=== PATIENT | female | born 1950 | race Caucasian/White ===

== ENCOUNTER 2016-05-06 15:13 | Inpatient (IN) ==
[2016-05-06 16:04] LABS: Basophils % 0.2 %; Hematocrit 29.8 % (35.3-44.9); Hemoglobin 8.7 g/dL (11.5-15.4); Immature Granulocytes % 0.7 % (0-4); Lymphocytes # 1.7 K/mcL (0.6-4.6); Mean Corpuscular HGB Conc 29.2 g/dL (31.6-35.5); Mean Corpuscular Hemoglobin 23.6 pg (28.0-33.3); Mean Platelet Volume 10.3 fL (9.4-12.4); Monocytes # 0.6 K/mcL (0.0-1.3); Monocytes % 6.2 %; Neutrophils # 7.5 K/mcL (1.6-8.9); Platelet Count 357 K/mcL (140-400); Red Blood Count 3.68 M/mcL (3.82-4.97); Red Cell Distribution Width 21.2 % (11.5-14.5); Segmented Neutrophils % 75.9 %
[2016-05-06 16:13] LABS: Albumin 2.8 g/dL (3.5-5.0); Albumin/Globulin Ratio 0.7 (1.1-2.2); Bilirubin,Total 0.5 mg/dL (0.2-1.2); Calcium 8.7 mg/dL (8.6-10.8); Globulin 4.2 g/dL (2.4-3.5); Potassium 5.3 mEq/L (3.5-4.5)
[2016-05-06 16:14] LABS: Activated Partial Thrombo Time 30.6 Seconds (26.0-36.0)
[2016-05-06 16:16] LABS: INR 1.9; Prothrombin Time 21.1 Seconds (9.4-12.1)
--- NOTE | 2016-05-06 16:23 | Emergency Department Note ---
Disposition Clinical Impression: Acute kidney injury, Hyperkalemia Disposition: Admitted As Inpatient Referrals: NO,PCP [Non-Partnered Physician] - Forms: ED Satisfaction Letter Fall HPI - General Chief Complaint: ED Fall Stated Complaint: fall Time Seen by Provider: 05/06/16 15:21 Source: patient, EMS Nursing Notes Reviewed: Yes Vital Signs Reviewed: Yes - History of Present Illness HPI Narrative: Presents her complaining of fall happened earlier today. Patient states she slipped and fall. Patient states she has been having frequent falls ever since she was diagnosed urinary tract infection. Patient has some headache but denies head injury, patient denies shortness of breath. Patient denies fevers or chills associated with this. Patient states prior to the urinary tract infection she does have problems with falls. Patient denies chest pain or shortness of breath. Patient complains of left shoulder and pain to her coccyx. - Related Data Home Medications Medication Instructions Recorded Confirmed Rivaroxaban [Xarelto] 20 mg PO DAILY 11/18/15 05/06/16 Albuterol Neb [Proventil Neb] 2.5 mg IH Q6H PRN 05/06/16 Albuterol Sulfate [Proair Hfa] 2 puff IH QID PRN 05/06/16 Ciprofloxacin HCl [Cipro] 500 mg PO BID 05/06/16 05/06/16 Cyclobenzaprine HCl 5 mg PO TID 05/06/16 05/06/16 Dicyclomine [Bentyl] 10 mg PO QID 05/06/16 05/06/16 Digoxin [Lanoxin] 0.125 mg PO DAILY 05/06/16 05/06/16 Donepezil [Aricept] 5 mg PO HS 05/06/16 05/06/16 Esomeprazole Magnesium [Nexium] 40 mg PO BID 05/06/16 05/06/16 Etodolac [Etodolac] 300 mg PO BID 05/06/16 05/06/16 Fluticasone Propionate Nasal 100 mcg NS DAILY 05/06/16 [Flonase] Furosemide [Lasix] 40 mg PO DAILY 05/06/16 05/06/16 Gabapentin [Neurontin] 400 mg PO BID 05/06/16 05/06/16 Gabapentin [Neurontin] 800 mg PO HS 05/06/16 05/06/16 HYDROcodone/Acet 5/325 mg [Rule 1 tab PO Q6H PRN 05/06/16 05/06/16 5-325 mg] LORazepam [Ativan] 1 mg PO Q8H 05/06/16 05/06/16 Latanoprost [Xalatan] 1 drop OP HS 05/06/16 05/06/16 Lisinopril 2.5 mg PO DAILY 05/06/16 Lubiprostone [Amitiza] 24 mcg PO DAILY PRN 05/06/16 05/06/16 Memantine HCl [Namenda Xr] 28 mg PO DAILY 05/06/16 05/06/16 Metformin HCl [Glucophage] 1,000 mg PO BID 05/06/16 05/06/16 Metolazone [Metolazone] 2.5 mg PO DAILY 05/06/16 05/06/16 Metoprolol XL (24 HR) Succ [Toprol 50 mg PO DAILY 05/06/16 05/06/16 XL] Nitroglycerin [Nitrostat] 0.4 mg SL Q5M PRN 05/06/16 05/06/16 Paroxetine HCl [Paxil] 40 mg PO QAM 05/06/16 05/06/16 Potassium Chloride [K-Tab ER] 20 meq PO DAILY 05/06/16 05/06/16 Promethazine HCl 12.5 mg PO Q12H PRN 05/06/16 05/06/16 Riociguat [Adempas] 1 mg PO TID 05/06/16 05/06/16 Solifenacin Succinate [Vesicare] 10 mg PO DAILY 05/06/16 05/06/16 TraZODone 50 mg PO HS 05/06/16 05/06/16 Warfarin [Coumadin] 2.5 mg PO 1800 05/06/16 05/06/16 Allergies Allergy/AdvReac Type Severity Reaction Status Date / Time Penicillins AdvReac Rash Verified 11/18/15 18:17 IVP DYE Allergy Difficulty Uncoded 11/18/15 18:17 Breathing All systems ED: reviewed and negative except as stated. Fall PMH - Past Medical History Medical history: Reports: arthritis, asthma, CHF, COPD, dementia, diabetes, fibromyalgia, GERD, hyperlipidemia, hypertension, TIA Psychiatric history: Reports: depression - Social History Smoking Status: Never smoker Alcohol use: Reports: none Drug use: Reports: none Physical Exam - General Limitations: no limitations General appearance: alert - Head Head exam: atraumatic, normocephalic, normal inspection - Eye Eye exam: Present: normal appearance, PERRL, EOMI - ENT ENT exam: normal exam, normal oropharynx, mucous membranes moist - Neck Neck exam: Present: normal inspection, full ROM, trachea midline - Chest Chest inspection: Present: normal inspection, symmetric chest wall rise - Respiratory Respiratory exam: Present: normal lung sounds bilaterally - Cardiovascular Cardiovascular exam: Present: bradycardia - Abdominal Exam Abdominal exam: Present: soft, Non-Tender. Absent: tenderness, distention, guarding, rebound, rigidity - Extremities Exam Extremities exam: Present: normal inspection, full ROM. Absent: tenderness, pedal edema - Expanded Upper Extremity Exam Shoulder exam: Present: full ROM, tenderness (Anterior portion of the left shoulder. Range of motion appears to be normal) - Back Exam Back exam: Present: normal inspection, full ROM, tenderness (Lower lumbar tenderness, no gross deformity) - Neurological Exam Neurological exam: Present: alert, oriented X3 - Psychiatric Psychiatric exam: Present: normal affect, normal mood - Skin Skin exam: Present: warm, dry, intact, normal color Course Vital Signs Temperature 0 F L 05/06/16 15:14 Pulse Rate 52 05/06/16 15:14 Respiratory Rate 18 05/06/16 15:14 Blood Pressure 116/65 05/06/16 15:14 O2 Sat by Pulse Oximetry 96 05/06/16 15:14 Temperature 0 F L 05/06/16 15:14 Pulse Rate 53 05/06/16 17:45 Respiratory Rate 16 05/06/16 17:45 Blood Pressure 116/65 05/06/16 17:45 O2 Sat by Pulse Oximetry 95 05/06/16 17:45 Fall - [facility] Narrative Medical decision making narrative: Calcium gluconate was held due to history of to digoxin use and normal serum calcium - Differential Diagnosis Likely: traumatic injury, arrhythmia - Lab Data Lab results reviewed: Yes I reviewed the patient's lab results. Result diagrams: 05/06/16 15:20 05/06/16 15:20 Lab Results 05/06/16 05/06/16 05/06/16 Range/Units 15:20 15:20 15:20 WBC 9.9 (4.3-11.1) K/mcL RBC 3.68 L (3.82-4.97) M/mcL Hgb 8.7 L (11.5-15.4) g/dL Hct 29.8 L (35.3-44.9) % MCV 81.0 L (83.0-100.0) fL MCH 23.6 L (28.0-33.3) pg MCHC 29.2 L (31.6-35.5) g/dL RDW 21.2 H (11.5-14.5) % Plt Count 357 (140-400) K/mcL MPV 10.3 (9.4-12.4) fL Immature Gran % 0.7 (0-4) % Seg Neutrophils % 75.9 % Lymphocytes % 17.0 % Monocytes % 6.2 % Eosinophils % 0.0 % Basophils % 0.2 % Neutrophils # 7.5 (1.6-8.9) K/mcL Lymphocytes # 1.7 (0.6-4.6) K/mcL Monocytes # 0.6 (0.0-1.3) K/mcL Eosinophils # 0.0 (0.0-0.6) K/mcL Basophils # 0.0 (0.0-0.2) K/mcL PT 21.1 H D (9.4-12.1) Seconds INR 1.9 D APTT 30.6 (26.0-36.0) Seconds Sodium 132 L (136-145) mEq/L Potassium 5.3 H (3.5-4.5) mEq/L Chloride 88 L (98-109) mEq/L Carbon Dioxide 26 (19-29) mEq/L BUN 62 H (7-20) mg/dL Creatinine 5.40 H (0.57-1.11) mg/dL Est GFR ( Amer) 10 L (> 60) Est GFR (Non-Af Amer) 8 L (> 60) BUN/Creatinine Ratio 11 (6-26) Glucose 344 H (70-99) mg/dL Calculated Osmolality 305 H (280-300) Calcium 8.7 (8.6-10.8) mg/dL Total Bilirubin 0.5 (0.2-1.2) mg/dL AST 8 (5-34) Units/L ALT 10 (0-55) Units/L Alkaline Phosphatase 68 (38-126) Units/L Serum Total Protein 7.0 (6.0-8.3) g/dL Albumin 2.8 L (3.5-5.0) g/dL Globulin 4.2 H (2.4-3.5) g/dL Albumin/Globulin Ratio 0.7 L (1.1-2.2) Urine Color (Yellow) Urine Clarity (Clear) Urine pH (5.0-8.0) pH Units Ur Specific [place] (1.010-1.025) Urine Protein (Neg-Trace) mg/dL Urine Glucose (UA) (Normal) mg/dL Urine Ketones (Negative) mg/dL Urine Blood (Negative) Urine Nitrite (Negative) Urine Bilirubin (Negative) Urine Urobilinogen (Normal) mg/dL Ur Leukocyte Esterase (Negative) Urine Microscopic RBC (0-3) per hpf Urine Microscopic WBC (0-3) per hpf Ur Squamous Epith Cells (None-Few) per lpf Ur Renal Epithelial Cell (None-Few) per hpf Urine Bacteria (None-Few) per hpf Hyaline Casts (None-Few) per lpf Ur Culture Indicated? (NO) 05/06/16 Range/Units 17:30 WBC (4.3-11.1) K/mcL RBC (3.82-4.97) M/mcL Hgb (11.5-15.4) g/dL Hct (35.3-44.9) % MCV (83.0-100.0) fL MCH (28.0-33.3) pg MCHC (31.6-35.5) g/dL RDW (11.5-14.5) % Plt Count (140-400) K/mcL MPV (9.4-12.4) fL Immature Gran % (0-4) % Seg Neutrophils % % Lymphocytes % % Monocytes % % Eosinophils % % Basophils % % Neutrophils # (1.6-8.9) K/mcL Lymphocytes # (0.6-4.6) K/mcL Monocytes # (0.0-1.3) K/mcL Eosinophils # (0.0-0.6) K/mcL Basophils # (0.0-0.2) K/mcL PT (9.4-12.1) Seconds INR APTT (26.0-36.0) Seconds Sodium (136-145) mEq/L Potassium (3.5-4.5) mEq/L Chloride (98-109) mEq/L Carbon Dioxide (19-29) mEq/L BUN (7-20) mg/dL Creatinine (0.57-1.11) mg/dL Est GFR ( Amer) (> 60) Est GFR (Non-Af Amer) (> 60) BUN/Creatinine Ratio (6-26) Glucose (70-99) mg/dL Calculated Osmolality (280-300) Calcium (8.6-10.8) mg/dL Total Bilirubin (0.2-1.2) mg/dL AST (5-34) Units/L ALT (0-55) Units/L Alkaline Phosphatase (38-126) Units/L Serum Total Protein (6.0-8.3) g/dL Albumin (3.5-5.0) g/dL Globulin (2.4-3.5) g/dL Albumin/Globulin Ratio (1.1-2.2) Urine Color Dark Yellow (Yellow) Urine Clarity Turbid A (Clear) Urine pH 5.0 (5.0-8.0) pH Units Ur Specific [place] 1.020 (1.010-1.025) Urine Protein 100 H (Neg-Trace) mg/dL Urine Glucose (UA) 100 H (Normal) mg/dL Urine Ketones Negative (Negative) mg/dL Urine Blood Negative (Negative) Urine Nitrite Negative (Negative) Urine Bilirubin Large H (Negative) Urine Urobilinogen Normal (Normal) mg/dL Ur Leukocyte Esterase Large H (Negative) Urine Microscopic RBC Present (0-3) per hpf Urine Microscopic WBC TNTC H (0-3) per hpf Ur Squamous Epith Cells Many H (None-Few) per lpf Ur Renal Epithelial Cell Present (None-Few) per hpf Urine Bacteria Many H (None-Few) per hpf Hyaline Casts None Seen (None-Few) per lpf Ur Culture Indicated? YES A (NO) - Radiology Data Radiology results reviewed: Yes I reviewed the patient's radiology results. Head CT 05/06/16 15:57 IMPRESSION: No acute traumatic intracranial abnormality Underlying atrophy with scattered frontal parietal white matter disease, likely due to small-vessel ischemic change D/ / Luisito Spaulding MD / Luisito Spaulding MD Interpreting Provider: Luisito Spaulding MD Lumbar Spine X-Ray 05/06/16 15:58 IMPRESSION: No acute lumbosacral abnormality. D/ / Justin Walsh MD / Justin Walsh MD Interpreting Provider: Justin Walsh MD Sacrum and Coccyx X-Ray 05/06/16 15:58 IMPRESSION: No acute lumbosacral abnormality. D/ / Justin Walsh MD / Justin Walsh MD Interpreting Provider: Justin Walsh MD Shoulder X-Ray 05/06/16 15:58 IMPRESSION: No radiographic evidence of fracture or dislocation identified. D/ / Dakotah Lundberg MD / Dakotah Lundberg MD Interpreting Provider: Dakotah Lundberg MD - EKG Data EKG attestation: Yes I reviewed and interpreted this EKG. EKG results narrative: Junctional escape rhythm Rate: bradycardia Critical Care Time Total Critical Care Time: 45 Attestation: Critical care performed: Time is exclusive of separately billable procedures. Time includes: direct patient care, patient reassessment, coordination of patient care, interpretation of data (laboratory data, radiology data, and respiratory data), review of patient's medical records, medical consultation and documentation of patient care. Procedures included in critical care time: Procedures excluded from critical care time:
[2016-05-06 17:43] LABS: Bilirubin,Urine Large (Negative); Blood,Urine Negative (Negative); Clarity,Urine Turbid (Clear); Color,Urine Dark Yellow (Yellow); Glucose,Urine (UA) 100 mg/dL (Normal); Ketones,Urine Negative (Negative); Leukocyte Esterase,Urine Large (Negative); Nitrite,Urine Negative (Negative); Protein,Urine 100 mg/dL (Neg-Trace); Urobilinogen,Urine Normal (Normal)
[2016-05-06 17:47] LABS: Bacteria,Urine Many per hpf (None-Few); Hyaline Casts,Urine None Seen per lpf (None-Few); Squamous Epithelial Cell,Urine Many per lpf (None-Few); WBC,Urine TNTC per hpf (0-3)
[2016-05-06 17:58] LABS: RBC,Urine Present per hpf (0-3); Renal Epithelial Cells,Urine Present per hpf (None-Few)
[2016-05-06] MEDS ORDERED: 0.9 % Sodium Chloride 1,000 ML IV ONE (18:19)
[2016-05-06] MEDS ORDERED: Naloxone 0.4 MG/ML INJ IVP PRN (23:22)
[2016-05-07] MEDS ORDERED: *HR* Dextrose 50 % in Water (Syg) 50 ML SYRINGE IVP PRN (00:02)
[2016-05-07] MEDS ORDERED: Dextrose Gel 15 GM PO PRN ×2 (00:02)
[2016-05-07] MEDS ORDERED: D5% in Water 1,000 ML IV PRN (00:02)
[2016-05-07] MEDS ORDERED: Nitroglycerin 0.4 MG TAB.SUBL SL PRN (00:06)
[2016-05-07] MEDS ORDERED: *HR* HYDROcodone/Acet 5/325 mg TABLET PO PRN (00:06)
[2016-05-07] MEDS ORDERED: (Lubiprostone [Amitiza] 24 MCG) PO PRN (00:06)
[2016-05-07] MEDS: *HR* LORazepam 1 MG TABLET PO SCH ×3 (00:47→15:40)
[2016-05-07] MEDS: 0.9 % Sodium Chloride 1,000 ML IVC SCH ×4 (00:48→21:48)
--- NOTE | 2016-05-07 01:18 | Internal Med History&Physical ---
Date of Encounter: 05/07/16 Time of Encounter: Assessment and Plan (1) Acute kidney injury Current visit: Yes Status: Acute Patient presents with acute kidney injury. Creatinine 5.4 today from 1.1 five days ago. BUN/Creatinine ration >10 suggests that this might be pre-renal. Also concerned for possible rhabdomyolysis with lactic acid 5.2. Patient may require evaluation by nephrology. 1. Will check CK 2. Start normal saline at 125/hr 3. Urine electrolyte studies 4. Retroperitoneal US 5. BMP in the morning to trend kidney function. 6. Avoid all nephrotoxic drugs (2) Hyperkalemia Current visit: Yes Status: Acute Patient with potassium of 5.3. She does have acute kidney injury and she also takes supplemental potassium at home. She is having junctional rhythm on EKG. 1. Will start fluids 2. Give 2amp bicarb 3. Hold supplemental potassium 4. Recheck potassium in the morning. (3) Urinary tract infection Current visit: Yes Status: Acute Patient diagnosed with UTI 5 days ago. Failed outpatient treatment with PO cipro. Urine culture grew martinez-sensitive Klebsiella. UA today had large leukocyte esterase, TNTC WBC and bacteria. Patient is afebrile; vital signs within normal limits. WBC within normal limits 1. Follow urine culture 2. IV Ceftriaxone 1gm daily 3. Continue to monitor vial signs Qualifiers: Indwelling urinary catheter type: unspecified Encounter type: subsequent encounter Qualified Code(s): T83.511D - Infection and inflammatory reaction due to indwelling urethral catheter, subsequent encounter; N39.0 - Urinary tract infection, site not specified (4) Frequent falls Current visit: Yes Status: Acute Patient presents after falling today. She reports that she has been falling "a lot" in the last few days. Falls associated with dizziness and lightheadedness. Patient uses a walker to ambulate at home. The cause of the falls is currently unknown. Patient believe it has gotten worse over the last couple days with the UTI on Cipro - which is possible. It is also possible that the falls are made worse by patient's overall disability and patient might benefit from PT/OT evaluation. Monitor patient and consider further work up into falls. 1. Monitor blood pressures to evaluate if patient might be over-medicated and contributing to falls 2. PT/OT consult 3. Consult to social work for help with discharge planning. (5) Junctional rhythm Current visit: Yes Status: Acute EKG in ED showing new junctional rhythm. Patient has a history of atrial fibrillation on digoxin. Will stop the digoxin as it could be causing the arrythmia. Patient also had an elevated potassium of 5.3. Will give patient fluids. Repeat EKG scheduled for the morning. 1. Stop digoxin 2. Normal saline at rate of 125 3. Repeat EKG in the morning. (6) Anemia Current visit: Yes Status: Acute Hemoglobin 8.7 today. On chart review, patient appears to normal run in the 9 range for hemoglobin. Patient does not report an signs of bleeding. She is hemodynamically stable. Will monitor hemoglobin. Consider iron studies for further evaluation of anemia. 1. CBC in the morning Qualifiers: Qualified Code(s): D64.9 - Anemia, unspecified (7) Lactic acid increased Current visit: Yes Status: Acute Patient with elevated lactic acid of 5.2 on admission. Unknown etiology. Patient with acute kidney injury as well as a UTI. Will trend lactic acid and monitor vital signs. 1. Trend lactic acid (8) CHF (congestive heart failure) Current visit: Yes Status: Acute Patient with a history of CHF. ECHO from 12/2015 showed EF of LVEF 60% with indeterminate diastolic function. 1. Patient was on metoprolol, lasix, metolazone lisnopril. 2. Will continue the metoprolo 3. Hold the lasix, metolazone and lisinopril due to DANIEL. 4. Measure weights daily Qualifiers: Qualified Code(s): I50.9 - Heart failure, unspecified (9) COPD (chronic obstructive pulmonary disease) Current visit: Yes Status: Acute Patient with history of COPD on albuterol 1. Continue Abluterol inhaler Qualifiers: Qualified Code(s): J44.9 - Chronic obstructive pulmonary disease, unspecified (10) Dementia Current visit: Yes Status: Acute Patient with history of dementia. Currently taking donepezil and namenda. 1. Continue both donepazil and namenda. Qualifiers: Qualified Code(s): F03.90 - Unspecified dementia without behavioral disturbance (11) Diabetes type 2, controlled Current visit: Yes Status: Acute Patient with diabetes on metformin and diabetic neuropathy on gabapentin. Blood sugar on arrival was 344. 1. Continue to monitor glucose ACHS 2. Hold the metformin due to DANIEL 3. 10 units lantus SQ daily 4. Sliding scale insulin 5. Hgb A1c 6. Gabapentin decreased for renal dosing. Qualifiers: Qualified Code(s): E11.9 - Type 2 diabetes mellitus without complications (12) Hyponatremia Current visit: Yes Status: Acute Patient with Na+ of 132. It is not as low when corrected for a glucose of 344. Will recheck sodium in the morning. 1. Sodium recheck in the morning. (13) History of atrial fibrillation Current visit: Yes Status: Acute Patient with history of atrial rhythm. Today EKG showed a new junction rhythm. Patient was taking digoxin as well as warfarin. She is currently sub- therapeutic with an INR of 1.9 1. Stop digoxin 2. Continue warfarin 3. Monitor INR for proper dosing of warfarin. (14) DVT prophylaxis Current visit: Yes Status: Acute Patient currently on warfarin. Will continue and adjust dosing for therapeutic INR. Internal Medicine - H&P: HPI Chief complaint: Fall at home, Acute kidney injury Admitted From: Home Plans for Post Hospital Care: Home History of present illness: Ms. Huang is a 65 year old female with PMH including atrial fibrilation, arthriatis, asthma, CHF, COPD, dementia, diabetes, HTN, CVA and depression who presents today after falling at home. Patient reports that she went to stand up from her chair using her walker and she felt like her legs just gave out. She reports falling on her sacrum and her left shoulder. She denies hitting her head or any LOC. Patient reports that she has been falling a lot over the last week or so; she states she fell about 5 times in the last 5 days. She believes that this is all do to a UTI. Patient was diagnosed with a UTI and given PO ciprofloxacin. Urine culture grew martinez-sensitive Klebsiella pneumonia. She reports burning with urination and increased urgency and frequency. She reports no improvement in symptoms since starting the antibiotic. On discussion it appears that patient has fallen several times in the past and her last two ER visits were for falls. With these fall she reports that sometimes she has associated dizziness and lightheadedness. Patient also reports blurry vision, occasional SOB with both rest and exertion, nausea and occasional vomiting in the mornings. Patient denies MARTINEZ, chest pain or pressure, palpitations, abdominal pain, diarrhea/constipation or blood in urine or stool. In our ED, vital signs showed a heart rate in the the 50s with a blood pressure 110-120/60s. EKG showed a new junctional rhythm. X-rays done of lumbar spine, sacrum & coccyx and left shoulder were negative, as was her head CT. Labs revealed anemia with a Hgb of 8.7. She had acute kidney injury with a creatinine of 5.4 (from 1.1 five days ago) and electrolyte abnormalities with a Na of 132 and potassium of 5.3. Lactic acid was 5.2. Urine analysis today showed protein, glucose, bilirubin, large leukocyte esterase, TNTC WBC and bacteria. Patient was given a 1L bolus and 1gm ceftriaxone IV. On exam, patient was awake and alert, conversing appropriately. EOM intact with pupils equal and reactive. Heart was regular rhythm. Lungs clear to auscultation BL. Patient has some swelling BL legs, left worse than worse. Motor and sensation grossly intact. Past Med Surg Social Fam HX - Past Medical History Medical history: arthritis, asthma, CHF, COPD, dementia, diabetes, fibromyalgia , GERD, hyperlipidemia, hypertension, TIA Psychiatric history: anxiety, depression - Past Surgical History Surgical History: hysterectomy - Social History Smoking Status: Never smoker Smokeless Tobacco Status: No Alcohol use: none Drug use: none - Family History Father Hx Family Cardiac Disorders: Yes Sister Hx Family Cardiac Disorders: Yes Internal Medicine - H&P: Meds Rivaroxaban [Xarelto] 20 mg PO DAILY 11/18/15 [History] Albuterol Neb [Proventil Neb] 2.5 mg IH Q6H PRN 05/06/16 [History] Albuterol Sulfate [Proair Hfa] 2 puff IH QID PRN 05/06/16 [History] Ciprofloxacin HCl [Cipro] 500 mg PO BID 05/06/16 [History] Cyclobenzaprine HCl 5 mg PO TID 05/06/16 [History] Dicyclomine [Bentyl] 10 mg PO QID 05/06/16 [History] Digoxin [Lanoxin] 0.125 mg PO DAILY 05/06/16 [History] Donepezil [Aricept] 5 mg PO HS 05/06/16 [History] Esomeprazole Magnesium [Nexium] 40 mg PO BID 05/06/16 [History] Etodolac [Etodolac] 300 mg PO BID 05/06/16 [History] Fluticasone Propionate Nasal [Flonase] 100 mcg NS DAILY 05/06/16 [History] Furosemide [Lasix] 40 mg PO DAILY 05/06/16 [History] Gabapentin [Neurontin] 400 mg PO BID 05/06/16 [History] Gabapentin [Neurontin] 800 mg PO HS 05/06/16 [History] HYDROcodone/Acet 5/325 mg [[place] 5-325 mg] 1 tab PO Q6H PRN 05/06/16 [History] LORazepam [Ativan] 1 mg PO Q8H 05/06/16 [History] Latanoprost [Xalatan] 1 drop OP HS 05/06/16 [History] Lisinopril 2.5 mg PO DAILY 05/06/16 [History] Lubiprostone [Amitiza] 24 mcg PO DAILY PRN 05/06/16 [History] Memantine HCl [Namenda Xr] 28 mg PO DAILY 05/06/16 [History] Metformin HCl [Glucophage] 1,000 mg PO BID 05/06/16 [History] Metolazone [Metolazone] 2.5 mg PO DAILY 05/06/16 [History] Metoprolol XL (24 HR) Succ [Toprol XL] 50 mg PO DAILY 05/06/16 [History] Nitroglycerin [Nitrostat] 0.4 mg SL Q5M PRN 05/06/16 [History] Paroxetine HCl [Paxil] 40 mg PO QAM 05/06/16 [History] Potassium Chloride [K-Tab ER] 20 meq PO DAILY 05/06/16 [History] Promethazine HCl 12.5 mg PO Q12H PRN 05/06/16 [History] Riociguat [Adempas] 1 mg PO TID 05/06/16 [History] Solifenacin Succinate [Vesicare] 10 mg PO DAILY 05/06/16 [History] TraZODone 50 mg PO HS 05/06/16 [History] Warfarin [Coumadin] 2.5 mg PO 1800 05/06/16 [History] Allergies Penicillins Adverse Reaction (Verified 11/18/15 18:17) Rash IVP DYE Allergy (Uncoded 11/18/15 18:17) Difficulty Breathing All Systems PM: A 10-system review of systems was performed and is negative for pertinent findings except as documented above in the HPI. - Constitutional Constitutional: falls, weakness, no chills, no fever(s) - EENT Eyes: blurry vision, no loss of vision - Cardiovascular Cardiovascular ROS IM: dyspnea, edema, no chest pain, no irregular heart rhythm , no palpitations, no syncope - Respiratory Respiratory: dyspnea, no cough, no wheezing, no chest congestion - Gastrointestinal Gastrointestinal: nausea, vomiting, no abdominal pain, no constipation, no diarrhea, no hematochezia, no melena - Genitourinary Genitourinary: dysuria, urinary frequency, urinary urgency - Neurological Neurological ROS: no confusion, no headache(s) - Constitutional Vitals: Temp Pulse Resp BP Pulse Ox 97.7 F 48 16 145/73 100 05/06/16 21:54 05/06/16 21:54 05/06/16 21:54 05/06/16 21:54 05/06/16 21:54 General appearance: Present: A&O X 3, no acute distress, obese, answers questions appropriately - Head Head exam: Present: atraumatic, normal inspection, normocephalic - Eye Eye exam: Present: EOMI, normal appearance, PERRL - ENT ENT exam: Present: mucous membranes moist - Respiratory Respiratory exam: Present: CTAB. Absent: prolonged expiratory phase, respiratory distress, wheezes - Cardiovascular Cardiovascular exam: Present: RRR - GI/Abdominal GI/Abdominal exam: Present: soft. Absent: guarding, rebound, tenderness - Extremities Exam Extremities exam: Present: pedal edema. Absent: tenderness, warm - Neurological Exam Neurological exam: Present: alert, CN II-XII intact, oriented X3, no focal deficits Internal Med - H&P Results - Labs CBC & Chem 7: 05/06/16 15:20 05/07/16 02:04 - VTE Reasons for not Prescribing Prophylaxis: Not indicated-Anticoagulated or INR therapeutic
[2016-05-07 02:36] LABS: INR 1.8; Prothrombin Time 19.6 Seconds (9.4-12.1)
[2016-05-07 02:43] LABS: Calcium 7.8 mg/dL (8.6-10.8); Potassium 5.2 mEq/L (3.5-4.5)
[2016-05-07] MEDS: Insulin LISPRO 300 UNITS/3 ML VIAL SQ SCH ×4 (08:36→22:01)
[2016-05-07] MEDS ORDERED: Gabapentin 300 MG CAPSULE PO SCH (09:00)
[2016-05-07] MEDS ORDERED: NON-FORMULARY MEDICATION 1 EACH EACH (Rivaroxaban [Xarelto] 20 MG) PO SCH (09:00)
[2016-05-07] MEDS ORDERED: Metoprolol XL (24 HR) Succ 50 MG TAB.ER.24H PO SCH (09:00)
[2016-05-07] MEDS ORDERED: (Memantine Hcl [Namenda Xr] 28 MG) PO SCH (09:00)
--- NOTE | 2016-05-07 11:27 | Nephrology Consult Note ---
Date of Encounter: 05/07/16 Time of Encounter: 11:25 Assessment and Plan (1) Acute kidney injury Current Visit: Yes Status: Acute Patient has acute kidney injury in the setting of probable volume depletion and hypotension and persistent urinary tract infection. Post renal obstruction needs to be ruled out. She also may have a neurogenic bladder related to long- standing diabetes. Renal ultrasound has been ordered. Patient is currently on antibiotics. She should continue on IV fluids. She has lactic acidosis related to metformin in the setting of acute kidney injury. The metformin she remain on hold. (2) Anemia Current Visit: Yes Status: Acute Qualifiers: Anemia type: unspecified type Qualified Code(s): D64.9 - Anemia, unspecified (3) Frequent falls Current Visit: Yes Status: Acute (4) History of atrial fibrillation Current Visit: Yes Status: Acute (5) Lactic acid increased Current Visit: Yes Status: Acute (6) Urinary tract infection Current Visit: Yes Status: Acute Qualifiers: Indwelling urinary catheter type: unspecified Encounter type: subsequent encounter Qualified Code(s): T83.511D - Infection and inflammatory reaction due to indwelling urethral catheter, subsequent encounter; N39.0 - Urinary tract infection, site not specified History of Present Illness - History of Present Illness This is a 65-year-old female who is admitted with a one-week history of frequent falls. Patient was noted to have acute kidney injury with a creatinine of 5.35. Previous creatinine values have been normal. She was recently started on an antibiotic for a Klebsiella urinary tract infection as an outpatient. Her urinalysis continues to show evidence of a UTI. She presented with a lactic acidosis in the setting of metformin and acute kidney injury. She is relatively hypotensive and also noted to have a junctional heart rhythm. She denies any use of nonsteroidal anti-inflammatory medications. She has a history of diabetes for over 10 years. She says she does experience some difficulty in emptying her bladder. She says she gets frequent urinary tract infections but is unable to give any indication is to how often. Currently she has been maintained on IV fluids. Renal ultrasound has been ordered but results are pending. A Moss catheter has been placed. Past Med Surg Social Fam HX - Past Medical History Medical history: arthritis, asthma, CHF, COPD, dementia, diabetes, fibromyalgia , GERD, hyperlipidemia, hypertension, TIA Psychiatric history: anxiety, depression - Past Surgical History Surgical History: hysterectomy - Social History Smoking Status: Never smoker Smokeless Tobacco Status: No Alcohol use: none Drug use: none - Family History Father Hx Family Cardiac Disorders: Yes Sister Hx Family Cardiac Disorders: Yes Medications and Allergies Albuterol Neb [Proventil Neb] 2.5 mg IH Q6H PRN 05/06/16 [History] Albuterol Sulfate [Proair Hfa] 2 puff IH QID PRN 05/06/16 [History] Ciprofloxacin HCl [Cipro] 500 mg PO BID 05/06/16 [History] Cyclobenzaprine HCl 5 mg PO TID 05/06/16 [History] Dicyclomine [Bentyl] 10 mg PO QID 05/06/16 [History] Digoxin [Lanoxin] 0.125 mg PO DAILY 05/06/16 [History] Donepezil [Aricept] 5 mg PO HS 05/06/16 [History] Esomeprazole Magnesium [Nexium] 40 mg PO BID 05/06/16 [History] Etodolac [Etodolac] 300 mg PO BID 05/06/16 [History] Fluticasone Propionate Nasal [Flonase] 100 mcg NS DAILY 05/06/16 [History] Furosemide [Lasix] 40 mg PO DAILY 05/06/16 [History] Gabapentin [Neurontin] 400 mg PO BID 05/06/16 [History] Gabapentin [Neurontin] 800 mg PO HS 05/06/16 [History] HYDROcodone/Acet 5/325 mg [[place] 5-325 mg] 1 tab PO Q6H PRN 05/06/16 [History] LORazepam [Ativan] 1 mg PO Q8H 05/06/16 [History] Latanoprost [Xalatan] 1 drop OP HS 05/06/16 [History] Lisinopril 2.5 mg PO DAILY 05/06/16 [History] Lubiprostone [Amitiza] 24 mcg PO DAILY PRN 05/06/16 [History] Memantine HCl [Namenda Xr] 28 mg PO DAILY 05/06/16 [History] Metformin HCl [Glucophage] 1,000 mg PO BID 05/06/16 [History] Metolazone [Metolazone] 2.5 mg PO DAILY 05/06/16 [History] Metoprolol XL (24 HR) Succ [Toprol XL] 50 mg PO DAILY 05/06/16 [History] Nitroglycerin [Nitrostat] 0.4 mg SL Q5M PRN 05/06/16 [History] Paroxetine HCl [Paxil] 40 mg PO QAM 05/06/16 [History] Potassium Chloride [K-Tab ER] 20 meq PO DAILY 05/06/16 [History] Promethazine HCl 12.5 mg PO Q12H PRN 05/06/16 [History] Riociguat [Adempas] 1 mg PO TID 05/06/16 [History] Solifenacin Succinate [Vesicare] 10 mg PO DAILY 05/06/16 [History] TraZODone 50 mg PO HS 05/06/16 [History] Warfarin [Coumadin] 2.5 mg PO 1800 05/06/16 [History] Allergies Penicillins Adverse Reaction (Verified 11/18/15 18:17) Rash IVP DYE Allergy (Uncoded 11/18/15 18:17) Difficulty Breathing Review of Systems Constitutional: weakness Eyes: bilateral: blurred vision (patient denies), diplopia (patient denies) Nose, mouth and throat: no dizziness, no headache(s) Cardiovascular: no chest pain, no palpitations Respiratory: dyspnea on exertion, no cough, no dyspnea Gastrointestinal: no abdominal pain, no change in bowel habits Musculoskeletal: no muscle weakness, no numbness Integumentary: no hirsutism, no striae Neurological: as per HPI, weakness Psychiatric: no depression, no difficulty concentrating Endocrine: as per HPI Hematologic/Lymphatic: no easy bruising, no lymphadenopathy Exam - Vital Signs Vital signs: Initial Vital Signs Temp Pulse Resp BP Pulse Ox 0 F L 52 18 116/65 96 05/06/16 15:14 05/06/16 15:14 05/06/16 15:14 05/06/16 15:14 05/06/16 15:14 Vital Signs - Last 8 Hours Temp Pulse Resp BP Pulse Ox 05/07/16 10:44 98.6 F 51 16 132/75 97 05/07/16 07:10 98.2 F 50 18 121/46 100 05/07/16 04:20 98.5 F 50 20 120/51 92 L Intake and Output 02/15/17 02/16/17 02/16/17 23:59 07:59 15:59 Intake Total 0 / 0 1120 / 1120 Balance 0 / 0 1120 / 1120 Intake: IV Fluids 1000 / 1000 0.9 % Sodium Chloride 1, 1000 / 1000 000 ML @ 125 mls/hr IVC . Q8H [facility] Rx#:[id number] Oral 0 / 0 120 / 120 Other: Meal Breakfast Percent of Meal Consumed 20% Blood Glucose* 207 - General Appearance Exam: Patient is somewhat somnolent. She does awaken to verbal stimuli. She is in no acute distress. Neck is supple. Lungs diminished breath sounds anteriorly otherwise clear. Heart irregular rate and rhythm. Abdomen shows normal bowel sounds are present masses in the megaly or tenderness. Motor examination shows some nonpitting lower extremity swelling. A Moss catheters in place. Peripheral IV is in place. Results - Lab Results 05/06/16 15:20 05/07/16 02:04 Most recent lab results Calcium 7.8 mg/dL (8.6-10.8) L 05/07/16 02:04 Phosphorus 5.6 mg/dL (2.3-4.7) H 05/07/16 02:04 Consult Discharge Plan - Plan Referrals: Marito Mary MD [Primary Care Provider] -
[2016-05-07] MEDS ORDERED: Albuterol 2.5 MG/3 ML NEBULIZER IH PRN (12:54)
--- NOTE | 2016-05-07 15:41 | Internal Med Progress Note ---
Date of Encounter: 05/07/16 Time of Encounter: 12:00 - Assessment and plan (1) Acute kidney injury Current Visit: Yes Status: Acute Assessment and plan: Nephrology consulted. Renal function remains essentially unchanged. We will continue to monitor renal function and input and output. Moderate risk for complications. (2) Anemia Current Visit: Yes Status: Suspected Assessment and plan: Microcytic anemia. Likely with underlying iron deficiency. Will check iron levels, folic acid and B12 levels, stool for occult blood. Qualifiers: Anemia type: iron deficiency Qualified Code(s): D50.8 - Other iron deficiency anemias (3) CHF (congestive heart failure) Current Visit: Yes Status: Chronic Assessment and plan: Not in acute exacerbation. Holding diuretics for now due to acute kidney injury. Continue metoprolol. Qualifiers: Congestive heart failure type: diastolic Congestive heart failure chronicity: chronic Qualified Code(s): I50.32 - Chronic diastolic (congestive ) heart failure (4) Dementia Current Visit: Yes Status: Acute Assessment and plan: On Aricept and Namenda. Continue these medications. Qualifiers: Dementia type: unspecified type Dementia behavioral disturbance: without behavioral disturbance Qualified Code(s): F03.90 - Unspecified dementia without behavioral disturbance (5) Frequent falls Current Visit: Yes Status: Acute Assessment and plan: Consult physical therapy and will await recommendations. (6) History of atrial fibrillation Current Visit: Yes Status: Acute Assessment and plan: Rate controlled. Patient having is not dramatic bradycardia. We will decrease metoprolol to 25 mg by mouth daily. (7) Hyperkalemia Current Visit: Yes Status: Acute Assessment and plan: Potassium is 5.2. Continue cardiac monitoring. IV hydration. due to acute kidney injury. (8) Hypertension Current Visit: Yes Status: Acute Assessment and plan: Blood pressure is well controlled. Continue metoprolol Qualifiers: Hypertension type: essential hypertension Qualified Code(s): I10 - Essential (primary) hypertension (9) Hyponatremia Current Visit: Yes Status: Acute Assessment and plan: Stable. Likely hypovolemic hyponatremia. (10) Lactic acid increased Current Visit: Yes Status: Acute Assessment and plan: Improving. Likely due to combination of acute kidney injury and dehydration. (11) Urinary tract infection Current Visit: Yes Status: Acute Assessment and plan: On ceftriaxone. Continue for now. We will follow culture results. Qualifiers: Urinary tract infection type: acute cystitis Hematuria presence: without hematuria Qualified Code(s): N30.00 - Acute cystitis without hematuria (12) DVT prophylaxis Current Visit: Yes Status: Acute Assessment and plan: On Coumadin (13) Diabetes Current Visit: Yes Status: Acute Assessment and plan: On diabetic diet and sliding scale insulin. We will increase sliding scale coverage. Qualifiers: Diabetes mellitus type: type 2 Diabetes mellitus complication status: with hyperglycemia Diabetes mellitus exterminator termite insulin use: without exterminator termite use Qualified Code(s): E11.65 - Type 2 diabetes mellitus with hyperglycemia - Subjective Interval history: Patient is feeling better today. She is lying in bed and appears comfortable. Denies any shortness of breath. No chest pain. No lower extremity or abdominal pain. - Constitutional Vitals: Temp Pulse Resp BP Pulse Ox 98.6 F 51 16 132/75 97 05/07/16 10:44 05/07/16 10:44 05/07/16 10:44 05/07/16 10:44 05/07/16 10:44 General appearance: Present: cooperative, mild distress, A&O X 3, no acute distress, obese, answers questions appropriately - Respiratory Respiratory exam: Present: CTAB. Absent: accessory muscle use, rales, rhonchi, wheezes - Cardiovascular Cardiovascular exam: Present: irregular rhythm, +S1, +S2. Absent: diastolic murmur, gallop, rubs, systolic murmur - GI/Abdominal GI/Abdominal exam: Present: normal bowel sounds, soft, no peritoneal signs. Absent: distended, tenderness - Extremities Exam Extremities exam: Present: warm, radial pulses palpable and symetrical. Absent : calf tenderness, cyanotic, pedal edema Internal Medicine: Result - Labs CBC & Chem 7: 05/06/16 15:20 05/07/16 02:04 Labs: BMP 05/07/16 02:04 Sodium 131 L Potassium 5.2 H Chloride 88 L Carbon Dioxide 29 BUN 60 H Creatinine 5.35 H Glucose 244 H Calcium 7.8 L - ABG Interpretation ABG results: PT/INR, D-dimer PT 19.6 Seconds (9.4-12.1) H 05/07/16 02:04 - Impressions Impressions Retroperitoneum Ultrasound 05/07/16 14:00 IMPRESSION: 1. No hydronephrosis. 2. Mild hepatic steatosis. D/ / Gris Dawson MD / Gris Dawson MD Interpreting Provider: Gris Dawson MD - VTE Reasons for not Prescribing Prophylaxis: Not indicated-Anticoagulated or INR therapeutic Consult Discharge Plan - Plan Referrals: Marito Mary MD [Primary Care Provider] - - Attending Attestation This document has been at least partially created by fotopedia recognition technology by Dr. Mace. Errors in grammar, wording or other phrases may exist. If errors are found after the documentation is signed, they will be addressed individually in the addendum section of this document when appropriate.
[2016-05-07] MEDS: *HR* Warfarin 2.5 MG TABLET PO SCH (17:03)
--- NOTE | 2016-05-07 19:50 | Electrocardiograph Report ---
[place] [id number] Test Date: 2016-05-06 Pat Name: Petra Huang Department: 103 Room: 2A32 Gender: F [facility] Teacher: : 1950 Requested By: Jose Barahona Order Number: [id number] Reading MD: Alfredo Ramirez Measurements Intervals Mcpherson Rate: 52 P: MD: 0 QRS: 37 QRSD: 102 T: 63 QT: 420 QTc: 400 Interpretive Statements ATRIAL FIBRILLATION WITH SLOW VENTRICULAR RESPONSE LOW QRS VOLTAGE IN PRECORDIAL LEADS INCOMPLETE RIGHT BUNDLE BRANCH BLOCK Electronically Signed On 05-07-2016 19:48:31 EST by Alfredo Ramirez
[2016-05-07] MEDS ORDERED: Insulin LISPRO 300 UNITS/3 ML VIAL SQ SCH (21:00)
[2016-05-07] MEDS: traZODone 50 MG TABLET PO SCH (21:45)
[2016-05-07] MEDS: Gabapentin 300 MG CAPSULE PO SCH (21:45)
[2016-05-07] MEDS: Latanoprost 2.5 ML BOTTLE BOTH EYES SCH (22:00)
[2016-05-07] MEDS: Insulin DETEMIR 100 UNIT/ML X5UNITS SQ SCH (22:01)
[2016-05-08] MEDS: *HR* LORazepam 1 MG TABLET PO SCH ×3 (00:20→14:01)
[2016-05-08] MEDS: 0.9 % Sodium Chloride 1,000 ML IVC SCH ×3 (05:50→22:42)
[2016-05-08 06:21] LABS: INR 1.5; Prothrombin Time 16.4 Seconds (9.4-12.1)
[2016-05-08 06:28] LABS: Calcium 7.5 mg/dL (8.6-10.8); Potassium 4.5 mEq/L (3.5-4.5)
[2016-05-08 08:29] LABS: Thyroid Stimulating Hormone 3.093 mcIU/mL (0.350-4.840)
[2016-05-08] MEDS: Insulin LISPRO 300 UNITS/3 ML VIAL SQ SCH ×4 (08:34→21:08)
[2016-05-08] MEDS ORDERED: Metoprolol XL (24 HR) Succ 25 MG TAB.ER.24H PO SCH (09:00)
--- NOTE | 2016-05-08 09:30 | Nephrology Progress Note ---
Date of Encounter: 05/08/16 Time of Encounter: 09:28 - Assessment and Plan (1) Acute kidney injury Current Visit: Yes Status: Acute Patient has acute kidney injury which is improving with administration of IV fluids. Renal ultrasound shows no hydronephrosis. Lactic acidosis related to metformin is improving as well. I will continue the IV fluids for at least another 24 hours. Once her Moss catheter is discontinued we should check a post void bladder scan to make sure she is emptying her bladder normally. (2) Anemia Current Visit: Yes Status: Suspected Qualifiers: Anemia type: iron deficiency Qualified Code(s): D50.8 - Other iron deficiency anemias (3) Frequent falls Current Visit: Yes Status: Acute (4) History of atrial fibrillation Current Visit: Yes Status: Acute (5) Lactic acid increased Current Visit: Yes Status: Acute (6) Urinary tract infection Current Visit: Yes Status: Acute Qualifiers: Urinary tract infection type: acute cystitis Hematuria presence: without hematuria Qualified Code(s): N30.00 - Acute cystitis without hematuria Subjective Interval history: The patient is more alert today. She says she is feeling better. Serum creatinine has come down to 4.75 from 5.35. Urine output is recorded is only 375 mL yesterday. Lactic acidosis has resolved. Renal ultrasound was unremarkable. Moss catheter remains in place. She continues on IV fluids. Objective - Vital Signs Vital signs: Vital Signs Temp Pulse Resp BP Pulse Ox 05/08/16 07:18 97.0 F L 44 16 110/55 100 05/08/16 03:34 97.4 F L 51 18 119/68 98 05/07/16 22:04 97 05/07/16 19:38 98.5 F 48 18 114/62 100 05/07/16 16:27 98.3 F 55 16 116/58 98 05/07/16 10:44 98.6 F 51 16 132/75 97 Intake and Output 05/07/16 05/08/16 05/08/16 23:59 07:59 15:59 Intake Total 1100 / 1100 1600 / 1600 Output Total 375 / 375 400 / 400 300 / 300 Balance 725 / 725 1200 / 1200 -300 / -300 Intake: IV Fluids 1100 / 1100 1000 / 1000 0.9 % Sodium Chloride 1, 1000 / 1000 1000 / 1000 000 ML @ 125 mls/hr IVC . Q8H [facility] Rx#:[id number] Rocephin 1,000 MG In 100 / 100 Dextrose 5% (Minibag+) 100 ML 100 ML @ 200 mls/ hr IVPB Q24H [facility] Rx#: [id number] Oral 600 / 600 Output: Catheter 375 / 375 400 / 400 300 / 300 Other: Weight 129.274 kg Blood Glucose* 170 172 Patient Weight 05/08/16 23:59 Weight 129.274 kg - General Appearance Exam: Patient is more alert today. Lungsbreath sounds otherwise clear. Heart irregular rate and rhythm consistent with atrial fibrillation. Abdomen is benign. There is mild lower extremity swelling with some erythema of the pretibial areas. Moss catheter is in place. Maintenance IV is running at 125 mL per hour. - Lab 05/06/16 15:20 05/08/16 05:49 Most recent lab results Calcium 7.5 mg/dL (8.6-10.8) L 05/08/16 05:49 Phosphorus 5.6 mg/dL (2.3-4.7) H 05/07/16 02:04 - VTE Reasons for not Prescribing Prophylaxis: Not indicated-Anticoagulated or INR therapeutic Consult Discharge Plan - Plan Referrals: Marito Mary MD [Primary Care Provider] -
--- NOTE | 2016-05-08 12:04 | Cardiology Consult Note ---
<Ashish Boudreaux R - Last Filed: 05/08/16 14:06> Date of Encounter: 05/08/16 Time of Encounter: 12:04 Assessment and Plan (1) Atrial fibrillation with slow ventricular response Current Visit: Yes Status: Acute Known hx of A-Fib, previously on digoxin and Toprol XL for rate control. Presented to ED in junctional rhythm, HR on EKG 38. Hyperkalemic on admission and with DANIEL. TSH normal. AV darrion blockers held. Dig level 2.0. HR currently 40s-50s at bedside. 24 hour tele AVG HR 45, minimum 34. Pt reports occasional dizziness/lightheadedness, but none currently. Pt denies syncope. Recent echo 12/2015 showed preserved EF. Recommend continuing to monitor off AV darrion blockers. No urgent indication for PPM. Recommend close outpt follow-up with Dr. Dawson. Anticoagulated on Coumadin, INR subtherapeutic 1.5. Dosing per pharmacy. Frequent falls prior to admission that pt attributes to UTI. If falling continues, will need to re-evaluate if anticoagulation is appropriate. EKG ordered. Will review. Consider sign off later today. (2) Junctional rhythm Current Visit: Yes Status: Acute EKG in ED showed junctional rhythm, now appears to be A-Fib. Was hyperkalemic on presentation, now resolved. Hold AV darrion blockers. (3) Acute kidney injury Current Visit: Yes Status: Acute Improving. Nephrology managing. (4) Anemia Current Visit: Yes Status: Suspected Hemoglobin 8.7 today. On chart review, patient appears to normal run in the 9 range for hemoglobin. Patient does not report an signs of bleeding. Continue to monitor. Qualifiers: Anemia type: iron deficiency Qualified Code(s): D50.8 - Other iron deficiency anemias Discussion w patient/family: The assessment and plan as outlined above was discussed with the patient and/or family members who expressed understanding and agreement. All questions were answered. Thank you for involving us in the care of your patient. Please call with any questions. I will discuss all the above with Dr. Martin and make changes as necessary. History of Present Illness Consult date: 05/08/16 Requesting physician: Jaguar Mace Consult reason: Rodri Chief complaint: falls History of present illness: Ms. Huang is a 65 year old female with PMH of atrial fibrilation on Coumadin, arthritis, asthma, CHF, COPD, dementia, diabetes, HTN, CVA and depression who presented after falling at home. She denies syncope. Patient reports that she has been falling a lot over the last week or so; she states she fell about 5 times in the last 5 days. She believes that this is all do to a UTI. Patient was diagnosed with a UTI and given PO ciprofloxacin. Urine culture grew martinez- sensitive Klebsiella pneumonia. Associated dizziness and lightheadedness. Patient also reports blurry vision, occasional SOB with both rest and exertion, nausea and occasional vomiting in the mornings. Patient denies chest pain. EKG showed a new junctional rhythm. Labs revealed anemia with a Hgb of 8.7. She had acute kidney injury with a creatinine of 5.4 (from 1.1 five days ago) and electrolyte abnormalities with a Na of 132 and potassium of 5.3. Lactic acid was 5.2. Pt was on Digoxin and Toprol at home, which have since been stopped. Digoxin level 2.0. Past Med Surg Social Fam HX - Past Medical History Medical history: arthritis, asthma, CHF, COPD, dementia, diabetes, fibromyalgia , GERD, hyperlipidemia, hypertension, TIA Psychiatric history: anxiety, depression - Past Surgical History Surgical History: hysterectomy - Social History Smoking Status: Never smoker Smokeless Tobacco Status: No Alcohol use: none Drug use: none - Family History Father Hx Family Cardiac Disorders: Yes Sister Hx Family Cardiac Disorders: Yes Medications and Allergies Albuterol Neb [Proventil Neb] 2.5 mg IH Q6H PRN 05/06/16 [History] Albuterol Sulfate [Proair Hfa] 2 puff IH QID PRN 05/06/16 [History] Ciprofloxacin HCl [Cipro] 500 mg PO BID 05/06/16 [History] Cyclobenzaprine HCl 5 mg PO TID 05/06/16 [History] Dicyclomine [Bentyl] 10 mg PO QID 05/06/16 [History] Digoxin [Lanoxin] 0.125 mg PO DAILY 05/06/16 [History] Donepezil [Aricept] 5 mg PO HS 05/06/16 [History] Esomeprazole Magnesium [Nexium] 40 mg PO BID 05/06/16 [History] Etodolac [Etodolac] 300 mg PO BID 05/06/16 [History] Fluticasone Propionate Nasal [Flonase] 100 mcg NS DAILY 05/06/16 [History] Furosemide [Lasix] 40 mg PO DAILY 05/06/16 [History] Gabapentin [Neurontin] 400 mg PO BID 05/06/16 [History] Gabapentin [Neurontin] 800 mg PO HS 05/06/16 [History] HYDROcodone/Acet 5/325 mg [[place] 5-325 mg] 1 tab PO Q6H PRN 05/06/16 [History] LORazepam [Ativan] 1 mg PO Q8H 05/06/16 [History] Latanoprost [Xalatan] 1 drop OP HS 05/06/16 [History] Lisinopril 2.5 mg PO DAILY 05/06/16 [History] Lubiprostone [Amitiza] 24 mcg PO DAILY PRN 05/06/16 [History] Memantine HCl [Namenda Xr] 28 mg PO DAILY 05/06/16 [History] Metformin HCl [Glucophage] 1,000 mg PO BID 05/06/16 [History] Metolazone [Metolazone] 2.5 mg PO DAILY 05/06/16 [History] Metoprolol XL (24 HR) Succ [Toprol XL] 50 mg PO DAILY 05/06/16 [History] Nitroglycerin [Nitrostat] 0.4 mg SL Q5M PRN 05/06/16 [History] Paroxetine HCl [Paxil] 40 mg PO QAM 05/06/16 [History] Potassium Chloride [K-Tab ER] 20 meq PO DAILY 05/06/16 [History] Promethazine HCl 12.5 mg PO Q12H PRN 05/06/16 [History] Riociguat [Adempas] 1 mg PO TID 05/06/16 [History] Solifenacin Succinate [Vesicare] 10 mg PO DAILY 05/06/16 [History] TraZODone 50 mg PO HS 05/06/16 [History] Warfarin [Coumadin] 2.5 mg PO 1800 05/06/16 [History] Allergies Penicillins Adverse Reaction (Verified 11/18/15 18:17) Rash IVP DYE Allergy (Uncoded 11/18/15 18:17) Difficulty Breathing All Systems Review: A 10-system review of systems was performed and is negative for pertinent findings except as documented above in the HPI. - Constitutional Constitutional: frequent falls, weakness - Cardiovascular Cardiovascular: as per HPI, dyspnea at rest, dyspnea on exertion, lightheadedness - Respiratory Respiratory: dyspnea - Genitourinary Genitourinary: dysuria Physical Examination Vital Signs, Last 4 Hours Temp Pulse Resp BP Pulse Ox 05/08/16 10:59 98.6 F 49 18 125/54 100 05/08/16 08:30 100 Vital Signs Temp Pulse Resp BP Pulse Ox 05/08/16 10:59 98.6 F 49 18 125/54 100 05/08/16 08:30 100 05/08/16 07:18 97.0 F L 44 16 110/55 100 05/08/16 03:34 97.4 F L 51 18 119/68 98 05/07/16 22:04 97 05/07/16 19:38 98.5 F 48 18 114/62 100 05/07/16 16:27 98.3 F 55 16 116/58 98 Intake and Output 05/07/16 05/08/16 05/08/16 23:59 07:59 15:59 Intake Total 1100 / 1100 1600 / 1600 120 / 120 Output Total 375 / 375 400 / 400 300 / 300 Balance 725 / 725 1200 / 1200 -180 / -180 Intake: IV Fluids 1100 / 1100 1000 / 1000 0.9 % Sodium Chloride 1, 1000 / 1000 1000 / 1000 000 ML @ 125 mls/hr IVC . Q8H [facility] Rx#:[id number] Rocephin 1,000 MG In 100 / 100 Dextrose 5% (Minibag+) 100 ML 100 ML @ 200 mls/ hr IVPB Q24H [facility] Rx#: [id number] Oral 600 / 600 120 / 120 Output: Urine 0 / 0 Catheter 375 / 375 400 / 400 300 / 300 Other: Meal Breakfast Percent of Meal Consumed 25% Weight 129.274 kg Blood Glucose* 170 229 Patient Weight 05/08/16 23:59 Weight 129.274 kg General: Conversant, No Apparent Distress HEENT: Atraumatic, Normocephaly, Mucus Membranes Moist Neck: No JVD, Normal carotid pulses Cardiac: Other (irregularly irregular) Lungs: Normal Breath Sounds, No Wheeze, Rales, Rhonchi Neuro: Alert and responsive, No focal deficits noted Abdomen: Soft, Non-Tender Skin: No rashes noted on visualized skin Musculoskeletal: No Chest Wall Tenderness Extremities: Other (Trace BLE edema, L>R, pt reports chronic) Results 05/06/16 15:20 05/08/16 05:49 Lab Results 05/08/16 05/08/16 05/08/16 05:49 05:49 07:45 INR 1.5 Sodium 137 Potassium 4.5 Chloride 96 L Carbon Dioxide 29 BUN 84 H D Creatinine 4.75 H Glucose 150 H Calcium 7.5 L TSH 3.093 BMP 05/08/16 Range/Units 05:49 Sodium 137 (136-145) mEq/L Potassium 4.5 (3.5-4.5) mEq/L Chloride 96 L (98-109) mEq/L Carbon Dioxide 29 (19-29) mEq/L BUN 84 H D (7-20) mg/dL Creatinine 4.75 H (0.57-1.11) mg/dL Glucose 150 H (70-99) mg/dL Calcium 7.5 L (8.6-10.8) mg/dL Impressions Retroperitoneum Ultrasound 05/07/16 14:00 IMPRESSION: 1. No hydronephrosis. 2. Mild hepatic steatosis. D/ / Gris Dawson MD / Gris Dawson MD Interpreting Provider: Girs Dawson MD Active Medications Acetaminophen (Tylenol) 650 mg PO Q6HR PRN PRN Reason: Mild Pain (1-3) Stop: 11/05/16 23:23 Acetaminophen/Hydrocodone Bitart ([place] 5-325 Mg) 1 tab PO Q6H PRN PRN Reason: Severe Pain (7-10) Stop: 11/06/16 00:07 Albuterol Sulfate (Proventil Neb) 2.5 mg IH Q2H PRN; Protocol PRN Reason: Shortness Of Breath/Wheezing Stop: 11/06/16 12:55 Cyclobenzaprine HCl (Flexeril) 5 mg PO TID PRN PRN Reason: Muscle Spasm Stop: 11/06/16 09:01 Dextrose/Water (Dextrose 50% (Syg)) 25 ml IVP AD PRN PRN Reason: Hypoglycemia Stop: 11/06/16 00:03 Dicyclomine HCl (Bentyl) 10 mg PO QID PRN PRN Reason: abdominal pain Stop: 11/06/16 09:01 Donepezil HCl (Aricept) 5 mg PO HS [facility] Stop: 11/06/16 21:01 Last Admin: 05/07/16 21:46 Dose: 5 mg Ferrous Sulfate (Ferrous Sulfate) 325 mg PO BIDWM [facility] Stop: 11/07/16 08:01 Last Admin: 05/08/16 08:33 Dose: 325 mg Gabapentin (Neurontin) 300 mg PO HS [facility] Stop: 11/06/16 21:01 Last Admin: 05/07/16 21:45 Dose: 300 mg Glucagon (Glucagen) 1 mg IM ONCE PRN PRN Reason: Hypoglycemia Stop: 11/06/16 00:03 Glucose (Gluctose) 15 gm PO ONCE PRN PRN Reason: Hypoglycemia Stop: 11/06/16 00:03 Glucose (Gluctose) 30 gm PO ONCE PRN PRN Reason: Hypoglycemia Stop: 11/06/16 00:03 Sodium Chloride (0.9 % Sodium Chloride) 1,000 mls @ 125 mls/hr IVC .Q8H [facility] Stop: 11/05/16 23:31 Last Admin: 05/08/16 05:50 Dose: 125 mls/hr Ceftriaxone Sodium 1,000 mg/ (Dextrose) 100 mls @ 200 mls/hr IVPB Q24H [facility] Stop: 11/06/16 19:01 Last Infusion: 05/07/16 22:09 Dose: Infused Dextrose (Dextrose 5%) 1,000 mls @ 100 mls/hr IV CONT PRN PRN Reason: HYPOGLYCEMIA Stop: 11/06/16 00:03 Insulin Detemir (Levemir) 10 unit SQ HS [facility] Stop: 11/06/16 21:01 Last Admin: 05/07/16 22:01 Dose: 10 unit Insulin Human Lispro (Humalog) 0 units SQ HS [facility] PRN Reason: Protocol Stop: 11/06/16 21:01 Last Admin: 05/07/16 22:01 Dose: Not Given Insulin Human Lispro (Humalog) 0 units SQ TIDAC [facility] PRN Reason: Protocol Stop: 11/06/16 07:31 Last Admin: 05/08/16 11:22 Dose: 10 units Latanoprost (Xalatan) 1 drop BOTH EYES HS [facility] PRN Reason: Protocol Stop: 11/06/16 21:01 Last Admin: 05/07/16 22:00 Dose: 1 drop Lorazepam (Ativan) 1 mg PO Q8H [facility] Stop: 11/06/16 00:16 Last Admin: 05/08/16 07:32 Dose: Not Given Memantine (Namenda) 10 mg PO BID [facility] Stop: 11/06/16 21:01 Last Admin: 05/08/16 08:33 Dose: 10 mg Naloxone HCl (Narcan) 0.4 mg IVP Q2MIN PRN PRN Reason: Opioid Reversal Stop: 11/05/16 23:23 Nitroglycerin (Nitroglycerin) 0.4 mg SL Q5M PRN PRN Reason: Chest Pain Stop: 11/06/16 00:07 Omeprazole (Prilosec) 40 mg PO DAILY [facility] Stop: 11/06/16 09:01 Last Admin: 05/08/16 08:33 Dose: 40 mg Oxybutynin Chloride (Ditropan) 5 mg PO TID [facility] Stop: 11/06/16 09:01 Last Admin: 05/08/16 08:33 Dose: 5 mg Paroxetine HCl (Paxil) 40 mg PO QAM [facility] Stop: 11/06/16 09:01 Last Admin: 05/08/16 08:33 Dose: 40 mg Pharmacy Profile Note (Patient Taking Own Medication) 0 each PO DAILY PRN PRN Reason: Constipation Trazodone HCl (Trazodone) 50 mg PO HS [facility] Stop: 11/06/16 21:01 Last Admin: 05/07/16 21:45 Dose: 50 mg Warfarin Sodium (Coumadin) 2.5 mg PO 1800 [facility] Stop: 11/06/16 18:01 Last Admin: 05/07/16 17:03 Dose: 2.5 mg - Imaging and Cardiology Chest Xray: report reviewed Echo: report reviewed (12/2015 EF 60%, mildly dilated RV with mid reduction in function. Mild RA and severe LA enlargement. Mild-moderate TR. Severe pulmonary hypertension.) - EKG Interpretation EKG results cardiology: personally reviewed (Junctional rhythm, HR 38), other ( 24 hour tele AVG HR 45, minimum 34 at 7AM.) Consult Discharge Plan - Plan Referrals: Marito Mary MD [Primary Care Provider] - <Ijeoma Martin - Last Filed: 05/08/16 14:39> Date of Encounter: 05/08/16 Assessment and Plan Discussion w patient/family: The assessment and plan as outlined above was discussed with the patient and/or family members who expressed understanding and agreement. All questions were answered. Thank you for involving us in the care of your patient. Please call with any questions. History of Present Illness History of present illness: Ms. Huang is a 65 year old female All Systems Review: A 10-system review of systems was performed and is negative for pertinent findings except as documented above in the HPI. Physical Examination Vital Signs, Last 4 Hours Temp Pulse Resp BP Pulse Ox 05/08/16 10:59 98.6 F 49 18 125/54 100 Results 05/06/16 15:20 05/08/16 05:49 Lab Results 05/08/16 05/08/16 05/08/16 05:49 05:49 07:45 INR 1.5 Sodium 137 Potassium 4.5 Chloride 96 L Carbon Dioxide 29 BUN 84 H D Creatinine 4.75 H Glucose 150 H Calcium 7.5 L TSH 3.093 - Attending Attestation I examined this patient and my medical decision-making was reviewed with the FLAME BURNER/PA/Advanced Practice Nurse/Resident Physician. I agree with the documented findings, disposition and treatment plan. Ms. Huang presented with a junctional rhythm on ECG in setting of profound acute renal dysfunction, GFR 8 and hyperkalemia. Her renal function is now improving and potassium has normalized. Heart rates are in the 40's. We will repeat an ECG. She is asymptomatic from a cardiac perspective. Her heart rates will likely normalize as kidney function improves.
--- NOTE | 2016-05-08 12:19 | Internal Med Progress Note ---
Date of Encounter: 05/08/16 Time of Encounter: 12:19 - Assessment and plan (1) Acute kidney injury Current Visit: Yes Status: Acute Assessment and plan: Improving renal function. Continue to monitor urine output and renal function. Continue IV hydration. Nephrology following. (2) Anemia Current Visit: Yes Status: Suspected Assessment and plan: With iron deficiency. We will replace with oral iron therapy. Continue to monitor blood counts. Qualifiers: Qualified Code(s): D50.8 - Other iron deficiency anemias (3) CHF (congestive heart failure) Current Visit: Yes Status: Chronic Assessment and plan: Not in acute exacerbation. Chronic diastolic. Holding diuretics due to acute kidney injury. Qualifiers: Qualified Code(s): I50.32 - Chronic diastolic (congestive) heart failure (4) Dementia Current Visit: Yes Status: Acute Assessment and plan: Continue Aricept and Namenda Qualifiers: Qualified Code(s): F03.90 - Unspecified dementia without behavioral disturbance (5) Frequent falls Current Visit: Yes Status: Acute Assessment and plan: Evaluated by physical therapy. Recommend placement to correction facility. Consult social media content specialist for discharge planning. (6) History of atrial fibrillation Current Visit: Yes Status: Acute Assessment and plan: Patient in A. fib with bradycardia. Will consult cardiology. Stop metoprolol for now. Continue telemetry monitoring. (7) Hyperkalemia Current Visit: Yes Status: Acute Assessment and plan: Improved. Continue IV hydration. (8) Hypertension Current Visit: Yes Status: Acute Assessment and plan: Blood pressure is well controlled. Qualifiers: Qualified Code(s): I10 - Essential (primary) hypertension (9) Hyponatremia Current Visit: Yes Status: Acute Assessment and plan: This has resolved now. (10) Lactic acid increased Current Visit: Yes Status: Acute Assessment and plan: Resolved (11) Urinary tract infection Current Visit: Yes Status: Acute Assessment and plan: On ceftriaxone. Urine culture is positive for lactobacillus which is likely contaminant. Qualifiers: Qualified Code(s): N30.00 - Acute cystitis without hematuria (12) DVT prophylaxis Current Visit: Yes Status: Acute (13) Diabetes Current Visit: Yes Status: Acute Assessment and plan: Improved control. Continue Levemir and sliding scale insulin and diabetic diet Qualifiers: Qualified Code(s): E11.65 - Type 2 diabetes mellitus with hyperglycemia - Subjective Interval history: Patient continues to feel better. Denies any complaints at this time. No dizziness or lightheadedness. Having good urine output. No shortness of breath. No chest pain or palpitations. - Constitutional Vitals: Temp Pulse Resp BP Pulse Ox 98.6 F 49 18 125/54 100 05/08/16 10:59 05/08/16 10:59 05/08/16 10:59 05/08/16 10:59 05/08/16 10:59 General appearance: Present: cooperative, mild distress, A&O X 3, no acute distress, obese, answers questions appropriately - Respiratory Respiratory exam: Present: CTAB. Absent: accessory muscle use, rales, rhonchi, wheezes - Cardiovascular Cardiovascular exam: Present: bradycardia, irregular rhythm, +S1, +S2. Absent: diastolic murmur, gallop, rubs, systolic murmur - GI/Abdominal GI/Abdominal exam: Present: normal bowel sounds, soft, no peritoneal signs. Absent: distended, tenderness - Extremities Exam Extremities exam: Present: warm, radial pulses palpable and symetrical. Absent : calf tenderness, cyanotic, pedal edema - Neurological Exam Neurological exam: Present: alert, oriented X3, no focal deficits. Absent: facial droop, speech deficit Internal Medicine: Result - Labs CBC & Chem 7: 05/06/16 15:20 05/08/16 05:49 Labs: BMP 05/08/16 05:49 Sodium 137 Potassium 4.5 Chloride 96 L Carbon Dioxide 29 BUN 84 H D Creatinine 4.75 H Glucose 150 H Calcium 7.5 L - ABG Interpretation ABG results: PT/INR, D-dimer PT 16.4 Seconds (9.4-12.1) H 05/08/16 05:49 - Impressions Impressions Retroperitoneum Ultrasound 05/07/16 14:00 IMPRESSION: 1. No hydronephrosis. 2. Mild hepatic steatosis. D/ / Gris Dawson MD / Gris Dawson MD Interpreting Provider: Gris Dawson MD - VTE Reasons for not Prescribing Prophylaxis: Not indicated-Anticoagulated or INR therapeutic Consult Discharge Plan - Plan Referrals: Marito Mary MD [Primary Care Provider] - - Attending Attestation This document has been at least partially created by [employer] recognition technology by Dr. Mace. Errors in grammar, wording or other phrases may exist. If errors are found after the documentation is signed, they will be addressed individually in the addendum section of this document when appropriate.
[2016-05-08] MEDS: *HR* Warfarin 2.5 MG TABLET PO SCH (18:03)
[2016-05-08] MEDS: Gabapentin 300 MG CAPSULE PO SCH (21:06)
[2016-05-08] MEDS: traZODone 50 MG TABLET PO SCH (21:06)
[2016-05-08] MEDS: Latanoprost 2.5 ML BOTTLE BOTH EYES SCH (21:07)
[2016-05-08] MEDS: Insulin DETEMIR 100 UNIT/ML X5UNITS SQ SCH (21:07)
[2016-05-09] MEDS: *HR* LORazepam 1 MG TABLET PO SCH ×3 (00:18→16:17)
[2016-05-09 06:28] LABS: INR 1.8; Prothrombin Time 19.2 Seconds (9.4-12.1)
[2016-05-09 06:40] LABS: Albumin 2.4 g/dL (3.5-5.0); Albumin/Globulin Ratio 0.6 (1.1-2.2); Bilirubin,Total 0.3 mg/dL (0.2-1.2); Calcium 7.6 mg/dL (8.6-10.8); Globulin 3.7 g/dL (2.4-3.5); Potassium 4.1 mEq/L (3.5-4.5); Total Protein 6.1 g/dL (6.0-8.3)
[2016-05-09] MEDS: 0.9 % Sodium Chloride 1,000 ML IVC SCH ×3 (07:34→09:23)
[2016-05-09] MEDS: Insulin LISPRO 300 UNITS/3 ML VIAL SQ SCH ×4 (07:51→21:14)
--- NOTE | 2016-05-09 08:49 | Nephrology Progress Note ---
Date of Encounter: 05/09/16 Time of Encounter: 08:30 - Assessment and Plan (1) Acute kidney injury Current Visit: Yes Status: Acute Renal fct improving with IV fluids, will decrease rate 50cc/hr. Continue to monitor Subjective Interval history: Eating breakfast. States feeling better. No new complaints. Objective - Vital Signs Vital signs: Vital Signs Temp Pulse Resp BP Pulse Ox 05/09/16 07:00 98.1 F 53 16 129/59 93 L 05/09/16 04:11 98.0 F 48 18 111/54 99 05/09/16 00:11 98.3 F 50 18 126/59 97 05/08/16 21:11 98 05/08/16 19:55 98.3 F 43 118/74 100 05/08/16 15:35 98.9 F 48 16 121/58 98 05/08/16 10:59 98.6 F 49 18 125/54 100 Intake and Output 05/08/16 05/09/16 05/09/16 23:59 07:59 15:59 Intake Total 1100 / 1100 1700 / 1700 Output Total 1300 / 1300 725 / 725 Balance -200 / -200 975 / 975 Intake: IV Fluids 1000 / 1000 1000 / 1000 0.9 % Sodium Chloride 1, 1000 / 1000 1000 / 1000 000 ML @ 125 mls/hr IVC . Q8H [facility] Rx#:[id number] Oral 100 / 100 700 / 700 Output: Straight Cath 400 / 400 350 / 350 Catheter 900 / 900 375 / 375 Other: Weight 289.3 kg Blood Glucose* 165 185 Patient Weight 05/09/16 23:59 Weight 289.3 kg - General Appearance General appearance: Present: well-developed, well-nourished, appears started age , obese EENT: Present: mucous membranes moist Neck: Present: no JVD Respiratory: Present: clear Cardiology: Present: regular rate, regular rhythm Additional Comments: heavy legs, mild pitting edema LE, dependent edema buttock and thighs. Gastrointestinal: Present: normoactive bowel sounds, no tenderness Integumentary: Present: warm and dry Neurologic: Present: alert and oriented x3 Psychiatric: Present: mood/affect appropriate, cooperative - Lab 05/06/16 15:20 05/09/16 06:11 Most recent lab results Calcium 7.6 mg/dL (8.6-10.8) L 05/09/16 06:11 Phosphorus 5.6 mg/dL (2.3-4.7) H 05/07/16 02:04 - VTE Reasons for not Prescribing Prophylaxis: Not indicated-Anticoagulated or INR therapeutic Consult Discharge Plan - Plan Referrals: Marito Mary MD [Primary Care Provider] -
--- NOTE | 2016-05-09 10:04 | Cardiology Progress Note ---
Date of Encounter: 05/09/16 Time of Encounter: 07:45 Assessment and Plan (1) Atrial fibrillation with slow ventricular response Current Visit: Yes Status: Acute Known hx of A-Fib, previously on digoxin and Toprol XL for rate control. Presented to ED in junctional rhythm, HR on EKG 38. Hyperkalemic on admission and with DANIEL. TSH normal. AV darrion blockers held. Dig level 2.0. HR improving with holding AV darrion blocking agents, HR=50 past 12 hours. mid 50' s at bedside. Min=38 during nocturnal hours. Will repeat ECG. Pt reports occasional dizziness/lightheadedness, but none currently. Pt denies syncope. Recent echo 12/2015 showed preserved EF. Recommend continuing to monitor off AV darrion blockers. No urgent indication for PPM. Recommend close outpt follow-up with Dr. Dawson. Anticoagulated on Coumadin, INR subtherapeutic 1.5. Dosing per pharmacy. Frequent falls prior to admission that pt attributes to UTI. If falling continues, will need to re-evaluate if anticoagulation is appropriate. EKG ordered. Will review. Consider sign off later today. (2) Junctional rhythm Current Visit: Yes Status: Acute EKG in ED showed junctional rhythm, now appears to be A-Fib. Was hyperkalemic on presentation, now resolved. Hold AV darrion blockers. Repeat ECG today. SCr improved today. (3) Anemia Current Visit: Yes Status: Suspected Hemoglobin 8.7 today. On chart review, patient appears to normal run in the 9 range for hemoglobin. Patient does not report an signs of bleeding. Continue to monitor. Qualifiers: Anemia type: iron deficiency Iron deficiency anemia type: unspecified iron deficiency Qualified Code(s): D50.9 - Iron deficiency anemia, unspecified Discussion w patient/family: The assessment and plan as outlined above was discussed with the patient and/or family members who expressed understanding and agreement. All questions were answered. Thank you for involving us in the care of your patient. Please call with any questions. The patient will be discussed and reviewed with Dr. Martin; changes to be made accordingly. Subjective Principal diagnosis: AFib slow response Interval history: Seen and examined earlier this AM. No complaints overnight--denies dizziness, pre-syncope, syncope, or lightheadedness overnight. Denies chest pain or discomfort. HR mid 50's at bedside upon exam. Objective Vital Signs, Last 4 Hours Temp Pulse Resp BP Pulse Ox 05/09/16 07:30 100 05/09/16 07:00 98.1 F 53 16 129/59 93 L General: Conversant, Other (obese) Cardiac: Other (irregularly irregular) Neuro: Alert and responsive Abdomen: Soft, Other (obese) Skin: No rashes noted on visualized skin Extremities: Normal Pulses Results 05/06/16 15:20 05/09/16 06:11 Lab Results 05/08/16 05/09/16 05/09/16 05:49 06:11 06:11 INR 1.8 Sodium 137 139 Potassium 4.5 4.1 Chloride 96 L 102 Carbon Dioxide 29 26 BUN 64 H 46 H D Creatinine 4.75 H 2.47 H Glucose 150 H 168 H Calcium 7.5 L 7.6 L Total Bilirubin 0.3 AST 8 ALT 7 Alkaline Phosphatase 56 Active Medications Acetaminophen (Tylenol) 650 mg PO Q6HR PRN PRN Reason: Mild Pain (1-3) Stop: 11/05/16 23:23 Acetaminophen/Hydrocodone Bitart ([place] 5-325 Mg) 1 tab PO Q6H PRN PRN Reason: Severe Pain (7-10) Stop: 11/06/16 00:07 Albuterol Sulfate (Proventil Neb) 2.5 mg IH Q2H PRN; Protocol PRN Reason: Shortness Of Breath/Wheezing Stop: 11/06/16 12:55 Cyclobenzaprine HCl (Flexeril) 5 mg PO TID PRN PRN Reason: Muscle Spasm Stop: 11/06/16 09:01 Dextrose/Water (Dextrose 50% (Syg)) 25 ml IVP AD PRN PRN Reason: Hypoglycemia Stop: 11/06/16 00:03 Dicyclomine HCl (Bentyl) 10 mg PO QID PRN PRN Reason: abdominal pain Stop: 11/06/16 09:01 Donepezil HCl (Aricept) 5 mg PO HS KASIA Stop: 11/06/16 21:01 Last Admin: 05/08/16 21:06 Dose: 5 mg Ferrous Sulfate (Ferrous Sulfate) 325 mg PO BIDWM KASIA Stop: 11/07/16 08:01 Last Admin: 05/09/16 07:50 Dose: 325 mg Gabapentin (Neurontin) 300 mg PO HS KASIA Stop: 11/06/16 21:01 Last Admin: 05/08/16 21:06 Dose: 300 mg Ceftriaxone Sodium 1,000 mg/ (Dextrose) 100 mls @ 200 mls/hr IVPB Q24H [facility] Stop: 11/06/16 19:01 Last Admin: 05/08/16 18:03 Dose: 200 mls/hr Dextrose (Dextrose 5%) 1,000 mls @ 100 mls/hr IV CONT PRN PRN Reason: HYPOGLYCEMIA Stop: 11/06/16 00:03 Sodium Chloride (0.9 % Sodium Chloride) 1,000 mls @ 50 mls/hr IVC .Q20H [facility] Stop: 11/08/16 09:01 Last Admin: 05/09/16 09:23 Dose: Not Given Sodium Chloride (0.9 % Sodium Chloride) 1,000 mls @ 50 mls/hr IVC .Q20H [facility] Stop: 11/08/16 08:51 Last Admin: 05/09/16 09:23 Dose: 50 mls/hr Insulin Detemir (Levemir) 10 unit SQ HS KASIA Stop: 11/06/16 21:01 Last Admin: 05/08/16 21:07 Dose: 10 unit Insulin Human Lispro (Humalog) 0 units SQ HS KASIA PRN Reason: Protocol Stop: 11/06/16 21:01 Last Admin: 05/08/16 21:08 Dose: Not Given Insulin Human Lispro (Humalog) 0 units SQ TIDAC KASIA PRN Reason: Protocol Stop: 11/06/16 07:31 Last Admin: 05/09/16 07:51 Dose: 8 units Latanoprost (Xalatan) 1 drop BOTH EYES HS KASIA PRN Reason: Protocol Stop: 11/06/16 21:01 Last Admin: 05/08/16 21:07 Dose: 1 drop Lorazepam (Ativan) 1 mg PO Q8H [facility] Stop: 11/06/16 00:16 Last Admin: 05/09/16 07:55 Dose: Not Given Memantine (Namenda) 10 mg PO BID [facility] Stop: 11/06/16 21:01 Last Admin: 05/09/16 07:51 Dose: 10 mg Naloxone HCl (Narcan) 0.4 mg IVP Q2MIN PRN PRN Reason: Opioid Reversal Stop: 11/05/16 23:23 Nitroglycerin (Nitroglycerin) 0.4 mg SL Q5M PRN PRN Reason: Chest Pain Stop: 11/06/16 00:07 Omeprazole (Prilosec) 40 mg PO DAILY [facility] Stop: 11/06/16 09:01 Last Admin: 05/09/16 07:51 Dose: 40 mg Oxybutynin Chloride (Ditropan) 5 mg PO TID [facility] Stop: 11/06/16 09:01 Last Admin: 05/09/16 07:51 Dose: 5 mg Paroxetine HCl (Paxil) 40 mg PO QAM [facility] Stop: 11/06/16 09:01 Last Admin: 05/09/16 07:50 Dose: 40 mg Pharmacy Profile Note (Patient Taking Own Medication) 0 each PO DAILY PRN PRN Reason: Constipation Trazodone HCl (Trazodone) 50 mg PO HS [facility] Stop: 11/06/16 21:01 Last Admin: 05/08/16 21:06 Dose: 50 mg Warfarin Sodium (Coumadin) 2.5 mg PO 1800 [facility] Stop: 11/06/16 18:01 Last Admin: 05/08/16 18:03 Dose: 2.5 mg - Imaging and Cardiology Other Results: Telemetry reviewed. - EKG Interpretation EKG results cardiology: personally reviewed - VTE Reasons for not Prescribing Prophylaxis: Not indicated-Anticoagulated or INR therapeutic Consult Discharge Plan - Plan Referrals: Marito Mary MD [Primary Care Provider] -
[2016-05-09] MEDS: Acetaminophen 325 MG TABLET PO PRN (11:31)
[2016-05-09] MEDS ORDERED: *HR* Enoxaparin 150 MG/ML SYRINGE SQ ONE (14:30)
--- NOTE | 2016-05-09 14:30 | Internal Med Progress Note ---
Date of Encounter: 05/09/16 Time of Encounter: 11:00 - Assessment and plan (1) Acute kidney injury Current Visit: Yes Status: Acute Assessment and plan: Continues to improve. Likely ATN related to dehydration and diuretic use. Continue IV fluids at decreased rate. Will continue to monitor urine output and renal function. Moderate risk for complications (2) Anemia Current Visit: Yes Status: Chronic Assessment and plan: On iron replacement therapy. Qualifiers: Anemia type: iron deficiency Iron deficiency anemia type: unspecified iron deficiency Qualified Code(s): D50.9 - Iron deficiency anemia, unspecified (3) CHF (congestive heart failure) Current Visit: Yes Status: Chronic Assessment and plan: Not in acute exacerbation. Qualifiers: Congestive heart failure type: diastolic Congestive heart failure chronicity: chronic Qualified Code(s): I50.32 - Chronic diastolic (congestive ) heart failure (4) Dementia Current Visit: Yes Status: Chronic Assessment and plan: Continue Aricept and Namenda Qualifiers: Dementia type: unspecified type Dementia behavioral disturbance: without behavioral disturbance Qualified Code(s): F03.90 - Unspecified dementia without behavioral disturbance (5) Frequent falls Current Visit: Yes Status: Acute Assessment and plan: Evaluated by physical therapy and placement to residential facility. 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 fib. Bradycardia has improved. Beta job and digoxin are held at this time due to bradycardia. On Coumadin for anticoagulation. INR is remained subtherapeutic. Will start treatment with Lovenox until INR greater than 2. (7) Hyperkalemia Current Visit: Yes Status: Resolved (8) Hypertension Current Visit: Yes Status: Chronic Assessment and plan: Well-controlled. Qualifiers: Hypertension type: essential hypertension Qualified Code(s): I10 - Essential (primary) hypertension (9) Hyponatremia Current Visit: Yes Status: Resolved Assessment and plan: This has resolved (10) Lactic acid increased Current Visit: Yes Status: Resolved (11) Urinary tract infection Current Visit: Yes Status: Acute Assessment and plan: Stopped IV Rocephin. Complete short course of cephalexin. Qualifiers: Urinary tract infection type: acute cystitis Hematuria presence: without hematuria Qualified Code(s): N30.00 - Acute cystitis without hematuria (12) DVT prophylaxis Current Visit: Yes Status: Acute (13) Diabetes Current Visit: Yes Status: Acute Assessment and plan: Blood sugars improving but still elevated. Will increase Levemir dosage. Continue to monitor blood sugars. 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 Denies any new complaints at this time. Having good urine output. No Shortness of Breath or Chest Pain. - Constitutional Vitals: Temp Pulse Resp BP Pulse Ox 99.0 F 60 16 135/84 97 05/09/16 11:05 05/09/16 11:05 05/09/16 11:05 05/09/16 11:05 05/09/16 11:05 General appearance: Present: cooperative, mild distress, A&O X 3, no acute distress, obese, answers questions appropriately - Respiratory Respiratory exam: Present: CTAB. Absent: accessory muscle use, rales, rhonchi, wheezes - Cardiovascular Cardiovascular exam: Present: irregular rhythm, +S1, +S2. Absent: diastolic murmur, gallop, rubs, systolic murmur - GI/Abdominal GI/Abdominal exam: Present: normal bowel sounds, soft, no peritoneal signs. Absent: distended, tenderness - Extremities Exam Extremities exam: Present: warm, radial pulses palpable and symetrical. Absent : calf tenderness, cyanotic, pedal edema - Neurological Exam Neurological exam: Present: alert, oriented X3, no focal deficits. Absent: facial droop, speech deficit - Skin Skin exam: Present: dry, intact Internal Medicine: Result - Labs CBC & Chem 7: 05/06/16 15:20 05/09/16 06:11 Labs: BMP 05/08/16 05/09/16 05:49 06:11 Sodium 137 139 Potassium 4.5 4.1 Chloride 96 L 102 Carbon Dioxide 29 26 BUN 64 H 46 H D Creatinine 4.75 H 2.47 H Glucose 150 H 168 H Calcium 7.5 L 7.6 L Liver Function 05/09/16 Range/Units 06:11 Total Bilirubin 0.3 (0.2-1.2) mg/dL AST 8 (5-34) Units/L ALT 7 (0-55) Units/L Alkaline Phosphatase 56 (38-126) Units/L Albumin 2.4 L (3.5-5.0) g/dL - ABG Interpretation ABG results: PT/INR, D-dimer PT 19.2 Seconds (9.4-12.1) H 05/09/16 06:11 - VTE Reasons for not Prescribing Prophylaxis: Not indicated-Anticoagulated or INR therapeutic Consult Discharge Plan - Plan Referrals: Marito Mary MD [Primary Care Provider] - - Attending Attestation This document has been at least partially created by [employer] recognition technology by Dr. Mace. Errors in grammar, wording or other phrases may exist. If errors are found after the documentation is signed, they will be addressed individually in the addendum section of this document when appropriate.
[2016-05-09] MEDS ORDERED: Insulin DETEMIR 100 UNIT/ML X5UNITS SQ SCH (14:35)
[2016-05-09] MEDS: *HR* Warfarin 2.5 MG TABLET PO SCH (17:38)
[2016-05-09] MEDS: traZODone 50 MG TABLET PO SCH (21:13)
[2016-05-09] MEDS: Gabapentin 300 MG CAPSULE PO SCH (21:13)
[2016-05-09] MEDS: Latanoprost 2.5 ML BOTTLE BOTH EYES SCH (21:15)
[2016-05-09] MEDS: cephALEXin 500 MG CAPSULE PO SCH (21:35)
[2016-05-09] MEDS: Insulin DETEMIR 100 UNIT/ML X5UNITS SQ SCH (21:38)
[2016-05-10] MEDS: *HR* LORazepam 1 MG TABLET PO SCH ×3 (00:08→16:52)
[2016-05-10] MEDS: *HR* HYDROcodone/Acet 5/325 mg TABLET PO PRN ×2 (00:28→05:56)
[2016-05-10 06:10] LABS: Hemoglobin 7.4 g/dL (11.5-15.4); Monocytes % 6.9 %
[2016-05-10 06:12] LABS: Basophils % 0.3 %; Hematocrit 24.8 % (35.3-44.9); Immature Granulocytes % 0.4 % (0-4); Lymphocytes # 1.1 K/mcL (0.6-4.6); Lymphocytes % 13.9 %; Mean Corpuscular HGB Conc 29.8 g/dL (31.6-35.5); Mean Corpuscular Hemoglobin 24.1 pg (28.0-33.3); Mean Corpuscular Volume 80.8 fL (83.0-100.0); Mean Platelet Volume 9.8 fL (9.4-12.4); Monocytes # 0.6 K/mcL (0.0-1.3); Neutrophils # 6.3 K/mcL (1.6-8.9); Platelet Count 270 K/mcL (140-400); Red Blood Count 3.07 M/mcL (3.82-4.97); Segmented Neutrophils % 78.5 %
[2016-05-10 06:18] LABS: Prothrombin Time 21.5 Seconds (9.4-12.1)
[2016-05-10 06:25] LABS: Calcium 8.3 mg/dL (8.6-10.8); Potassium 3.9 mEq/L (3.5-4.5)
[2016-05-10] MEDS: Insulin LISPRO 300 UNITS/3 ML VIAL SQ SCH ×4 (07:42→22:19)
[2016-05-10] MEDS: cephALEXin 500 MG CAPSULE PO SCH ×2 (07:42→21:59)
[2016-05-10] MEDS: 0.9 % Sodium Chloride 1,000 ML IVC SCH ×2 (07:48)
[2016-05-10 08:03] LABS: Hypochromasia Present (Not Present); Platelet Estimate Normal (Normal)
--- NOTE | 2016-05-10 08:18 | Cardiology Progress Note ---
Date of Encounter: 05/10/16 Time of Encounter: 07:30 Assessment and Plan (1) Atrial fibrillation with slow ventricular response Current Visit: Yes Status: Acute Known hx of A-Fib, previously on digoxin and Toprol XL for rate control. Presented to ED in junctional rhythm, HR on EKG 38. Hyperkalemic on admission and with DANIEL. TSH normal. AV darrion blockers held. Dig level 2.0. HR significantly improved with holding AV darrion blocking agents, avg=66 afib overnight. Min=48 during nocturnal hours Denies dizziness. lightheadedness, or synocpe. Recent echo 12/2015 showed preserved EF. May need to add back low dose betablocker in future to prevent RVR, continue to monitor for now. Recommend close outpt follow-up with Dr. Dawson. Anticoagulated on Coumadin Dosing per pharmacy. Frequent falls prior to admission that pt attributes to UTI. If falling continues, will need to re- evaluate if anticoagulation is appropriate. Cardiology will sign-off, follow-up with Dr. Dawson as scheduled. (2) Junctional rhythm Current Visit: Yes Status: Acute EKG in ED showed junctional rhythm, now appears to be A-Fib. Was hyperkalemic on presentation, now resolved. ECG shows Afib. HR 60's SCr improved today. (3) Anemia Current Visit: Yes Status: Chronic H/H decreased today. On chart review, patient appears to normal run in the 9 range for hemoglobin. Patient does not report an signs of bleeding. Continue to monitor. Qualifiers: Anemia type: iron deficiency Iron deficiency anemia type: unspecified iron deficiency Qualified Code(s): D50.9 - Iron deficiency anemia, unspecified Discussion w patient/family: The assessment and plan as outlined above was discussed with the patient and/or family members who expressed understanding and agreement. All questions were answered. Thank you for involving us in the care of your patient. Please call with any questions. The patient was discussed and reviewed with Dr. Martin; Cardiology will sign-off , follow-up with Dr. Dawson as scheduled. Please call with questions. Subjective Principal diagnosis: AFib slow response Interval history: Seen and examined earlier this AM. She states she feels much better today. ECG from yesterday shows atrial fibrillation No complaints overnight--denies dizziness, pre-syncope, syncope, or lightheadedness overnight. Denies chest pain or discomfort. HR mid 60's upon exam. Objective Vital Signs, Last 4 Hours Temp Pulse Resp BP Pulse Ox 05/10/16 07:13 98.7 F 64 16 168/74 95 05/10/16 04:53 100.0 F H 84 22 163/65 100 General: Conversant, No Apparent Distress, Other (obese) HEENT: Atraumatic, Normocephaly Cardiac: Other (irregularly irregular) Lungs: Normal Breath Sounds Neuro: Alert and responsive Abdomen: Soft Skin: No rashes noted on visualized skin Musculoskeletal: No Chest Wall Tenderness Extremities: Other (pre-tibial edema) Results 05/10/16 05:35 05/10/16 05:35 Lab Results 05/10/16 05/10/16 05/10/16 05:35 05:35 05:35 WBC 8.0 Hgb 7.4 L Hct 24.8 L Plt Count 270 INR 2.0 Sodium 139 Potassium 3.9 Chloride 102 Carbon Dioxide 26 BUN 29 H D Creatinine 1.33 H Glucose 171 H Calcium 8.3 L - Imaging and Cardiology Other Results: telemetry reviewed. - VTE Reasons for not Prescribing Prophylaxis: Not indicated-Anticoagulated or INR therapeutic Consult Discharge Plan - Plan Referrals: Marito Mary MD [Primary Care Provider] - (web request sent on 05/09/16 ) Miles Dawson MD [Partnered Physician] - 06/03/16 9:45 am
--- NOTE | 2016-05-10 09:31 | Nephrology Progress Note ---
Date of Encounter: 05/10/16 Time of Encounter: 09:05 - Assessment and Plan (1) Acute kidney injury Current Visit: Yes Status: Acute Renal fct improving, creat 1.33. Will sign off, consult if needed in future. Recommend when Moss catheter dc'd to do PVR bladder scan. She may have neurogenic bladder related to long standing diabetes. Subjective Principal diagnosis: AFib slow response Interval history: States feeling better. No new complaints. Objective - Vital Signs Vital signs: Vital Signs Temp Pulse Resp BP Pulse Ox 05/10/16 07:30 95 05/10/16 07:13 98.7 F 64 16 168/74 95 05/10/16 04:53 100.0 F H 84 22 163/65 100 05/10/16 00:07 99.1 F 66 20 127/64 100 05/09/16 21:05 99 05/09/16 20:01 98.7 F 62 20 148/77 99 05/09/16 16:17 98.4 F 61 16 148/79 100 05/09/16 11:05 99.0 F 60 16 135/84 97 Intake and Output 05/09/16 05/10/16 05/10/16 23:59 07:59 15:59 Intake Total 120 / 120 120 / 120 Output Total 900 / 900 900 / 900 800 / 800 Balance -780 / -780 -900 / -900 -680 / -680 Intake: Oral 120 / 120 120 / 120 Output: Urine 0 / 0 Catheter 900 / 900 900 / 900 800 / 800 Other: Meal Dinner Breakfast Percent of Meal Consumed 10% 50% Weight 131.712 kg Blood Glucose* 218 200 - General Appearance General appearance: Present: well-developed, well-nourished, appears started age , obese EENT: Present: mucous membranes moist Neck: Present: no JVD Respiratory: Present: clear Cardiology: Present: edema, regular rate, regular rhythm Gastrointestinal: Present: normoactive bowel sounds, no tenderness, obese Integumentary: Present: warm and dry Neurologic: Present: alert and oriented x3 Psychiatric: Present: mood/affect appropriate, cooperative - Lab 05/10/16 05:35 05/10/16 05:35 Most recent lab results Calcium 8.3 mg/dL (8.6-10.8) L 05/10/16 05:35 Phosphorus 5.6 mg/dL (2.3-4.7) H 05/07/16 02:04 - VTE Reasons for not Prescribing Prophylaxis: Not indicated-Anticoagulated or INR therapeutic Consult Discharge Plan - Plan Referrals: Marito Mary MD [Primary Care Provider] - (web request sent on 05/09/16 ) Miles Dawson MD [Partnered Physician] - 06/03/16 9:45 am
--- NOTE | 2016-05-10 10:02 | Internal Med Progress Note ---
Date of Encounter: 05/10/16 Time of Encounter: 10:00 - Assessment and plan (1) Acute kidney injury Current Visit: Yes Status: Acute Assessment and plan: Renal function continues to improve. Creatinine 1.33 today. On normal saline at 50 mL per hour. We will stop IV fluids for now. Continue to follow renal function closely. (2) Anemia Current Visit: Yes Status: Chronic Assessment and plan: Hemoglobin is 7.4. Patient has low iron levels. On iron replacement therapy. Denies any hematemesis, hematochezia or melena. Will follow blood counts. Dilutional effect could also be the cause for the decrease in hemoglobin levels. Qualifiers: Anemia type: iron deficiency Iron deficiency anemia type: unspecified iron deficiency Qualified Code(s): D50.9 - Iron deficiency anemia, unspecified (3) CHF (congestive heart failure) Current Visit: Yes Status: Chronic Assessment and plan: Not in acute exacerbation. Holding diuretics for now due to acute kidney injury. 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 (6) History of atrial fibrillation Current Visit: Yes Status: Chronic Assessment and plan: Rate controlled. Bradycardia resolved. (7) Hyperkalemia Current Visit: Yes Status: Resolved (8) Hypertension Current Visit: Yes Status: Chronic Assessment and plan: Uncontrolled. Will resume low-dose metoprolol. Monitor heart rate and blood pressure closely. Qualifiers: Hypertension type: essential hypertension Qualified Code(s): I10 - Essential (primary) hypertension (9) Hyponatremia Current Visit: Yes Status: Resolved (10) Lactic acid increased Current Visit: Yes Status: Resolved (11) Urinary tract infection Current Visit: Yes Status: Acute Qualifiers: Urinary tract infection type: acute cystitis Hematuria presence: without hematuria Qualified Code(s): N30.00 - Acute cystitis without hematuria (12) DVT prophylaxis Current Visit: Yes Status: Acute (13) Diabetes Current Visit: Yes Status: Acute Qualifiers: Diabetes mellitus type: type 2 Diabetes mellitus complication status: with hyperglycemia Diabetes mellitus fdc insulin use: without fdc use Qualified Code(s): E11.65 - Type 2 diabetes mellitus with hyperglycemia - Subjective Interval history: Patient is recovering well. No chest pain or shortness of breath reported. Tolerating diet well. No dizziness or lightheadedness. - Constitutional Vitals: Temp Pulse Resp BP Pulse Ox 98.7 F 64 16 168/74 95 05/10/16 07:13 05/10/16 07:13 05/10/16 07:13 05/10/16 07:13 05/10/16 07:30 General appearance: Present: cooperative, mild distress, A&O X 3, no acute distress, obese, answers questions appropriately - Respiratory Respiratory exam: Present: CTAB. Absent: accessory muscle use, rales, rhonchi, wheezes - Cardiovascular Cardiovascular exam: Present: RRR, +S1, +S2. Absent: diastolic murmur, gallop, rubs, systolic murmur - Extremities Exam Extremities exam: Present: warm, radial pulses palpable and symetrical. Absent : calf tenderness, cyanotic, pedal edema - Neurological Exam Neurological exam: Present: alert, oriented X3, no focal deficits. Absent: pronater drift, facial droop, speech deficit - Skin Skin exam: Present: dry, intact Internal Medicine: Result - Labs CBC & Chem 7: 05/10/16 05:35 05/10/16 05:35 Labs: Short CBC 05/10/16 Range/Units 05:35 WBC 8.0 (4.3-11.1) K/mcL Hgb 7.4 L (11.5-15.4) g/dL Hct 24.8 L (35.3-44.9) % Plt Count 270 (140-400) K/mcL Neutrophils # 6.3 (1.6-8.9) K/mcL BMP 05/10/16 05:35 Sodium 139 Potassium 3.9 Chloride 102 Carbon Dioxide 26 BUN 29 H D Creatinine 1.33 H Glucose 171 H Calcium 8.3 L - ABG Interpretation ABG results: PT/INR, D-dimer PT 21.5 Seconds (9.4-12.1) H 05/10/16 05:35 - VTE Reasons for not Prescribing Prophylaxis: Not indicated-Anticoagulated or INR therapeutic Consult Discharge Plan - Plan Referrals: Marito Mary MD [Primary Care Provider] - (web request sent on 05/09/16 ) Miles Dawson MD [Partnered Physician] - 06/03/16 9:45 am - Attending Attestation This document has been at least partially created by [employer] recognition technology by Dr. Mace. Errors in grammar, wording or other phrases may exist. If errors are found after the documentation is signed, they will be addressed individually in the addendum section of this document when appropriate.
[2016-05-10] MEDS: *HR* Warfarin 2.5 MG TABLET PO SCH (16:52)
[2016-05-10] MEDS: traZODone 50 MG TABLET PO SCH (21:59)
[2016-05-10] MEDS: Insulin DETEMIR 100 UNIT/ML X5UNITS SQ SCH (22:00)
[2016-05-10] MEDS: Gabapentin 300 MG CAPSULE PO SCH (22:00)
[2016-05-10] MEDS: Latanoprost 2.5 ML BOTTLE BOTH EYES SCH (22:03)
[2016-05-11] MEDS: *HR* LORazepam 1 MG TABLET PO SCH ×3 (00:24→16:20)
[2016-05-11] MEDS: Acetaminophen 325 MG TABLET PO PRN ×2 (00:26→16:22)
[2016-05-11 05:16] LABS: Prothrombin Time 22.3 Seconds (9.4-12.1)
[2016-05-11 05:34] LABS: BUN/Creatinine Ratio 15 (6-26); Calcium 8.8 mg/dL (8.6-10.8); Carbon Dioxide 32 mEq/L (19-29); Chloride 101 mEq/L (98-109); Glucose 131 mg/dL (70-99); Osmolality,Calculated 292 (280-300); Potassium 3.6 mEq/L (3.5-4.5); Sodium 140 mEq/L (136-145); eGFR For African Americans > 60 (> 60); eGFR For Non-African Americans > 60 (> 60)
[2016-05-11 05:36] LABS: Blood Urea Nitrogen 14 mg/dL (7-20)
[2016-05-11 08:16] LABS: Basophils % 0.3 %; Hematocrit 24.4 % (35.3-44.9); Immature Granulocytes % 0.3 % (0-4); Lymphocytes # 1.3 K/mcL (0.6-4.6); Lymphocytes % 18.6 %; Mean Corpuscular HGB Conc 28.7 g/dL (31.6-35.5); Mean Corpuscular Hemoglobin 23.9 pg (28.0-33.3); Mean Corpuscular Volume 83.3 fL (83.0-100.0); Mean Platelet Volume 9.8 fL (9.4-12.4); Monocytes # 0.5 K/mcL (0.0-1.3); Monocytes % 7.1 %; Platelet Count 287 K/mcL (140-400); Red Blood Count 2.93 M/mcL (3.82-4.97); Red Cell Distribution Width 20.8 % (11.5-14.5); Segmented Neutrophils % 73.7 %
[2016-05-11 08:45] LABS: Hypochromasia Present (Not Present); Platelet Estimate Normal (Normal)
[2016-05-11 08:46] LABS: Anisocytosis 1+ (Not Present); Macrocytosis Present (Not Present); Microcytosis Present (Not Present)
[2016-05-11] MEDS ORDERED: Insulin DETEMIR 100 UNIT/ML X5UNITS SQ SCH (09:00)
[2016-05-11] MEDS: cephALEXin 500 MG CAPSULE PO SCH (09:06)
[2016-05-11] MEDS: Insulin LISPRO 300 UNITS/3 ML VIAL SQ SCH ×3 (09:11→17:52)
[2016-05-11 15:09] LABS: Hematocrit 26.3 % (35.3-44.9); Hemoglobin 7.6 g/dL (11.5-15.4)
[2016-05-11 15:14] VITALS: BP 161/64
--- NOTE | 2016-05-11 15:42 | Discharge Summary ---
Date of Encounter: 05/11/16 Time of Encounter: 09:45 - Discharge Diagnosis (1) Acute kidney injury Priority: Primary Status: Acute Comments: Likely due to ATN and diuretic use. (2) Anemia Priority: Secondary Status: Chronic Qualifiers: Anemia type: iron deficiency Iron deficiency anemia type: unspecified iron deficiency Qualified Code(s): D50.9 - Iron deficiency anemia, unspecified (3) CHF (congestive heart failure) Priority: Secondary Status: Chronic Qualifiers: Congestive heart failure type: diastolic Congestive heart failure chronicity: chronic Qualified Code(s): I50.32 - Chronic diastolic (congestive ) heart failure (4) Dementia Priority: Secondary Status: Chronic Qualifiers: Dementia type: unspecified type Dementia behavioral disturbance: without behavioral disturbance Qualified Code(s): F03.90 - Unspecified dementia without behavioral disturbance (5) Frequent falls Priority: Secondary Status: Acute (6) History of atrial fibrillation Priority: Secondary Status: Chronic (7) Hyperkalemia Priority: Secondary Status: Resolved (8) Hypertension Priority: Secondary Status: Chronic Qualifiers: Hypertension type: essential hypertension Qualified Code(s): I10 - Essential (primary) hypertension (9) Hyponatremia Priority: Secondary Status: Resolved (10) Lactic acid increased Priority: Secondary Status: Resolved (11) Urinary tract infection Priority: Secondary Status: Acute Qualifiers: Urinary tract infection type: acute cystitis Hematuria presence: without hematuria Qualified Code(s): N30.00 - Acute cystitis without hematuria (12) DVT prophylaxis Priority: Secondary Status: Acute (13) Diabetes Priority: Secondary Status: Acute Qualifiers: Diabetes mellitus type: type 2 Diabetes mellitus complication status: with hyperglycemia 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 mellitus keno terminal operator insulin use: without snf use Qualified Code(s): E11.65 - Type 2 diabetes mellitus with hyperglycemia - Discharge Medications Prescriptions: Cyclobenzaprine HCl 5 mg PO TID #30 tablet LORazepam [Ativan] 1 mg PO Q8H #20 tablet Metoprolol XL (24 HR) Succ [Toprol XL] 25 mg PO DAILY #30 tab.er.24h Home Medications: Albuterol Neb [Proventil Neb] 2.5 mg IH Q6H PRN 05/06/16 [History] Albuterol Sulfate [Proair Hfa] 2 puff IH QID PRN 05/06/16 [History] Dicyclomine [Bentyl] 10 mg PO QID 05/06/16 [History] Donepezil [Aricept] 5 mg PO HS 05/06/16 [History] Esomeprazole Magnesium [Nexium] 40 mg PO BID 05/06/16 [History] Fluticasone Propionate Nasal [Flonase] 100 mcg NS DAILY 05/06/16 [History] Furosemide [Lasix] 40 mg PO DAILY 05/06/16 [History] Gabapentin [Neurontin] 400 mg PO BID 05/06/16 [History] Gabapentin [Neurontin] 800 mg PO HS 05/06/16 [History] Latanoprost [Xalatan] 1 drop OP HS 05/06/16 [History] Lisinopril 2.5 mg PO DAILY 05/06/16 [History] Lubiprostone [Amitiza] 24 mcg PO DAILY PRN 05/06/16 [History] Memantine HCl [Namenda Xr] 28 mg PO DAILY 05/06/16 [History] Metformin HCl [Glucophage] 1,000 mg PO BID 05/06/16 [History] Nitroglycerin [Nitrostat] 0.4 mg SL Q5M PRN 05/06/16 [History] Paroxetine HCl [Paxil] 40 mg PO QAM 05/06/16 [History] Potassium Chloride [K-Tab ER] 20 meq PO DAILY 05/06/16 [History] Promethazine HCl 12.5 mg PO Q12H PRN 05/06/16 [History] Riociguat [Adempas] 1 mg PO TID 05/06/16 [History] Solifenacin Succinate [Vesicare] 10 mg PO DAILY 05/06/16 [History] TraZODone 50 mg PO HS 05/06/16 [History] Warfarin [Coumadin] 2.5 mg PO 1800 05/06/16 [History] Cyclobenzaprine HCl 5 mg PO TID #30 tablet 05/11/16 [Rx] Ferrous Sulfate 325 mg PO BIDWM #0 tablet 05/11/16 [Rx] HYDROcodone/Acet 5/325 mg [[place] 5-325 mg] 1 tab PO Q6H PRN #20 05/11/16 [Rx] LORazepam [Ativan] 1 mg PO Q8H #20 tablet 05/11/16 [Rx] Metoprolol XL (24 HR) Succ [Toprol XL] 25 mg PO DAILY #30 tab.er.24h 05/11/16 [ Rx] Allergies/Adverse Reactions: Allergies Penicillins Adverse Reaction (Verified 11/18/15 18:17) Rash IVP DYE Allergy (Uncoded 11/18/15 18:17) Difficulty Breathing Procedures/tests Complete & Pending: Procedures Performed prior 72 hours Category Date Time Status ECG 12 lead ECG [ECG] Routine Y 05/09/16 10:01 Completed Date of admission: 05/07/16 00:18 Primary care physician: Marito Mary MD Consults: 05/08/16 07:32 Consult to Cardiology [CONS] Routine Comment: Consulting Provider: Cardiology Nayely Reason for Consult: Afib with bradycardia Time Notified: 07:32 Call Completed: Yes Discharging clinician: Jaguar Mace Anticipated date of discharge: 05/11/16 - Patient Status Disposition: Transfer SNF Condition: Good Functional capacity at discharge: wheelchair bound Overall status at discharge: patient is progressing back to baseline - Discharge Instructions Instructions: Chronic Obstructive Pulmonary Disease (DC), Anemia (GEN) Follow Up With: Marito Mary MD [Primary Care Provider] - (web request sent on 05/09/16 ) Miles Dawson MD [Partnered Physician] - 06/03/16 9:45 am Eusebio Howell DO [Non-Partnered Physician] - (in 1-2 weeks ) - Diet and Activity Activity: as per physical therapy Diet: advance to your usual diet, diabetic diet, low fat, low cholesterol, low salt diet Hospital course: Ms. Huang is a 65 year old female patient with history of diabetes mellitus type 2, hypertension, hyperlipidemia, fibromyalgia, GERD and arthritis who presented to the ER with recurrent falls, dizziness and lightheadedness. She was diagnosed with acute kidney injury. She had been on ciprofloxacin, Lasix, metolazone and etodolac prior to presentation. She also had hyperkalemia. She was started on treatment for this with IV fluids and IV bicarbonate drip. She also had a junctional rhythm on presentation and she had been on digoxin and metoprolol. Digoxin was stopped. She remained bradycardic and so metoprolol was also stopped. She has history of A. fib. Cardiology was consulted. They recommended holding AV blockers to her heart rate improved. Her renal function slowly improved with this management and presently her renal function has normalized. She was evaluated by physical therapy and recommended placement to skilled rehabilitation. Her heart rate has also improved. Her blood pressure has been trending upwards and she has now been placed back on metoprolol. Digoxin will continue to be held. Her urine culture was negative and she did have a positive urine culture previously prior to presentation and with Klebsiella pneumoniae. Patient has received antibiotics all through her stay here. She does not require any further antibiotics. Patient also has chronic anemia with iron deficiency. She has been started on iron replacement therapy. Her hemoglobin levels have been stable here. Presently she is stable for discharge and will follow up with nephrology, and her primary care provider after discharge. - Time Spent with Patient Total time spent providing and/or coordinating discharge services: Greater than 30 minutes (45 min) - Constitutional Vitals: Temp Pulse Resp BP Pulse Ox 97.9 F 68 22 161/64 98 05/11/16 15:13 05/11/16 15:13 05/11/16 15:13 05/11/16 15:13 05/11/16 15:13 General appearance: Present: cooperative, A&O X 3, no acute distress, obese, answers questions appropriately - Respiratory Respiratory exam: Present: CTAB. Absent: accessory muscle use, rales, rhonchi, wheezes - GI/Abdominal GI/Abdominal exam: Present: normal bowel sounds, soft, no peritoneal signs. Absent: distended, tenderness - Extremities Exam Extremities exam: Present: warm, radial pulses palpable and symetrical. Absent : calf tenderness, cyanotic, pedal edema - Neurological Exam Neurological exam: Present: alert, oriented X3, no focal deficits, strengths equal and symetr throughout. Absent: facial droop, speech deficit - VTE Reasons for not Prescribing Prophylaxis: Not indicated-Anticoagulated or INR therapeutic - Attending Attestation This document has been at least partially created by Locally recognition technology by Dr. Mace. Errors in grammar, wording or other phrases may exist. If errors are found after the documentation is signed, they will be addressed individually in the addendum section of this document when appropriate.
[2016-05-11] MEDS ORDERED: Metoprolol XL (24 HR) Succ 25 MG TAB.ER.24H PO SCH (16:00)
--- NOTE | 2016-05-11 16:07 | Physician Discharge Referral ---
ExtendedCare Referral Info Institutional Level of Care: Skilled - Diagnosis (1) Acute kidney injury Priority: Primary Status: Acute (2) Anemia Priority: Secondary Status: Chronic (3) CHF (congestive heart failure) Priority: Secondary Status: Chronic (4) Dementia Priority: Secondary Status: Chronic (5) Frequent falls Priority: Secondary Status: Acute (6) History of atrial fibrillation Priority: Secondary Status: Chronic (7) Hyperkalemia Priority: Secondary Status: Resolved (8) Hypertension Priority: Secondary Status: Chronic (9) Hyponatremia Priority: Secondary Status: Resolved (10) Lactic acid increased Priority: Secondary Status: Resolved (11) Urinary tract infection Priority: Secondary Status: Acute (12) DVT prophylaxis Priority: Secondary Status: Acute (13) Diabetes Priority: Secondary Status: Acute - Transfer Medications Prescriptions: Cyclobenzaprine HCl 5 mg PO TID #30 tablet LORazepam [Ativan] 1 mg PO Q8H #20 tablet Metoprolol XL (24 HR) Succ [Toprol XL] 25 mg PO DAILY #30 tab.er.24h Home Medications: Albuterol Neb [Proventil Neb] 2.5 mg IH Q6H PRN 05/06/16 [History] Albuterol Sulfate [Proair Hfa] 2 puff IH QID PRN 05/06/16 [History] Dicyclomine [Bentyl] 10 mg PO QID 05/06/16 [History] Donepezil [Aricept] 5 mg PO HS 05/06/16 [History] Esomeprazole Magnesium [Nexium] 40 mg PO BID 05/06/16 [History] Fluticasone Propionate Nasal [Flonase] 100 mcg NS DAILY 05/06/16 [History] Furosemide [Lasix] 40 mg PO DAILY 05/06/16 [History] Gabapentin [Neurontin] 400 mg PO BID 05/06/16 [History] Gabapentin [Neurontin] 800 mg PO HS 05/06/16 [History] Latanoprost [Xalatan] 1 drop OP HS 05/06/16 [History] Lisinopril 2.5 mg PO DAILY 05/06/16 [History] Lubiprostone [Amitiza] 24 mcg PO DAILY PRN 05/06/16 [History] Memantine HCl [Namenda Xr] 28 mg PO DAILY 05/06/16 [History] Metformin HCl [Glucophage] 1,000 mg PO BID 05/06/16 [History] Nitroglycerin [Nitrostat] 0.4 mg SL Q5M PRN 05/06/16 [History] Paroxetine HCl [Paxil] 40 mg PO QAM 05/06/16 [History] Potassium Chloride [K-Tab ER] 20 meq PO DAILY 05/06/16 [History] Promethazine HCl 12.5 mg PO Q12H PRN 05/06/16 [History] Riociguat [Adempas] 1 mg PO TID 05/06/16 [History] Solifenacin Succinate [Vesicare] 10 mg PO DAILY 05/06/16 [History] TraZODone 50 mg PO HS 05/06/16 [History] Warfarin [Coumadin] 2.5 mg PO 1800 05/06/16 [History] Cyclobenzaprine HCl 5 mg PO TID #30 tablet 05/11/16 [Rx] Ferrous Sulfate 325 mg PO BIDWM #0 tablet 05/11/16 [Rx] HYDROcodone/Acet 5/325 mg [[place] 5-325 mg] 1 tab PO Q6H PRN #20 05/11/16 [Rx] LORazepam [Ativan] 1 mg PO Q8H #20 tablet 05/11/16 [Rx] Metoprolol XL (24 HR) Succ [Toprol XL] 25 mg PO DAILY #30 tab.er.24h 05/11/16 [ Rx] Allergies/Adverse Reactions: Allergies Penicillins Adverse Reaction (Verified 11/18/15 18:17) Rash IVP DYE Allergy (Uncoded 11/18/15 18:17) Difficulty Breathing - Respiratory Orders Oxygen / L per min (Keep sats >90%) Smoking Cessation: Smoking cessation has been advised. For more information, call the [place] Tobacco Quit Line at 6-197-AVUI-NOW. - Lab Orders Lab Orders: CBC (on Wednesday05/15/16) - Ancillary Orders May use pressure relief devices daily prn, May consult with Dentist, Files Supervisor, Construction Rigger PRN - Advance Directives Code Status: Full Code - Mobility Orders Other (per PT) - Rehabiliation Orders Rehab Potential: Fair Rehab Orders: Evaluation for Physical Therapy, Evaluation for Occupational Therapy - Diet Orders Cardiac (and diabetic) CERTIFICATION: I certify that the transfer of the above named patient to an Extended Care Facility is necessary for the continuing treatment of the diagnosis listed. The above information is true and accurate reflection of patient's current condition. Confidential - Redisclosure prohibited without a patient's written consent.
[2016-05-11] MEDS: *HR* Warfarin 2.5 MG TABLET PO SCH (17:52)
--- NOTE | 2016-05-11 21:47 | Electrocardiograph Report ---
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
--- NOTE | 2016-05-12 05:43 | Electrocardiograph Report ---
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
== END 2016-05-11 18:50 | DRG 683 ==
LOC: 2ANU 15:13 → EMEROO 15:13 → 2ANU 21:01
PROVIDERS: ADMIT Family Medicine; ATTEND Internal Medicine

== ENCOUNTER 2016-06-07 07:38 | Inpatient (IN) ==
[2016-06-07] MEDS ORDERED: methylPREDNISolone 125 MG/2 ML VIAL IVP ONE (07:39)
[2016-06-07] MEDS ORDERED: Ipratropium/Albuterol Neb 3 ML IH ONE (07:39)
--- NOTE | 2016-06-07 07:43 | Emergency Department Note ---
Disposition Clinical Impression: Acute exacerbation of chronic obstructive airways disease CHF (congestive heart failure) Qualifiers: Congestive heart failure type: unspecified congestive heart failure type Congestive heart failure chronicity: acute Qualified Code(s): I50.9 - Heart failure, unspecified Disposition: Admitted As Inpatient Condition: Fair Referrals: Marito Mary MD [Primary Care Provider] - Forms: ED Satisfaction Letter Time of Disposition: 09:16 SOB HPI - General Chief Complaint: ED Shortness of Breath/Dyspnea Stated Complaint: SNEHA Time Seen by Provider: 06/07/16 07:39 Source: patient, EMS Mode of arrival: EMS Limitations: no limitations Nursing Notes Reviewed: Yes Vital Signs Reviewed: Yes - History of Present Illness 65-year-old with a history of COPD CHF comes in complaining of increasing shortness of breath for last for 5 days. Patient had a cough since apparently had a vomiting episode on Wednesday and they were concerned she may have aspirated. Wheezes throughout all lung fortune. She does have some tightness across her chest. Initial pulse ox at the [place] was in the 70s she is up to 95 after treatment and oxygen. Pt Subjective Complaint: shortness of breath, cough, chest pain Onset (ago): day(s) Context: recent illness Severity: moderate Consistency/Duration: constant Improves with: nothing Worsens with: exertion Known history of: COPD, congestive heart failure Associated symptoms: Reports: chest pain, cough, wheezing Treatment prior to arrival: oxygen, bronchodilator Cough Description: Involuntary Cough Frequency: Intermittent - Related Data Home Medications Medication Instructions Recorded Confirmed Albuterol Neb [Proventil Neb] 2.5 mg IH Q6H PRN 05/06/16 Albuterol Sulfate [Proair Hfa] 2 puff IH QID PRN 05/06/16 Dicyclomine [Bentyl] 10 mg PO QID 05/06/16 05/06/16 Donepezil [Aricept] 5 mg PO HS 05/06/16 05/06/16 Esomeprazole Magnesium [Nexium] 40 mg PO BID 05/06/16 05/06/16 Fluticasone Propionate Nasal 100 mcg NS DAILY 05/06/16 [Flonase] Furosemide [Lasix] 40 mg PO DAILY 05/06/16 05/06/16 Gabapentin [Neurontin] 400 mg PO BID 05/06/16 05/06/16 Gabapentin [Neurontin] 800 mg PO HS 05/06/16 05/06/16 Latanoprost [Xalatan] 1 drop OP HS 05/06/16 05/06/16 Lisinopril 2.5 mg PO DAILY 05/06/16 Lubiprostone [Amitiza] 24 mcg PO DAILY PRN 05/06/16 05/06/16 Memantine HCl [Namenda Xr] 28 mg PO DAILY 05/06/16 05/06/16 Metformin HCl [Glucophage] 1,000 mg PO BID 05/06/16 05/06/16 Nitroglycerin [Nitrostat] 0.4 mg SL Q5M PRN 05/06/16 05/06/16 Paroxetine HCl [Paxil] 40 mg PO QAM 05/06/16 05/06/16 Potassium Chloride [K-Tab ER] 20 meq PO DAILY 05/06/16 05/06/16 Promethazine HCl 12.5 mg PO Q12H PRN 05/06/16 05/06/16 Riociguat [Adempas] 1 mg PO TID 05/06/16 05/06/16 Solifenacin Succinate [Vesicare] 10 mg PO DAILY 05/06/16 05/06/16 TraZODone 50 mg PO HS 05/06/16 05/06/16 Warfarin [Coumadin] 2.5 mg PO 1800 05/06/16 05/06/16 Previous Rx's Medication Instructions Recorded Cyclobenzaprine HCl 5 mg PO TID #30 tablet 05/11/16 Ferrous Sulfate 325 mg PO BIDWM #0 tablet 05/11/16 HYDROcodone/Acet 5/325 mg [[place] 1 tab PO Q6H PRN #20 05/11/16 5-325 mg] LORazepam [Ativan] 1 mg PO Q8H #20 tablet 05/11/16 Metoprolol XL (24 HR) Succ [Toprol 25 mg PO DAILY #30 tab.er.24h 05/11/16 XL] Allergies Allergy/AdvReac Type Severity Reaction Status Date / Time Penicillins AdvReac Rash Verified 06/07/16 07:42 IVP DYE Allergy Difficulty Uncoded 11/18/15 18:17 Breathing Constitutional: Denies: fever, chills, weakness, weight change Eyes: Denies: eye pain, eye discharge, vision change ENT ED: Denies: ear pain, throat pain, dental pain, hearing loss, epistaxis, congestion, dysphagia Cardiovascular: Reports: chest pain. Denies: palpitations, dyspnea on exertion , edema, syncope Respiratory: Reports: cough, dyspnea, wheezes. Denies: hemoptysis, stridor Gastrointestinal: Denies: abdominal pain, nausea, vomiting, diarrhea, constipation, hematemesis, melena, hematochezia Genitourinary: Denies: dysuria, frequency, hematuria, discharge Musculoskeletal: Denies: back pain, neck pain, arthralgia, myalgia Integumentary: Denies: rash, abrasion, lesions Neurological: Denies: headache, weakness, numbness, paresthesias, confusion, abnormal gait, vertigo Psychiatric: Denies: anxiety, depression, suicidal thoughts, homicidal thoughts , auditory hallucinations, visual hallucinations Endocrine: Denies: fatigue Hematological/Lymphatic: Denies: easy bleeding, easy bruising Allergic/Immunologic: Denies: facial swelling, urticaria Past Medical History - Past Medical History Medical history: Reports: arthritis, asthma, CHF, COPD, dementia, diabetes, fibromyalgia, GERD, hyperlipidemia, hypertension, TIA Surgical history: Reports: hysterectomy Psychiatric history: Reports: anxiety, depression - Social History Smoking Status: Never smoker Smokeless Tobacco Status: No Alcohol use: Reports: none Drug use: Reports: none Physical Exam - General Limitations: no limitations General appearance: alert, in no apparent distress - Head Head exam: atraumatic, normocephalic, normal inspection - Eye Eye exam: Present: normal appearance, PERRL, EOMI - ENT ENT exam: normal exam, normal oropharynx, mucous membranes moist - Neck Neck exam: Present: normal inspection, full ROM, trachea midline - Chest Chest inspection: Present: normal inspection, symmetric chest wall rise - Respiratory Respiratory exam: Present: normal lung sounds bilaterally - Cardiovascular Cardiovascular exam: Present: regular rate, normal rhythm, normal heart sounds - Abdominal Exam Abdominal exam: Present: soft, Non-Tender. Absent: tenderness, distention, guarding, rebound, rigidity - Extremities Exam Extremities exam: Present: normal inspection, full ROM. Absent: tenderness, pedal edema - Expanded Lower Extremity Exam Neurovascular/Tendon exam: Absent: motor deficit, sensory deficit, tendon deficit Gait: not tested/not observed - Back Exam Back exam: Present: normal inspection, full ROM. Absent: tenderness - Neurological Exam Neurological exam: Present: alert, oriented X3. Absent: motor sensory deficit - Psychiatric Psychiatric exam: Present: normal affect, normal mood - Skin Skin exam: Present: warm, dry, intact, normal color Course - Reevaluation(s) Reevaluation #1: 65-year-old who was at the [place] [facility] has a history of CHF and COPD comes in increasing shortness of breath. Did have an episode of vomiting on Wednesday. Here appears to show some mild CHF. Patient was very wheezy on arrival as squad notes a low pulse ox at the [place] [facility]. Patient had a couple treatments got IV Lasix and has remained stable she is awake and alert her blood gases not significantly remarkable. She will be admitted for further evaluation and treatment. On consultation with the hospitalist they do not want to start antibiotics at this time. Time: 09:22 - Consultations Consultation #1: Discussed with Dr. Mace, admit. Time: 09:21 Vital Signs Temperature 98.0 F 06/07/16 07:42 Pulse Rate 86 06/07/16 07:42 Respiratory Rate 25 06/07/16 07:42 Blood Pressure 140/76 06/07/16 07:42 O2 Sat by Pulse Oximetry 97 06/07/16 07:42 Temperature 98.0 F 06/07/16 07:42 Pulse Rate 95 06/07/16 08:30 Respiratory Rate 20 06/07/16 07:56 Blood Pressure 123/79 06/07/16 08:30 O2 Sat by Pulse Oximetry 96 06/07/16 08:30 Oxygen Delivery Oxygen Delivery Nasal Cannula Shortness of Breath/Dyspnea - Lab Data Lab results reviewed: Yes I reviewed the patient's lab results. Result diagrams: 06/07/16 07:58 06/07/16 07:58 Lab Results 06/07/16 06/07/16 06/07/16 Range/Units 07:53 07:58 07:58 WBC 6.3 (4.3-11.1) K/mcL RBC 3.02 L (3.82-4.97) M/mcL Hgb 7.5 L (11.5-15.4) g/dL Hct 24.8 L (35.3-44.9) % MCV 82.1 L (83.0-100.0) fL MCH 24.8 L (28.0-33.3) pg MCHC 30.2 L (31.6-35.5) g/dL RDW 19.5 H (11.5-14.5) % Plt Count 348 (140-400) K/mcL MPV 9.5 (9.4-12.4) fL Immature Gran % 3.8 (0-4) % Seg Neutrophils % 74.3 % Lymphocytes % 13.2 % Monocytes % 8.4 % Eosinophils % 0.0 % Basophils % 0.3 % Neutrophils # 4.7 (1.6-8.9) K/mcL Lymphocytes # 0.8 (0.6-4.6) K/mcL Monocytes # 0.5 (0.0-1.3) K/mcL Eosinophils # 0.0 (0.0-0.6) K/mcL Basophils # 0.0 (0.0-0.2) K/mcL ABG pH 7.43 (7.32-7.45) pH Units ABG pCO2 53 H (35-45) mmHg ABG pO2 146 H (85-104) mmHg ABG HCO3 35.2 H (21-27) mEQ/L ABG Total CO2 36.8 H (20-26) mEq/L ABG O2 Saturation 99 H (95-98) % ABG Base Excess 9.7 H (-2.0 to 3.0) mEq/L Blood Gas Modality [place] Inspired O2 34 % Sodium (136-145) mEq/L Potassium (3.5-4.5) mEq/L Chloride (98-109) mEq/L Carbon Dioxide (19-29) mEq/L BUN (7-20) mg/dL Creatinine (0.57-1.11) mg/dL Est GFR ( Amer) (> 60) Est GFR (Non-Af Amer) (> 60) BUN/Creatinine Ratio (6-26) Glucose (70-99) mg/dL Calculated Osmolality (280-300) Lactic Acid 1.6 (0.5-2.2) mmol/L Calcium (8.6-10.8) mg/dL Troponin I (0-0.03) ng/mL B-Natriuretic Peptide (0-100) pg/mL 06/07/16 06/07/16 06/07/16 Range/Units 07:58 07:58 07:58 WBC (4.3-11.1) K/mcL RBC (3.82-4.97) M/mcL Hgb (11.5-15.4) g/dL Hct (35.3-44.9) % MCV (83.0-100.0) fL MCH (28.0-33.3) pg MCHC (31.6-35.5) g/dL RDW (11.5-14.5) % Plt Count (140-400) K/mcL MPV (9.4-12.4) fL Immature Gran % (0-4) % Seg Neutrophils % % Lymphocytes % % Monocytes % % Eosinophils % % Basophils % % Neutrophils # (1.6-8.9) K/mcL Lymphocytes # (0.6-4.6) K/mcL Monocytes # (0.0-1.3) K/mcL Eosinophils # (0.0-0.6) K/mcL Basophils # (0.0-0.2) K/mcL ABG pH (7.32-7.45) pH Units ABG pCO2 (35-45) mmHg ABG pO2 (85-104) mmHg ABG HCO3 (21-27) mEQ/L ABG Total CO2 (20-26) mEq/L ABG O2 Saturation (95-98) % ABG Base Excess (-2.0 to 3.0) mEq/L Blood Gas Modality Inspired O2 % Sodium 134 L (136-145) mEq/L Potassium 4.1 (3.5-4.5) mEq/L Chloride 94 L (98-109) mEq/L Carbon Dioxide 30 H (19-29) mEq/L BUN 12 (7-20) mg/dL Creatinine 0.75 (0.57-1.11) mg/dL Est GFR ( Amer) > 60 (> 60) Est GFR (Non-Af Amer) > 60 (> 60) BUN/Creatinine Ratio 16 (6-26) Glucose 170 H (70-99) mg/dL Calculated Osmolality 282 (280-300) Lactic Acid (0.5-2.2) mmol/L Calcium 8.7 (8.6-10.8) mg/dL Troponin I 0.03 (0-0.03) ng/mL B-Natriuretic Peptide 891 H (0-100) pg/mL - Radiology Data Radiology results reviewed: Yes I reviewed the patient's radiology results. Chest X-Ray 06/07/16 07:40 IMPRESSION: Cardiomegaly. There is mild vascular indistinctness either due to low lung volumes or early pulmonary edema D/ / Luisito Spaulding MD / Luisito Spaulding MD Interpreting Provider: Luisito Spaulding MD - EKG Data EKG attestation: Yes I reviewed and interpreted this EKG. Rate: Reports: normal Rhythm: Reports: A.Fib When compared to previous EKG there are: no significant changes (05/09/2016) Interpretation: Reports: no acute changes
[2016-06-07 07:59] LABS: ABG Base Excess 9.7 mEq/L (-2.0 to 3.0); ABG HCO3 35.2 mEQ/L (21-27); ABG Oxygen Saturation 99 % (95-98); ABG PCO2 53 mmHg (35-45); ABG PH 7.43 pH Units (7.32-7.45); ABG PO2 146 mmHg (85-104); ABG TCO2 36.8 mEq/L (20-26)
[2016-06-07 08:01] LABS: Blood Gas FiO2 34 %
[2016-06-07 08:12] LABS: Basophils % 0.3 %; Hematocrit 24.8 % (35.3-44.9); Hemoglobin 7.5 g/dL (11.5-15.4); Immature Granulocytes % 3.8 % (0-4); Lymphocytes # 0.8 K/mcL (0.6-4.6); Lymphocytes % 13.2 %; Mean Corpuscular HGB Conc 30.2 g/dL (31.6-35.5); Mean Corpuscular Hemoglobin 24.8 pg (28.0-33.3); Mean Corpuscular Volume 82.1 fL (83.0-100.0); Mean Platelet Volume 9.5 fL (9.4-12.4); Monocytes # 0.5 K/mcL (0.0-1.3); Monocytes % 8.4 %; Neutrophils # 4.7 K/mcL (1.6-8.9); Platelet Count 348 K/mcL (140-400); Red Blood Count 3.02 M/mcL (3.82-4.97); Red Cell Distribution Width 19.5 % (11.5-14.5); Segmented Neutrophils % 74.3 %
[2016-06-07 08:25] LABS: BUN/Creatinine Ratio 16 (6-26); Blood Urea Nitrogen 12 mg/dL (7-20); Calcium 8.7 mg/dL (8.6-10.8); Carbon Dioxide 30 mEq/L (19-29); Chloride 94 mEq/L (98-109); Glucose 170 mg/dL (70-99); Osmolality,Calculated 282 (280-300); Potassium 4.1 mEq/L (3.5-4.5); Sodium 134 mEq/L (136-145); eGFR For African Americans > 60 (> 60); eGFR For Non-African Americans > 60 (> 60)
[2016-06-07] MEDS ORDERED: Furosemide 40 MG/4 ML VIAL IVP ONE (08:42)
[2016-06-07 09:29] LABS: Bilirubin,Urine Negative (Negative); Blood,Urine Negative (Negative); Clarity,Urine Clear (Clear); Color,Urine Yellow (Yellow); Glucose,Urine (UA) Normal (Normal); Ketones,Urine Negative (Negative); Leukocyte Esterase,Urine Negative (Negative); Nitrite,Urine Negative (Negative); PH,Urine 5.5 pH Units (5.0-8.0); Protein,Urine 100 mg/dL (Neg-Trace); Specific Gravity,Urine 1.021 (1.010-1.025); Urobilinogen,Urine Normal (Normal)
[2016-06-07 09:31] LABS: Bacteria,Urine None Seen per hpf (None-Few); Hyaline Casts,Urine Few per lpf (None-Few); RBC,Urine 0-3 per hpf (0-3); Squamous Epithelial Cell,Urine Many per lpf (None-Few); WBC,Urine 0-3 per hpf (0-3)
--- NOTE | 2016-06-07 10:01 | Internal Med History&Physical ---
Date of Encounter: 06/07/16 Time of Encounter: 09:45 Assessment and Plan (1) Acute respiratory failure with hypoxia Current visit: Yes Status: Acute Patient with acute hypoxic respiratory failure. Likely due to combination of restrictive lung disease and acute CHF. Patient has received IV Lasix in the ER. Also received given nebs and Solu-Medrol. Will place patient in hospital for observation to telemetry. Monitor vital signs closely. Monitor blood pressure closely. High risk for complications including worsening respiratory failure. We will treat underlying conditions contributing to her respiratory failure. (2) Atrial fibrillation Current visit: Yes Status: Chronic Patient with chronic paroxysmal A. fib. Rate controlled. Continue current medications and monitor with telemetry. On anticoagulation with Coumadin. Will check PT/INR. Qualifiers: Atrial fibrillation type: paroxysmal Qualified Code(s): I48.0 - Paroxysmal atrial fibrillation (3) CHF (congestive heart failure) Current visit: Yes Status: Acute Patient received IV Lasix in the ER. Monitor input and output closely. Echocardiogram done in 2015 showed a normal ejection fraction and diastolic is in place on Lasix at home. She has mild pedal edema by chest x-ray shows pulmonary congestion. Qualifiers: Congestive heart failure type: diastolic Congestive heart failure chronicity: acute Qualified Code(s): I50.31 - Acute diastolic (congestive) heart failure (4) Dementia Current visit: Yes Status: Chronic Continue aricept and Namenda Qualifiers: Dementia type: unspecified type Dementia behavioral disturbance: without behavioral disturbance Qualified Code(s): F03.90 - Unspecified dementia without behavioral disturbance (5) Diabetes Current visit: Yes Status: Chronic Monitor blood sugars. Sliding scale insulin. Diabetic diet. Qualifiers: Diabetes mellitus type: type 2 Diabetes mellitus complication status: with hyperglycemia Diabetes mellitus prison insulin use: without prison use Qualified Code(s): E11.65 - Type 2 diabetes mellitus with hyperglycemia (6) Lung disease, restrictive Current visit: Yes Status: Acute Patient with underlying restrictive lung disease. She eats she had a pulmonary function test done in January 2016 which did not show any signs of COPD but showed restrictive lung disease. Possibly interstitial lung disease. This could be contributing to her respiratory failure. Will treat with O2 supplementation, IV steroids. Monitor O2 sats closely. Follow up outpatient with pulmonology. Internal Medicine - H&P: HPI Chief complaint: Cough and shortness of breath Admitted From: Emergency Dept Plans for Post Hospital Care: Transfer Long Term Facility History of present illness: Ms. Huang is a 65 year old female who is a care home resident with history of asthma, CHF, COPD, dementia of fibromyalgia and diabetes presented to the ER from her care home with complaints of cough and shortness of breath. Currently the patient is very somnolent and minimally awakens to sternal rub. She is unable to answer questions and history has been obtained through review of ED records and previous hospital stays. Her symptoms apparently have been going on for 5 days and progressively worsening. She had an episode of emesis 2 days back and there was concern for aspiration. She has not had any fever or chills or night sweats. When EMS went to pick her up, she was found to be saturating in the high 70s. According to the ED doctor, Patient is not on oxygen at baseline. In the ER, she was given Lasix, Solu-Medrol and duo nebs. Past Med Surg Social Fam HX - Past Medical History Source: old records reviewed Medical history: arthritis, asthma, CHF, dementia, diabetes, fibromyalgia, GERD , hyperlipidemia, hypertension, TIA, other (Restrictive lung disease) Psychiatric history: anxiety, depression - Past Surgical History Surgical History: hysterectomy - Social History Smoking Status: Never smoker Smokeless Tobacco Status: No Alcohol use: none Drug use: none - Family History Father Hx Family Cardiac Disorders: Yes Sister Hx Family Cardiac Disorders: Yes Internal Medicine - H&P: Meds Albuterol Neb [Proventil Neb] 2.5 mg IH Q6H PRN 05/06/16 [History] Albuterol Sulfate [Proair Hfa] 2 puff IH QID PRN 05/06/16 [History] Dicyclomine [Bentyl] 10 mg PO QID 05/06/16 [History] Donepezil [Aricept] 5 mg PO HS 05/06/16 [History] Esomeprazole Magnesium [Nexium] 40 mg PO BID 05/06/16 [History] Fluticasone Propionate Nasal [Flonase] 100 mcg NS DAILY 05/06/16 [History] Furosemide [Lasix] 40 mg PO DAILY 05/06/16 [History] Gabapentin [Neurontin] 400 mg PO TID 05/06/16 [History] Gabapentin [Neurontin] 800 mg PO HS 05/06/16 [History] Latanoprost [Xalatan] 1 drop OP HS 05/06/16 [History] Lisinopril 2.5 mg PO DAILY 05/06/16 [History] Lubiprostone [Amitiza] 24 mcg PO DAILY PRN 05/06/16 [History] Metformin HCl [Glucophage] 1,000 mg PO BID 05/06/16 [History] Nitroglycerin [Nitrostat] 0.4 mg SL AD PRN 05/06/16 [History] Paroxetine HCl [Paxil] 40 mg PO QAM 05/06/16 [History] Potassium Chloride [K-Tab ER] 20 meq PO DAILY 05/06/16 [History] Promethazine HCl 12.5 mg PO Q12H PRN 05/06/16 [History] Riociguat [Adempas] 1.5 mg PO TID 05/06/16 [History] Solifenacin Succinate [Vesicare] 10 mg PO DAILY 05/06/16 [History] TraZODone 50 mg PO HS 05/06/16 [History] Warfarin [Coumadin] 2.5 mg PO SUMOWEFRSA 05/06/16 [History] Cyclobenzaprine HCl 5 mg PO TID #30 tablet 05/11/16 [Rx] Ferrous Sulfate 325 mg PO BIDWM #0 tablet 05/11/16 [Rx] HYDROcodone/Acet 5/325 mg [Stanton 5-325 mg] 1 tab PO Q6H PRN #20 05/11/16 [Rx] LORazepam [Ativan] 1 mg PO Q8H #20 tablet 05/11/16 [Rx] Metoprolol XL (24 HR) Succ [Toprol XL] 25 mg PO DAILY #30 tab.er.24h 05/11/16 [ Rx] Cephalexin [Keflex] 500 mg PO BID 06/07/16 [History] Memantine HCl 20 mg PO DAILY 06/07/16 [History] Warfarin [Coumadin] 3 mg PO TUTH 06/07/16 [History] Allergies Penicillins Allergy (Verified 06/07/16 09:51) Rash IVP DYE Allergy (Uncoded 11/18/15 18:17) Difficulty Breathing ROS unobtainable: due to mental status All Systems PM: A 10-system review of systems was performed and is negative for pertinent findings except as documented above in the HPI. Review of systems: Review of systems completed from ED records. Patient is unable to awake enough to answer questions at this time. - Constitutional Constitutional: no chills, no fever(s), no night sweats - EENT Eyes: no change in vision, no discharge, no pain, no photophobia Ears: no ear discharge, no ear pain, no tinnitus Nose, mouth and throat: no dysphagia, no nasal discharge, no neck pain, no sore throat - Cardiovascular Cardiovascular ROS IM: no chest pain, no diaphoresis, no dyspnea, no lightheadedness, no palpitations, no syncope - Respiratory Respiratory: cough, dyspnea, dyspnea on exertion, no wheezing, no excessive phlegm production - Gastrointestinal Gastrointestinal: no abdominal pain, no diarrhea, no hematemesis, no hematochezia, no melena, no nausea, no vomiting - Genitourinary Genitourinary: no change in urinary stream, no dysuria, no flank pain, no hematuria - Musculoskeletal Musculoskeletal ROS IM: no numbness, no tingling - Integumentary Integumentary IM: no rash, no unusual bruising - Neurological Neurological ROS: no confusion, no convulsions, no focal weakness, no numbness, no tingling, no tremor(s) - Hematologic/Lymphatic Hematologic/Lymphatic: no easy bruising - Constitutional Vitals: Temp Pulse Resp BP Pulse Ox 98.0 F 81 19 148/86 99 06/07/16 07:42 06/07/16 09:25 06/07/16 09:25 06/07/16 09:25 06/07/16 09:25 General appearance: Present: A&O X 0, morbidly obese Exam: Patient is very somnolent at this time. In moderate distress. - Eye Eye exam: Present: EOMI, conjuntiva pink, sclera anicteric - Neck Neck exam general surgery: Present: supple, trachea midline. Absent: lymphadenopathy - Respiratory Respiratory exam: Present: prolonged expiratory phase, rhonchi, wheezes. Absent : accessory muscle use, rales - Cardiovascular Cardiovascular exam: Present: RRR, +S1, +S2. Absent: diastolic murmur, gallop, rubs, systolic murmur - GI/Abdominal GI/Abdominal exam: Present: normal bowel sounds, soft, no peritoneal signs. Absent: distended, tenderness - Extremities Exam Extremities exam: Present: warm, radial pulses palpable and symetrical. Absent : calf tenderness, cyanotic, pedal edema - Neurological Exam Neurological exam: Absent: facial droop, speech deficit Additional comments: Unable to complete neurologic exam due to patient's current status. - Skin Skin exam: Present: dry, intact Internal Med - H&P Results - Labs CBC & Chem 7: 06/07/16 07:58 06/07/16 07:58 Labs: Short CBC 06/07/16 Range/Units 07:58 WBC 6.3 (4.3-11.1) K/mcL Hgb 7.5 L (11.5-15.4) g/dL Hct 24.8 L (35.3-44.9) % Plt Count 348 (140-400) K/mcL Neutrophils # 4.7 (1.6-8.9) K/mcL BMP 06/07/16 07:58 Sodium 134 L Potassium 4.1 Chloride 94 L Carbon Dioxide 30 H BUN 12 Creatinine 0.75 Glucose 170 H Calcium 8.7 Cardiac Enzymes 06/07/16 Range/Units 07:58 Troponin I 0.03 (0-0.03) ng/mL Urine 06/07/16 Range/Units 09:21 Urine Color Yellow (Yellow) Urine Clarity Clear (Clear) Urine pH 5.5 (5.0-8.0) pH Units Ur Specific [place] 1.021 (1.010-1.025) Urine Protein 100 H (Neg-Trace) mg/dL Urine Glucose (UA) Normal (Normal) mg/dL - ABG Interpretation ABG results: 06/07/16 07:53 ABG pH 7.43 ABG pCO2 53 H ABG pO2 146 H ABG HCO3 35.2 H ABG Total CO2 36.8 H ABG O2 Saturation 99 H ABG Base Excess 9.7 H - Impressions ITS Impressions Chest X-Ray 06/07/16 07:40 IMPRESSION: Cardiomegaly. There is mild vascular indistinctness either due to low lung volumes or early pulmonary edema D/ / Luisito Spaulding MD / Luisito Spaulding MD Interpreting Provider: Luisito Spaulding MD - Attending Attestation This document has been at least partially created by [employer]YME recognition technology by Dr. Mace. Errors in grammar, wording or other phrases may exist. If errors are found after the documentation is signed, they will be addressed individually in the addendum section of this document when appropriate.
[2016-06-07] MEDS ORDERED: Naloxone 0.4 MG/ML INJ IVP PRN (10:28)
[2016-06-07] MEDS ORDERED: Lubiprostone [Amitiza] 24 MCG PO PRN (10:34)
[2016-06-07] MEDS ORDERED: Nitroglycerin 0.4 MG TAB.SUBL SL PRN (10:34)
[2016-06-07] MEDS ORDERED: Dextrose Gel 15 GM PO PRN ×2 (10:41)
[2016-06-07] MEDS ORDERED: D5% in Water 1,000 ML IV PRN (10:41)
[2016-06-07] MEDS ORDERED: *HR* Dextrose 50 % in Water (Syg) 50 ML SYRINGE IVP PRN (10:41)
[2016-06-07] MEDS: Gabapentin 400 MG CAPSULE PO SCH ×4 (11:31→23:51)
[2016-06-07] MEDS: *HR* LORazepam 1 MG TABLET PO SCH ×2 (11:31→18:12)
[2016-06-07 12:06] LABS: INR 2.2; Prothrombin Time 23.9 Seconds (9.4-12.1)
[2016-06-07] MEDS: Insulin LISPRO 300 UNITS/3 ML VIAL SQ SCH ×4 (12:35→22:15)
--- NOTE | 2016-06-07 13:16 | Electrocardiograph Report ---
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
[2016-06-07] MEDS: Ipratropium/Albuterol Neb 3 ML IH PRN ×2 (16:07→21:10)
[2016-06-07] MEDS: methylPREDNISolone 125 MG/2 ML VIAL IVP SCH ×2 (17:03→23:51)
[2016-06-07] MEDS: Acetaminophen 325 MG TABLET PO PRN (18:15)
[2016-06-07] MEDS ORDERED: *HR* Warfarin 2.5 MG TABLET PO SCH (18:55)
[2016-06-07 22:29] LABS: ABG Base Excess 11.1 mEq/L (-2.0 to 3.0); ABG Oxygen Saturation 98 % (95-98); ABG PCO2 57 mmHg (35-45); ABG PH 7.42 pH Units (7.32-7.45); ABG PO2 99 mmHg (85-104); ABG TCO2 38.7 mEq/L (20-26)
[2016-06-07 22:30] LABS: Blood Gas FiO2 28 %
[2016-06-08] MEDS: *HR* LORazepam 1 MG TABLET PO SCH ×3 (03:14→19:53)
[2016-06-08 04:36] LABS: Basophils % 0.2 %; Hematocrit 26.2 % (35.3-44.9); Hemoglobin 7.8 g/dL (11.5-15.4); Immature Granulocytes % 4.2 % (0-4); Lymphocytes # 0.7 K/mcL (0.6-4.6); Lymphocytes % 18.5 %; Mean Corpuscular HGB Conc 29.8 g/dL (31.6-35.5); Mean Corpuscular Hemoglobin 24.7 pg (28.0-33.3); Mean Corpuscular Volume 82.9 fL (83.0-100.0); Mean Platelet Volume 9.6 fL (9.4-12.4); Monocytes # 0.2 K/mcL (0.0-1.3); Monocytes % 4.2 %; Neutrophils # 2.9 K/mcL (1.6-8.9); Nucleated Red Blood Cells 0.7 /100 WBC (0); Platelet Count 350 K/mcL (140-400); Red Blood Count 3.16 M/mcL (3.82-4.97); Red Cell Distribution Width 19.2 % (11.5-14.5); Segmented Neutrophils % 72.9 %
[2016-06-08 04:49] LABS: BUN/Creatinine Ratio 19 (6-26); Blood Urea Nitrogen 15 mg/dL (7-20); Carbon Dioxide 31 mEq/L (19-29); Chloride 93 mEq/L (98-109); Glucose 224 mg/dL (70-99); Osmolality,Calculated 288 (280-300); Sodium 135 mEq/L (136-145); eGFR For African Americans > 60 (> 60); eGFR For Non-African Americans > 60 (> 60)
[2016-06-08] MEDS: Gabapentin 400 MG CAPSULE PO SCH ×4 (06:34→21:11)
[2016-06-08] MEDS: Acetaminophen 325 MG TABLET PO PRN ×2 (08:42→16:22)
[2016-06-08] MEDS: Metoprolol XL (24 HR) Succ 25 MG TAB.ER.24H PO SCH (08:43)
[2016-06-08] MEDS: Insulin LISPRO 300 UNITS/3 ML VIAL SQ SCH ×4 (08:44→21:11)
[2016-06-08] MEDS: methylPREDNISolone 125 MG/2 ML VIAL IVP SCH ×3 (08:44→23:39)
[2016-06-08] MEDS ORDERED: Furosemide 40 MG TABLET PO SCH (09:00)
[2016-06-08] MEDS ORDERED: Ipratropium/Albuterol Neb 3 ML IH ONE (09:34)
[2016-06-08 09:35] LABS: INR 2.8; Prothrombin Time 31.1 Seconds (9.4-12.1)
--- NOTE | 2016-06-08 09:35 | Internal Med Progress Note ---
Date of Encounter: 06/08/16 Time of Encounter: 09:10 - Assessment and plan (1) Acute respiratory failure with hypoxia Current Visit: Yes Status: Acute Assessment and plan: Likely due to combination of restrictive lung disease and acute CHF. Continue steroids, nebs Actively wheezing this a.m Will add doxycycline for bronchitis (2) CHF (congestive heart failure) Current Visit: Yes Status: Acute Assessment and plan: Continue lasix, IV Strict I/O Has evidence of fluid overload by CXR and pedal edema as well as hypoxia BNP is >800 Will obtain ECHO, last ECHO was done 12/2015 with indeterminate diastolic function Daily weight check Fluid restriction to 1.5L daily Qualifiers: Congestive heart failure type: diastolic Congestive heart failure chronicity: acute on chronic Qualified Code(s): I50.33 - Acute on chronic diastolic (congestive) heart failure (3) Dementia Current Visit: Yes Status: Chronic Qualifiers: Dementia type: unspecified type Dementia behavioral disturbance: without behavioral disturbance Qualified Code(s): F03.90 - Unspecified dementia without behavioral disturbance (4) Diabetes Current Visit: Yes Status: Chronic Assessment and plan: Continue supplemental insulin, diabetic diet, monitor closely Qualifiers: Diabetes mellitus type: type 2 Diabetes mellitus complication status: with hyperglycemia 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: without halfway use Qualified Code(s): E11.65 - Type 2 diabetes mellitus with hyperglycemia (5) Atrial fibrillation Current Visit: Yes Status: Chronic Assessment and plan: Continue medications INR is therapeutic Qualifiers: Atrial fibrillation type: paroxysmal Qualified Code(s): I48.0 - Paroxysmal atrial fibrillation (6) Lung disease, restrictive Current Visit: Yes Status: Chronic Assessment and plan: As in acute respiratory failure - Subjective Interval history: 65 Y/o F Seen and evaluated at bedside She has a PMH of Asthma, restrictive lung disease, Dementia, Fibromyalgia, DM, resident of [facility], Pulmonary embolism She is seen at bedside, awake, alert, and able to speak full sentences. She complains of wheezing. - Constitutional Vitals: Temp Pulse Resp BP Pulse Ox 97.2 F L 78 18 154/85 92 L 06/08/16 07:43 06/08/16 07:43 06/08/16 07:43 06/08/16 07:43 06/08/16 08:59 General appearance: Present: disheveled, A&O X 3, morbidly obese, pleasant, no acute distress - Head Head exam: Present: atraumatic, normocephalic - Eye Eye exam: Present: PERRL, conjuntiva pink, sclera anicteric Pupils: Present: PERRL - Neck Neck exam general surgery: Present: supple, trachea midline. Absent: lymphadenopathy - Respiratory Respiratory exam: Present: wheezes - Cardiovascular Cardiovascular exam: Present: RRR, +S1, +S2. Absent: diastolic murmur, gallop, rubs, systolic murmur - GI/Abdominal GI/Abdominal exam: Present: normal bowel sounds, soft, no peritoneal signs. Absent: distended, tenderness - Extremities Exam Extremities exam: Present: pedal edema (bilateral piting pedal edema, RLE >LLE , chronic venous stasis changes) - Neurological Exam Neurological exam: Present: alert, CN II-XII intact, oriented X3, no focal deficits. Absent: pronater drift, facial droop, speech deficit - Skin Skin exam: Present: dry Internal Medicine: Result - Labs CBC & Chem 7: 06/08/16 04:18 06/08/16 04:18 Labs: Short CBC 06/08/16 Range/Units 04:18 WBC 4.0 L (4.3-11.1) K/mcL Hgb 7.8 L (11.5-15.4) g/dL Hct 26.2 L (35.3-44.9) % Plt Count 350 (140-400) K/mcL Neutrophils # 2.9 (1.6-8.9) K/mcL BMP 06/08/16 04:18 Sodium 135 L Potassium 4.0 Chloride 93 L Carbon Dioxide 31 H BUN 15 Creatinine 0.81 Glucose 224 H Calcium 9.0 - ABG Interpretation ABG results: ABG ABG pH 7.42 pH Units (7.32-7.45) 06/07/16 22:20 ABG pCO2 57 mmHg (35-45) H 06/07/16 22:20 ABG pO2 99 mmHg (85-104) 06/07/16 22:20 ABG O2 Saturation 98 % (95-98) 06/07/16 22:20 PT/INR, D-dimer PT 23.9 Seconds (9.4-12.1) H 06/07/16 07:58 Consult Discharge Plan - Plan Referrals: Marito Mray MD [Primary Care Provider] -
[2016-06-08] MEDS: Ipratropium/Albuterol Neb 3 ML IH PRN ×2 (16:03→21:47)
[2016-06-08] MEDS ORDERED: *HR* Warfarin 2 MG TABLET PO ONE (18:00)
[2016-06-08] MEDS: Fluticasone Propionate Nasal 50 MCG/SPRAY BOTTLE NS SCH (18:36)
[2016-06-08] MEDS: *HR* HYDROcodone/Acet 5/325 mg TABLET PO PRN (19:53)
[2016-06-08] MEDS: Doxycycline 100 MG CAPSULE PO SCH (21:11)
[2016-06-09] MEDS: *HR* LORazepam 1 MG TABLET PO SCH ×3 (03:15→21:17)
[2016-06-09] MEDS: Gabapentin 400 MG CAPSULE PO SCH ×4 (06:34→21:17)
[2016-06-09 06:41] LABS: Hematocrit 26.1 % (35.3-44.9); Hemoglobin 7.6 g/dL (11.5-15.4); Immature Granulocytes % 1.2 % (0-4); Lymphocytes # 0.7 K/mcL (0.6-4.6); Lymphocytes % 12.2 %; Mean Corpuscular HGB Conc 29.1 g/dL (31.6-35.5); Mean Corpuscular Hemoglobin 24.1 pg (28.0-33.3); Mean Corpuscular Volume 82.9 fL (83.0-100.0); Mean Platelet Volume 9.3 fL (9.4-12.4); Monocytes # 0.2 K/mcL (0.0-1.3); Monocytes % 4.3 %; Neutrophils # 4.6 K/mcL (1.6-8.9); Platelet Count 377 K/mcL (140-400); Red Blood Count 3.15 M/mcL (3.82-4.97); Red Cell Distribution Width 19.3 % (11.5-14.5); Segmented Neutrophils % 82.3 %
[2016-06-09 06:50] LABS: INR 3.1; Prothrombin Time 35.1 Seconds (9.4-12.1)
[2016-06-09 06:54] LABS: BUN/Creatinine Ratio 25 (6-26); Blood Urea Nitrogen 19 mg/dL (7-20); Calcium 8.6 mg/dL (8.6-10.8); Carbon Dioxide 31 mEq/L (19-29); Chloride 91 mEq/L (98-109); Glucose 264 mg/dL (70-99); Osmolality,Calculated 283 (280-300); Potassium 3.8 mEq/L (3.5-4.5); Sodium 131 mEq/L (136-145); eGFR For African Americans > 60 (> 60); eGFR For Non-African Americans > 60 (> 60)
[2016-06-09] MEDS: Insulin LISPRO 300 UNITS/3 ML VIAL SQ SCH ×4 (08:56→21:17)
[2016-06-09] MEDS: Furosemide 40 MG/4 ML VIAL IVP SCH (08:57)
[2016-06-09] MEDS: methylPREDNISolone 125 MG/2 ML VIAL IVP SCH ×2 (08:57→16:10)
[2016-06-09] MEDS: Doxycycline 100 MG CAPSULE PO SCH ×2 (08:58→21:17)
[2016-06-09] MEDS: Metoprolol XL (24 HR) Succ 25 MG TAB.ER.24H PO SCH (08:58)
[2016-06-09] MEDS: *HR* HYDROcodone/Acet 5/325 mg TABLET PO PRN ×2 (08:58→17:14)
[2016-06-09] MEDS: Fluticasone Propionate Nasal 50 MCG/SPRAY BOTTLE NS SCH (09:56)
--- NOTE | 2016-06-09 10:17 | Internal Med Progress Note ---
Date of Encounter: 06/09/16 (n) Time of Encounter: 10:12 - Assessment and plan (1) Acute and chronic respiratory failure with hypercapnia Current Visit: Yes Status: Acute Assessment and plan: #1 taper her to oral steroids today #2 will try some BiPAP or CPAP overnight. She did have sleep apnea testing and had been on CPAP previously as an outpatient. And I believe this is contributing some to her CO2 retention. (2) Hypertension Current Visit: No Status: Chronic Qualifiers: Hypertension type: essential hypertension Qualified Code(s): I10 - Essential (primary) hypertension (3) Diabetes Current Visit: Yes Status: Chronic Assessment and plan: Blood sugars are running high. We will increase her sliding scale coverage. Some of this is driven by the use of steroids. 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 Absent: rales, rhonchi Additional comments: No accessory muscle use. O2 sats are near 100% with 4 L of oxygen on. Internal Medicine: Result - Labs CBC & Chem 7: 06/09/16 05:16 06/09/16 05:16 Labs: Short CBC 06/09/16 Range/Units 05:16 WBC 5.6 (4.3-11.1) K/mcL Hgb 7.6 L (11.5-15.4) g/dL Hct 26.1 L (35.3-44.9) % Plt Count 377 (140-400) K/mcL Neutrophils # 4.6 (1.6-8.9) K/mcL BMP 06/09/16 05:16 Sodium 131 L Potassium 3.8 Chloride 91 L Carbon Dioxide 31 H BUN 19 Creatinine 0.77 Glucose 264 H Calcium 8.6 - ABG Interpretation ABG results: ABG ABG pH 7.42 pH Units (7.32-7.45) 06/07/16 22:20 ABG pCO2 57 mmHg (35-45) H 06/07/16 22:20 ABG pO2 99 mmHg (85-104) 06/07/16 22:20 ABG O2 Saturation 98 % (95-98) 06/07/16 22:20 PT/INR, D-dimer PT 35.1 Seconds (9.4-12.1) H 06/09/16 05:16 Consult Discharge Plan - Plan Referrals: Marito Mary MD [Primary Care Provider] -
[2016-06-09] MEDS ORDERED: Perflutren Lipid Microsphere 1.3 ML in 0.9 % Sodium Chloride 8.7 ML IVP ONE (13:59)
[2016-06-09] MEDS ORDERED: Perflutren Lipid Microsphere 2 ML VIAL ONE (14:02)
--- NOTE | 2016-06-09 15:34 | ECHO - Doppler Report ---
Echo with Imaging Enhancement Agent Name: Petra Huang Date of Study: 06/09/2016 Date: 1950 Ht: 66.0 in Medical Record#: [id number] Age: 65 Wt: 266.0 lb Gender: Female BSA: 2.26 Order #: [id number] Location: [facility] Room #: 3B32 Reading Physician: Ijeoma Martin DO Technical Support Consultant: Yady White Ordering Physician: Yonathan Duque MD Primary Physician: Marito Mary MD Indications: Congestive heart failure Impressions: LVEF 60%. Normal left ventricular size and systolic function. Indeterminate left venticular diastoic function RV is dilated with normal function. Mild mitral regurgitation. Moderate tricuspid regurgitation. Mild-moderate pulmonic regurgitation. Moderate pulmonary hypertension. RVSP 55 mmHg. The IVC is dilated, estimating elevated RA pressures. Left Ventricular Wall Motion: Rest Echo Findings All wall segments showed normal motion. Findings: Study Quality * Technically adequate exam. ECG Findings * Atrial fibrillation. Left Ventricle * Indeterminate diastolic function. * LVEF 60%. * Normal LV chamber size, wall thickness and function. * Definity echo contrast was used. Mitral Valve * Normal mitral valve structure. * No mitral stenosis. * Mild mitral regurgitation. Left Atrium * Moderately dilated left atrium. Aortic Valve * No aortic regurgitation. * Trileaflet aortic valve. * Normal aortic valve structure. * No aortic stenosis. Tricuspid Valve * Tricuspid valve not well visualized. * Moderate tricuspid regurgitation. * Estimated RA pressure is 15 mmHg. * Estimated RVSP is 55 mmHg. * Moderate pulmonary hypertension. Pulmonic Valve * Pulmonic valve is not well visualized. * No pulmonic stenosis. * Mild-moderate pulmonic regurgitation. Pulmonary Artery * Pulmonary artery not well visualized. Right Ventricle * Dilated RV with normal function. Right Atrium * Volumes are not well obtained. Visually appears dilated. Interatrial Septum * No evidence of PFO by color Doppler. IVC * The IVC is dilated. * < 50% respiratory change. Pericardium * There is no pericardial effusion present. History Hypertension Diabetes Hypercholesteremia Rheumatic Fever Family History of CAD Congestive Heart Failure 01/20/2016 a Previous Echo was performed. Contrast: Definity 1.3 ml in 8.7 ml of saline 2 ml. Measurements: BP: 146/ 87 2D Normal Values IVSd: 1.10 cm 0.6 - 1.0 cm LVIDd: 4.60 cm 3.7 - 5.6 cm LVPWd: 1.10 cm 0.6 - 1.1 cm LVIDs: 3.00 cm 1.5 - 3.6 cm AO: 3.20 cm < 4.0 cm LA: 5.00 cm 2.0 - 4.0cm %FS: 34.80 cm >25 % LA volume: 66 Mitral Valve Peak E:1.47 m/sec Peak A:.26 m/sec E/A Ratio:5.6 Peak E' Lat Marck:10.9 cm/s Peak E' Med Marck:6.92 cm/s E/E' Lat Ratio:13.5 E/E' Med Ratio:21.2 Tricuspid Valve TV Regurg Peak Grad: 41.00mmHg TV Regurg Peak Marck: 3.20m/sec Updated by Ijeoma Martin on 06/09/2016 3:26:37 PM electronically signed on 06/09/2016 3:28:01 PM with status of Final Wall Motion Amor: 1=Normal, 2=Hypokinesis, 3=Akinesis, 4=Dyskinesis, 5=Aneurysmal, 6=Hyperkinetic, X=Not Visualized (Blank)=Missing
[2016-06-09] MEDS: predniSONE 20 MG TABLET PO SCH (17:15)
[2016-06-09] MEDS ORDERED: Warfarin perPT PO PRN (18:00)
[2016-06-09] MEDS ORDERED: *HR* Warfarin 3 MG TABLET PO SCH ×2 (18:00)
[2016-06-09] MEDS: traZODone 50 MG TABLET PO SCH (21:17)
[2016-06-10] MEDS: *HR* LORazepam 1 MG TABLET PO SCH ×3 (03:56→17:11)
[2016-06-10 04:58] LABS: Hematocrit 27.7 % (35.3-44.9); Hemoglobin 8.1 g/dL (11.5-15.4); Immature Granulocytes % 1.5 % (0-4); Lymphocytes % 17.7 %; Mean Corpuscular HGB Conc 29.2 g/dL (31.6-35.5); Mean Corpuscular Hemoglobin 24.3 pg (28.0-33.3); Mean Corpuscular Volume 83.2 fL (83.0-100.0); Mean Platelet Volume 9.4 fL (9.4-12.4); Platelet Count 396 K/mcL (140-400); Red Blood Count 3.33 M/mcL (3.82-4.97); Segmented Neutrophils % 71.3 %
[2016-06-10 04:59] LABS: Lymphocytes # 1.1 K/mcL (0.6-4.6); Monocytes # 0.6 K/mcL (0.0-1.3); Monocytes % 9.5 %; Nucleated Red Blood Cells 0.3 /100 WBC (0)
[2016-06-10 05:01] LABS: Neutrophils # 4.4 K/mcL (1.6-8.9)
[2016-06-10 05:06] LABS: INR 4.1
[2016-06-10 05:11] LABS: BUN/Creatinine Ratio 25 (6-26); Blood Urea Nitrogen 19 mg/dL (7-20); Calcium 8.7 mg/dL (8.6-10.8); Carbon Dioxide 34 mEq/L (19-29); Chloride 94 mEq/L (98-109); Glucose 176 mg/dL (70-99); Osmolality,Calculated 289 (280-300); Potassium 3.7 mEq/L (3.5-4.5); Sodium 136 mEq/L (136-145); eGFR For African Americans > 60 (> 60); eGFR For Non-African Americans > 60 (> 60)
[2016-06-10 05:12] LABS: Prothrombin Time 45.7 Seconds (9.4-12.1)
[2016-06-10 05:20] LABS: Platelet Estimate Normal (Normal); Reactive Lymphocytes Present (Not Present)
[2016-06-10] MEDS: Gabapentin 400 MG CAPSULE PO SCH ×4 (06:56→21:53)
[2016-06-10] MEDS: Insulin LISPRO 300 UNITS/3 ML VIAL SQ SCH ×4 (08:53→21:58)
[2016-06-10] MEDS: Doxycycline 100 MG CAPSULE PO SCH ×2 (08:54→21:52)
[2016-06-10] MEDS: predniSONE 20 MG TABLET PO SCH ×2 (08:55→16:12)
[2016-06-10] MEDS: Metoprolol XL (24 HR) Succ 25 MG TAB.ER.24H PO SCH (08:56)
[2016-06-10] MEDS: Furosemide 40 MG/4 ML VIAL IVP SCH (08:56)
[2016-06-10] MEDS: Fluticasone Propionate Nasal 50 MCG/SPRAY BOTTLE NS SCH (09:05)
[2016-06-10] MEDS: Ipratropium/Albuterol Neb 3 ML IH PRN ×3 (09:21→22:45)
--- NOTE | 2016-06-10 15:48 | Internal Med Progress Note ---
Date of Encounter: 06/10/16 (\) Time of Encounter: 15:43 - Assessment and plan (1) Acute and chronic respiratory failure with hypercapnia Current Visit: Yes Status: Acute Assessment and plan: Put an order for BiPAP and/or CPAP for overnight use. Order was not taken off from what I can gather. We will order BiPAP again for tonight. Obvious me that with a morbidly obese patient with CO2 retention and positive pressure ventilation seems relatively obvious fix for this. We will continue steroids. Continue antibiotics. 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 There is audible wheezing from the bedside. - Constitutional Vitals: Temp Pulse Resp BP Pulse Ox 98.4 F 66 16 131/75 98 06/10/16 14:23 06/10/16 14:23 06/10/16 14:23 06/10/16 14:23 06/10/16 14:23 General appearance: Present: disheveled, A&O X 3, morbidly obese, pleasant, no acute distress - Expanded Respiratory Exam Location: rhonchi: Upper, Lower, Right, Left, wheezes: Left, Right, Upper, Lower Internal Medicine: Result - Labs CBC & Chem 7: 06/10/16 04:44 06/10/16 04:44 Labs: Short CBC 06/10/16 Range/Units 04:44 WBC 6.1 (4.3-11.1) K/mcL Hgb 8.1 L (11.5-15.4) g/dL Hct 27.7 L (35.3-44.9) % Plt Count 396 (140-400) K/mcL Neutrophils # 4.4 (1.6-8.9) K/mcL BMP 06/10/16 04:44 Sodium 136 Potassium 3.7 Chloride 94 L Carbon Dioxide 34 H BUN 19 Creatinine 0.77 Glucose 176 H Calcium 8.7 - ABG Interpretation ABG results: ABG ABG pH 7.42 pH Units (7.32-7.45) 06/07/16 22:20 ABG pCO2 57 mmHg (35-45) H 06/07/16 22:20 ABG pO2 99 mmHg (85-104) 06/07/16 22:20 ABG O2 Saturation 98 % (95-98) 06/07/16 22:20 PT/INR, D-dimer PT 45.7 Seconds (9.4-12.1) H* 06/10/16 04:44 Consult Discharge Plan - Plan Referrals: Marito Mary MD [Primary Care Provider] -
[2016-06-10] MEDS: traZODone 50 MG TABLET PO SCH (21:54)
[2016-06-10] MEDS: *HR* HYDROcodone/Acet 5/325 mg TABLET PO PRN (23:47)
[2016-06-11] MEDS: *HR* LORazepam 1 MG TABLET PO SCH ×2 (01:55→11:59)
[2016-06-11 05:19] LABS: INR 3.7; Prothrombin Time 41.7 Seconds (9.4-12.1)
[2016-06-11] MEDS: Gabapentin 400 MG CAPSULE PO SCH ×2 (05:33→11:59)
[2016-06-11] MEDS: Insulin LISPRO 300 UNITS/3 ML VIAL SQ SCH ×2 (08:14→12:25)
[2016-06-11] MEDS: Metoprolol XL (24 HR) Succ 25 MG TAB.ER.24H PO SCH (08:14)
[2016-06-11] MEDS: Doxycycline 100 MG CAPSULE PO SCH (08:15)
[2016-06-11] MEDS: Furosemide 40 MG/4 ML VIAL IVP SCH (08:15)
[2016-06-11] MEDS: predniSONE 20 MG TABLET PO SCH (08:15)
[2016-06-11] MEDS: Fluticasone Propionate Nasal 50 MCG/SPRAY BOTTLE NS SCH (08:16)
[2016-06-11 12:12] VITALS: BP 137/75
--- NOTE | 2016-06-11 13:21 | Physician Discharge Referral ---
ExtendedCare Referral Info Transfer To: ecf Provider in Charge: Arboleda Provider in Charge after Transfer: PCP Institutional Level of Care: Skilled (PT, OT Bipap overnight for her CO2 retention and sleep apnea , O2 at 2l/nc) - Diagnosis (1) Acute and chronic respiratory failure with hypercapnia Status: Acute (2) Hypertension Status: Chronic (3) Diabetes Status: Chronic (4) Acute respiratory failure with hypoxia Status: Acute - Transfer Medications Home Medications: Albuterol Neb [Proventil Neb] 2.5 mg IH Q6H PRN 05/06/16 [History] Albuterol Sulfate [Proair Hfa] 2 puff IH QID PRN 05/06/16 [History] Dicyclomine [Bentyl] 10 mg PO QID 05/06/16 [History] Donepezil [Aricept] 5 mg PO HS 05/06/16 [History] Esomeprazole Magnesium [Nexium] 40 mg PO BID 05/06/16 [History] Fluticasone Propionate Nasal [Flonase] 100 mcg NS DAILY 05/06/16 [History] Furosemide [Lasix] 40 mg PO DAILY 05/06/16 [History] Gabapentin [Neurontin] 400 mg PO TID 05/06/16 [History] Gabapentin [Neurontin] 800 mg PO HS 05/06/16 [History] Latanoprost [Xalatan] 1 drop OP HS 05/06/16 [History] Lisinopril 2.5 mg PO DAILY 05/06/16 [History] Lubiprostone [Amitiza] 24 mcg PO DAILY PRN 05/06/16 [History] Metformin HCl [Glucophage] 1,000 mg PO BID 05/06/16 [History] Nitroglycerin [Nitrostat] 0.4 mg SL AD PRN 05/06/16 [History] Paroxetine HCl [Paxil] 40 mg PO QAM 05/06/16 [History] Potassium Chloride [K-Tab ER] 20 meq PO DAILY 05/06/16 [History] Promethazine HCl 12.5 mg PO Q12H PRN 05/06/16 [History] Riociguat [Adempas] 1.5 mg PO TID 05/06/16 [History] Solifenacin Succinate [Vesicare] 10 mg PO DAILY 05/06/16 [History] TraZODone 50 mg PO HS 05/06/16 [History] Warfarin [Coumadin] 2.5 mg PO SUMOWEFRSA 05/06/16 [History] Cyclobenzaprine HCl 5 mg PO TID #30 tablet 05/11/16 [Rx] Ferrous Sulfate 325 mg PO BIDWM #0 tablet 05/11/16 [Rx] HYDROcodone/Acet 5/325 mg [[place] 5-325 mg] 1 tab PO Q6H PRN #20 05/11/16 [Rx] LORazepam [Ativan] 1 mg PO Q8H #20 tablet 05/11/16 [Rx] Metoprolol XL (24 HR) Succ [Toprol XL] 25 mg PO DAILY #30 tab.er.24h 05/11/16 [ Rx] Cephalexin [Keflex] 500 mg PO BID 06/07/16 [History] Memantine HCl 20 mg PO DAILY 06/07/16 [History] Warfarin [Coumadin] 3 mg PO TUTH 06/07/16 [History] Allergies/Adverse Reactions: Allergies Penicillins Allergy (Verified 06/07/16 09:51) Rash IVP DYE Allergy (Uncoded 11/18/15 18:17) Difficulty Breathing - Respiratory Orders Smoking Cessation: Smoking cessation has been advised. For more information, call the [place] Tobacco Quit Line at 1-946-PEZT-NOW. CERTIFICATION: I certify that the transfer of the above named patient to an Extended Care Facility is necessary for the continuing treatment of the diagnosis listed. The above information is true and accurate reflection of patient's current condition. Confidential - Redisclosure prohibited without a patient's written consent.
--- NOTE | 2016-06-11 13:43 | Discharge Summary ---
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 insulin use: without prison use Qualified Code(s): E11.65 - Type 2 diabetes mellitus with hyperglycemia (4) Acute respiratory failure with hypoxia Priority: Primary Status: Acute - Discharge Medications Prescriptions: HYDROcodone/Acet 5/325 mg [[place] 5-325 mg] 1 tab PO Q6H PRN #20 tablet PRN Reason: Pain LORazepam [Ativan] 1 mg PO Q8H #20 tablet Home Medications: Albuterol Neb [Proventil Neb] 2.5 mg IH Q6H PRN 05/06/16 [History] Albuterol Sulfate [Proair Hfa] 2 puff IH QID PRN 05/06/16 [History] Dicyclomine [Bentyl] 10 mg PO QID 05/06/16 [History] Donepezil [Aricept] 5 mg PO HS 05/06/16 [History] Esomeprazole Magnesium [Nexium] 40 mg PO BID 05/06/16 [History] Fluticasone Propionate Nasal [Flonase] 100 mcg NS DAILY 05/06/16 [History] Furosemide [Lasix] 40 mg PO DAILY 05/06/16 [History] Gabapentin [Neurontin] 400 mg PO TID 05/06/16 [History] Gabapentin [Neurontin] 800 mg PO HS 05/06/16 [History] Latanoprost [Xalatan] 1 drop OP HS 05/06/16 [History] Lisinopril 2.5 mg PO DAILY 05/06/16 [History] Lubiprostone [Amitiza] 24 mcg PO DAILY PRN 05/06/16 [History] Metformin HCl [Glucophage] 1,000 mg PO BID 05/06/16 [History] Nitroglycerin [Nitrostat] 0.4 mg SL AD PRN 05/06/16 [History] Paroxetine HCl [Paxil] 40 mg PO QAM 05/06/16 [History] Potassium Chloride [K-Tab ER] 20 meq PO DAILY 05/06/16 [History] Promethazine HCl 12.5 mg PO Q12H PRN 05/06/16 [History] Riociguat [Adempas] 1.5 mg PO TID 05/06/16 [History] Solifenacin Succinate [Vesicare] 10 mg PO DAILY 05/06/16 [History] TraZODone 50 mg PO HS 05/06/16 [History] Warfarin [Coumadin] 2.5 mg PO SUMOWEFRSA 05/06/16 [History] Cyclobenzaprine HCl 5 mg PO TID #30 tablet 05/11/16 [Rx] Ferrous Sulfate 325 mg PO BIDWM #0 tablet 05/11/16 [Rx] Metoprolol XL (24 HR) Succ [Toprol Xl] 25 mg PO DAILY #30 tab.er.24h 05/11/16 [ Rx] Memantine HCl 20 mg PO DAILY 06/07/16 [History] Warfarin [Coumadin] 3 mg PO TUTH 06/07/16 [History] Acetaminophen [Tylenol] 650 mg PO Q6HR PRN #0 tablet 06/11/16 [Rx] Cephalexin [Keflex] 500 mg PO BID #14 06/11/16 [Rx] Doxycycline 100 mg PO BID #14 capsule 06/11/16 [Rx] HYDROcodone/Acet 5/325 mg [[place] 5-325 mg] 1 tab PO Q6H PRN #20 tablet 06/11/16 [Rx] Ipratropium/Albuterol Neb [Duoneb] 3 ml IH [id number] PRN #0 inhsol 06/11/16 [Rx] LORazepam [Ativan] 1 mg PO Q8H #20 tablet 06/11/16 [Rx] Allergies/Adverse Reactions: Allergies Penicillins Allergy (Verified 06/07/16 09:51) Rash IVP DYE Allergy (Uncoded 11/18/15 18:17) Difficulty Breathing Labs on day of discharge: Labs from last 24 hours 06/11/16 06/11/16 06/11/16 12:16 07:53 03:53 PT 41.7 H INR 3.7 POC Glucose 242 H 116 H 06/10/16 06/10/16 20:30 15:32 PT INR POC Glucose 210 H 176 H Internal Medicine - DS: Prov Date of admission: 06/08/16 16:02 Primary care physician: Marito Mary MD Consults: 06/09/16 10:23 Consult to Occupational Therapy [CONS] Routine Comment: Evaluate, develop and implement POC Consult to Physical Therapy [CONS] Routine Comment: Evaluate, develop and implement POC - Patient Status Condition: Fair - Discharge Instructions Follow Up With: Marito Mary MD [Primary Care Provider] - - Hospital Course Hospital course: Ms. Huang is a 65 year old female - Time Spent with Patient Total time spent providing and/or coordinating discharge services: Greater than 30 minutes Internal Medicine - DS: Exam - Constitutional Vitals: Vital Signs Temp Pulse Resp BP Pulse Ox 06/11/16 12:12 98.0 F 72 15 137/75 97 06/11/16 07:49 97.5 F L 68 15 126/79 97 06/11/16 05:05 14 99 06/11/16 03:56 97.6 F 67 20 95 06/10/16 23:42 97.7 F 79 12 130/66 98 06/10/16 23:30 16 98 06/10/16 22:45 16 97 06/10/16 21:39 97 06/10/16 20:26 98 F 73 19 110/58 96 06/10/16 16:21 18 98 06/10/16 14:23 98.4 F 66 16 131/75 98 Intake and Output 06/10/16 06/11/16 06/11/16 23:59 07:59 15:59 Intake Total 240 / 240 450 / 450 Output Total 750 / 750 350 / 350 2450 / 2450 Balance -510 / -510 100 / 100 -2450 / -2450 Intake: Oral 240 / 240 450 / 450 Output: Urine 750 / 750 350 / 350 350 / 350 Urethral (Moss) 750 / 750 350 / 350 350 / 350 Catheter 2100 / 2100 Other: Meal Dinner Percent of Meal Consumed 50% Weight 120.157 kg Blood Glucose* 210 116 242 Patient Weight 06/11/16 23:59 Weight 120.157 kg - Respiratory Respiratory exam: Present: CTAB
--- NOTE | 2016-06-11 13:54 | Discharge Summary ---
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: without termite exterminator use Qualified Code(s): E11.65 - Type 2 diabetes mellitus with hyperglycemia (4) Acute respiratory failure with hypoxia Priority: Primary Status: Acute - Discharge Medications Prescriptions: HYDROcodone/Acet 5/325 mg [[place] 5-325 mg] 1 tab PO Q6H PRN #20 tablet PRN Reason: Pain LORazepam [Ativan] 1 mg PO Q8H #20 tablet PredniSONE 5 mg PO DAILY #35 tablet Home Medications: Albuterol Neb [Proventil Neb] 2.5 mg IH Q6H PRN 05/06/16 [History] Albuterol Sulfate [Proair Hfa] 2 puff IH QID PRN 05/06/16 [History] Dicyclomine [Bentyl] 10 mg PO QID 05/06/16 [History] Donepezil [Aricept] 5 mg PO HS 05/06/16 [History] Esomeprazole Magnesium [Nexium] 40 mg PO BID 05/06/16 [History] Fluticasone Propionate Nasal [Flonase] 100 mcg NS DAILY 05/06/16 [History] Furosemide [Lasix] 40 mg PO DAILY 05/06/16 [History] Gabapentin [Neurontin] 400 mg PO TID 05/06/16 [History] Gabapentin [Neurontin] 800 mg PO HS 05/06/16 [History] Latanoprost [Xalatan] 1 drop OP HS 05/06/16 [History] Lisinopril 2.5 mg PO DAILY 05/06/16 [History] Lubiprostone [Amitiza] 24 mcg PO DAILY PRN 05/06/16 [History] Metformin HCl [Glucophage] 1,000 mg PO BID 05/06/16 [History] Nitroglycerin [Nitrostat] 0.4 mg SL AD PRN 05/06/16 [History] Paroxetine HCl [Paxil] 40 mg PO QAM 05/06/16 [History] Potassium Chloride [K-Tab ER] 20 meq PO DAILY 05/06/16 [History] Promethazine HCl 12.5 mg PO Q12H PRN 05/06/16 [History] Riociguat [Adempas] 1.5 mg PO TID 05/06/16 [History] Solifenacin Succinate [Vesicare] 10 mg PO DAILY 05/06/16 [History] TraZODone 50 mg PO HS 05/06/16 [History] Warfarin [Coumadin] 2.5 mg PO SUMOWEFRSA 05/06/16 [History] Cyclobenzaprine HCl 5 mg PO TID #30 tablet 05/11/16 [Rx] Ferrous Sulfate 325 mg PO BIDWM #0 tablet 05/11/16 [Rx] Metoprolol XL (24 HR) Succ [Toprol Xl] 25 mg PO DAILY #30 tab.er.24h 05/11/16 [ Rx] Memantine HCl 20 mg PO DAILY 06/07/16 [History] Warfarin [Coumadin] 3 mg PO TUTH 06/07/16 [History] Acetaminophen [Tylenol] 650 mg PO Q6HR PRN #0 tablet 06/11/16 [Rx] Cephalexin [Keflex] 500 mg PO BID #14 06/11/16 [Rx] Doxycycline 100 mg PO BID #14 capsule 06/11/16 [Rx] HYDROcodone/Acet 5/325 mg [[place] 5-325 mg] 1 tab PO Q6H PRN #20 tablet 06/11/16 [Rx] Ipratropium/Albuterol Neb [Duoneb] 3 ml IH [id number] PRN #0 inhsol 06/11/16 [Rx] LORazepam [Ativan] 1 mg PO Q8H #20 tablet 06/11/16 [Rx] PredniSONE 5 mg PO DAILY #35 tablet 06/11/16 [Rx] Allergies/Adverse Reactions: Allergies Penicillins Allergy (Verified 06/07/16 09:51) Rash IVP DYE Allergy (Uncoded 11/18/15 18:17) Difficulty Breathing Date of admission: 06/08/16 16:02 Primary care physician: Marito Mary MD Consults: 06/09/16 10:23 Consult to Occupational Therapy [CONS] Routine Comment: Evaluate, develop and implement POC Consult to Physical Therapy [CONS] Routine Comment: Evaluate, develop and implement POC - Patient Status Disposition: Transfer SNF Condition: Fair - Discharge Instructions Follow Up With: Marito Mary MD [Primary Care Provider] - (Follow-up in 7-10 days) Additional Instructions: 1. BiPAP overnight. Please see pressures as used by respiratory when the patient was here 2. Check pro time and INR 2-3 days after transfer to the ECF and weekly thereafter unless otherwise ordered for her Coumadin - Diet and Activity Activity: as per physical therapy Diet: diabetic diet, low fat, low cholesterol, low salt diet Hospital course: Ms. Huang is a 65 year old female presented to the hospital with complaints of shortness of breath who was diagnosed with acute respiratory failure with hypoxia initially from the emergency department. She was having shortness of breath. Required 4 L of oxygen when she usually used 2 L per nasal cannula oxygen. After admission it became apparent she had acute respiratory failure with hypercapnia as well. She was started on IV steroids. IV antibiotics. She also has diabetes and started on corrective sliding scale insulin as well as an increase in her usual insulin. As the hospitalization went on she slowly and steadily got better. She had improvement in her O2 sats. Her use of oxygen decreased. We started her on nighttime BiPAP which tremendously helped her and she states she feels better now than she has for a week or 2. She has had some troubles with congestive heart failure in the past as well. There are some superimposed component of that during this hospital stay. She was having acute on chronic diastolic congestive heart failure symptoms that have improved with some diuresis as well. She states she is feeling fairly well. She has been on oral steroids and oral antibiotics for several days. The BiPAP was used last time with some improvement as well. She will be discharged back to the ECF today. - Time Spent with Patient Total time spent providing and/or coordinating discharge services: - Constitutional Vitals: Temp Pulse Resp BP Pulse Ox 98.0 F 72 15 137/75 97 06/11/16 12:12 06/11/16 12:12 06/11/16 12:12 06/11/16 12:12 06/11/16 12:12 General appearance: Present: disheveled, A&O X 3, morbidly obese, pleasant, no acute distress
== END 2016-06-11 15:39 | DRG 291 ==
LOC: EMEROO 07:38 → 3BNU 07:38 → SUATTDRO 10:05 → 3BNU 10:27
PROVIDERS: ADMIT Internal Medicine; ATTEND Internal Medicine

== ENCOUNTER 2016-12-24 21:50 | Inpatient (IN) ==
--- NOTE | 2016-12-24 22:05 | Emergency Department Note ---
Disposition Clinical Impression: Hyperkalemia, Hyponatremia, DANIEL (acute kidney injury), Weakness generalized, Frequent falls Anemia Qualifiers: Anemia type: iron deficiency Iron deficiency anemia type: unspecified iron deficiency Qualified Code(s): D50.9 - Iron deficiency anemia, unspecified Disposition: Admitted As Inpatient Condition: Fair Time of Disposition: 01:00 Fall HPI - General Chief Complaint: ED Fall Stated Complaint: falls/hip pain Source: EMS Mode of arrival: ambulatory Limitations: no limitations Nursing Notes Reviewed: Yes Vital Signs Reviewed: Yes - History of Present Illness HPI Narrative: Patient is a 66-year-old female who presents to [facility] ED with a chief complaint of fall. Patient has had multiple falls for the last several days. She already has had 2 today. Complaining of bilateral hip pain at this time. Denies hitting her head though she does state she has a history of dementia. Also has atrial fibrillation with Coumadin use. Patient denies any chest pain or lightheadedness prior to the fall. States she has just been more weak in the legs. This tends to happen when she has some sort of infection. She has had prior urinary tract infections and has chronic indwelling Moss catheter. States her catheter was just changed out yesterday and they obtained a urine analysis at that time. Denies any nausea, vomiting, fever or chills. She does have some lower suprapubic abdominal discomfort. 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 Denies: headache, neck pain, shortness of breath, lightheaded - Related Data Home Medications Medication Instructions Recorded Confirmed Albuterol Neb [Proventil Neb] 2.5 mg IH Q6H PRN 05/06/16 06/07/16 Albuterol Sulfate [Proair Hfa] 2 puff IH QID PRN 05/06/16 06/07/16 Dicyclomine [Bentyl] 10 mg PO QID 05/06/16 06/07/16 Donepezil [Aricept] 5 mg PO HS 05/06/16 06/07/16 Esomeprazole Magnesium [Nexium] 40 mg PO BID 05/06/16 06/07/16 Fluticasone Propionate Nasal 100 mcg NS DAILY 05/06/16 06/07/16 [Flonase] Furosemide [Lasix] 40 mg PO DAILY 05/06/16 06/07/16 Gabapentin [Neurontin] 400 mg PO TID 05/06/16 06/07/16 Gabapentin [Neurontin] 800 mg PO HS 05/06/16 06/07/16 Latanoprost [Xalatan] 1 drop OP HS 05/06/16 06/07/16 Lisinopril 2.5 mg PO DAILY 05/06/16 06/07/16 Lubiprostone [Amitiza] 24 mcg PO DAILY PRN 05/06/16 06/07/16 Metformin HCl [Glucophage] 1,000 mg PO BID 05/06/16 06/07/16 Nitroglycerin [Nitrostat] 0.4 mg SL AD PRN 05/06/16 06/07/16 Paroxetine HCl [Paxil] 40 mg PO QAM 05/06/16 06/07/16 Potassium Chloride [K-Tab ER] 20 meq PO DAILY 05/06/16 06/07/16 Promethazine HCl 12.5 mg PO Q12H PRN 05/06/16 06/07/16 Riociguat [Adempas] 1.5 mg PO TID 05/06/16 06/07/16 Solifenacin Succinate [Vesicare] 10 mg PO DAILY 05/06/16 06/07/16 Warfarin [Coumadin] 2.5 mg PO SUMOWEFRSA 05/06/16 06/07/16 traZODone [TraZODone] 50 mg PO HS 05/06/16 06/07/16 Memantine HCl 20 mg PO DAILY 06/07/16 06/07/16 Warfarin [Coumadin] 3 mg PO TUTH 06/07/16 06/07/16 Previous Rx's Medication Instructions Recorded Cyclobenzaprine HCl 5 mg PO TID #30 tablet 05/11/16 Ferrous Sulfate 325 mg PO BIDWM #0 tablet 05/11/16 Metoprolol XL (24 HR) Succ [Toprol 25 mg PO DAILY #30 tab.er.24h 05/11/16 Xl] Acetaminophen [Tylenol] 650 mg PO Q6HR PRN #0 tablet 06/11/16 Cephalexin [Keflex] 500 mg PO BID #14 06/11/16 Doxycycline 100 mg PO BID #14 capsule 06/11/16 HYDROcodone/Acet 5/325 mg [[place] 1 tab PO Q6H PRN #20 tablet 06/11/16 5-325 mg] Ipratropium/Albuterol Neb [Duoneb] 3 ml IH [id number] PRN #0 inhsol 06/11/16 LORazepam [Ativan] 1 mg PO Q8H #20 tablet 06/11/16 predniSONE [PredniSONE] 5 mg PO DAILY #35 tablet 06/11/16 Levofloxacin [Levaquin] 500 mg PO DAILY #9 tablet 12/08/16 Allergies Allergy/AdvReac Type Severity Reaction Status Date / Time meperidine [From Demerol] Allergy See Verified 12/24/16 21:52 Comments Penicillins Allergy Rash Verified 06/07/16 09:51 IVP DYE Allergy Difficulty Uncoded 11/18/15 18:17 Breathing All systems ED: reviewed and negative except as stated. Fall PMH - Past Medical History Medical history: Reports: arthritis, asthma, CHF, COPD, dementia, diabetes, fibromyalgia, GERD, hyperlipidemia, hypertension, TIA, other Surgical history: Reports: appendectomy, hysterectomy Psychiatric history: Reports: anxiety, depression - Social History Smoking Status: Never smoker Alcohol use: Reports: none Drug use: Reports: none Physical Exam - General Limitations: no limitations General appearance: alert, in no apparent distress - Head Head exam: atraumatic, normocephalic, normal inspection - Eye Eye exam: Present: normal appearance, PERRL, EOMI - ENT ENT exam: normal exam, normal oropharynx, mucous membranes moist - Neck Neck exam: Present: normal inspection, full ROM, trachea midline. Absent: tenderness - Chest Chest inspection: Present: normal inspection, symmetric chest wall rise - Respiratory Respiratory exam: Present: normal lung sounds bilaterally - Cardiovascular Cardiovascular exam: Present: regular rate, normal rhythm, normal heart sounds - Abdominal Exam Abdominal exam: Present: soft. Absent: distention, guarding, rebound, rigidity Abdominal tenderness: Present: suprapubic, mild - Extremities Exam Extremities exam: Present: normal inspection, full ROM. Absent: tenderness, pedal edema - Back Exam Back exam: Present: normal inspection, full ROM. Absent: tenderness - Neurological Exam Neurological exam: Present: alert, oriented X3 - Psychiatric Psychiatric exam: Present: normal affect, normal mood - Skin Skin exam: Present: warm, dry, intact, normal color Course Course Narrative: Patient seen and examined. Generalized weakness with fall. Urinalysis from yesterday shows urinary tract infection. We will treat with some Rocephin. Cultures are pending. We will likely admit due to her fall risk. She is on Coumadin for history of atrial fibrillation. We will get an EKG and some basic labs. We will get a CT of the head and cervical spine to rule out any brain bleed or cervical spine injury. - Reevaluation(s) Reevaluation #1: Patient's lab work shows signs of hyperkalemia with a potassium level of 7.1. Bicarbonate, calcium gluconate, albuterol. EKG shows some mildly elevated T waves. We will continue to monitor. Patient's imaging negative for any acute abnormalities. I spoke with hospitalist Dr. Fortune who has accepted patient for admission. They would also like insulin and D50 given and mag level drawn. The hospitalist did call back to say there was concern for possible adrenal insufficiency due to her electrolyte abnormalities. They would like 100 mg of IV hydrocortisone. This has been ordered. Time: 01:00 Vital Signs Temperature 98.6 F 12/24/16 22:29 Pulse Rate 62 12/24/16 22:29 Respiratory Rate 18 12/24/16 22:29 Blood Pressure 95/55 12/24/16 22:29 O2 Sat by Pulse Oximetry 97 12/24/16 22:29 Temperature 98.3 F 12/25/16 03:43 Pulse Rate 60 12/25/16 05:22 Respiratory Rate 20 12/25/16 03:43 Blood Pressure 109/58 12/25/16 03:43 O2 Sat by Pulse Oximetry 100 12/25/16 03:43 Oxygen Delivery Oxygen Delivery Nasal Cannula Fall - Medical Records Medical records reviewed: Yes I reviewed the patient's medical records. - Lab Data Lab results reviewed: Yes I reviewed the patient's lab results. Result diagrams: 12/25/16 03:39 12/25/16 03:39 Lab Results 12/24/16 12/24/16 12/24/16 Range/Units 23:01 23:08 23:08 WBC 12.4 H (4.3-11.1) K/mcL RBC 3.05 L (3.82-4.97) M/mcL Hgb 8.1 L (11.5-15.4) g/dL Hct 25.1 L (35.3-44.9) % MCV 82.3 L (83.0-100.0) fL MCH 26.6 L (28.0-33.3) pg MCHC 32.3 (31.6-35.5) g/dL RDW 15.1 H (11.5-14.5) % Plt Count 412 H (140-400) K/mcL MPV 9.7 (9.4-12.4) fL Immature Gran % 1.0 (0-4) % Seg Neutrophils % 71.3 % Lymphocytes % 21.0 % Monocytes % 6.3 % Eosinophils % 0.0 % Basophils % 0.4 % Neutrophils # 8.9 (1.6-8.9) K/mcL Lymphocytes # 2.6 (0.6-4.6) K/mcL Monocytes # 0.8 (0.0-1.3) K/mcL Eosinophils # 0.0 (0.0-0.6) K/mcL Basophils # 0.1 (0.0-0.2) K/mcL PT (9.4-12.1) Seconds INR Sodium 121 L (136-145) mEq/L Potassium 7.1 H* (3.5-4.5) mEq/L Chloride 86 L (98-109) mEq/L Carbon Dioxide 22 (19-29) mEq/L BUN 70 H (7-20) mg/dL Creatinine 3.73 H (0.57-1.11) mg/dL Est GFR ( Amer) 15 L (> 60) Est GFR (Non-Af Amer) 12 L (> 60) BUN/Creatinine Ratio 19 (6-26) Glucose 214 H (70-99) mg/dL Calculated Osmolality 279 L (280-300) Calcium 8.7 (8.6-10.8) mg/dL Magnesium 2.2 (1.6-2.6) mg/dL Troponin I 0.03 (0-0.03) ng/mL 12/24/16 Range/Units 23:08 WBC (4.3-11.1) K/mcL RBC (3.82-4.97) M/mcL Hgb (11.5-15.4) g/dL Hct (35.3-44.9) % MCV (83.0-100.0) fL MCH (28.0-33.3) pg MCHC (31.6-35.5) g/dL RDW (11.5-14.5) % Plt Count (140-400) K/mcL MPV (9.4-12.4) fL Immature Gran % (0-4) % Seg Neutrophils % % Lymphocytes % % Monocytes % % Eosinophils % % Basophils % % Neutrophils # (1.6-8.9) K/mcL Lymphocytes # (0.6-4.6) K/mcL Monocytes # (0.0-1.3) K/mcL Eosinophils # (0.0-0.6) K/mcL Basophils # (0.0-0.2) K/mcL PT 24.6 H D (9.4-12.1) Seconds INR 2.2 Sodium (136-145) mEq/L Potassium (3.5-4.5) mEq/L Chloride (98-109) mEq/L Carbon Dioxide (19-29) mEq/L BUN (7-20) mg/dL Creatinine (0.57-1.11) mg/dL Est GFR ( Amer) (> 60) Est GFR (Non-Af Amer) (> 60) BUN/Creatinine Ratio (6-26) Glucose (70-99) mg/dL Calculated Osmolality (280-300) Calcium (8.6-10.8) mg/dL Magnesium (1.6-2.6) mg/dL Troponin I (0-0.03) ng/mL - Radiology Data Radiology results reviewed: Yes I reviewed the patient's radiology results. Pelvis X-Ray 12/24/16 22:13 IMPRESSION: No fracture detected. D/ / Nic Lopez MD / Nic Lopez MD Interpreting Provider: Nic Lopez MD Cervical Spine CT 12/24/16 22:16 IMPRESSION: Spondylosis with no definite fracture on a limited exam. D/ / Gurdeep Huang MD / Gurdeep Huang MD Interpreting Provider: Gurdeep Huang MD Head CT 12/24/16 22:16 IMPRESSION: No intracranial bleed identified. D/ / Nic Lopez MD / Nic Lopez MD Interpreting Provider: Nic Lopez MD - EKG Data EKG attestation: Yes I reviewed and interpreted this EKG.
[2016-12-24 23:23] LABS: Basophils # 0.1 K/mcL (0.0-0.2); Basophils % 0.4 %; Hematocrit 25.1 % (35.3-44.9); Hemoglobin 8.1 g/dL (11.5-15.4); Lymphocytes # 2.6 K/mcL (0.6-4.6); Mean Corpuscular HGB Conc 32.3 g/dL (31.6-35.5); Mean Corpuscular Hemoglobin 26.6 pg (28.0-33.3); Mean Corpuscular Volume 82.3 fL (83.0-100.0); Mean Platelet Volume 9.7 fL (9.4-12.4); Monocytes # 0.8 K/mcL (0.0-1.3); Monocytes % 6.3 %; Neutrophils # 8.9 K/mcL (1.6-8.9); Platelet Count 412 K/mcL (140-400); Red Blood Count 3.05 M/mcL (3.82-4.97); Red Cell Distribution Width 15.1 % (11.5-14.5); Segmented Neutrophils % 71.3 %
[2016-12-24 23:28] LABS: INR 2.2; Prothrombin Time 24.6 Seconds (9.4-12.1)
[2016-12-24 23:40] LABS: Calcium 8.7 mg/dL (8.6-10.8)
[2016-12-24 23:44] LABS: Potassium 7.1 mEq/L (3.5-4.5)
[2016-12-24] MEDS ORDERED: Calcium Gluconate 1,000 MG in D5% in Water 100 ML IVPB ONE (23:44)
[2016-12-24] MEDS ORDERED: Albuterol 2.5 MG/3 ML NEBULIZER IH ONE (23:44)
--- NOTE | 2016-12-24 23:46 | Emergency Department Note ---
START Narrative - START START: I examined this patient and my medical decision-making was reviewed with the Resident Physician. I agree with the documented findings, disposition and treatment plan as described except to the extent set forth below. 66 year old female with frequent falls and on coumadin has had another weakness related fall today and is complaining of hip pain. She denies hitting her head or neck. It appears the patinet does have a UTI, and is hyperkalemic to 7.1 with peaked t waves. We will give roecephin and start hyperkalemia treatment now. Admit to medicine.
[2016-12-25] MEDS ORDERED: 0.9 % Sodium Chloride 1,000 ML IVC ONE (00:15)
[2016-12-25] MEDS ORDERED: Insulin Regular, Human 100 UNIT/ML IV ONE (00:16)
[2016-12-25] MEDS ORDERED: *HR* Dextrose 50 % in Water (Syg) 50 ML SYRINGE IVP ONE ×2 (00:17→04:29)
[2016-12-25] MEDS: Sodium Bicarbonate 50 MEQ/50 ML VIAL IVP ONE ×2 (00:20→00:25)
[2016-12-25] MEDS ORDERED: Hydrocortisone Sodium Succ 100 MG/2 ML VIAL IVP ONE (00:21)
[2016-12-25 00:52] LABS: Magnesium 2.2 mg/dL (1.6-2.6)
[2016-12-25] MEDS ORDERED: Naloxone 0.4 MG/ML INJ IVP PRN (01:33)
[2016-12-25 02:05] LABS: Bilirubin,Urine Small (Negative); Blood,Urine Large (Negative); Clarity,Urine Turbid (Clear); Color,Urine Yellow (Yellow); Glucose,Urine (UA) Normal (Normal); Ketones,Urine Negative (Negative); Leukocyte Esterase,Urine Large (Negative); Nitrite,Urine Positive (Negative); PH,Urine 5.5 pH Units (5.0-8.0); Protein,Urine 100 mg/dL (Neg-Trace); Specific Gravity,Urine 1.019 (1.010-1.025); Urobilinogen,Urine Normal (Normal)
[2016-12-25 02:08] LABS: Bacteria,Urine Many per hpf (None-Few); Hyaline Casts,Urine None Seen per lpf (None-Few); Squamous Epithelial Cell,Urine Many per lpf (None-Few); WBC,Urine TNTC per hpf (0-3)
[2016-12-25 02:14] LABS: Albumin 2.8 g/dL (3.5-5.0); Albumin/Globulin Ratio 0.8 (1.1-2.2); Bilirubin,Total 0.2 mg/dL (0.2-1.2); Calcium 8.6 mg/dL (8.6-10.8); Globulin 3.6 g/dL (2.4-3.5); Total Protein 6.4 g/dL (6.0-8.3)
[2016-12-25 02:23] LABS: Calcium Oxalate Crystals,Urine Present; Mucus,Urine Moderate (Few); RBC,Urine TNTC per hpf (0-3); Yeast,Urine Moderate per hpf (None Seen)
--- NOTE | 2016-12-25 02:36 | Internal Med History&Physical ---
Date of Encounter: 12/25/16 Time of Encounter: 01:45 Assessment and Plan (1) Sepsis Current visit: Yes Status: Acute 1. Suspect urine source from chronic indwelling Moss catheter. 2. Will treat with IV Rocephin based upon most recent culture (E Coli). 3. IVF bolus initiated and will continue IVF. 4. Will trend Lactate. 5. Stop diuretics. 6. Will monitor closely for hemodynamic stability. 7. Blood and urine cultures ordered STAT. Qualifiers: Sepsis type: sepsis due to unspecified organism Qualified Code(s): A41.9 - Sepsis, unspecified organism (2) Acute kidney failure Current visit: Yes Status: Acute 1. Likely due to volume depletion (intravascular) from diuretics combined with sepsis. 2. Stop diuretics. 3. IVF bolus and hydration. 4. Monitor renal function and consult nephrology if fails to improve and/or deteriorates. Qualifiers: Acute renal failure type: unspecified Qualified Code(s): N17.9 - Acute kidney failure, unspecified (3) Hyperkalemia Current visit: Yes Status: Acute 1. IVF bolus and maintenance fluids ordered. 2. I ordered Kayexalate. 3. Patient received Calcium gluconate, D50, insulin, and sodium bicarbonate in ER. 4. Trend potassium levels. Repeat level down to 6.0 now. 5. Repeat EKG with smaller peaked T waves and improved QRS duration. 6. No need for acute dialysis at this time given above improvement. Monitor potassium level closely. (4) Urinary tract infection Current visit: No Status: Acute 1. Catheter related UTI. 2. Repeat urine culture and will continue Rocephin based upon last culture. 3. Need to discuss and review the necessity of chronic indwelling catheter. Qualifiers: Urinary tract infection type: acute cystitis Hematuria presence: without hematuria Qualified Code(s): N30.00 - Acute cystitis without hematuria (5) DVT prophylaxis Current visit: No Status: Acute 1. Continue home dose of Coumadin. Currently therapeutic. 2. Patient on Coumadin for recent history of PE in March. Internal Medicine - H&P: HPI Chief complaint: falling; weak; decreased urine output Admitted From: Emergency Dept Plans for Post Hospital Care: Home History of present illness: Ms. Huang is a 66 year old female who presents to the ER tonight with complaints of falling, weakness, and decreased urine output. She had workup performed in the ER including imaging of her head, spine, and pelvis which were negative for fractures. She had routine labs drawn, and she was found to have potassium level of 7.1. She subsequently had an EKG which confirmed peaked T waves. She was then admitted to the hospitalist service for hyperkalemia and acute renal failure. Upon my assessment of the patient, she is alert but very weak. She states she has had significantly decreased urine output over last few days and has been falling and very weak. I reviewed her old labs and cultures and noted she has had frequent UTIs. She has a chronic indwelling Moss catheter and has had subsequent recurrent UTIs. She does not have an updated medication list but there is documentation that she has been on prednisone recently. Given her hyponatremia and hyperkalemia, I was concerned about adrenal crisis. I call the ER and requested they give her a dose of hydrocortisone STAT. She received a dose in the ER and was transferred to the floor. When I saw patient on the floor, she states she does not take prednisone chronically but she does take it periodically when she has a COPD flare. Upon further discussion, she complains of decreased urine output, subjective fever, dysuria, and some lightheadedness and dizziness. Based upon her symptoms, clinical findings, and old records, I am worried that patient has sepsis from UTI source and chronic Moss catheter. Patient did receive a dose of Rocephin in the ER but, unfortunately, no blood cultures or urine cultures were obtained. I ordered STAT blood cultures, urine cultures, lactate, fluid bolus, and continued antibiotics. She is mentating well, and her blood pressure is stable. Nonetheless, I believe she is septic from urine source and has acute kidney failure likely due to volume depletion from her diuretics combined with her sepsis. Past Med Surg Social Fam HX - Past Medical History Attestation: Yes The following information was validated with the patient. Source: patient, old records reviewed Medical history: arthritis, asthma, CHF, COPD, DVT (PE), dementia, diabetes, fibromyalgia, GERD, hyperlipidemia, hypertension, TIA Psychiatric history: anxiety, depression - Past Surgical History Surgical History: appendectomy, hysterectomy - Social History Smoking Status: Never smoker Smokeless Tobacco Status: No Alcohol use: none Drug use: none Current living situation: Home, With Family Activity Level: Uses cane/walker Recent Out of Country Travel Within the Last 8 Weeks: No - Family History Father Hx Family Cardiac Disorders: Yes Sister Hx Family Cardiac Disorders: Yes Internal Medicine - H&P: Meds Albuterol Neb [Proventil Neb] 2.5 mg IH Q6H PRN 05/06/16 [History] Albuterol Sulfate [Proair Hfa] 2 puff IH QID PRN 05/06/16 [History] Dicyclomine [Bentyl] 10 mg PO QID 05/06/16 [History] Donepezil [Aricept] 5 mg PO HS 05/06/16 [History] Esomeprazole Magnesium [Nexium] 40 mg PO BID 05/06/16 [History] Fluticasone Propionate Nasal [Flonase] 100 mcg NS DAILY 05/06/16 [History] Furosemide [Lasix] 40 mg PO DAILY 05/06/16 [History] Gabapentin [Neurontin] 400 mg PO TID 05/06/16 [History] Gabapentin [Neurontin] 800 mg PO HS 05/06/16 [History] Latanoprost [Xalatan] 1 drop OP HS 05/06/16 [History] Lisinopril 2.5 mg PO DAILY 05/06/16 [History] Lubiprostone [Amitiza] 24 mcg PO DAILY PRN 05/06/16 [History] Metformin HCl [Glucophage] 1,000 mg PO BID 05/06/16 [History] Nitroglycerin [Nitrostat] 0.4 mg SL AD PRN 05/06/16 [History] Paroxetine HCl [Paxil] 40 mg PO QAM 05/06/16 [History] Potassium Chloride [K-Tab ER] 20 meq PO DAILY 05/06/16 [History] Promethazine HCl 12.5 mg PO Q12H PRN 05/06/16 [History] Riociguat [Adempas] 1.5 mg PO TID 05/06/16 [History] Solifenacin Succinate [Vesicare] 10 mg PO DAILY 05/06/16 [History] Warfarin [Coumadin] 2.5 mg PO SUMOWEFRSA 05/06/16 [History] traZODone [TraZODone] 50 mg PO HS 05/06/16 [History] Cyclobenzaprine HCl 5 mg PO TID #30 tablet 05/11/16 [Rx] Ferrous Sulfate 325 mg PO BIDWM #0 tablet 05/11/16 [Rx] Metoprolol XL (24 HR) Succ [Toprol Xl] 25 mg PO DAILY #30 tab.er.24h 05/11/16 [ Rx] Memantine HCl 20 mg PO DAILY 06/07/16 [History] Warfarin [Coumadin] 3 mg PO TUTH 06/07/16 [History] Acetaminophen [Tylenol] 650 mg PO Q6HR PRN #0 tablet 06/11/16 [Rx] Cephalexin [Keflex] 500 mg PO BID #14 06/11/16 [Rx] Doxycycline 100 mg PO BID #14 capsule 06/11/16 [Rx] HYDROcodone/Acet 5/325 mg [[place] 5-325 mg] 1 tab PO Q6H PRN #20 tablet 06/11/16 [Rx] Ipratropium/Albuterol Neb [Duoneb] 3 ml IH [id number] PRN #0 inhsol 06/11/16 [Rx] LORazepam [Ativan] 1 mg PO Q8H #20 tablet 06/11/16 [Rx] predniSONE [PredniSONE] 5 mg PO DAILY #35 tablet 06/11/16 [Rx] Levofloxacin [Levaquin] 500 mg PO DAILY #9 tablet 12/08/16 [Rx] 3 Allergy/AdvReac Type Severity Reaction Status Date / Time meperidine [From Demerol] Allergy See Verified 12/24/16 21:52 Comments Penicillins Allergy Rash Verified 06/07/16 09:51 IVP DYE Allergy Difficulty Uncoded 11/18/15 18:17 Breathing - Constitutional Constitutional: fever(s), no chills, no night sweats - EENT Eyes: no blurry vision, no change in vision Ears: no ear pain, no tinnitus Nose, mouth and throat: no nasal discharge, no sinus pressure, no sore throat - Cardiovascular Cardiovascular ROS IM: no chest pain, no diaphoresis, no dyspnea, no dyspnea on exertion, no orthopnea - Respiratory Respiratory: no cough, no hemoptysis - Gastrointestinal Gastrointestinal: no abdominal pain, no diarrhea, no hematemesis, no hematochezia, no melena, no nausea, no vomiting - Genitourinary Genitourinary: no dysuria, no flank pain - Musculoskeletal Musculoskeletal ROS IM: back pain, no arthralgias - Integumentary Integumentary IM: no rash, no jaundice - Neurological Neurological ROS: weakness, no focal weakness, no frequent falls, no headache(s) - Psychiatric Psychiatric: no anxiety, no depression - Endocrine Endocrine IM: no polydipsia, no polyuria - Hematologic/Lymphatic Hematologic/Lymphatic: easy bruising - Allergic/Immunologic Allergic/Immunologic: no GI upset with certain foods - Constitutional Vitals: Temp Pulse Resp BP Pulse Ox 98.3 F 66 21 98/43 100 12/25/16 01:18 12/25/16 01:18 12/25/16 01:18 12/25/16 01:18 12/25/16 01:18 General appearance: Present: cooperative, mild distress, A&O X 3, pleasant - Head Head exam: Present: atraumatic, normal inspection - Eye Eye exam: Present: EOMI, PERRL. Absent: scleral icterus Pupils: Present: normal accommodation - ENT ENT exam: Present: mucous membranes dry, normal exam - Neck Neck exam general surgery: Present: full ROM, supple. Absent: tenderness - Respiratory Respiratory exam: Present: CTAB. Absent: accessory muscle use, rales, respiratory distress, rhonchi, wheezes - Cardiovascular Cardiovascular exam: Present: RRR, +S1, +S2, systolic murmur. Absent: diastolic murmur - GI/Abdominal GI/Abdominal exam: Present: normal bowel sounds, soft, tenderness (suprapubic). Absent: guarding, hepatomegaly, rebound, splenomegaly - Extremities Exam Extremities exam: Present: full ROM, pedal edema (1-2+), radial pulses palpable and symmetrical. Absent: calf tenderness, joint swelling - Back Exam Back exam: Absent: CVA tenderness (L), CVA tenderness (R) - Neurological Exam Neurological exam: Present: alert, CN II-XII intact, oriented X3, no focal deficits - Psychiatric Psychiatric exam: Present: normal affect, normal mood - Skin Skin exam: Present: dry, pallor, warm. Absent: rash Internal Med - H&P Results - Labs CBC & Chem 7: 12/24/16 23:08 12/24/16 23:08 Labs: Urine 12/25/16 Range/Units 01:55 Urine Color Yellow (Yellow) Urine Clarity Turbid A (Clear) Urine pH 5.5 (5.0-8.0) pH Units Ur Specific [place] 1.019 (1.010-1.025) Urine Protein 100 H (Neg-Trace) mg/dL Urine Glucose (UA) Normal (Normal) mg/dL - EKG Data -: EKG Interpreted by Myself EKG shows normal: sinus rhythm - EKG Data Prior EKG available for review: yes When compared to previous EKG: there are significant changes EKG comments: 12/25/16 02:42 Sinus rhythm with peaked T waves
[2016-12-25] MEDS: 0.9 % Sodium Chloride 1,000 ML IVC SCH ×3 (03:00→22:29)
[2016-12-25 04:01] LABS: INR 2.5; Prothrombin Time 27.6 Seconds (9.4-12.1)
[2016-12-25 04:03] LABS: Basophils % 0.3 %; Hematocrit 23.9 % (35.3-44.9); Hemoglobin 7.5 g/dL (11.5-15.4); Immature Granulocytes % 1.3 % (0-4); Lymphocytes # 1.4 K/mcL (0.6-4.6); Lymphocytes % 13.2 %; Mean Corpuscular HGB Conc 31.4 g/dL (31.6-35.5); Mean Corpuscular Volume 82.7 fL (83.0-100.0); Mean Platelet Volume 9.6 fL (9.4-12.4); Monocytes # 0.4 K/mcL (0.0-1.3); Monocytes % 3.5 %; Neutrophils # 8.3 K/mcL (1.6-8.9); Platelet Count 350 K/mcL (140-400); Red Blood Count 2.89 M/mcL (3.82-4.97); Red Cell Distribution Width 15.1 % (11.5-14.5); Segmented Neutrophils % 81.7 %
[2016-12-25 04:04] LABS: Activated Partial Thrombo Time 37.5 Seconds (26.0-36.0)
[2016-12-25 04:14] LABS: Albumin 2.9 g/dL (3.5-5.0); Albumin/Globulin Ratio 0.8 (1.1-2.2); Bilirubin,Total 0.2 mg/dL (0.2-1.2); Calcium 8.4 mg/dL (8.6-10.8); Globulin 3.6 g/dL (2.4-3.5); Total Protein 6.5 g/dL (6.0-8.3)
[2016-12-25 04:23] LABS: Potassium 6.6 mEq/L (3.5-4.5)
[2016-12-25] MEDS ORDERED: Calcium Gluconate 2,000 MG in D5% in Water 100 ML IVPB ONE (04:29)
[2016-12-25] MEDS ORDERED: Insulin Human Regular 10 UNIT in 0.9 % Sodium Chloride 10 ML IV ONE (04:29)
[2016-12-25 06:38] LABS: Calcium 8.7 mg/dL (8.6-10.8); Magnesium 1.9 mg/dL (1.6-2.6); Potassium 6.4 mEq/L (3.5-4.5)
--- NOTE | 2016-12-25 09:48 | Event Note ---
Date of Encounter: 12/25/16 Time of Encounter: 09:48 66-year-old female with history of hypertension, diabetes, COPD, fibromyalgia, anxiety and depression, admitted with worsening generalized weakness, fatigue and nausea and oliguria. Patient has no known history of chronic kidney disease and does not follow with nephrology. She does have indwelling Moss catheter for the last 2 months and follows with urology as outpatient and reports Moss catheter is due to urinary incontinence. Patient seen and examined at bedside. Reports generalized weakness and nausea. Chest-S1, S2 heard. Regular rate and rhythm. Lungs are clear to auscultation. Extremities-full range of motion, 1+ pedal edema bilaterally Labs reviewed-hemoglobin 7.5, serum lactic acid 3.7, microcytic anemia, serum creatinine 3.74 Acute kidney injury-likely dehydration in the setting of diuretic/JODI inhibitor. To rule out obstructive uropathy. Continue IV hydration, monitor urine output closely. Check renal and bladder ultrasound. Nephrology consult. Moss catheter has been changed 2 days ago at home. Will consult Urology if she has obstructive uropathy. Hypokalemia-patient is noted to have EKG changes with peaked T waves, which are also evident on telemetry. Received cocktail medical treatments twice with albuterol/insulin/D50/calcium gluconate. Also received 2 doses of Kayexalate with no bowel movements yet. We will try rectal Kayexalate at this time. Patient is at high risk of ventricular arrhythmias. Continue telemetry monitoring. Hyponatremia- continue IV hydration. Sepsis/UTI- suspected. Continue IV Rocephin, f/up final cultures.
--- NOTE | 2016-12-25 14:03 | Nephrology Consult Note ---
Date of Encounter: 12/25/16 Time of Encounter: 11:05 Assessment and Plan (1) Acute kidney injury Current Visit: Yes Status: Acute DANIEL in most likely in setting of sepsis UTI, hypotension, diuretics. Hyperkalemia most likely in setting DANIEL with increased dietary intake, K+ supplements and ACEI contributing. Hyponatremia most likely dilutional in setting of polydipsia. Continue IV hydration, avoid nephrotoxins. I&O's. Will monitor History of Present Illness - Reason for Consult Acute Kidney Injury - History of Present Illness is a 66 year old female who presented to ER with history of recent falls with bilateral hip pain. Other PMH-Afib on coumadin, arthritis, asthma, CHF, COPD, dementia, diabetes, fibromyalgia, GERD, hyperlipidemia, hypertension , TIA, appendectomy, hysterectomy, anxiety, and depression. Ms. Huang also states has been weak in legs. She urbano a history of chronic incontinence/ neurogenic bladder and has a chronic indwelling berg catheter which was changed on Dec 23. she admits some lower abdomen/suprapubic discomfort. Urinalysis that was obtained when catheter exchanged showed UTI and she was started on Rocephin. Labs revealed a K+ 7.1, bicarb calcium, albuterol, insulin , D50. Today K 6.4. She was also given hydrocortisone 100 mg IV for concern of posssible adrenal insufficiency with history of being on prednisone though today patient states has not had prednisone since May. Sodium 121, creat 3.73 initially. Creat today 3.74. Renal fct normal prior except for DANIEL incident in Apr 2016 in setting volume depletion, hypotension and persistent UTI. Her renal fct returned to normal following. She does admit chronic LE swelling and is on a diuretic, but states a decrease in urine output over several days. . She does have mild pitting edema today. She states she also drinks large volume of water and Coke daily which could account for her low (dilutional) sodium. She admits large dietary intake of potassium; bananas and orange juice. She was also on ACEI and potassium supplement at home. Past Med Surg Social Fam HX - Past Medical History Medical history: arthritis, asthma, CHF, COPD, dementia, diabetes, fibromyalgia , GERD, hyperlipidemia, hypertension, TIA, other Psychiatric history: anxiety, depression - Past Surgical History Surgical History: appendectomy, hysterectomy - Social History Smoking Status: Never smoker Smokeless Tobacco Status: No Alcohol use: none Drug use: none - Family History Father Hx Family Cardiac Disorders: Yes Sister Hx Family Cardiac Disorders: Yes Medications and Allergies Albuterol Neb [Proventil Neb] 2.5 mg IH Q6H PRN 05/06/16 [History] Albuterol Sulfate [Proair Hfa] 2 puff IH QID PRN 05/06/16 [History] Dicyclomine [Bentyl] 10 mg PO QID 05/06/16 [History] Donepezil [Aricept] 5 mg PO HS 05/06/16 [History] Esomeprazole Magnesium [Nexium] 40 mg PO BID 05/06/16 [History] Fluticasone Propionate Nasal [Flonase] 100 mcg NS DAILY 05/06/16 [History] Furosemide [Lasix] 40 mg PO DAILY 05/06/16 [History] Gabapentin [Neurontin] 400 mg PO TID 05/06/16 [History] Gabapentin [Neurontin] 800 mg PO HS 05/06/16 [History] Latanoprost [Xalatan] 1 drop OP HS 05/06/16 [History] Lisinopril 2.5 mg PO DAILY 05/06/16 [History] Lubiprostone [Amitiza] 24 mcg PO DAILY PRN 05/06/16 [History] Metformin HCl [Glucophage] 1,000 mg PO BID 05/06/16 [History] Nitroglycerin [Nitrostat] 0.4 mg SL AD PRN 05/06/16 [History] Paroxetine HCl [Paxil] 40 mg PO QAM 05/06/16 [History] Potassium Chloride [K-Tab ER] 20 meq PO DAILY 05/06/16 [History] Promethazine HCl 12.5 mg PO Q12H PRN 05/06/16 [History] Riociguat [Adempas] 1.5 mg PO TID 05/06/16 [History] Solifenacin Succinate [Vesicare] 10 mg PO DAILY 05/06/16 [History] Warfarin [Coumadin] 2.5 mg PO SUMOWEFRSA 05/06/16 [History] traZODone [TraZODone] 50 mg PO HS 05/06/16 [History] Cyclobenzaprine HCl 5 mg PO TID #30 tablet 05/11/16 [Rx] Ferrous Sulfate 325 mg PO BIDWM #0 tablet 05/11/16 [Rx] Metoprolol XL (24 HR) Succ [Toprol Xl] 25 mg PO DAILY #30 tab.er.24h 05/11/16 [ Rx] Memantine HCl 20 mg PO DAILY 06/07/16 [History] Warfarin [Coumadin] 3 mg PO TUTH 06/07/16 [History] Acetaminophen [Tylenol] 650 mg PO Q6HR PRN #0 tablet 06/11/16 [Rx] Cephalexin [Keflex] 500 mg PO BID #14 06/11/16 [Rx] Doxycycline 100 mg PO BID #14 capsule 06/11/16 [Rx] HYDROcodone/Acet 5/325 mg [[place] 5-325 mg] 1 tab PO Q6H PRN #20 tablet 06/11/16 [Rx] Ipratropium/Albuterol Neb [Duoneb] 3 ml IH [id number] PRN #0 inhsol 06/11/16 [Rx] LORazepam [Ativan] 1 mg PO Q8H #20 tablet 06/11/16 [Rx] predniSONE [PredniSONE] 5 mg PO DAILY #35 tablet 06/11/16 [Rx] Levofloxacin [Levaquin] 500 mg PO DAILY #9 tablet 12/08/16 [Rx] 3 Allergy/AdvReac Type Severity Reaction Status Date / Time meperidine [From Demerol] Allergy See Verified 12/24/16 21:52 Comments Penicillins Allergy Rash Verified 06/07/16 09:51 IVP DYE Allergy Difficulty Uncoded 11/18/15 18:17 Breathing Review of Systems All Systems: reviewed and no additional remarkable complaints except as stated Exam - Vital Signs Vital signs: Initial Vital Signs Temp Pulse Resp BP Pulse Ox 98.6 F 62 18 95/55 97 12/24/16 22:29 12/24/16 22:29 12/24/16 22:29 12/24/16 22:29 12/24/16 22:29 Vital Signs - Last 8 Hours Temp Pulse Resp BP Pulse Ox 12/25/16 11:54 99.3 F 63 18 112/58 98 12/25/16 11:15 60 12/25/16 08:07 70 12/25/16 07:10 98.6 F 57 20 104/57 99 Intake and Output 12/24/16 12/25/16 12/25/16 23:59 07:59 15:59 Intake Total 1580 / 1580 Output Total 850 / 850 Balance 730 / 730 Intake: IV Fluids 1100 / 1100 0.9 % Sodium Chloride 1,000 ML 1000 / 1000 @ 125 mls/hr IVC .Q8H [facility] Rx#: [id number] Rocephin 2,000 MG In Dextrose 5 100 / 100 % (Minibag+) 100 ML 100 ML @ 200 mls/hr IVPB DAILY [facility] Rx#: [id number] Oral 480 / 480 Output: Urine 850 / 850 Other: Meal Lunch Percent of Meal Consumed 100% - General Appearance General appearance: well-developed, well-nourished, appears started age, obese EENT: mucous membranes moist Neck: no JVD Respiratory: clear Cardiology: edema, regular rate, regular rhythm Gastrointestinal: normoactive bowel sounds, no tenderness Integumentary: warm and dry Neurologic: alert and oriented x3 Psychiatric: mood/affect appropriate, cooperative Results - Lab Results 12/25/16 03:39 12/25/16 06:12 Most recent lab results Calcium 8.7 mg/dL (8.6-10.8) 12/25/16 06:12 Magnesium 1.9 mg/dL (1.6-2.6) 12/25/16 06:12 Consult Discharge Plan - Plan Referrals: Marito Mary MD [Primary Care Provider] -
[2016-12-25] MEDS ORDERED: D5% in Water 1,000 ML IVC PRN (14:56)
[2016-12-25] MEDS ORDERED: Dextrose Gel 15 GM PO PRN ×2 (14:56)
[2016-12-25] MEDS ORDERED: *HR* Dextrose 50 % in Water (Syg) 50 ML SYRINGE IVP PRN (14:56)
[2016-12-25 15:16] LABS: Calcium 8.6 mg/dL (8.6-10.8)
[2016-12-25 15:17] LABS: Potassium 5.2 mEq/L (3.5-4.5)
[2016-12-25] MEDS ORDERED: Warfarin perPT PO PRN (18:00)
[2016-12-25] MEDS: Insulin LISPRO 300 UNITS/3 ML VIAL SQ SCH ×2 (18:07→20:14)
[2016-12-25] MEDS: *HR* Warfarin 2.5 MG TABLET PO SCH (18:07)
[2016-12-25] MEDS: Acetaminophen 325 MG TABLET PO PRN ×2 (18:10→23:58)
--- NOTE | 2016-12-25 19:11 | Electrocardiograph Report ---
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
[2016-12-25] MEDS: traZODone 50 MG TABLET PO SCH (20:14)
[2016-12-25] MEDS: Latanoprost 2.5 ML BOTTLE BOTH EYES SCH (20:15)
[2016-12-26 06:11] LABS: Basophils % 0.4 %; Hematocrit 23.8 % (35.3-44.9); Hemoglobin 7.5 g/dL (11.5-15.4); Immature Granulocytes % 0.6 % (0-4); Lymphocytes # 1.4 K/mcL (0.6-4.6); Lymphocytes % 17.7 %; Mean Corpuscular HGB Conc 31.5 g/dL (31.6-35.5); Mean Corpuscular Volume 82.4 fL (83.0-100.0); Mean Platelet Volume 9.5 fL (9.4-12.4); Monocytes # 0.5 K/mcL (0.0-1.3); Monocytes % 6.4 %; Neutrophils # 5.9 K/mcL (1.6-8.9); Platelet Count 330 K/mcL (140-400); Red Blood Count 2.89 M/mcL (3.82-4.97); Red Cell Distribution Width 15.2 % (11.5-14.5); Segmented Neutrophils % 74.9 %
[2016-12-26 06:15] LABS: INR 2.5; Prothrombin Time 27.5 Seconds (9.4-12.1)
[2016-12-26 06:23] LABS: Calcium 8.9 mg/dL (8.6-10.8); Magnesium 2.2 mg/dL (1.6-2.6)
[2016-12-26 06:24] LABS: Albumin 2.8 g/dL (3.5-5.0); Phosphorous 4.7 mg/dL (2.3-4.7)
[2016-12-26] MEDS: Insulin LISPRO 300 UNITS/3 ML VIAL SQ SCH ×3 (08:19→16:41)
[2016-12-26] MEDS: Metoprolol XL (24 HR) Succ 25 MG TAB.ER.24H PO SCH (08:19)
[2016-12-26] MEDS: Fluticasone Propionate Nasal 50 MCG/SPRAY BOTTLE NS SCH (08:20)
[2016-12-26] MEDS: Acetaminophen 325 MG TABLET PO PRN ×2 (08:26→18:01)
--- NOTE | 2016-12-26 09:01 | Nephrology Progress Note ---
Date of Encounter: 12/26/16 Time of Encounter: 08:50 - Assessment and Plan (1) Acute kidney injury Current Visit: Yes Status: Acute DANIEL in most likely in setting of sepsis UTI, hypotension, diuretics. Hyperkalemia most likely in setting DANIEL with increased dietary intake, K+ supplements and ACEI contributing. Improving with current treatment. Subjective Interval history: Sitting up in bed, watching TV. States feeling better. No new complaints. Objective - Vital Signs Vital signs: Vital Signs Temp Pulse Resp BP Pulse Ox 12/26/16 06:42 98.8 F 64 18 119/50 100 12/26/16 04:06 98.1 F 62 18 98 12/26/16 03:45 63 12/26/16 00:04 64 12/26/16 00:01 98.1 F 62 16 118/61 97 12/25/16 20:30 71 12/25/16 19:43 98.5 F 72 18 111/52 92 12/25/16 15:30 98.6 F 76 18 106/57 97 12/25/16 11:54 99.3 F 63 18 112/58 98 12/25/16 11:15 60 Intake and Output 12/25/16 12/26/16 12/26/16 23:59 07:59 15:59 Intake Total 1000 / 1000 0 / 0 Output Total 1800 / 1800 3200 / 3200 1000 / 1000 Balance -800 / -800 -3200 / -3200 -1000 / -1000 Intake: IV Fluids 1000 / 1000 0.9 % Sodium Chloride 1,000 ML 1000 / 1000 @ 125 mls/hr IVC .Q8H [facility] Rx#: [id number] Oral 0 / 0 Output: Urine 0 / 0 Catheter 1800 / 1800 3200 / 3200 1000 / 1000 Other: Stool Size Moderate Stool Consistency formed Stool Color Green # Bowel Movements 1 Weight 131.179 kg Blood Glucose* 251 188 188 Patient Weight 12/26/16 23:59 Weight 131.179 kg - General Appearance General appearance: Present: well-developed, well-nourished, appears started age , obese EENT: Present: mucous membranes moist Neck: Present: no JVD Respiratory: Present: clear Cardiology: Present: edema, regular rate, regular rhythm Gastrointestinal: Present: normoactive bowel sounds, no tenderness Integumentary: Present: warm and dry Neurologic: Present: alert and oriented x3 Psychiatric: Present: mood/affect appropriate, cooperative - Lab 12/26/16 05:54 12/26/16 05:54 Most recent lab results Calcium 8.9 mg/dL (8.6-10.8) 12/26/16 05:54 Phosphorus 4.7 mg/dL (2.3-4.7) 12/26/16 05:54 Magnesium 2.2 mg/dL (1.6-2.6) 12/26/16 05:54 Consult Discharge Plan - Plan Referrals: Marito Mary MD [Primary Care Provider] -
[2016-12-26] MEDS: 0.9 % Sodium Chloride 1,000 ML IVC SCH (11:56)
[2016-12-26] MEDS ORDERED: 0.9 % Sodium Chloride 1,000 ML IVC SCH (13:27)
--- NOTE | 2016-12-26 13:31 | Internal Med Progress Note ---
Date of Encounter: 12/26/16 Time of Encounter: 13:29 - Assessment and plan (1) Urinary tract infection Current Visit: No Status: Acute Assessment and plan: Recurrent urinary tract infection due to indwelling Moss catheter Has grown Escherichia coli multiple times sensitive to ceftriaxone New urine culture is growing gram-negative rods Continue Rocephin day 3 Qualifiers: Urinary tract infection type: acute cystitis Hematuria presence: without hematuria Qualified Code(s): N30.00 - Acute cystitis without hematuria (2) Acute kidney injury Current Visit: Yes Status: Acute Assessment and plan: Secondary to dehydration and infection Continue mild hydration (3) Hyperkalemia Current Visit: No Status: Resolved Assessment and plan: Secondary to acute renal failure Potassium was 7.1, improving Give an additional dose of Kayexalate (4) Frequent falls Current Visit: Yes Status: Acute (5) Anemia Current Visit: Yes Status: Chronic Assessment and plan: Chronic anemia, possibly iron deficiency Qualifiers: Anemia type: iron deficiency Iron deficiency anemia type: unspecified iron deficiency Qualified Code(s): D50.9 - Iron deficiency anemia, unspecified (6) CHF (congestive heart failure) Current Visit: No Status: Acute Assessment and plan: Diastolic CHF, no exacerbation hold Lasix due to acute renal failure Qualifiers: Congestive heart failure type: diastolic Congestive heart failure chronicity: acute on chronic Qualified Code(s): I50.33 - Acute on chronic diastolic (congestive) heart failure (7) Diabetes type 2, controlled Current Visit: No Status: Acute Qualifiers: Diabetes mellitus complication status: with hyperglycemia 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: without residential use Qualified Code(s): E11.65 - Type 2 diabetes mellitus with hyperglycemia (8) Atrial fibrillation Current Visit: No Status: Chronic Assessment and plan: Continue metoprolol and Coumadin Qualifiers: Atrial fibrillation type: paroxysmal Qualified Code(s): I48.0 - Paroxysmal atrial fibrillation (9) Hyponatremia Current Visit: Yes Status: Acute - Subjective Interval history: Feels very tired, denies any chest pain or shortness of breath, no abdominal pain, no fevers, no diarrhea - Constitutional Vitals: Temp Pulse Resp BP Pulse Ox 98.2 F 64 16 128/59 98 12/26/16 12:08 12/26/16 12:08 12/26/16 12:08 12/26/16 12:08 12/26/16 12:08 General appearance: Present: cooperative, mild distress, A&O X 3, morbidly obese , pleasant - Head Head exam: Present: atraumatic, normocephalic - Eye Eye exam: Present: PERRL, conjuntiva pink, sclera anicteric Pupils: Present: PERRL - Neck Neck exam general surgery: Present: supple, trachea midline. Absent: lymphadenopathy - Respiratory Respiratory exam: Present: decreased breath sounds, CTAB. Absent: accessory muscle use, rales, rhonchi, wheezes - Cardiovascular Cardiovascular exam: Present: RRR, +S1, +S2. Absent: diastolic murmur, gallop, rubs, systolic murmur - GI/Abdominal GI/Abdominal exam: Present: distended, normal bowel sounds, soft, no peritoneal signs. Absent: tenderness - Extremities Exam Extremities exam: Present: pedal edema (+2 pitting edema in both lower extremities, excoriations in the right lower extremity), warm, radial pulses palpable and symmetrical. Absent: calf tenderness, cyanotic - Neurological Exam Neurological exam: Present: CN II-XII intact, oriented X3, no focal deficits. Absent: pronater drift, facial droop, speech deficit - Skin Skin exam: Present: dry. Absent: intact Internal Medicine: Result - Labs CBC & Chem 7: 12/26/16 05:54 12/26/16 05:54 Labs: Short CBC 12/26/16 Range/Units 05:54 WBC 7.9 (4.3-11.1) K/mcL Hgb 7.5 L (11.5-15.4) g/dL Hct 23.8 L (35.3-44.9) % Plt Count 330 (140-400) K/mcL Neutrophils # 5.9 (1.6-8.9) K/mcL BMP 12/25/16 12/26/16 14:19 05:54 Sodium 127 L 135 L D Potassium 5.2 H D 5.0 H Chloride 90 L 97 L Carbon Dioxide 29 32 H BUN 66 H 56 H Creatinine 3.31 H 2.08 H Glucose 196 H 182 H Calcium 8.6 8.9 Liver Function 12/26/16 Range/Units 05:54 Albumin 2.8 L (3.5-5.0) g/dL - ABG Interpretation ABG results: PT/INR, D-dimer PT 27.5 Seconds (9.4-12.1) H 12/26/16 05:54 - Impressions Impressions Chest X-Ray 12/25/16 09:30 IMPRESSION: No radiographic evidence of acute cardiopulmonary disease. D/ / Andrew Dawson / Andrew Dawson Interpreting Provider: Andrew Dawson Retroperitoneum Ultrasound 12/25/16 16:30 IMPRESSION: Unremarkable ultrasound of the kidneys and urinary bladder. D/ / 12/25/2016 18:47:48 Sushma Dawson MD / aleks Interpreting Provider: Sushma Dawson MD Consult Discharge Plan - Plan Referrals: Marito Mary MD [Primary Care Provider] -
[2016-12-26] MEDS: *HR* Warfarin 2.5 MG TABLET PO SCH (16:41)
[2016-12-26] MEDS ORDERED: Ipratropium/Albuterol Neb 3 ML IH PRN (18:18)
[2016-12-26] MEDS: traZODone 50 MG TABLET PO SCH (20:39)
[2016-12-27] MEDS: Latanoprost 2.5 ML BOTTLE BOTH EYES SCH ×2 (05:04→20:49)
[2016-12-27] MEDS: Insulin LISPRO 300 UNITS/3 ML VIAL SQ SCH ×5 (05:04→20:49)
[2016-12-27 05:20] LABS: Hematocrit 21.9 % (35.3-44.9); Hemoglobin 6.7 g/dL (11.5-15.4); Mean Corpuscular HGB Conc 30.6 g/dL (31.6-35.5); Mean Corpuscular Hemoglobin 25.6 pg (28.0-33.3); Mean Corpuscular Volume 83.6 fL (83.0-100.0); Mean Platelet Volume 9.1 fL (9.4-12.4); Platelet Count 283 K/mcL (140-400); Red Blood Count 2.62 M/mcL (3.82-4.97); Red Cell Distribution Width 15.3 % (11.5-14.5)
[2016-12-27 05:25] LABS: INR 2.1; Prothrombin Time 22.5 Seconds (9.4-12.1)
[2016-12-27 05:34] LABS: Calcium 8.8 mg/dL (8.6-10.8)
[2016-12-27] MEDS: Acetaminophen 325 MG TABLET PO PRN ×2 (07:52→17:00)
[2016-12-27] MEDS: Metoprolol XL (24 HR) Succ 25 MG TAB.ER.24H PO SCH (07:52)
[2016-12-27] MEDS: Fluticasone Propionate Nasal 50 MCG/SPRAY BOTTLE NS SCH (07:53)
--- NOTE | 2016-12-27 08:54 | Nephrology Progress Note ---
Date of Encounter: 12/27/16 Time of Encounter: 08:30 - Assessment and Plan (1) Acute kidney injury Current Visit: Yes Status: Acute DANIEL in most likely in setting of sepsis UTI, hypotension, diuretics. Hyperkalemia most likely in setting DANIEL with increased dietary intake, K+ supplements and ACEI contributing. Improving with current treatment. Increasing edema, Will give Lasix 20mg IV. Subjective Interval history: Sitting up in bed, watching TV. States feeling better. No new complaints. States legs feeling more swollen, left>right per history. Objective - Vital Signs Vital signs: Vital Signs Temp Pulse Resp BP Pulse Ox 12/27/16 08:01 99.4 F 70 16 142/86 98 12/27/16 02:45 98.9 F 63 18 134/67 98 12/26/16 23:54 99.1 F 79 18 147/75 96 12/26/16 19:37 99.3 F 87 20 140/68 100 12/26/16 15:55 99.1 F 69 16 137/83 99 12/26/16 12:08 98.2 F 64 16 128/59 98 Intake and Output 12/26/16 12/27/16 12/27/16 23:59 07:59 15:59 Intake Total 100 / 100 500 / 500 Output Total 1400 / 1400 800 / 800 Balance -1300 / -1300 -300 / -300 Intake: IV Fluids 0 / 0 500 / 500 0.9 % Sodium Chloride 1,000 ML 500 / 500 @ 60 mls/hr IVC .[id number] [facility] Rx #:[id number] Rocephin 2,000 MG In Dextrose 5 0 / 0 % (Minibag+) 100 ML 100 ML @ 200 mls/hr IVPB Q24H [facility] Rx#: [id number] Oral 100 / 100 Output: Catheter 1400 / 1400 800 / 800 Other: Meal Dinner Percent of Meal Consumed 25% Stool Size Large Small Stool Consistency formed soft Stool Color Brown Brown # Bowel Movements 1 Weight 126.1 kg Blood Glucose* 267 182 Patient Weight 12/27/16 23:59 Weight 126.1 kg - General Appearance General appearance: Present: well-developed, well-nourished, appears started age , obese EENT: Present: mucous membranes moist Neck: Present: no JVD Respiratory: Present: clear Cardiology: Present: edema, regular rate, regular rhythm Additional Comments: Dependent edema in buttock/thigh. LE L>R, left LE taut/shiny, mild pitting Gastrointestinal: Present: normoactive bowel sounds, no tenderness Integumentary: Present: warm and dry Neurologic: Present: alert and oriented x3 Psychiatric: Present: mood/affect appropriate, cooperative - Lab 12/27/16 05:10 12/27/16 05:10 Most recent lab results Calcium 8.8 mg/dL (8.6-10.8) 12/27/16 05:10 Phosphorus 4.7 mg/dL (2.3-4.7) 12/26/16 05:54 Magnesium 2.2 mg/dL (1.6-2.6) 12/26/16 05:54 Consult Discharge Plan - Plan Referrals: Marito Mary MD [Primary Care Provider] -
[2016-12-27] MEDS ORDERED: Furosemide 20 MG/2 ML VIAL IVP ONE (08:57)
[2016-12-27 10:39] LABS: Total Volume 24 Hour,Urine 7.05 Liters (0.60-1.60)
[2016-12-27 10:57] LABS: Creatinine 24 Hour,Urine 1.97 g/day (0.71-1.65)
--- NOTE | 2016-12-27 11:02 | Internal Med Progress Note ---
Date of Encounter: 12/27/16 Time of Encounter: 10:57 - Assessment and plan (1) Acute kidney injury Current Visit: Yes Status: Acute Assessment and plan: Improving. Serum creatinine noted to be 1.14 today, down from 3.7 at admission. Likely related to dehydration in the setting of diuretics/JODI inhibitor. Hold IV hydration for now and continue to monitor, given significant peripheral edema. One dose of IV Lasix per nephrology. Renal ultrasound shows no e/o- obstructive uropathy or other acute abnormality. Patient states she feels too weak to be discharged home; will get PT/OT consults and oncology social worker for possible rehab placement. (2) Hyperkalemia Current Visit: Yes Status: Resolved Assessment and plan: Secondary to acute kidney injury in the setting of JODI inhibitor use. Serum potassium is noted to be normal today. Continue to monitor. (3) Urinary tract infection Current Visit: Yes Status: Acute Assessment and plan: Noted to have recurrent UTIs, with chronic Moss catheter. Urine culture grows fluoroquinolone resistant Escherichia coli. Continue IV Rocephin-day 3. Follow up with urology as outpatient. Qualifiers: Urinary tract infection type: acute cystitis Hematuria presence: without hematuria Qualified Code(s): N30.00 - Acute cystitis without hematuria (4) Anemia Current Visit: Yes Status: Chronic Assessment and plan: Noted to have chronic anemia with iron deficiency. Hemoglobin today noted to be 6.7, component of dilutional anemia. We will transfuse 1 unit PRBC and continue to monitor closely. No signs of overt bleeding. Continue oral ferrous sulfate supplements. Qualifiers: Anemia type: iron deficiency Iron deficiency anemia type: unspecified iron deficiency Qualified Code(s): D50.9 - Iron deficiency anemia, unspecified (5) CHF (congestive heart failure) Current Visit: Yes Status: Chronic Qualifiers: Congestive heart failure type: diastolic Congestive heart failure chronicity: acute on chronic Qualified Code(s): I50.33 - Acute on chronic diastolic (congestive) heart failure (6) COPD (chronic obstructive pulmonary disease) Current Visit: Yes Status: Chronic Qualifiers: COPD type: chronic bronchitis Chronic bronchitis type: simple Qualified Code(s): J41.0 - Simple chronic bronchitis (7) Diabetes type 2, controlled Current Visit: Yes Status: Chronic Assessment and plan: Blood sugars currently better controlled; continue Accucheck blood glucose monitoring and basal bolus insulin regimen. DIabetic diet. 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 (9) History of atrial fibrillation Current Visit: Yes Status: Chronic Assessment and plan: on Coumadin. - Subjective Interval history: Feels better but reports generalized weakness; had diarrhea last night due to Kayexalate. Wants to go to rehab; - Constitutional Vitals: Temp Pulse Resp BP Pulse Ox 99.4 F 70 16 142/86 98 12/27/16 08:01 12/27/16 08:01 12/27/16 08:01 12/27/16 08:01 12/27/16 08:01 General appearance: Present: cooperative, A&O X 3, morbidly obese, answers questions appropriately - Respiratory Respiratory exam: Present: CTAB. Absent: accessory muscle use, rales, rhonchi, wheezes - Cardiovascular Cardiovascular exam: Present: RRR, +S1, +S2. Absent: diastolic murmur, gallop, rubs, systolic murmur - GI/Abdominal GI/Abdominal exam: Present: normal bowel sounds, soft, no peritoneal signs. Absent: distended, tenderness - Extremities Exam Extremities exam: Present: pedal edema (peripheral edema+), warm, radial pulses palpable and symmetrical. Absent: calf tenderness, cyanotic - Neurological Exam Neurological exam: Present: CN II-XII intact, oriented X3, no focal deficits. Absent: pronater drift, facial droop, speech deficit Internal Medicine: Result - Labs CBC & Chem 7: 12/27/16 05:10 12/27/16 05:10 Labs: Short CBC 12/27/16 Range/Units 05:10 WBC 7.8 (4.3-11.1) K/mcL Hgb 6.7 L (11.5-15.4) g/dL Hct 21.9 L (35.3-44.9) % Plt Count 283 (140-400) K/mcL BMP 12/27/16 05:10 Sodium 138 Potassium 4.0 D Chloride 99 Carbon Dioxide 34 H BUN 31 H D Creatinine 1.14 H Glucose 178 H Calcium 8.8 - ABG Interpretation ABG results: PT/INR, D-dimer PT 22.5 Seconds (9.4-12.1) H 12/27/16 05:10 Consult Discharge Plan - Plan Referrals: Marito Mary MD [Primary Care Provider] -
[2016-12-27] MEDS ORDERED: 0.9 % Sodium Chloride 250 ML ONE (13:06)
[2016-12-27] MEDS: *HR* Warfarin 2.5 MG TABLET PO SCH (17:00)
[2016-12-27] MEDS: traZODone 50 MG TABLET PO SCH (20:48)
[2016-12-27] MEDS: Insulin DETEMIR 100 UNIT/ML X5UNITS SQ SCH (20:48)
[2016-12-28] MEDS: Ondansetron 4 MG/2 ML VIAL IVP PRN ×2 (00:58→10:30)
[2016-12-28] MEDS: Acetaminophen 325 MG TABLET PO PRN ×2 (01:44→16:51)
[2016-12-28 05:48] LABS: Basophils # 0.1 K/mcL (0.0-0.2); Basophils % 0.5 %; Hematocrit 29.8 % (35.3-44.9); Hemoglobin 9.6 g/dL (11.5-15.4); Immature Granulocytes % 0.5 % (0-4); Immature Platelets 2.5 % (1.1-6.1); Lymphocytes # 2.1 K/mcL (0.6-4.6); Lymphocytes % 16.7 %; Mean Corpuscular HGB Conc 32.2 g/dL (31.6-35.5); Mean Corpuscular Hemoglobin 26.5 pg (28.0-33.3); Mean Corpuscular Volume 82.3 fL (83.0-100.0); Mean Platelet Volume 9.6 fL (9.4-12.4); Monocytes # 0.7 K/mcL (0.0-1.3); Monocytes % 5.8 %; Neutrophils # 9.7 K/mcL (1.6-8.9); Platelet Count 341 K/mcL (140-400); Red Blood Count 3.62 M/mcL (3.82-4.97); Red Cell Distribution Width 14.7 % (11.5-14.5); Segmented Neutrophils % 76.5 %
[2016-12-28 06:03] LABS: BUN/Creatinine Ratio 22 (6-26); Blood Urea Nitrogen 22 mg/dL (7-20); Calcium 9.4 mg/dL (8.6-10.8); Carbon Dioxide 29 mEq/L (19-29); Chloride 99 mEq/L (98-109); Glucose 198 mg/dL (70-99); Osmolality,Calculated 295 (280-300); Potassium 4.2 mEq/L (3.5-4.5); Sodium 138 mEq/L (136-145); eGFR For African Americans > 60 (> 60); eGFR For Non-African Americans 55 (> 60)
[2016-12-28 06:11] LABS: INR 1.6; Prothrombin Time 17.6 Seconds (9.4-12.1)
[2016-12-28] MEDS: Metoprolol XL (24 HR) Succ 25 MG TAB.ER.24H PO SCH (08:20)
[2016-12-28] MEDS: Fluticasone Propionate Nasal 50 MCG/SPRAY BOTTLE NS SCH (08:21)
[2016-12-28] MEDS: Insulin LISPRO 300 UNITS/3 ML VIAL SQ SCH ×3 (08:27→16:52)
--- NOTE | 2016-12-28 08:30 | Event Note ---
Date of Encounter: 12/28/16 Time of Encounter: 08:30 Patient's renal function is improved. Nephrology will sign off. Please call again if needed.
[2016-12-28] MEDS: Insulin DETEMIR 100 UNIT/ML X5UNITS SQ SCH (09:30)
--- NOTE | 2016-12-28 10:30 | Internal Med Progress Note ---
Date of Encounter: 12/28/16 Time of Encounter: 10:29 - Assessment and plan (1) Acute kidney injury Current Visit: Yes Status: Acute Assessment and plan: Improving. Serum creatinine noted to be 1.01 today, down from 3.7 at admission. Likely related to dehydration in the setting of diuretics/JODI inhibitor. Renal ultrasound shows no e/o- obstructive uropathy or other acute abnormality. Patient states she feels too weak to be discharged home; will get PT/OT consults and geriatric social worker for possible rehab placement. (2) Hyperkalemia Current Visit: Yes Status: Resolved (3) Urinary tract infection Current Visit: Yes Status: Acute Assessment and plan: Noted to have recurrent UTIs, with chronic Moss catheter. Urine culture grows fluoroquinolone resistant Escherichia coli. Continue IV Rocephin-day 4. Follow up with urology as outpatient. Noted to have significant nausea, continue PRN antiemetics. Qualifiers: Urinary tract infection type: acute cystitis Hematuria presence: without hematuria Qualified Code(s): N30.00 - Acute cystitis without hematuria (4) Anemia Current Visit: Yes Status: Chronic Assessment and plan: Noted to have chronic anemia with iron deficiency, Hb around 8-9. Hb improved to 9.6 today s/p 2units PRBC transfusion. No signs of overt bleeding. Continue oral ferrous sulfate supplements. Qualifiers: Anemia type: iron deficiency Iron deficiency anemia type: unspecified iron deficiency Qualified Code(s): D50.9 - Iron deficiency anemia, unspecified (5) CHF (congestive heart failure) Current Visit: Yes Status: Chronic Assessment and plan: Diastolic CHF, not in exacerbation, hold Lasix due to acute renal failure. Lasix will need to be restarted at discharge due to significant peripheral edema. Qualifiers: Congestive heart failure type: diastolic Congestive heart failure chronicity: acute on chronic Qualified Code(s): I50.33 - Acute on chronic diastolic (congestive) heart failure (6) COPD (chronic obstructive pulmonary disease) Current Visit: Yes Status: Chronic Qualifiers: COPD type: chronic bronchitis Chronic bronchitis type: simple Qualified Code(s): J41.0 - Simple chronic bronchitis (7) Diabetes type 2, controlled Current Visit: Yes Status: Chronic Assessment and plan: Blood sugars currently better controlled; continue Accucheck blood glucose monitoring and basal bolus insulin regimen. DIabetic diet. Qualifiers: Diabetes mellitus complication status: with hyperglycemia Diabetes mellitus chcf insulin use: without supervisor intermediates use Qualified Code(s): E11.65 - Type 2 diabetes mellitus with hyperglycemia (8) Hyponatremia Current Visit: Yes Status: Resolved (9) History of atrial fibrillation Current Visit: Yes Status: Chronic Assessment and plan: on Coumadin. INR noted to be 1.6 today; - Subjective Interval history: Reports severe nausea, controlled with Zofran; no vomiting, abdominal pain, diarrhea; no fever/chills, chest pain, dyspnea; - Constitutional Vitals: Temp Pulse Resp BP Pulse Ox 98.7 F 81 18 136/84 97 12/28/16 04:00 12/28/16 04:00 12/28/16 04:00 12/28/16 04:00 12/28/16 04:00 General appearance: Present: cooperative, A&O X 3, morbidly obese, answers questions appropriately - Respiratory Respiratory exam: Present: CTAB. Absent: accessory muscle use, rales, rhonchi, wheezes - Cardiovascular Cardiovascular exam: Present: irregular rhythm, +S1, +S2. Absent: diastolic murmur, gallop, rubs, systolic murmur - GI/Abdominal GI/Abdominal exam: Present: normal bowel sounds, soft (obese), no peritoneal signs. Absent: distended, tenderness - Extremities Exam Extremities exam: Present: pedal edema (B/L upper and lower extremity edema), warm, radial pulses palpable and symmetrical. Absent: calf tenderness, cyanotic - Neurological Exam Neurological exam: Present: CN II-XII intact, oriented X3, no focal deficits. Absent: pronater drift, facial droop, speech deficit Internal Medicine: Result - Labs CBC & Chem 7: 12/28/16 05:30 12/28/16 05:30 Labs: Short CBC 12/28/16 Range/Units 05:30 WBC 12.7 H D (4.3-11.1) K/mcL Hgb 9.6 L D (11.5-15.4) g/dL Hct 29.8 L (35.3-44.9) % Plt Count 341 (140-400) K/mcL Neutrophils # 9.7 H (1.6-8.9) K/mcL BMP 12/28/16 05:30 Sodium 138 Potassium 4.2 Chloride 99 Carbon Dioxide 29 BUN 22 H Creatinine 1.01 Glucose 198 H Calcium 9.4 - ABG Interpretation ABG results: PT/INR, D-dimer PT 17.6 Seconds (9.4-12.1) H 12/28/16 05:59 Consult Discharge Plan - Plan Referrals: Marito Mary MD [Primary Care Provider] - 01/06/17 5:00 pm
[2016-12-28 11:30] VITALS: BP 135/98
--- NOTE | 2016-12-28 14:30 | Discharge Summary ---
Date of Encounter: 12/28/16 Time of Encounter: 14:22 - Discharge Diagnosis (1) Acute kidney injury Priority: Primary Status: Acute (2) Hyperkalemia Priority: Primary Status: Resolved (3) Urinary tract infection Priority: Primary Status: Acute Qualifiers: Urinary tract infection type: acute cystitis Hematuria presence: without hematuria Qualified Code(s): N30.00 - Acute cystitis without hematuria (4) Anemia Priority: Secondary Status: Chronic Qualifiers: Anemia type: iron deficiency Iron deficiency anemia type: unspecified iron deficiency Qualified Code(s): D50.9 - Iron deficiency anemia, unspecified (5) CHF (congestive heart failure) Priority: Secondary Status: Chronic Qualifiers: Congestive heart failure type: diastolic Congestive heart failure chronicity: acute on chronic Qualified Code(s): I50.33 - Acute on chronic diastolic (congestive) heart failure (6) COPD (chronic obstructive pulmonary disease) Priority: Secondary Status: Chronic Qualifiers: COPD type: chronic bronchitis Chronic bronchitis type: simple Qualified Code(s): J41.0 - Simple chronic bronchitis (7) Diabetes type 2, controlled Priority: Secondary Status: Chronic Qualifiers: Diabetes mellitus complication status: with hyperglycemia 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 use Qualified Code(s): E11.65 - Type 2 diabetes mellitus with hyperglycemia (8) Hyponatremia Priority: Primary Status: Resolved (9) History of atrial fibrillation Priority: Secondary Status: Chronic - Discharge Medications Prescriptions: Cephalexin [Keflex] 500 mg PO BID #14 capsule Warfarin [Coumadin] 5 mg PO 1800 3 Days tablet Home Medications: Albuterol Neb [Proventil Neb] 2.5 mg IH Q6H PRN 05/06/16 [History] Albuterol Sulfate [Proair Hfa] 2 puff IH QID PRN 05/06/16 [History] Dicyclomine [Bentyl] 10 mg PO QID 05/06/16 [History] Donepezil [Aricept] 5 mg PO HS 05/06/16 [History] Esomeprazole Magnesium [Nexium] 40 mg PO BID 05/06/16 [History] Fluticasone Propionate Nasal [Flonase] 100 mcg NS DAILY 05/06/16 [History] Gabapentin [Neurontin] 400 mg PO TID 05/06/16 [History] Gabapentin [Neurontin] 800 mg PO HS 05/06/16 [History] Latanoprost [Xalatan] 1 drop OP HS 05/06/16 [History] Lubiprostone [Amitiza] 24 mcg PO DAILY PRN 05/06/16 [History] Metformin HCl [Glucophage] 1,000 mg PO BID 05/06/16 [History] Nitroglycerin [Nitrostat] 0.4 mg SL Q5M PRN 05/06/16 [History] Paroxetine HCl [Paxil] 40 mg PO QAM 05/06/16 [History] Promethazine HCl 12.5 mg PO QID PRN 05/06/16 [History] traZODone [TraZODone] 50 mg PO HS 05/06/16 [History] Cyclobenzaprine HCl 5 mg PO TID #30 tablet 05/11/16 [Rx] HYDROcodone/Acet 5/325 mg [[place]arrow 5-325 mg] 1 tab PO Q6H PRN #20 tablet 06/11/16 [Rx] Ipratropium/Albuterol Neb [Duoneb] 3 ml IH [id number] PRN #0 inhsol 06/11/16 [Rx] LORazepam [Ativan] 1 mg PO Q8H #20 tablet 06/11/16 [Rx] Ferrous Sulfate 325 mg PO DAILY 12/25/16 [History] Memantine HCl [Namenda Xr] 28 mg PO DAILY 12/25/16 [History] Metoprolol XL (24 HR) Succ [Toprol Xl] 50 mg PO DAILY 12/25/16 [History] Riociguat [Adempas] 2.5 mg PO TID 12/25/16 [History] predniSONE [PredniSONE] 5 mg PO DAILY PRN 12/25/16 [History] Cephalexin [Keflex] 500 mg PO BID #14 capsule 12/28/16 [Rx] Furosemide [Lasix] 40 mg PO DAILY #30 12/28/16 [Rx] Insulin LISPRO [HumaLOG] 0 units SQ TIDAC vial 12/28/16 [Rx] Warfarin [Coumadin] 5 mg PO 1800 3 Days tablet 12/28/16 [Rx] Allergies/Adverse Reactions: 3 Allergy/AdvReac Type Severity Reaction Status Date / Time meperidine [From Demerol] Allergy See Verified 12/24/16 21:52 Comments Penicillins Allergy Rash Verified 06/07/16 09:51 IVP DYE Allergy Difficulty Uncoded 11/18/15 18:17 Breathing Procedures/tests Complete & Pending: Procedures Performed prior 72 hours Category Date Time Status Retroperitoneal Ultrasound - Complete [US Exams 12/25/16 16:30 Completed retroperitoneal comp] [US] Routine Date of admission: 12/25/16 01:33 Primary care physician: Marito Mary MD Consults: 12/25/16 01:49 Consult to Nutrition [CONS] Routine Comment: Consulting Provider: NUTRITION Reason for Dietary Consult: MST Score Consult to Front End Ui Developer [CONS] Routine Reason for SW Consult: Home Health 12/25/16 09:44 Consult to Nephrology [CONS] Routine Consulting Provider: Kidney & HTN Spclst LYNETTE Reason for Consult: ARF, oliguria, hyperkalemia Call Completed: Yes 12/25/16 10:58 Consult to Invasive Line Access Team [CONS] Routine Reason for Consult: limited vasc access Line Type: EPIV 12/26/16 13:39 Consult to Occupational Therapy [CONS] Routine Comment: Evaluate, develop and implement POC Reason for Consult: eval Consult to Physical Therapy [CONS] Routine Comment: Evaluate, develop and implement POC Reason for Consult: eval Discharging clinician: Felisha Lobo Anticipated date of discharge: 12/28/16 - Patient Status Disposition: Transfer SNF Condition: Fair Functional capacity at discharge: uses cane/walker Overall status at discharge: patient is progressing back to baseline - Discharge Instructions Follow Up With: Marito Mary MD [Primary Care Provider] - (Patient is going to [facility] no PCP appointment needed) Eusebio Howell DO [Non-Partnered Physician] - 02/08/17 12:00 pm Additional Instructions: F/up with Nephrology in 4-6 weeks- - Diet and Activity Activity: as per physical therapy, wear oxygen at all times Diet: diabetic diet, low fat, low cholesterol, low salt diet, other (low K renal diet) Hospital course: Ms. Huang is a 66 year old female with the above medical problems who was admitted with generalized weakness and nausea. Patient was noted to be in acute renal failure with associated hyperkalemia and hyponatremia. She was noted to be on diuretic, JODI inhibitor and potassium supplements at home, which were held at admission. She was given aggressive IV hydration and nephrology was consulted. Patient required multiple doses of Kayexalate along with cocktail with with calcium gluconate/albuterol/D50 and insulin for persistent hyperkalemia and EKG changes. She did not require hemodialysis and her serum potassium gradually normalized. Renal ultrasound showed no evidence of obstructive uropathy or renal stones. Serum creatinine gradually began to improve back to baseline. She was also noted to have a UTI with chronic Moss and was treated with IV Rocephin. Urine culture grows fluoroquinolone resistant Escherichia coli and patient is being discharged on oral Keflex to complete 10 days of antibiotics. Patient is noted to have significant peripheral edema and her Lasix is being restarted at a lower dose. Physical and occupational therapy evaluation was completed and recommended placement in extended care facility and patient was agreeable to this as she lives alone and still feels generally weak. Patient is otherwise medically stable for discharge with outpatient follow-up. - Time Spent with Patient Total time spent providing and/or coordinating discharge services: Greater than 30 minutes (40 min) - Constitutional Vitals: Temp Pulse Resp BP Pulse Ox 98.8 F 101 18 135/98 98 12/28/16 11:29 12/28/16 11:29 12/28/16 08:30 12/28/16 11:29 12/28/16 08:30 General appearance: Present: cooperative, A&O X 3, morbidly obese, answers questions appropriately - Respiratory Respiratory exam: Present: CTAB. Absent: accessory muscle use, rales, rhonchi, wheezes - Cardiovascular Cardiovascular exam: Present: irregular rhythm, +S1, +S2. Absent: diastolic murmur, gallop, rubs, systolic murmur
--- NOTE | 2016-12-28 14:32 | Physician Discharge Referral ---
ExtendedCare Referral Info Transfer To: [facility] Provider in Charge: Felisha Lobo Provider in Charge after Transfer: PCP Institutional Level of Care: Skilled - Diagnosis (1) Acute kidney injury Priority: Primary Status: Acute (2) Hyperkalemia Priority: Primary Status: Resolved (3) Urinary tract infection Priority: Primary Status: Acute (4) Anemia Priority: Secondary Status: Chronic (5) CHF (congestive heart failure) Priority: Secondary Status: Chronic (6) COPD (chronic obstructive pulmonary disease) Priority: Secondary Status: Chronic (7) Diabetes type 2, controlled Priority: Secondary Status: Chronic (8) Hyponatremia Priority: Primary Status: Resolved (9) History of atrial fibrillation Priority: Secondary Status: Chronic Expected Duration of Placement: 3 weeks Prognosis: Good Aware of Diagnosis: Patient Aware of Prognosis: Patient - Transfer Medications Prescriptions: Cephalexin [Keflex] 500 mg PO BID #14 capsule Warfarin [Coumadin] 5 mg PO 1800 3 Days tablet Home Medications: Albuterol Neb [Proventil Neb] 2.5 mg IH Q6H PRN 05/06/16 [History] Albuterol Sulfate [Proair Hfa] 2 puff IH QID PRN 05/06/16 [History] Dicyclomine [Bentyl] 10 mg PO QID 05/06/16 [History] Donepezil [Aricept] 5 mg PO HS 05/06/16 [History] Esomeprazole Magnesium [Nexium] 40 mg PO BID 05/06/16 [History] Fluticasone Propionate Nasal [Flonase] 100 mcg NS DAILY 05/06/16 [History] Gabapentin [Neurontin] 400 mg PO TID 05/06/16 [History] Gabapentin [Neurontin] 800 mg PO HS 05/06/16 [History] Latanoprost [Xalatan] 1 drop OP HS 05/06/16 [History] Lubiprostone [Amitiza] 24 mcg PO DAILY PRN 05/06/16 [History] Metformin HCl [Glucophage] 1,000 mg PO BID 05/06/16 [History] Nitroglycerin [Nitrostat] 0.4 mg SL Q5M PRN 05/06/16 [History] Paroxetine HCl [Paxil] 40 mg PO QAM 05/06/16 [History] Promethazine HCl 12.5 mg PO QID PRN 05/06/16 [History] traZODone [TraZODone] 50 mg PO HS 05/06/16 [History] Cyclobenzaprine HCl 5 mg PO TID #30 tablet 05/11/16 [Rx] HYDROcodone/Acet 5/325 mg [[place] 5-325 mg] 1 tab PO Q6H PRN #20 tablet 06/11/16 [Rx] Ipratropium/Albuterol Neb [Duoneb] 3 ml IH [id number] PRN #0 inhsol 06/11/16 [Rx] LORazepam [Ativan] 1 mg PO Q8H #20 tablet 06/11/16 [Rx] Ferrous Sulfate 325 mg PO DAILY 12/25/16 [History] Memantine HCl [Namenda Xr] 28 mg PO DAILY 12/25/16 [History] Metoprolol XL (24 HR) Succ [Toprol Xl] 50 mg PO DAILY 12/25/16 [History] Riociguat [Adempas] 2.5 mg PO TID 12/25/16 [History] predniSONE [PredniSONE] 5 mg PO DAILY PRN 12/25/16 [History] Cephalexin [Keflex] 500 mg PO BID #14 capsule 12/28/16 [Rx] Furosemide [Lasix] 40 mg PO DAILY #30 12/28/16 [Rx] Insulin LISPRO [HumaLOG] 0 units SQ TIDAC vial 12/28/16 [Rx] Warfarin [Coumadin] 5 mg PO 1800 3 Days tablet 12/28/16 [Rx] Allergies/Adverse Reactions: 3 Allergy/AdvReac Type Severity Reaction Status Date / Time meperidine [From Demerol] Allergy See Verified 12/24/16 21:52 Comments Penicillins Allergy Rash Verified 06/07/16 09:51 IVP DYE Allergy Difficulty Uncoded 11/18/15 18:17 Breathing - Respiratory Orders Oxygen / L per min (2L/min via NC) Smoking Cessation: Smoking cessation has been advised. For more information, call the [place] Tobacco Quit Line at 0-187-MKUQ-NOW. - Advance Directives Code Status: Full Code - Mobility Orders Ambulate - Rehabiliation Orders Rehab Potential: Good Rehab Orders: ROM Exercises, Evaluation for Physical Therapy, Evaluation for Occupational Therapy - Diet Orders No Added Salt (CELIA), No Concentrated Sweets (diabetic), Renal, Cardiac CERTIFICATION: I certify that the transfer of the above named patient to an Extended Care Facility is necessary for the continuing treatment of the diagnosis listed. The above information is true and accurate reflection of patient's current condition. Confidential - Redisclosure prohibited without a patient's written consent.
--- NOTE | 2016-12-28 17:52 | Electrocardiograph Report ---
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
[2016-12-28] MEDS ORDERED: *HR* Warfarin 5 MG TABLET PO ONE (18:00)
== END 2016-12-28 17:50 | DRG 698 ==
LOC: 2NNU 21:50 → EMEROO 21:50 → 2NNU 12-25 00:58
PROVIDERS: ADMIT Pediatrics; ATTEND Internal Medicine

== ENCOUNTER 2018-04-12 22:01 | Inpatient (IN) ==
--- NOTE | 2018-04-12 22:23 | Emergency Department Note ---
Disposition Clinical Impression: Weakness Fall Qualifiers: Encounter type: initial encounter Qualified Code(s): W19.XXXA - Unspecified fall, initial encounter UTI (urinary tract infection) Qualifiers: Urinary tract infection type: site unspecified Hematuria presence: without hematuria Qualified Code(s): N39.0 - Urinary tract infection, site not specified Disposition: Admitted As Inpatient Condition: Good Referrals: Marito Mary MD [Primary Care Provider] - General Adult HPI - General Stated complaint: FALL Time Seen by Provider: 04/12/18 22:09 Source: patient, EMS Limitations: no limitations Nursing Notes Reviewed: Yes Vital Signs Reviewed: Yes - History of Present Illness HPI Narrative: Patient presenting from home via EMS for evaluation after fall. Patient was transitioning from chair to the bed. Patient fell onto her butt. Patient complaining of right hip and right knee pain. Patient states her legs felt weak like when she gets urinary tract infections. Patient states it was mechanical fall. Did not hit her head and did not lose consciousness. Patient does wear oxygen at home secondary to CHF. Patient has been taking her medications as usual. Patient denies shortness of breath, chest pain, fevers, chills. Pain Scale: 8 - Related Data Home Medications Medication Instructions Recorded Confirmed RX: Albuterol Neb [Proventil Neb] 2.5 mg IH Q6H PRN 05/06/16 02/27/17 RX: Albuterol Sulfate [Proair Hfa] 2 puff IH QID PRN 05/06/16 02/27/17 RX: Dicyclomine [Bentyl] 10 mg PO QID 05/06/16 02/27/17 RX: Donepezil [Aricept] 5 mg PO HS 05/06/16 02/27/17 RX: Esomeprazole Magnesium [Nexium] 40 mg PO BID 05/06/16 02/27/17 RX: Fluticasone Propionate Nasal 100 mcg NS DAILY 05/06/16 02/27/17 [Flonase] RX: Gabapentin [Neurontin] 400 mg PO TID 05/06/16 02/27/17 RX: Gabapentin [Neurontin] 800 mg PO HS 05/06/16 02/27/17 RX: Latanoprost [Xalatan] 1 drop OP HS 05/06/16 02/27/17 RX: Lubiprostone [Amitiza] 24 mcg PO DAILY PRN 05/06/16 02/27/17 RX: Metformin HCl [Glucophage] 1,000 mg PO BID 05/06/16 02/27/17 RX: Nitroglycerin [Nitrostat] 0.4 mg SL Q5M PRN 05/06/16 02/27/17 RX: Paroxetine HCl [Paxil] 40 mg PO QAM 05/06/16 02/27/17 RX: Promethazine HCl 12.5 mg PO QID PRN 05/06/16 02/27/17 RX: traZODone [TraZODone] 50 mg PO HS 05/06/16 02/27/17 RX: Ferrous Sulfate 325 mg PO DAILY 12/25/16 02/27/17 RX: Memantine HCl [Namenda Xr] 28 mg PO DAILY 12/25/16 02/27/17 RX: Riociguat [Adempas] 2.5 mg PO TID 12/25/16 02/27/17 Phenazopyridine [Pyridium] 100 mg PO BID 02/27/17 02/27/17 RX: Linaclotide [Linzess] 145 mcg PO DAILY 02/27/17 02/27/17 RX: Lubiprostone [Amitiza] 24 mcg PO DAILY 02/27/17 02/27/17 RX: Mupirocin 1 gm TP BID 02/27/17 02/27/17 RX: Oxygen 2 l .ROUTE AD 02/27/17 02/27/17 RX: Warfarin [Coumadin] 6 mg PO Q48H 02/27/17 02/27/17 Previous Rx's Medication Instructions Recorded RX: Cyclobenzaprine HCl 5 mg PO TID #30 tablet 05/11/16 RX: Ipratropium/Albuterol Neb 3 ml IH [id number] PRN #0 inhsol 06/11/16 [Duoneb] RX: Cefepime HCl [Maxipime] 2,000 mg IVPB Q8H #6 vial 03/03/17 RX: Furosemide [Lasix] 80 mg PO BID #0 03/03/17 RX: HYDROcodone/Acet 5/325 mg 1 tab PO Q6H PRN #20 tablet 03/03/17 [[place] 5-325 mg] RX: LORazepam [Ativan] 1 mg PO Q8H #20 tablet 03/03/17 RX: predniSONE [PredniSONE] 40 mg PO DAILY #4 tablet 03/03/17 Allergies Allergy/AdvReac Type Severity Reaction Status Date / Time meperidine [From Demerol] Allergy See Verified 12/24/16 21:52 Comments Penicillins Allergy Rash Verified 06/07/16 09:51 IVP DYE Allergy Difficulty Uncoded 11/18/15 18:17 Breathing All systems ED: reviewed and negative except as stated. Review of Systems: As Per HPI Constitutional: Denies: fever, chills ENT ED: Denies: congestion Cardiovascular: Denies: chest pain Respiratory: Denies: cough, dyspnea Gastrointestinal: Denies: abdominal pain, nausea, vomiting Genitourinary: Reports: frequency (Decrease frequency) Musculoskeletal: Reports: back pain (Right lower lumbar) Integumentary: Denies: rash, abrasion, lesions Neurological: Denies: headache Endocrine: Denies: fatigue Past Medical History - Past Medical History Medical history: Reports: arthritis, asthma, CHF, COPD, diabetes, fibromyalgia, GERD, hyperlipidemia, hypertension, TIA, other Surgical history: Reports: appendectomy, hysterectomy Psychiatric history: Reports: anxiety, depression - Social History Smoking Status: Never smoker Smokeless Tobacco Status: No Alcohol use: Reports: none Drug use: Reports: none Physical Exam General: Well appearing, nontoxic, no acute distress Head: Normocephalic Atraumatic Eyes: PERRL, EOMI ENT: Airway patent, no stridor Neck: supple, no meningismus Chest: Lungs clear to auscultation bilateral Cardiac: Regular rate and rhythm, no murmurs, rubs or gallops Abdomen: soft, nontender, nondistended; no guarding, rebound, or tenderness to percussion Musculoskeletal: Mild tenderness with manipulation of the hip as well as the knee. Neurovascularly intact to both extremities. No obvious deformity. Mild tenderness at the hip is well is general tenderness to the knee without focal tenderness. Skin: No rash, normal skin tone. Neuro: Alert and Oriented to person, place, and time; No obvious focal deficit. - General Limitations: no limitations General appearance: alert Course - Reevaluation(s) Reevaluation #1: No significant fracture seen on x-ray. Patient urinalysis concerning for UTI. The patient on reevaluation states that she does not feel safe going home. Her legs feel weak and she is concerned that she may fall again. Patient will be admitted to the hospital service. Ceftriaxone given. - Consultations Consultation #1: Discussed the hospitalist. Patient accepted for admission. Vital Signs Temperature 98.5 F 04/12/18 22:05 Pulse Rate 70 04/12/18 22:05 Respiratory Rate 20 04/12/18 22:05 Blood Pressure 127/76 04/12/18 22:05 O2 Sat by Pulse Oximetry 100 04/12/18 22:05 Temperature 98.5 F 04/12/18 22:05 Pulse Rate 60 04/13/18 00:49 Respiratory Rate 18 04/13/18 00:49 Blood Pressure 117/68 04/13/18 00:49 O2 Sat by Pulse Oximetry 99 04/13/18 00:49 Oxygen Delivery Oxygen Delivery Room Air Medical Decision Making - Lab Data Result diagrams: 04/13/18 00:07 04/13/18 00:07 Lab Results 04/12/18 04/13/18 04/13/18 Range/Units 22:30 00:07 00:07 WBC 9.2 (4.3-11.1) K/mcL RBC 3.80 L (3.82-4.97) M/mcL Hgb 10.7 L (11.5-15.4) g/dL Hct 33.5 L (35.3-44.9) % MCV 88.2 (83.0-100.0) fL MCH 28.2 (28.0-33.3) pg MCHC 31.9 (31.6-35.5) g/dL RDW 14.3 (11.5-14.5) % Plt Count 296 (140-400) K/mcL MPV 10.0 (9.4-12.4) fL Immature Gran % 0.4 (0-4) % Seg Neutrophils % 66.6 % Lymphocytes % 24.9 % Monocytes % 7.5 % Eosinophils % 0.1 % Basophils % 0.5 % Neutrophils # 6.1 (1.6-8.9) K/mcL Lymphocytes # 2.3 (0.6-4.6) K/mcL Monocytes # 0.7 (0.0-1.3) K/mcL Eosinophils # 0.0 (0.0-0.6) K/mcL Basophils # 0.1 (0.0-0.2) K/mcL PT (9.4-12.1) Seconds INR Sodium 136 (136-145) mEq/L Potassium 4.3 (3.5-5.1) mEq/L Chloride 97 L (98-107) mEq/L Carbon Dioxide 31 H (23-29) mEq/L BUN 24 H (8-23) mg/dL Creatinine 0.90 (0.60-1.20) mg/dL Est GFR ( Amer) > 60 (> 60) Est GFR (Non-Af Amer) > 60 (> 60) BUN/Creatinine Ratio 27 H (6-26) Glucose 194 H (70-105) mg/dL Calculated Osmolality 291 (280-300) Calcium 9.0 (8.6-10.3) mg/dL Total Bilirubin 0.2 L (0.3-1.0) mg/dL AST 7 L (13-39) Units/L ALT 9 (7-52) Units/L Alkaline Phosphatase 48 (34-104) Units/L Troponin I < 0.03 (< 0.04) ng/mL B-Natriuretic Peptide (Less than 100) pg/mL Serum Total Protein 6.4 (6.4-8.9) g/dL Albumin 3.8 (3.5-5.7) g/dL Globulin 2.6 (2.4-3.5) g/dL Albumin/Globulin Ratio 1.5 (1.1-2.2) Urine Color Yellow (Yellow) Urine Clarity Clear (Clear) Urine pH 5.5 (5.0-8.0) pH Units Ur Specific [place] 1.009 L (1.010-1.025) Urine Protein Negative (Neg-Trace) mg/dL Urine Glucose (UA) Normal (Normal) mg/dL Urine Ketones Negative (Negative) mg/dL Urine Blood Negative (Negative) Urine Nitrite Positive A (Negative) Urine Bilirubin Negative (Negative) Urine Urobilinogen Normal (Normal) mg/dL Ur Leukocyte Esterase Moderate H (Negative) Urine Microscopic RBC 0-3 (0-3) per hpf Urine Microscopic WBC 15-30 H (0-3) per hpf Ur Squamous Epith Cells Many H (None-Few) per lpf Urine Bacteria Many H (None-Few) per hpf Hyaline Casts None Seen (None-Few) per lpf Ur Culture Indicated? NO. A (NO) 04/13/18 04/13/18 Range/Units 00:07 00:07 WBC (4.3-11.1) K/mcL RBC (3.82-4.97) M/mcL Hgb (11.5-15.4) g/dL Hct (35.3-44.9) % MCV (83.0-100.0) fL MCH (28.0-33.3) pg MCHC (31.6-35.5) g/dL RDW (11.5-14.5) % Plt Count (140-400) K/mcL MPV (9.4-12.4) fL Immature Gran % (0-4) % Seg Neutrophils % % Lymphocytes % % Monocytes % % Eosinophils % % Basophils % % Neutrophils # (1.6-8.9) K/mcL Lymphocytes # (0.6-4.6) K/mcL Monocytes # (0.0-1.3) K/mcL Eosinophils # (0.0-0.6) K/mcL Basophils # (0.0-0.2) K/mcL PT 30.3 H (9.4-12.1) Seconds INR 2.7 Sodium (136-145) mEq/L Potassium (3.5-5.1) mEq/L Chloride (98-107) mEq/L Carbon Dioxide (23-29) mEq/L BUN (8-23) mg/dL Creatinine (0.60-1.20) mg/dL Est GFR ( Amer) (> 60) Est GFR (Non-Af Amer) (> 60) BUN/Creatinine Ratio (6-26) Glucose (70-105) mg/dL Calculated Osmolality (280-300) Calcium (8.6-10.3) mg/dL Total Bilirubin (0.3-1.0) mg/dL AST (13-39) Units/L ALT (7-52) Units/L Alkaline Phosphatase (34-104) Units/L Troponin I (< 0.04) ng/mL B-Natriuretic Peptide 107 H (Less than 100) pg/mL Serum Total Protein (6.4-8.9) g/dL Albumin (3.5-5.7) g/dL Globulin (2.4-3.5) g/dL Albumin/Globulin Ratio (1.1-2.2) Urine Color (Yellow) Urine Clarity (Clear) Urine pH (5.0-8.0) pH Units Ur Specific [place] (1.010-1.025) Urine Protein (Neg-Trace) mg/dL Urine Glucose (UA) (Normal) mg/dL Urine Ketones (Negative) mg/dL Urine Blood (Negative) Urine Nitrite (Negative) Urine Bilirubin (Negative) Urine Urobilinogen (Normal) mg/dL Ur Leukocyte Esterase (Negative) Urine Microscopic RBC (0-3) per hpf Urine Microscopic WBC (0-3) per hpf Ur Squamous Epith Cells (None-Few) per lpf Urine Bacteria (None-Few) per hpf Hyaline Casts (None-Few) per lpf Ur Culture Indicated? (NO)
[2018-04-12 22:41] LABS: Bilirubin,Urine Negative (Negative); Blood,Urine Negative (Negative); Clarity,Urine Clear (Clear); Color,Urine Yellow (Yellow); Glucose,Urine (UA) Normal (Normal); Ketones,Urine Negative (Negative); Leukocyte Esterase,Urine Moderate (Negative); Nitrite,Urine Positive (Negative); PH,Urine 5.5 pH Units (5.0-8.0); Protein,Urine Negative (Neg-Trace); Specific Gravity,Urine 1.009 (1.010-1.025); Urobilinogen,Urine Normal (Normal)
[2018-04-12 22:42] LABS: Bacteria,Urine Many per hpf (None-Few); Hyaline Casts,Urine None Seen per lpf (None-Few); RBC,Urine 0-3 per hpf (0-3); Squamous Epithelial Cell,Urine Many per lpf (None-Few); WBC,Urine 15-30 per hpf (0-3)
[2018-04-12] MEDS ORDERED: cefTRIAXone 1,000 MG in Water for inj. (sterile) 20 ML 10 ML IVP ONE (23:06)
[2018-04-13 00:21] LABS: Basophils # 0.1 K/mcL (0.0-0.2); Basophils % 0.5 %; Eosinophils % 0.1 %; Hematocrit 33.5 % (35.3-44.9); Hemoglobin 10.7 g/dL (11.5-15.4); Immature Granulocytes % 0.4 % (0-4); Lymphocytes # 2.3 K/mcL (0.6-4.6); Lymphocytes % 24.9 %; Mean Corpuscular HGB Conc 31.9 g/dL (31.6-35.5); Mean Corpuscular Hemoglobin 28.2 pg (28.0-33.3); Mean Corpuscular Volume 88.2 fL (83.0-100.0); Monocytes # 0.7 K/mcL (0.0-1.3); Monocytes % 7.5 %; Neutrophils # 6.1 K/mcL (1.6-8.9); Platelet Count 296 K/mcL (140-400); Red Cell Distribution Width 14.3 % (11.5-14.5); Segmented Neutrophils % 66.6 %
[2018-04-13 00:43] LABS: Alanine Aminotransferase 9 Units/L (7-52); Albumin 3.8 g/dL (3.5-5.7); Albumin/Globulin Ratio 1.5 (1.1-2.2); Alkaline Phosphatase 48 Units/L (34-104); Aspartate Amino Transferase 7 Units/L (13-39); BUN/Creatinine Ratio 27 (6-26); Bilirubin,Total 0.2 mg/dL (0.3-1.0); Blood Urea Nitrogen 24 mg/dL (8-23); Carbon Dioxide 31 mEq/L (23-29); Chloride 97 mEq/L (98-107); Globulin 2.6 g/dL (2.4-3.5); Glucose 194 mg/dL (70-105); Osmolality,Calculated 291 (280-300); Potassium 4.3 mEq/L (3.5-5.1); Sodium 136 mEq/L (136-145); Total Protein 6.4 g/dL (6.4-8.9); Troponin I < 0.03 ng/mL (< 0.04); eGFR For Non-African Americans > 60 (> 60)
[2018-04-13 01:08] LABS: INR 2.7; Prothrombin Time 30.3 Seconds (9.4-12.1)
--- NOTE | 2018-04-13 08:11 | Internal Med History&Physical ---
Date of Encounter: 04/13/18 Time of Encounter: 08:06 Internal Medicine - H&P: HPI Chief complaint: fall Admitted From: Home Plans for Post Hospital Care: Transfer Assisted Facility History of present illness: Ms. Huang is a 67 year old female who has history of COPD on 2 L nasal cannula diabetes CHF diastolic dysfunction chronic atrial fibrillation dementia pulmonary hypertension morbid obesity presenting emergency room after fall. Patient lives at home with her sister homebound, has a hospital bed and home care, last night around 9:30 PM she tried to get into bad, fell on the floor. She started to have lower back, pain from hip and knee pain , it was 7 out of 10, constant squad was called and she was sent to the emergency room. In the ED multiple x-ray was done did not show fracture, shows knee and hip DJD's. Chest x-ray was negative. Urine shows infection. When I saw the patient and she is alert oriented 3, able to ambulate to the restroom with a walker. She still complains generalized pain to bilateral hips and the knees. She said she has been feeling leg weak for 3 weeks and has some painful frequency urination for 3 days. Physical examination is unremarkable. Patient is going to be admitted for mechanical fall and UTI, will consult PTOT, likely residential facility placement. Past Med Surg Social Fam HX - Past Medical History Medical history: arthritis, asthma, CHF, COPD, diabetes, fibromyalgia, GERD, hyperlipidemia, hypertension, TIA, other Additional medical history: blood clots on lungs Psychiatric history: anxiety, depression - Past Surgical History Surgical History: appendectomy, hysterectomy Additional surgical history: appendix - Social History Smoking Status: Never smoker Smokeless Tobacco Status: No Alcohol use: none Drug use: none - Family History Father Living Status: Hx Family Cardiac Disorders: Yes Hx Family Cancer: Yes Sister Hx Family Cardiac Disorders: Yes Hx Family Respiratory Disorders: Yes (asthma) Mother Adopted: No Living Status: Hx Family Cancer: Yes Hx Family Endocrine Disorder: Yes (diabetic) Internal Medicine - H&P: Meds Albuterol Neb [Proventil Neb] 2.5 mg IH Q6H PRN 05/06/16 [History] Albuterol Sulfate [Proair Hfa] 2 puff IH QID PRN 05/06/16 [History] Dicyclomine [Bentyl] 10 mg PO QID 05/06/16 [History] Donepezil [Aricept] 5 mg PO HS 05/06/16 [History] Esomeprazole Magnesium [Nexium] 40 mg PO BID 05/06/16 [History] Fluticasone Propionate Nasal [Flonase] 100 mcg NS DAILY 05/06/16 [History] Gabapentin [Neurontin] 400 mg PO TID 05/06/16 [History] Gabapentin [Neurontin] 800 mg PO HS 05/06/16 [History] Latanoprost [Xalatan] 1 drop OP HS 05/06/16 [History] Lubiprostone [Amitiza] 24 mcg PO DAILY PRN 05/06/16 [History] Metformin HCl [Glucophage] 1,000 mg PO BID 05/06/16 [History] Nitroglycerin [Nitrostat] 0.4 mg SL Q5M PRN 05/06/16 [History] Paroxetine HCl [Paxil] 40 mg PO QAM 05/06/16 [History] Promethazine HCl 12.5 mg PO QID PRN 05/06/16 [History] traZODone [TraZODone] 50 mg PO HS 05/06/16 [History] Cyclobenzaprine HCl 5 mg PO TID #30 tablet 05/11/16 [Rx] Ipratropium/Albuterol Neb [Duoneb] 3 ml IH [id number] PRN #0 inhsol 06/11/16 [Rx] Ferrous Sulfate 325 mg PO DAILY 12/25/16 [History] Memantine HCl [Namenda Xr] 28 mg PO DAILY 12/25/16 [History] Riociguat [Adempas] 2.5 mg PO TID 12/25/16 [History] Linaclotide [Linzess] 145 mcg PO DAILY 02/27/17 [History] Lubiprostone [Amitiza] 24 mcg PO DAILY 02/27/17 [History] Mupirocin 1 gm TP BID 02/27/17 [History] Oxygen 2 l .ROUTE AD 02/27/17 [History] Phenazopyridine [Pyridium] 100 mg PO BID 02/27/17 [History] Warfarin [Coumadin] 6 mg PO Q48H 02/27/17 [History] Cefepime HCl [Maxipime] 2,000 mg IVPB Q8H #6 vial 03/03/17 [Rx] Furosemide [Lasix] 80 mg PO BID #0 03/03/17 [Rx] HYDROcodone/Acet 5/325 mg [[place] 5-325 mg] 1 tab PO Q6H PRN #20 tablet 03/03/17 [Rx] LORazepam [Ativan] 1 mg PO Q8H #20 tablet 03/03/17 [Rx] predniSONE [PredniSONE] 40 mg PO DAILY #4 tablet 03/03/17 [Rx] Allergy/AdvReac Type Severity Reaction Status Date / Time meperidine [From Demerol] Allergy See Verified 12/24/16 21:52 Comments Penicillins Allergy Rash Verified 06/07/16 09:51 IVP DYE Allergy Difficulty Uncoded 11/18/15 18:17 Breathing All Systems PM: A 10-system review of systems was performed and is negative for pertinent findings except as documented above in the HPI. - Constitutional Vitals: Temp Pulse Resp BP Pulse Ox 98.5 F 61 16 135/70 97 04/13/18 02:02 04/13/18 02:02 04/13/18 02:02 04/13/18 02:02 04/13/18 02:35 General appearance: Present: A&O X 3, pleasant, obese Exam: CONSTITUTIONAL: Patient appears as an age appropriate female well developed, in no acute distress. EYES Clear sclerae, bilateral pupils are equal, reactive to light and accommod ation. Extraocular movements are intact RESPIRATORY: No accessory muscle use, bilateral clear to auscultation, no wheezing, no crackles/rales. CARDIOVASCULAR: Regular heart rate, normal S1 and S2, no murmurs GASTROINTESTINAL: bowel sounds present, soft, no tenderness. No hepatosplenomegaly. No bilateral CVA tenderness MUSCULOSKELETAL: Joints in normal range of motion, no clubbing, no edema, no cy anosis. Bilateral peripheral pulses 2+ LYMPHATIC no lymphadenopathy in neck, groin and axilla bilaterally, no thyromegaly. NEUROLOGIC: CN II to XII are grossly intact, no focal neurological deficit. Deep tendon reflexes 2+ bilaterally. Normal light touch sensation to upper and lower extremity PSYCHIATRIC: Oriented x3, with good insight, mood is euthymic. No hallucinations or delusions. SKIN: Skin warm and dry, no rashes, no open wound. Internal Med - H&P Results - Labs CBC & Chem 7: 04/13/18 00:07 04/13/18 00:07 Labs: Short CBC 04/13/18 Range/Units 00:07 WBC 9.2 (4.3-11.1) K/mcL Hgb 10.7 L (11.5-15.4) g/dL Hct 33.5 L (35.3-44.9) % Plt Count 296 (140-400) K/mcL Neutrophils # 6.1 (1.6-8.9) K/mcL BMP 04/13/18 00:07 Sodium 136 Potassium 4.3 Chloride 97 L Carbon Dioxide 31 H BUN 24 H Creatinine 0.90 Glucose 194 H Calcium 9.0 Cardiac Enzymes 04/13/18 Range/Units 00:07 Troponin I < 0.03 (< 0.04) ng/mL Liver Function 04/13/18 Range/Units 00:07 Total Bilirubin 0.2 L (0.3-1.0) mg/dL AST 7 L (13-39) Units/L ALT 9 (7-52) Units/L Alkaline Phosphatase 48 (34-104) Units/L Albumin 3.8 (3.5-5.7) g/dL Urine 04/12/18 Range/Units 22:30 Urine Color Yellow (Yellow) Urine Clarity Clear (Clear) Urine pH 5.5 (5.0-8.0) pH Units Ur Specific [place] 1.009 L (1.010-1.025) Urine Protein Negative (Neg-Trace) mg/dL Urine Glucose (UA) Normal (Normal) mg/dL - Impressions ITS Impressions Hip X-Ray 04/12/18 22:17 IMPRESSION: No acute abnormality detected. Limited by patient's body habitus and bony demineralization. D/ / Casey Barajas MD / Casey Barajas MD Interpreting Provider: Casey Barajas MD Knee X-Ray 04/12/18 22:17 IMPRESSION: No acute findings. Moderately severe tricompartmental osteoarthrosis. D/ / Ish Metzger MD / Ish Metzger MD Interpreting Provider: Ish Metzger MD Chest X-Ray 04/12/18 23:03 IMPRESSION: Cardiomegaly. No radiographic evidence of acute pulmonary disease. D/ / Nnamdi Taveras / Nnamdi Taveras Interpreting Provider: Nnamdi Taveras - Assessment and plan (1) Urinary tract infection Current Visit: Yes Status: Acute Assessment and plan: will contineu ceftriaxone for 3 days Qualifiers: Urinary tract infection type: site unspecified Hematuria presence: without hematuria Qualified Code(s): N39.0 - Urinary tract infection, site not specified (2) Frequent falls Current Visit: Yes Status: Acute Assessment and plan: Patient lives at home with her sister with HC Has frequent falls over last few weeks. She complains of bilateral lower extremity weakness for few weeks. We will consult PTOT likely go to rehabilitation facility (3) COPD (chronic obstructive pulmonary disease) Current Visit: Yes Status: Chronic Assessment and plan: Chronic COPD on 2 L nasal cannula at home Qualifiers: COPD type: chronic bronchitis Chronic bronchitis type: simple Qualified Code(s): J41.0 - Simple chronic bronchitis (4) Dementia Current Visit: No Status: Chronic Qualifiers: Dementia type: unspecified type Dementia behavioral disturbance: without behavioral disturbance Qualified Code(s): F03.90 - Unspecified dementia without behavioral disturbance (5) Diabetes type 2, controlled Current Visit: Yes Status: Chronic Assessment and plan: continue home meds, add SSI Qualifiers: Diabetes mellitus long term care social worker insulin use: without long term care social worker use Diabetes mellitus complication status: with hyperglycemia Qualified Code(s): E11.65 - Type 2 diabetes mellitus with hyperglycemia (6) Hypertension Current Visit: No Status: Chronic Qualifiers: Hypertension type: essential hypertension Qualified Code(s): I10 - Essential (primary) hypertension (7) Atrial fibrillation with slow ventricular response Current Visit: No Status: Acute Assessment and plan: HR well controlled, contineu coumadin, INR is therapeutic (8) DVT prophylaxis Current Visit: No Status: Acute Assessment and plan: on coumadin (9) Morbid obesity with BMI of 45.0-49.9, adult Current Visit: Yes Status: Acute (10) Chronic diastolic CHF (congestive heart failure) Current Visit: Yes Status: Acute Assessment and plan: conitnue home brdaley (11) Pulmonary hypertension Current Visit: Yes Status: Chronic - Time Spent With Patient Total time spent is greater than 50% in coordination of care (as documented) at patient's floor/unit and/or counseling patient: Greater than 35 minutes
[2018-04-13] MEDS ORDERED: Naloxone 0.4 MG/ML INJ IVP PRN (08:37)
[2018-04-13] MEDS ORDERED: *HR* Dextrose 50 % in Water (Syg) 50 ML SYRINGE IVP PRN (08:40)
[2018-04-13] MEDS ORDERED: D5% in Water 1,000 ML IVC PRN (08:40)
[2018-04-13] MEDS ORDERED: Dextrose Gel 15 GM/37.5 ML TUBE PO PRN ×2 (08:40)
[2018-04-13] MEDS ORDERED: Albuterol 2.5 MG/3 ML NEBULIZER IH PRN (09:36)
[2018-04-13] MEDS ORDERED: Ipratropium/Albuterol Neb 3 ML IH PRN (09:36)
[2018-04-13] MEDS ORDERED: (Lubiprostone [Amitiza] 24 MCG) PO PRN (09:36)
[2018-04-13] MEDS ORDERED: Nitroglycerin 0.4 MG TAB.SUBL SL PRN (09:36)
[2018-04-13] MEDS ORDERED: NON-FORMULARY MEDICATION 1 EACH EACH (Oxygen [Oxygen] 2 L) SCH (09:45)
[2018-04-13] MEDS: Insulin LISPRO 300 UNITS/3 ML VIAL SQ SCH ×3 (10:15→21:34)
[2018-04-13 10:44] LABS: Estimated Average Glucose 171 mg/dl; Hemoglobin A1C 7.6 %
[2018-04-13] MEDS: *HR* LORazepam 1 MG TABLET PO SCH ×2 (11:24→18:29)
[2018-04-13] MEDS: cefTRIAXone 1,000 MG in Water for inj. (sterile) 20 ML 10 ML IVP SCH (11:25)
[2018-04-13] MEDS: *HR* HYDROcodone/Acet 5/325 mg TABLET PO PRN ×2 (12:52→19:22)
--- NOTE | 2018-04-13 14:34 | Electrocardiograph Report ---
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
[2018-04-13] MEDS: RIOCIGUAT 2.5 MG PO SCH (16:42)
[2018-04-13] MEDS ORDERED: *HR* Warfarin 3 MG TABLET PO SCH (18:00)
[2018-04-13] MEDS: Furosemide 40 MG TABLET PO SCH (18:29)
[2018-04-13] MEDS: traZODone 50 MG TABLET PO SCH (21:29)
[2018-04-13] MEDS: Latanoprost 2.5 ML BOTTLE RIGHT EYE SCH (21:37)
[2018-04-14] MEDS: *HR* LORazepam 1 MG TABLET PO SCH ×3 (02:00→17:06)
[2018-04-14] MEDS: *HR* HYDROcodone/Acet 5/325 mg TABLET PO PRN ×3 (03:41→20:00)
[2018-04-14 04:56] LABS: Basophils % 0.4 %; Eosinophils % 0.1 %; Hematocrit 32.9 % (35.3-44.9); Hemoglobin 10.7 g/dL (11.5-15.4); Immature Granulocytes % 0.3 % (0-4); Lymphocytes % 19.9 %; Mean Corpuscular HGB Conc 32.5 g/dL (31.6-35.5); Mean Corpuscular Hemoglobin 28.6 pg (28.0-33.3); Mean Platelet Volume 9.8 fL (9.4-12.4); Monocytes # 0.8 K/mcL (0.0-1.3); Monocytes % 7.5 %; Neutrophils # 7.3 K/mcL (1.6-8.9); Platelet Count 269 K/mcL (140-400); Red Blood Count 3.74 M/mcL (3.82-4.97); Red Cell Distribution Width 13.8 % (11.5-14.5); Segmented Neutrophils % 71.8 %
[2018-04-14 05:03] LABS: INR 3.1; Prothrombin Time 34.8 Seconds (9.4-12.1)
[2018-04-14] MEDS: RIOCIGUAT 2.5 MG PO SCH ×4 (07:45→21:00)
[2018-04-14] MEDS: Insulin LISPRO 300 UNITS/3 ML VIAL SQ SCH ×5 (07:46→21:04)
[2018-04-14 08:37] LABS: BUN/Creatinine Ratio 21 (6-26); Blood Urea Nitrogen 16 mg/dL (8-23); Calcium 9.2 mg/dL (8.6-10.3); Carbon Dioxide 34 mEq/L (23-29); Chloride 97 mEq/L (98-107); Glucose 189 mg/dL (70-105); Osmolality,Calculated 292 (280-300); Potassium 3.8 mEq/L (3.5-5.1); Sodium 138 mEq/L (136-145); eGFR For Non-African Americans > 60 (> 60)
[2018-04-14] MEDS: cefTRIAXone 1,000 MG in Water for inj. (sterile) 20 ML 10 ML IVP SCH (08:51)
[2018-04-14] MEDS: Furosemide 40 MG TABLET PO SCH ×2 (08:52→17:05)
[2018-04-14] MEDS: (Lubiprostone [Amitiza] 24 MCG) PO SCH (08:55)
[2018-04-14] MEDS: (Linaclotide [Linzess] 145 MCG) PO SCH (08:55)
--- NOTE | 2018-04-14 09:25 | Internal Med Progress Note ---
Hospitalist Progress Note - Encounter Date of Encounter: 04/14/18 Time of Encounter: 09:25 - Subjective Interval History: Is not seen and examined at bedside this morning. No acute overnight events. Came in with fall. Had a fall related she felt her right knee gave off. Had a fall in February as well where she hit her head. She denied hitting her head this time however feeling some weakness in her right leg more than left. Denies any headache or palpitation. Has history of peripheral neuropathy from diabetes for many years. - Exam Vitals: Temp Pulse Resp BP Pulse Ox 98.6 F 82 16 159/78 97 04/14/18 07:10 04/14/18 07:10 04/14/18 07:10 04/14/18 07:10 04/14/18 07:10 Exam: General: In no acute distress. Conversant. Obese. Respiratory exam: CTAB. no accessory muscle use, rales, rhonchi, wheezes Cardiovascular exam: irregular, +S1, +S2. no murmur, gallop, rubs. GI/Abdominal exam: Non-tender, Non-distended, normal bowel sounds, soft, no peritoneal signs. Extremities exam: full ROM, 2+ pedal edema, warm, pulses palpable in b/l lower extremities. no calf tenderness Neurological exam: CN II-XII intact, AO X3, no focal deficits. no pronater drift, facial droop, speech deficit. B/l UE and LE parasthesia. Skin exam: LE chronic dermatitis changes b/l - Summary of Assessment and Plan Summary of Assessment and Plan: Frequent falls - Frequent falls over last few weeks. Also with some weakness in lower extremity right> left. No difference during exam - Has bilateral pedal edema and paresthesia from peripheral neuropathy. Possible cause of her falls - However given on anticoagulation and some history of weakness will get head CT to rule out any intracranial abnormality or bleed - Has urinary frequency and urgency. Mentions she has falls whenever she gets UTI. UTI treatment as below - PTOT likely go to rehabilitation facility Urinary tract infection - By abnormal UA and symptoms - c/w ceftriaxone for 3 days - f/u urine cultures COPD - Chronic COPD on 2 L nasal cannula at home - cw/ duonebs Dementia - on donepezil Diabetes type 2, controlled - continue home meds, add SSI Hypertension - BP stable. unclear home medication . Will confirm home medications Atrial fibrillation with slow ventricular response - HR well controlled currently - unclear rate control medication at home. Will confirm home medications - on coumadin for AC. INR supratheapeutic today. To be dosed by pharmacy. DVT prophylaxis - on coumadin Chronic diastolic CHF - conitnue home lasix - Time Spent with Patient Total time spent is greater than 50% in coordination of care (as documented) at patient's floor/unit and/or counseling patient: Internal Medicine: Result - Labs CBC & Chem 7: 04/14/18 04:28 04/14/18 04:28 Labs: Short CBC 04/14/18 Range/Units 04:28 WBC 10.2 (4.3-11.1) K/mcL Hgb 10.7 L (11.5-15.4) g/dL Hct 32.9 L (35.3-44.9) % Plt Count 269 (140-400) K/mcL Neutrophils # 7.3 (1.6-8.9) K/mcL BMP 04/14/18 04:28 Sodium 138 Potassium 3.8 Chloride 97 L Carbon Dioxide 34 H BUN 16 Creatinine 0.76 Glucose 189 H Calcium 9.2 - ABG Interpretation ABG results: PT/INR, D-dimer PT 34.8 Seconds (9.4-12.1) H 04/14/18 04:28 Consult Discharge Plan - Plan Referrals: Marito Mary MD [Primary Care Provider] -
[2018-04-14] MEDS: Fluticasone Propionate Nasal 50 MCG/SPRAY BOTTLE NS SCH (17:06)
[2018-04-14] MEDS ORDERED: *HR* Warfarin 2.5 MG TABLET PO SCH (18:00)
[2018-04-14] MEDS ORDERED: Warfarin perPT PO PRN (18:00)
[2018-04-14] MEDS: traZODone 50 MG TABLET PO SCH (20:00)
[2018-04-14] MEDS: Latanoprost 2.5 ML BOTTLE RIGHT EYE SCH (21:05)
[2018-04-15] MEDS: *HR* HYDROcodone/Acet 5/325 mg TABLET PO PRN ×2 (04:27→11:05)
[2018-04-15 05:50] LABS: INR 3.1; Prothrombin Time 35.3 Seconds (9.4-12.1)
[2018-04-15] MEDS: *HR* LORazepam 1 MG TABLET PO SCH ×3 (08:38→16:44)
[2018-04-15] MEDS: Insulin LISPRO 300 UNITS/3 ML VIAL SQ SCH ×3 (08:42→16:45)
[2018-04-15] MEDS: Fluticasone Propionate Nasal 50 MCG/SPRAY BOTTLE NS SCH (08:43)
[2018-04-15] MEDS: Furosemide 40 MG TABLET PO SCH ×2 (08:44→16:44)
[2018-04-15] MEDS: cefTRIAXone 1,000 MG in Water for inj. (sterile) 20 ML 10 ML IVP SCH (11:05)
[2018-04-15] MEDS: (Lubiprostone [Amitiza] 24 MCG) PO SCH (11:09)
[2018-04-15] MEDS: (Linaclotide [Linzess] 145 MCG) PO SCH (11:09)
[2018-04-15] MEDS: RIOCIGUAT 2.5 MG PO SCH ×2 (11:09→14:39)
[2018-04-15 14:16] VITALS: BP 143/88
--- NOTE | 2018-04-15 14:39 | Discharge Summary ---
- NOTES TO OUTPATIENT PROVIDER Notes to Outpatient Provider: Patient discharged on slightly higher dose of Lasix 80 twice a day. Follow up BMP in 1 week. Patient's INR 3.1 on discharge. Resumed on home. We will need follow-up INR in 3-5 days. Orders not resulted at time of discharge: Pending orders 04/16/18 04:00 INR/PT [Prothrombin Time INR] [COAG] AM 0400 04/17/18 04:00 INR/PT [Prothrombin Time INR] [COAG] AM 0400 04/18/18 04:00 INR/PT [Prothrombin Time INR] [COAG] AM 0400 Date of Encounter: 04/15/18 Time of Encounter: 14:39 - Discharge Diagnosis (1) Chronic diastolic CHF (congestive heart failure) Priority: Secondary Status: Acute (2) Morbid obesity with BMI of 45.0-49.9, adult Priority: Secondary Status: Acute (3) COPD (chronic obstructive pulmonary disease) Priority: Secondary Status: Chronic Qualifiers: COPD type: chronic bronchitis Chronic bronchitis type: simple Qualified Code(s): J41.0 - Simple chronic bronchitis (4) Atrial fibrillation Priority: Secondary Status: Chronic Qualifiers: Atrial fibrillation type: paroxysmal Qualified Code(s): I48.0 - Paroxysmal atrial fibrillation (5) Abnormal urinalysis Priority: Primary Status: Acute (6) Fall Priority: Primary Status: Acute Qualifiers: Encounter type: subsequent encounter Qualified Code(s): W19.XXXD - Unspecified fall, subsequent encounter (7) Dementia Priority: Secondary Status: Chronic Qualifiers: Dementia type: unspecified type Dementia behavioral disturbance: without behavioral disturbance Qualified Code(s): F03.90 - Unspecified dementia without behavioral disturbance (8) Diabetes Priority: Secondary Status: Chronic Qualifiers: Diabetes mellitus type: type 2 Diabetes mellitus watermaster insulin use: without watermaster use Diabetes mellitus complication status: with hyperglycemia Qualified Code(s): E11.65 - Type 2 diabetes mellitus with hyperglycemia Hospital course: Ms. Huang is a 67 year old female with past medical history of CHF, COPD, diabetes, GERD, HTN, TIA, on Coumadin came in with falls. Patient had frequent fall over past few months. Patient was found to have abnormal UA and was started on antibiotics for UTI. Patient is on Coumadin for A. fib. Patient has long-standing peripheral neuropathy and was found to have bilateral pedal edema from chronic CHF. Head CT was unremarkable. Patient is followed likely due to leg swelling along with peripheral neuropathy affecting her proprioception. Patient was seen by physical therapy recommended detention placement. Patient was otherwise stable. Urine culture did not grow any organism. Antibiotics were stopped on discharge. Patient's Coumadin was managed with pharmacy and INR discharge was 3.1. Patient Lasix was also increased to 80 twice a day for lower extremity swelling to improve her ambulation. Patient would need close follow-up of INR and BMP on discharge. Patient is at risk of polypharmacy and missing medications. Patient would benefit if any of her medication can be stopped. We will need to follow-up PCP within 1-2 weeks. - Time Spent with Patient Total time spent providing and/or coordinating discharge services: Greater than 30 minutes - Discharge Medications Home Medications: Albuterol Neb [Proventil Neb] 2.5 mg IH Q6H PRN 05/06/16 [History] Albuterol Sulfate [Proair Hfa] 2 puff IH QID PRN 05/06/16 [History] Donepezil [Aricept] 10 mg PO HS 05/06/16 [History] Fluticasone Propionate Nasal [Flonase] 100 mcg NS DAILY 05/06/16 [History] Latanoprost [Xalatan] 1 drop BOTH EYES HS 05/06/16 [History] Metformin HCl [Glucophage] 1,000 mg PO BID 05/06/16 [History] Nitroglycerin [Nitrostat] 0.4 mg SL Q5M PRN 05/06/16 [History] Paroxetine HCl [Paxil] 40 mg PO QAM 05/06/16 [History] Promethazine HCl 12.5 mg PO QID PRN 05/06/16 [History] Cyclobenzaprine HCl 5 mg PO TID #30 tablet 05/11/16 [Rx] Ipratropium/Albuterol Neb [Duoneb] 3 ml IH [id number] PRN #0 inhsol 06/11/16 [Rx] Ferrous Sulfate 325 mg PO DAILY 12/25/16 [History] Oxygen 2 l .ROUTE AD 02/27/17 [History] HYDROcodone/Acet 5/325 mg [[place] 5-325 mg] 1 tab PO Q6H PRN #20 tablet 03/03/17 [Rx] LORazepam [Ativan] 1 mg PO Q8H #20 tablet 03/03/17 [Rx] Estradiol [Estrace] 1 gm VG 2XW 04/14/18 [History] Lisinopril 2.5 mg PO DAILY 04/14/18 [History] Metoprolol Succinate [Toprol Xl] 50 mg PO DAILY 04/14/18 [History] Potassium Chloride [Klor-Con 10] 10 meq PO BID 04/14/18 [History] Rivastigmine Patch [Exelon] 4.6 mg TD DAILY 04/14/18 [History] Warfarin [Coumadin] 3.5 mg PO DAILY 04/14/18 [History] raNITIdine HCl [Zantac] 150 mg PO BID 04/14/18 [History] Furosemide [Lasix] 80 mg PO BIDDIURETIC tablet 04/15/18 [Rx] traZODone [TraZODone] 50 mg PO HS tablet 04/15/18 [Rx] Allergies/Adverse Reactions: Allergy/AdvReac Type Severity Reaction Status Date / Time meperidine [From Demerol] Allergy See Verified 12/24/16 21:52 Comments Penicillins Allergy Rash Verified 06/07/16 09:51 IVP DYE Allergy Difficulty Uncoded 11/18/15 18:17 Breathing Date of admission: 04/14/18 12:32 Primary care physician: Marito Mary MD Consults: 04/13/18 08:39 Consult to Occupational Therapy [CONS] Routine Comment: Evaluate, develop and implement POC Reason for Consult: weakness Does patient have active BEDREST order?: No Is patient medically & hemodynamically stable?: Yes Patient assessed for mobility or mobilized this visit?: Yes Consult to Physical Therapy [CONS] Routine Comment: Evaluate, develop and implement POC Reason for Consult: weakness Does patient have active BEDREST order?: No Is patient medically & hemodynamically stable?: Yes Patient assessed for mobility or mobilized this visit?: Yes 04/13/18 11:56 Consult to Pediatric Physician [CONS] Routine Reason for SW Consult: Patient would like [facility] for short term rehab placement Discharging clinician: Abram Dawson - Constitutional Vitals: Temp Pulse Resp BP Pulse Ox 98.4 F 88 15 143/88 94 04/15/18 14:13 04/15/18 14:13 04/15/18 14:13 04/15/18 14:13 04/15/18 14:13 Exam: General: In no acute distress. Conversant. Obese. Respiratory exam: CTAB. no accessory muscle use, rales, rhonchi, wheezes Cardiovascular exam: irregular, +S1, +S2. no murmur, gallop, rubs. GI/Abdominal exam: Non-tender, Non-distended, normal bowel sounds, soft, no peritoneal signs. Extremities exam: full ROM, 2+ pedal edema, warm, pulses palpable in b/l lower extremities. no calf tenderness Neurological exam: CN II-XII intact, AO X3, no focal deficits. no pronater drift, facial droop, speech deficit. B/l UE and LE parasthesia. Skin exam: LE chronic dermatitis changes b/l - Patient Status Disposition: Transfer SNF Condition: Good - Discharge Instructions Instructions: Urinary Tract Infection in Women (DC), Weakness (GEN), Fall Prevention (DC) Follow Up With: Marito Mary MD [Primary Care Provider] - 04/19/18 1:00 pm (Follow up as scheduled. ) Forms: ED Satisfaction Letter
--- NOTE | 2018-04-15 15:25 | Physician Discharge Referral ---
ExtendedCare Referral Info Institutional Level of Care: Skilled - Diagnosis (1) Chronic diastolic CHF (congestive heart failure) Status: Acute (2) Morbid obesity with BMI of 45.0-49.9, adult Status: Acute (3) COPD (chronic obstructive pulmonary disease) Status: Chronic (4) Atrial fibrillation Status: Chronic (5) Abnormal urinalysis Status: Acute (6) Fall Status: Acute (7) Dementia Status: Chronic (8) Diabetes Status: Chronic - Transfer Medications Home Medications: Albuterol Neb [Proventil Neb] 2.5 mg IH Q6H PRN 05/06/16 [History] Albuterol Sulfate [Proair Hfa] 2 puff IH QID PRN 05/06/16 [History] Donepezil [Aricept] 10 mg PO HS 05/06/16 [History] Fluticasone Propionate Nasal [Flonase] 100 mcg NS DAILY 05/06/16 [History] Latanoprost [Xalatan] 1 drop BOTH EYES HS 05/06/16 [History] Metformin HCl [Glucophage] 1,000 mg PO BID 05/06/16 [History] Nitroglycerin [Nitrostat] 0.4 mg SL Q5M PRN 05/06/16 [History] Paroxetine HCl [Paxil] 40 mg PO QAM 05/06/16 [History] Promethazine HCl 12.5 mg PO QID PRN 05/06/16 [History] Cyclobenzaprine HCl 5 mg PO TID #30 tablet 05/11/16 [Rx] Ipratropium/Albuterol Neb [Duoneb] 3 ml IH [id number] PRN #0 inhsol 06/11/16 [Rx] Ferrous Sulfate 325 mg PO DAILY 12/25/16 [History] Oxygen 2 l .ROUTE AD 02/27/17 [History] HYDROcodone/Acet 5/325 mg [[place] 5-325 mg] 1 tab PO Q6H PRN #20 tablet 03/03/17 [Rx] LORazepam [Ativan] 1 mg PO Q8H #20 tablet 03/03/17 [Rx] Estradiol [Estrace] 1 gm VG 2XW 04/14/18 [History] Lisinopril 2.5 mg PO DAILY 04/14/18 [History] Metoprolol Succinate [Toprol Xl] 50 mg PO DAILY 04/14/18 [History] Potassium Chloride [Klor-Con 10] 10 meq PO BID 04/14/18 [History] Rivastigmine Patch [Exelon] 4.6 mg TD DAILY 04/14/18 [History] Warfarin [Coumadin] 3.5 mg PO DAILY 04/14/18 [History] raNITIdine HCl [Zantac] 150 mg PO BID 04/14/18 [History] Furosemide [Lasix] 80 mg PO BIDDIURETIC tablet 04/15/18 [Rx] traZODone [TraZODone] 50 mg PO HS tablet 04/15/18 [Rx] Allergies/Adverse Reactions: Allergy/AdvReac Type Severity Reaction Status Date / Time meperidine [From Demerol] Allergy See Verified 12/24/16 21:52 Comments Penicillins Allergy Rash Verified 06/07/16 09:51 IVP DYE Allergy Difficulty Uncoded 11/18/15 18:17 Breathing - Respiratory Orders Smoking Cessation: Smoking cessation has been advised. For more information, call the [place] Tobacco Quit Line at 2-874-WNRC-NOW. - Advance Directives Code Status: Full Code CERTIFICATION: I certify that the transfer of the above named patient to an Extended Care Facility is necessary for the continuing treatment of the diagnosis listed. The above information is true and accurate reflection of patient's current condition. Confidential - Redisclosure prohibited without a patient's written consent.
[2018-04-15] MEDS ORDERED: *HR* Warfarin 2 MG TABLET PO ONE (18:00)
== END 2018-04-15 17:20 | DRG 696 ==
LOC: EMEROOARM 22:01 → 3ANU 22:01 → SUATTDRO 04-13 01:23 → 3ANU 04-13 01:58
PROVIDERS: ADMIT Pediatrics; ATTEND Internal Medicine

== ENCOUNTER 2018-11-28 14:40 | Observation (INO) ==
--- NOTE | 2018-11-28 14:53 | Emergency Department Note ---
Disposition Clinical Impression: Weakness, Adenoma Chest pain Qualifiers: Chest pain type: unspecified Qualified Code(s): R07.9 - Chest pain, unspecified Disposition: Admitted As Inpatient Condition: Good Time of Disposition: 20:53 General Adult HPI - General Chief complaint: ED Arrhythmia/Palpitations Stated complaint: back pain/ chest pain Time Seen by Provider: 11/28/18 14:47 - Related Data Home Medications Medication Instructions Recorded Confirmed Albuterol Neb [Proventil Neb] 2.5 mg IH Q6H PRN 05/06/16 04/14/18 Albuterol Sulfate [Proair Hfa] 2 puff IH QID PRN 05/06/16 04/14/18 Donepezil [Aricept] 10 mg PO HS 05/06/16 04/14/18 Fluticasone Propionate Nasal 100 mcg NS DAILY 05/06/16 04/14/18 [Flonase] Latanoprost [Xalatan] 1 drop BOTH EYES HS 05/06/16 04/14/18 Metformin HCl [Glucophage] 1,000 mg PO BID 05/06/16 04/14/18 Nitroglycerin [Nitrostat] 0.4 mg SL Q5M PRN 05/06/16 04/14/18 Paroxetine HCl [Paxil] 40 mg PO QAM 05/06/16 04/14/18 Promethazine HCl 12.5 mg PO QID PRN 05/06/16 04/14/18 Ferrous Sulfate 325 mg PO DAILY 12/25/16 04/14/18 Oxygen 2 l .ROUTE AD 02/27/17 02/27/17 Estradiol [Estrace] 1 gm VG 2XW 04/14/18 04/14/18 Lisinopril 2.5 mg PO DAILY 04/14/18 04/14/18 Metoprolol Succinate [Toprol Xl] 50 mg PO DAILY 04/14/18 04/14/18 Potassium Chloride [Klor-Con 10] 10 meq PO BID 04/14/18 04/14/18 Rivastigmine Patch [Exelon] 4.6 mg TD DAILY 04/14/18 04/14/18 Warfarin [Coumadin] 3.5 mg PO DAILY 04/14/18 04/14/18 raNITIdine HCl [Zantac] 150 mg PO BID 04/14/18 04/14/18 Previous Rx's Medication Instructions Recorded Cyclobenzaprine HCl 5 mg PO TID #30 tablet 05/11/16 Ipratropium/Albuterol Neb [Duoneb] 3 ml IH [id number] PRN #0 inhsol 06/11/16 HYDROcodone/Acet 5/325 mg [[place] 1 tab PO Q6H PRN #20 tablet 03/03/17 5-325 mg] Furosemide [Lasix] 80 mg PO BIDDIURETIC tablet 04/15/18 traZODone [TraZODone] 50 mg PO HS tablet 04/15/18 Allergies Allergy/AdvReac Type Severity Reaction Status Date / Time meperidine [From Demerol] Allergy See Verified 12/24/16 21:52 Comments Penicillins Allergy Rash Verified 06/07/16 09:51 IVP DYE Allergy Difficulty Uncoded 11/28/18 14:50 Breathing Past Medical History - Past Medical History Medical history: Reports: arthritis, asthma, CHF, COPD, diabetes, fibromyalgia, GERD, hyperlipidemia, hypertension, TIA, other Surgical history: Reports: appendectomy, hysterectomy Psychiatric history: Reports: anxiety, depression 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 SUPERINTENDENT HYDRO history: Reports: no PRODUCTION SUPERINTENDENT HYDRO history - Social History Smoking Status: Never smoker Smokeless Tobacco Status: No Alcohol use: Reports: none Drug use: Reports: none Course Vital Signs Temperature 98.2 F 11/28/18 14:50 Pulse Rate 63 11/28/18 14:50 Respiratory Rate 18 11/28/18 14:50 Blood Pressure 157/76 11/28/18 14:50 O2 Sat by Pulse Oximetry 97 11/28/18 14:50 Temperature 98.4 F 11/28/18 19:18 Pulse Rate 69 11/28/18 19:18 Respiratory Rate 16 11/28/18 19:18 Blood Pressure 141/67 11/28/18 19:18 O2 Sat by Pulse Oximetry 97 11/28/18 19:18 Oxygen Delivery Oxygen Delivery Nasal Cannula Medical Decision Making - Lab Data Lab Results 11/28/18 11/28/18 Range/Units 15:30 15:30 PT 47.2 H* (9.4-12.1) Seconds INR 4.1 Troponin I < 0.03 (< 0.04) ng/mL Attestation Statement - Attestation Attestation: I reviewed the residents documentation and agree with the residents assessment and plan of care. I have personally had face to face time with the patient. (Brief History, Brief Exam, and MDM) I personally supervised and was present for the guzman/critical portions of the following procedures completed by the resident: (add procedures performed here). [id number] time provided I attest to supervising the resident physician Dr. Kendall interpretation of the ECG. Patient arrives complaining of chest discomfort. She was seen in this emergency department earlier today for generalized weakness. She also states she is having some dysuria. The results of the urinalysis and other laboratory testing from earlier today were reviewed by me
[2018-11-28] MEDS ORDERED: Isovue-370 500 ML BOTTLE IVP ONE (14:55)
[2018-11-28] MEDS ORDERED: 0.9 % Sodium Chloride 500 ML IVC ONE (14:56)
[2018-11-28] MEDS ORDERED: methylPREDNISolone 125 MG/2 ML VIAL IVP STA (15:42)
--- NOTE | 2018-11-28 17:27 | Emergency Department Note ---
Disposition Clinical Impression: Weakness, Adenoma Chest pain Qualifiers: Chest pain type: unspecified Qualified Code(s): R07.9 - Chest pain, unspecified Disposition: Admitted As Inpatient Condition: Good Referrals: Marito Mary MD [Primary Care Provider] - Forms: ED Satisfaction Letter Time of Disposition: 18:17 General Adult HPI - General Chief complaint: ED Arrhythmia/Palpitations Stated complaint: back pain/ chest pain Time Seen by Provider: 11/28/18 14:47 Source: patient, EMS Mode of arrival: EMS Limitations: no limitations Nursing Notes Reviewed: Yes Vital Signs Reviewed: Yes - History of Present Illness HPI Narrative: Female patient presenting to emergency department complaining of a generalized weakness. She states that she was here earlier this morning and sent home. Did recently have a urinary tract infection and received IM Rocephin for that states that she still has some burning on urination. UA this morning was negative. Lab workup this morning was unremarkable. Patient does have a history of atrial fibrillation and is in A. fib at this time. Denies any change in her symptoms other than she now has chest pain and shortness of breath. Does have a history of a PE. Is on Coumadin. States she has been taking her medication as prescribed. Pain Scale: 9 - Related Data Home Medications Medication Instructions Recorded Confirmed Albuterol Neb [Proventil Neb] 2.5 mg IH Q6H PRN 05/06/16 04/14/18 Albuterol Sulfate [Proair Hfa] 2 puff IH QID PRN 05/06/16 04/14/18 Donepezil [Aricept] 10 mg PO HS 05/06/16 04/14/18 Fluticasone Propionate Nasal 100 mcg NS DAILY 05/06/16 04/14/18 [Flonase] Latanoprost [Xalatan] 1 drop BOTH EYES HS 05/06/16 04/14/18 Metformin HCl [Glucophage] 1,000 mg PO BID 05/06/16 04/14/18 Nitroglycerin [Nitrostat] 0.4 mg SL Q5M PRN 05/06/16 04/14/18 Paroxetine HCl [Paxil] 40 mg PO QAM 05/06/16 04/14/18 Promethazine HCl 12.5 mg PO QID PRN 05/06/16 04/14/18 Ferrous Sulfate 325 mg PO DAILY 12/25/16 04/14/18 Oxygen 2 l .ROUTE AD 02/27/17 02/27/17 Estradiol [Estrace] 1 gm VG 2XW 04/14/18 04/14/18 Lisinopril 2.5 mg PO DAILY 04/14/18 04/14/18 Metoprolol Succinate [Toprol Xl] 50 mg PO DAILY 04/14/18 04/14/18 Potassium Chloride [Klor-Con 10] 10 meq PO BID 04/14/18 04/14/18 Rivastigmine Patch [Exelon] 4.6 mg TD DAILY 04/14/18 04/14/18 Warfarin [Coumadin] 3.5 mg PO DAILY 04/14/18 04/14/18 raNITIdine HCl [Zantac] 150 mg PO BID 04/14/18 04/14/18 Previous Rx's Medication Instructions Recorded Cyclobenzaprine HCl 5 mg PO TID #30 tablet 05/11/16 Ipratropium/Albuterol Neb [Duoneb] 3 ml IH [id number] PRN #0 inhsol 06/11/16 HYDROcodone/Acet 5/325 mg [[place] 1 tab PO Q6H PRN #20 tablet 03/03/17 5-325 mg] Furosemide [Lasix] 80 mg PO BIDDIURETIC tablet 04/15/18 traZODone [TraZODone] 50 mg PO HS tablet 04/15/18 Allergies Allergy/AdvReac Type Severity Reaction Status Date / Time meperidine [From Demerol] Allergy See Verified 12/24/16 21:52 Comments Penicillins Allergy Rash Verified 06/07/16 09:51 IVP DYE Allergy Difficulty Uncoded 11/28/18 14:50 Breathing All systems ED: reviewed and negative except as stated. Review of Systems: As Per HPI Constitutional: Denies: fever Cardiovascular: Reports: chest pain Respiratory: Reports: dyspnea. Denies: cough, sputum production Gastrointestinal: Reports: abdominal pain (superpubic discomfort). Denies: n ausea, vomiting, diarrhea Past Medical History - Past Medical History Attestation: Yes The following information was validated with the patient. Source: patient Medical history: Reports: arthritis, asthma, CHF, COPD, diabetes, fibromyalgia, GERD, hyperlipidemia, hypertension, TIA, other Surgical history: Reports: appendectomy, hysterectomy Psychiatric history: Reports: anxiety, depression SPANISH INTERPRETER history: Reports: no SPANISH INTERPRETER history - Social History Smoking Status: Never smoker Smokeless Tobacco Status: No Alcohol use: Reports: none Drug use: Reports: none Physical Exam - General Limitations: no limitations General appearance: alert, in no apparent distress - Head Head exam: atraumatic, normocephalic, normal inspection - Eye Eye exam: Present: normal appearance, PERRL, EOMI - ENT ENT exam: normal exam, normal oropharynx, mucous membranes moist - Neck Neck exam: Present: normal inspection, full ROM, trachea midline - Chest Chest inspection: Present: normal inspection, symmetric chest wall rise - Respiratory Respiratory exam: Present: normal lung sounds bilaterally. Absent: respiratory distress, accessory muscle use - Cardiovascular Cardiovascular exam: Present: regular rate, irregular rhythm, normal heart sounds - Abdominal Exam Abdominal exam: Present: soft, tenderness (mild suprapubic pain). Absent: distention, guarding, rebound, rigidity, organomegaly, Lawrence's sign, Rovsing's sign, tenderness at McBurney's Point - Extremities Exam Extremities exam: Present: normal inspection, full ROM, normal capillary refill, pedal edema (to lower extremities bilaterally symmetric). Absent: tenderness - Neurological Exam Neurological exam: Present: alert, oriented X3 - Psychiatric Psychiatric exam: Present: normal affect, normal mood - Skin Skin exam: Present: warm, dry, intact, normal color. Absent: rash, cyanosis, diaphoresis Course Course Narrative: Patient appears tired but well resting in bed. She was seen at this facility earlier this morning. Complaining only of weakness at that time. Recent urinary tract infections. Urine was normal here. Lab workup this morning was unremarkable. EKG was showing A. fib she has a history of a PE is on Coumadin. We will get a CTA of patient's chest secondary to her history of this as well as now her shortness of breath associated with this pain in her chest. She states this started about an hour prior to arrival here. She otherwise appears well with stable vitals. It does appear that the patient's been generally weak for quite some time and has been having some issues with her recurrent urinary tract infections. She does live at home with her sister who is also unable to care for her. There is a social concern at home for her to not be able to take care of herself. Social work did discuss this with her and is concerned for the patient sent home. - Reevaluation(s) Reevaluation #1: Patient's workup is unremarkable. CTA is negative for PE. Did show a prominent pulmonary artery at 3.6 cm. Also an adenoma. I discussed this with the hospitalist. We will be admitting the patient to the hospital for increased weakness as well as her chest pain. She was provided with aspirin down here. Troponin is negative. EKG is not concerning for a STEMI at this time. Time: 18:16 - Consultations Consultation #1: Dr Gordon accepted Pt in stable condition. Time: 18:16 Vital Signs Temperature 98.2 F 11/28/18 14:50 Pulse Rate 63 11/28/18 14:50 Respiratory Rate 18 11/28/18 14:50 Blood Pressure 157/76 11/28/18 14:50 O2 Sat by Pulse Oximetry 97 11/28/18 14:50 Temperature 98.2 F 11/28/18 14:50 Pulse Rate 71 11/28/18 16:17 Respiratory Rate 17 11/28/18 16:17 Blood Pressure 128/103 11/28/18 16:17 O2 Sat by Pulse Oximetry 95 11/28/18 16:17 Oxygen Delivery Oxygen Delivery Nasal Cannula Medical Decision Making - Medical Records Medical records reviewed: Yes I reviewed the patient's medical records. - Lab Data Lab results reviewed: Yes I reviewed the patient's lab results. Lab Results 11/28/18 Range/Units 15:30 Troponin I < 0.03 (< 0.04) ng/mL - Radiology Data Radiology results reviewed: Yes I reviewed the patient's radiology results. Chest CTA 11/28/18 14:55 IMPRESSION: 1. No evidence of acute pulmonary embolism. The main pulmonary artery is prominent measuring 3.6 cm. No evidence of acute aortic disease. Cardiomegaly but no pericardial disease. 2. No acute lung parenchyma or pleural disease. Chronic lung parenchymal findings. Granulomatous disease. 3. Left adrenal nodule has the appearance of an adenoma. D/ / 11/28/2018 18:02:41 Scarlett Ennis MD / [facility] Interpreting Provider: Scarlett Ennis MD - EKG Data EKG #1 EKG attestation: Yes I reviewed and interpreted this EKG. EKG results narrative: Atrial fibrillation at a rate of 72. [place] interval was not measured. QRS duration is 98. QTC is 443. QTC is 485. No signs of acute ischemia. Good R- wave progression. No signs of WPW or Brugada. No significant change from previous EKG dated 04/12/2018.
[2018-11-28] MEDS ORDERED: Aspirin 81 MG TAB.CHEW PO STA ×2 (18:14→18:18)
[2018-11-28 18:15] LABS: INR 4.1
[2018-11-28 18:20] LABS: Prothrombin Time 47.2 Seconds (9.4-12.1)
[2018-11-28] MEDS ORDERED: Naloxone 0.4 MG/ML INJ IVP PRN (18:21)
[2018-11-28] MEDS ORDERED: Aspirin 325 MG TABLET PO ONE (20:10)
[2018-11-28] MEDS ORDERED: D5% in Water 1,000 ML IVC PRN (20:10)
[2018-11-28] MEDS ORDERED: Morphine Sulfate 2 MG/ML SYRINGE IVP PRN (20:10)
[2018-11-28] MEDS ORDERED: Nitroglycerin 0.4 MG TAB.SUBL SL PRN ×2 (20:10→23:42)
[2018-11-28] MEDS ORDERED: *HR* Dextrose 50 % in Water (Syg) 50 ML SYRINGE IVP PRN (20:10)
[2018-11-28] MEDS ORDERED: Ondansetron 4 MG/2 ML VIAL IVP PRN (20:10)
[2018-11-28] MEDS ORDERED: Dextrose Gel 15 GM/37.5 ML TUBE PO PRN ×2 (20:10)
--- NOTE | 2018-11-28 20:22 | Internal Med History&Physical ---
Date of Encounter: 11/29/18 Time of Encounter: 20:18 Internal Medicine - H&P: HPI Chief complaint: shortness of breath Admitted From: Home Plans for Post Hospital Care: Home History of present illness: Ms. Huang is a 68 year old female with past medical history of COPD oxygen dependent on 2 L 24 hours, type 2 diabetes [id number], HFpEF presented to the ED for chest pain and weakness. [id number] encounter occurred at 8 PM Patient stated that she has had weakness for at least 2 years using a Rollator and has been in inpatient physical therapy and then improved and is currently undergoing outpatient physical therapy at least twice weekly. Reverse patient's chest pain she has been sitting yesterday had a lift chair and then developed sudden onset of substernal nonradiating pressure-like 8/10 pain with no alleviating or exacerbating factors associated with nausea and worsening shortness of breath that lasted for >30 minutes and recurrent. Patient reported positive family history of SD both maternal and paternal. Presently the patient does have a poor surgical, social and family history. Patient denies smoking, drinking or drugs. No recent surgeries. Patient reported Last heart catheteri zation was done 5 years ago. CODE STATUS discussed and the patient is FULL code. Past Med Surg Social Fam HX - Past Medical History Medical history: arthritis, asthma, CHF, COPD, diabetes, fibromyalgia, GERD, hyperlipidemia, hypertension, TIA, other Additional medical history: blood clots on lungs Psychiatric history: anxiety, depression - Past Surgical History Surgical History: hysterectomy Additional surgical history: appendix - Social History Smoking Status: Never smoker Smokeless Tobacco Status: No Alcohol use: none Drug use: none - Family History Father Living Status: Hx Family Cardiac Disorders: Yes Hx Family Cancer: Yes Sister Hx Family Cardiac Disorders: Yes Hx Family Respiratory Disorders: Yes (asthma) Mother Adopted: No Living Status: Hx Family Cardiac Disorders: Yes ("MULTIPLE HEART ATTACKS") Hx Family Cancer: Yes Hx Family Endocrine Disorder: Yes (diabetic) Internal Medicine - H&P: Meds Donepezil [Aricept] 10 mg PO HS 05/06/16 [History] Fluticasone Propionate Nasal [Flonase] 2 spr NS DAILY 05/06/16 [History] Metformin HCl [Glucophage] 1,000 mg PO BID 05/06/16 [History] Nitroglycerin [Nitrostat] 0.4 mg SL Q5M PRN 05/06/16 [History] Paroxetine HCl [Paxil] 40 mg PO QAM 05/06/16 [History] Promethazine HCl 12.5 mg PO Q12H PRN 05/06/16 [History] Cyclobenzaprine HCl 5 mg PO TID #30 tablet 05/11/16 [Rx] Ferrous Sulfate 325 mg PO DAILY 12/25/16 [History] Lisinopril 2.5 mg PO DAILY 04/14/18 [History] Metoprolol Succinate [Toprol Xl] 50 mg PO DAILY 04/14/18 [History] Potassium Chloride [Klor-Con 10] 10 meq PO BID 04/14/18 [History] raNITIdine HCl [Zantac] 150 mg PO BID 04/14/18 [History] traZODone [TraZODone] 50 mg PO HS tablet 04/15/18 [Rx] Ammonium Lactate [Lac-Hydrin Five] 1 appl TP BID 11/28/18 [History] Furosemide [Lasix] 40 mg PO HS 11/28/18 [History] Furosemide [Lasix] 80 mg PO QAM 11/28/18 [History] Gabapentin [Neurontin] 400 mg PO BID 11/28/18 [History] Gabapentin [Neurontin] 800 mg PO HS 11/28/18 [History] HYDROcodone/Acet 10/325 mg [[place] 10-325 mg] 1 tab PO Q6HR PRN 11/28/18 [History] LORazepam [Ativan] 1 mg PO TID PRN 11/28/18 [History] Rivastigmine Patch [Exelon] 9.5 mg TD DAILY 11/28/18 [History] Warfarin [Coumadin] 2.5 mg PO 1800 11/28/18 [History] Allergy/AdvReac Type Severity Reaction Status Date / Time Penicillins Allergy Rash Verified 11/28/18 21:42 meperidine [From Demerol] AdvReac Gastrointestinal Verified 11/28/18 21:42 Upset IVP DYE Allergy Difficulty Uncoded 11/28/18 21:42 Breathing All Systems PM: A 10-system review of systems was performed and is negative for pertinent findings except as documented above in the HPI. Review of systems: General: No unintentional weightloss, No fever. Head: No headahce, No injury. Ears: No discharge, No earache Eyes: No drainage, No eye pain Mouth and Throat: No new ulcers, No pain Nose and Sinus: No new congestion, No pain, Respiratory: No sputum production, + dyspnea Cardiovascular: + chest pain, No palpitations. Gastrointestinal: + nausea, No vomiting. No abdominal pain Genital Tract: No discharge, No pain Urinary Tract: No dysuria, No discharge. MSK: No new/worsening joint pain or new/worsening muscle ache. Endocrine: No cold intolerance, No polyuria Psychological: No suicidal, No homocidal ideation. - Constitutional Vitals: Temp Pulse Resp BP Pulse Ox 98.4 F 69 16 141/67 97 11/28/18 19:18 11/28/18 19:18 11/28/18 19:18 11/28/18 19:18 11/28/18 19:18 Exam: General Appearance: Appearing as age, well-nourished in mild acute distress. Head: Atraumatic normocephalic Skin: Normal texture, normal turgor, warm, dry. Eyes: Conjunctivae not pale with no erythema, drainage, or ulcers. Anicteric. Neck: No Lymphadenopathy in the anterior/posterior cervical chain. No thyromegaly, masses or ulcers. Trachea midline. Heart: RRR, grade 2 systolic murmurs. Capillary refill 3 seconds. chest pain not reproducible. Lungs: minimal accessory muscle usage, lungs clear to auscultation bilaterally, with subtle expiratory basilar wheezing. Extremities: No pitting edema, clubbing, cyanosis, or ulcers. Abdomen: Non-distended, normoactive bowel sounds. non-tender to palpation, no hepatomegally. No guarding. Neuro: AOx3 with no new sensory loss or focal deficits. MSK: Strength 5/5 Upper extremity equal bilaterally. Strength 5/5 Lower extremity equal bilaterally Internal Med - H&P Results - Labs CBC & Chem 7: 11/29/18 03:23 11/29/18 03:23 Labs: Cardiac Enzymes 11/28/18 Range/Units 15:30 Troponin I < 0.03 (< 0.04) ng/mL - Impressions ITS Impressions Chest CTA 11/28/18 14:55 IMPRESSION: 1. No evidence of acute pulmonary embolism. The main pulmonary artery is prominent measuring 3.6 cm. No evidence of acute aortic disease. Cardiomegaly but no pericardial disease. 2. No acute lung parenchyma or pleural disease. Chronic lung parenchymal findings. Granulomatous disease. 3. Left adrenal nodule has the appearance of an adenoma. D/ / 11/28/2018 18:02:41 Scarlett Ennis MD / [facility] Interpreting Provider: Scarlett Ennis MD - Summary of Assessment and Plan Summary of Assessment and Plan: Chest pain: My interpretation of ECG Atrial fibrillation with new V1 T wave inversion, peaked T wave, and low voltage precordial leads. otherwise no change from previous trop x1 negative. YAYA score 2. trend trops, tele, and Lexiscan. ASA/statin/BB given. 2.Supratherapeutic INR: No signs of bleeding Held warfarin and repeat INR in the AM. 3.Anemia: no sign of bleeding. Will monitor and recheck. 4.B12 def: Recommend replacement. Chronic medical problem Chronic Hypoxic Respiratory failure: Continues to be on 2L NC at baseline q 24hours. Duoneb and continue to monitor. HTN uncontrolled.Restarted DVT: not indicated. Dispo: <2 days stay. - Time Spent With Patient Total time spent is greater than 39 minutes 50% in coordination of care (as documented) at patient's floor/unit and/or counseling patient: Greater than 35 minutes
[2018-11-28] MEDS: Ipratropium Neb 0.5 MG NEBULIZER IH SCH ×2 (21:31→23:56)
[2018-11-28 21:52] LABS: Estimated Average Glucose 148 mg/dl
[2018-11-28 22:16] LABS: Thyroid Stimulating Hormone 1.494 mcIU/mL (0.340-5.600)
[2018-11-28] MEDS: Albuterol 2.5 MG/3 ML NEBULIZER IH SCH (23:56)
[2018-11-28] MEDS: *HR* HYDROcodone/Acet 10/325 mg TABLET PO PRN (23:59)
[2018-11-29 03:32] LABS: Basophils % 0.2 %; Hematocrit 33.3 % (35.3-44.9); Hemoglobin 10.7 g/dL (11.5-15.4); Immature Granulocytes % 0.9 % (0-4); Lymphocytes # 0.8 K/mcL (0.6-4.6); Lymphocytes % 11.4 %; Mean Corpuscular HGB Conc 32.1 g/dL (31.6-35.5); Mean Corpuscular Hemoglobin 28.4 pg (28.0-33.3); Mean Corpuscular Volume 88.3 fL (83.0-100.0); Mean Platelet Volume 10.1 fL (9.4-12.4); Monocytes # 0.1 K/mcL (0.0-1.3); Monocytes % 0.9 %; Neutrophils # 5.7 K/mcL (1.6-8.9); Platelet Count 264 K/mcL (140-400); Red Blood Count 3.77 M/mcL (3.82-4.97); Red Cell Distribution Width 13.3 % (11.5-14.5); Segmented Neutrophils % 86.6 %; White Blood Count 6.6 K/mcL (4.3-11.1)
[2018-11-29 03:38] LABS: INR 3.7; Prothrombin Time 41.8 Seconds (9.4-12.1)
[2018-11-29 03:54] LABS: Alanine Aminotransferase 11 Units/L (7-52); Albumin 3.8 g/dL (3.5-5.7); Albumin/Globulin Ratio 1.4 (1.1-2.2); Alkaline Phosphatase 56 Units/L (34-104); Aspartate Amino Transferase 8 Units/L (13-39); BUN/Creatinine Ratio 24 (6-26); Bilirubin,Total 0.2 mg/dL (0.3-1.0); Blood Urea Nitrogen 21 mg/dL (8-23); Calcium 9.2 mg/dL (8.6-10.3); Carbon Dioxide 30 mEq/L (23-29); Chloride 96 mEq/L (98-107); Chol/HDL Ratio 5.6 (0-4.9); Cholesterol 225 mg/dL (< 200); Globulin 2.7 g/dL (2.4-3.5); Glucose 433 mg/dL (70-105); HDL Cholesterol 40 mg/dL (40-59); LDL Cholesterol,Calculated 154 mg/dL (0-99); Osmolality,Calculated 300 (280-300); Phosphorous 3.2 mg/dL (2.7-4.5); Potassium 4.5 mEq/L (3.5-5.1); Sodium 134 mEq/L (136-145); Total Protein 6.5 g/dL (6.4-8.9); Triglycerides 156 mg/dL (< 150); eGFR For African Americans > 60 (> 60); eGFR For Non-African Americans > 60 (> 60)
[2018-11-29] MEDS: Ipratropium Neb 0.5 MG NEBULIZER IH SCH ×6 (04:10→23:34)
[2018-11-29] MEDS: Albuterol 2.5 MG/3 ML NEBULIZER IH SCH ×6 (04:11→23:34)
[2018-11-29 05:23] LABS: Amphetamine Screen,Urine Negative ng/mL (Cutoff=1000); Barbiturate Screen,Urine Negative ng/mL (Cutoff=200); Benzodiazepines Screen,Urine Negative ng/mL (Cutoff=200); Cannabinoid Screen,Urine Negative ng/mL (Cutoff = 50); Cocaine Screen,Urine Negative ng/mL (Cutoff= 300); Opiate Screen,Urine Positive ng/mL (Cutoff=300); Phencyclidine Screen,Urine Negative ng/mL (Cutoff=25)
[2018-11-29] MEDS ORDERED: Regadenoson 0.4 MG/5 ML SYRINGE IVP ONE (06:25)
[2018-11-29] MEDS: Insulin LISPRO 300 UNITS/3 ML VIAL SQ SCH ×3 (07:52→17:13)
[2018-11-29] MEDS ORDERED: Furosemide 40 MG TABLET PO SCH ×2 (08:00→21:00)
[2018-11-29] MEDS: Rivastigmine Patch 9.5 MG PATCH.TD24 TD SCH (08:35)
[2018-11-29] MEDS: Gabapentin 400 MG CAPSULE PO SCH ×2 (08:36→21:31)
[2018-11-29] MEDS: Metoprolol XL (24 HR) Succ 50 MG TAB.ER.24H PO SCH (08:36)
[2018-11-29] MEDS: *HR* HYDROcodone/Acet 10/325 mg TABLET PO PRN ×2 (11:09→20:00)
--- NOTE | 2018-11-29 11:28 | Internal Med Progress Note ---
Hospitalist Progress Note - Encounter Date of Encounter: 11/29/18 Time of Encounter: 10:30 - Subjective Interval History: Ms. Huang is a 68 year old female with past medical history of COPD, chronic hypoxic spread failure on oxygen dependent on 2 L 24 hours, type 2 diabetes [id number], HFpEF, paroxysmal a fib on Coumadin for anti coagulation and GERD pt presented to the ED for chest pain, SOB and weakness. She also noticed b/l LE edema. She was admitted in the hospital and placed on ladle watcher. Her serial troponin came back as negative. Her CTA of chest ruled out PE. Pt still complaining of shortness of breath and dyspnea on exertion. She denied anymore chest pain now. - Exam Vitals: Temp Pulse Resp BP Pulse Ox 97.7 F 66 16 149/76 98 11/29/18 03:41 11/29/18 03:41 11/29/18 04:12 11/29/18 03:41 11/29/18 04:12 Exam: Gen: Alert, awake, Oriented to time,place and person Chest: Diminished breath sounds B/L, moderate wheezing, No crackles, No rales Heart: S1S2+ RRR No murmurs Abd: Soft, NT, BS +, No organomegaly Ext: 1-2+ edema, pulses are palpable, No calf tenderness Neuro : No acute focal neuro deficits noticed Skin: No rash. - Assessment and Plan (1) Acute on chronic diastolic CHF (congestive heart failure) Current Visit: Yes Status: Acute Assessment and Plan: She does have acute CHF exacerbation started on IV Lasix 40 mg b.i.d. reviewed her Echo from 2017 ordered another echo now continue current home medications (2) Acute exacerbation of chronic obstructive airways disease Current Visit: Yes Status: Acute Assessment and Plan: She does have mild COPD exacerbation started her on systemic steroids continue frequent bronchodilator therapy (3) Chest pain Current Visit: Yes Status: Acute Assessment and Plan: Atypical could be due to CHF exacerbation as well as COPD exacerbation unable to do stress test due to her shortness of breath continue on tele (4) Paroxysmal A-fib Current Visit: Yes Status: Chronic Assessment and Plan: Rate controlled with home medication metoprolol on Coumadin for anticoagulation INR supra therapeutic Coumadin will be dose by pharmacy (5) Diabetes type 2, controlled Current Visit: No Status: Chronic Assessment and Plan: HbA1C 6.8 on ADA diet on ISS (6) Chronic respiratory failure with hypoxia Current Visit: Yes Status: Acute Assessment and Plan: Currently on 2 lit oxygen seems to be close to baseline - Time Spent with Patient Total time spent is greater than 50% in coordination of care (as documented) at patient's floor/unit and/or counseling patient: Internal Medicine: Result - Labs CBC & Chem 7: 11/29/18 03:23 11/29/18 03:23 Labs: Short CBC 11/29/18 Range/Units 03:23 WBC 6.6 (4.3-11.1) K/mcL Hgb 10.7 L (11.5-15.4) g/dL Hct 33.3 L (35.3-44.9) % Plt Count 264 (140-400) K/mcL Neutrophils # 5.7 (1.6-8.9) K/mcL BMP 11/29/18 03:23 Sodium 134 L Potassium 4.5 Chloride 96 L Carbon Dioxide 30 H BUN 21 Creatinine 0.89 Glucose 433 H Calcium 9.2 Cardiac Enzymes 11/28/18 11/28/18 11/29/18 Range/Units 15:30 21:29 03:23 Troponin I < 0.03 < 0.03 < 0.03 (< 0.04) ng/mL 11/29/18 Range/Units 09:18 Troponin I < 0.03 (< 0.04) ng/mL Liver Function 11/29/18 Range/Units 03:23 Total Bilirubin 0.2 L (0.3-1.0) mg/dL AST 8 L (13-39) Units/L ALT 11 (7-52) Units/L Alkaline Phosphatase 56 (34-104) Units/L Albumin 3.8 (3.5-5.7) g/dL - ABG Interpretation ABG results: PT/INR, D-dimer PT 41.8 Seconds (9.4-12.1) H 11/29/18 03:23 - Impressions Impressions Chest CTA 11/28/18 14:55 IMPRESSION: 1. No evidence of acute pulmonary embolism. The main pulmonary artery is prominent measuring 3.6 cm. No evidence of acute aortic disease. Cardiomegaly but no pericardial disease. 2. No acute lung parenchyma or pleural disease. Chronic lung parenchymal findings. Granulomatous disease. 3. Left adrenal nodule has the appearance of an adenoma. D/ / 11/28/2018 18:02:41 Scarlett Ennis MD / [facility] Interpreting Provider: Scarlett Ennis MD Consult Discharge Plan - Plan Referrals: Marito Mary MD [Primary Care Provider] - (Appointment has been requested.) (3) Chest pain Qualifiers: Chest pain type: unspecified Qualified Code(s): R07.9 - Chest pain, unspecified (5) Diabetes type 2, controlled Qualifiers: Diabetes mellitus supervisor intermediates insulin use: without halfway use Diabetes mellitus complication status: with hyperglycemia Qualified Code(s): E11.65 - Type 2 diabetes mellitus with hyperglycemia
[2018-11-29] MEDS ORDERED: Perflutren Lipid Microsphere 1.3 ML in 0.9 % Sodium Chloride 8.7 ML IVP ONE (15:11)
--- NOTE | 2018-11-29 16:02 | Electrocardiograph Report ---
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
[2018-11-29] MEDS: MethylPREDNISolone 40 MG/ML VIAL IVP SCH (17:13)
[2018-11-29] MEDS: Furosemide 40 MG/4 ML VIAL IVP SCH (17:13)
[2018-11-29] MEDS ORDERED: *HR* Warfarin 2.5 MG TABLET PO ONE (18:00)
[2018-11-29] MEDS ORDERED: Warfarin perPT PO PRN (18:00)
[2018-11-29] MEDS ORDERED: traZODone 50 MG TABLET PO SCH (21:00)
[2018-11-30] MEDS: Ipratropium Neb 0.5 MG NEBULIZER IH SCH ×3 (04:06→11:14)
[2018-11-30] MEDS: Albuterol 2.5 MG/3 ML NEBULIZER IH SCH ×3 (04:06→11:14)
[2018-11-30] MEDS: *HR* HYDROcodone/Acet 10/325 mg TABLET PO PRN ×2 (04:32→15:11)
[2018-11-30 04:50] LABS: Prothrombin Time 33.7 Seconds (9.4-12.1)
[2018-11-30 04:51] LABS: BUN/Creatinine Ratio 24 (6-26); Blood Urea Nitrogen 24 mg/dL (8-23); Calcium 9.3 mg/dL (8.6-10.3); Carbon Dioxide 31 mEq/L (23-29); Chloride 95 mEq/L (98-107); Glucose 365 mg/dL (70-105); Magnesium 2.2 mg/dL (1.6-2.6); Osmolality,Calculated 297 (280-300); Potassium 4.7 mEq/L (3.5-5.1); Sodium 134 mEq/L (136-145); eGFR For African Americans > 60 (> 60); eGFR For Non-African Americans 56 (> 60)
[2018-11-30] MEDS: MethylPREDNISolone 40 MG/ML VIAL IVP SCH (05:54)
[2018-11-30] MEDS: Metoprolol XL (24 HR) Succ 50 MG TAB.ER.24H PO SCH (08:04)
[2018-11-30] MEDS: Gabapentin 400 MG CAPSULE PO SCH (08:04)
[2018-11-30] MEDS: Furosemide 40 MG/4 ML VIAL IVP SCH (08:04)
[2018-11-30] MEDS: Insulin LISPRO 300 UNITS/3 ML VIAL SQ SCH ×2 (08:05→12:57)
[2018-11-30] MEDS: Rivastigmine Patch 9.5 MG PATCH.TD24 TD SCH (10:55)
[2018-11-30] MEDS ORDERED: Ipratropium/Albuterol Neb 3 ML IH SCH ×2 (12:00→16:00)
[2018-11-30 12:12] VITALS: BP 163/77
[2018-11-30] MEDS ORDERED: Insulin LISPRO 300 UNITS/3 ML VIAL SQ SCH (12:13)
--- NOTE | 2018-11-30 12:34 | Discharge Summary ---
- NOTES TO OUTPATIENT PROVIDER Notes to Outpatient Provider: f/u with PCP in one week. f/u with Cardiology in 2 weeks. Date of Encounter: 11/30/18 Time of Encounter: 10:30 - Discharge Diagnosis (1) Acute on chronic diastolic CHF (congestive heart failure) Priority: Primary Status: Acute (2) Acute exacerbation of chronic obstructive airways disease Priority: Primary Status: Acute (3) Chest pain Priority: Secondary Status: Acute Qualifiers: Chest pain type: unspecified Qualified Code(s): R07.9 - Chest pain, unspecified (4) Paroxysmal A-fib Priority: Secondary Status: Chronic (5) Diabetes type 2, controlled Priority: Secondary Status: Chronic Qualifiers: Diabetes mellitus senior living insulin use: without senior living use Diabetes mellitus complication status: with hyperglycemia Qualified Code(s): E11.65 - Type 2 diabetes mellitus with hyperglycemia (6) Chronic respiratory failure with hypoxia Priority: Secondary Status: Acute Hospital course: Ms. Huang is a 68 year old female with past medical history of COPD, chronic hypoxic spread failure on oxygen dependent on 2 L 24 hours, type 2 diabetes [id number], HFpEF, paroxysmal a fib on Coumadin for anti coagulation and GERD pt presented to the ED for chest pain, SOB and weakness. She also noticed b/l LE edema. She was admitted in the hospital and placed on security monitor. Her serial troponin came back as negative. Her CTA of chest ruled out PE. She does have moderate diastolic CHF exacerbation. She was was started on IV lasix. Her symptoms improved slowly. It looks like she is developing resistance to Lasix, so changed her diuretic to PO Bumex. Pt was evaluated by PT / OT who recommend ECF placement for short term PT / OT. So will d/c her to ECF in stable condition today. - Time Spent with Patient Total time spent providing and/or coordinating discharge services: - Discharge Medications Prescriptions: New Bumetanide [Bumex] 1 mg PO BID #60 tablet Atorvastatin [Lipitor] 40 mg PO HS tablet Budesonide/Formoterol 160/4.5 [Symbicort 160/4.5] 2 puff IH BIDR #1 hfa.aer.ad Continued Nitroglycerin [Nitrostat] 0.4 mg SL Q5M PRN PRN Reason: Chest Pain Metformin HCl [Glucophage] 1,000 mg PO BID Promethazine HCl 12.5 mg PO Q12H PRN PRN Reason: Nausea Paroxetine HCl [Paxil] 40 mg PO QAM Donepezil [Aricept] 10 mg PO HS Fluticasone Propionate Nasal [Flonase] 2 spr NS DAILY Cyclobenzaprine HCl 5 mg PO TID #30 tablet Ferrous Sulfate 325 mg PO DAILY raNITIdine HCl [Zantac] 150 mg PO BID Potassium Chloride [Klor-Con 10] 10 meq PO BID Metoprolol Succinate [Toprol Xl] 50 mg PO DAILY Lisinopril 2.5 mg PO DAILY traZODone [TraZODone] 50 mg PO HS tablet Ammonium Lactate [Lac-Hydrin Five] 1 appl TP BID Gabapentin [Neurontin] 400 mg PO BID Gabapentin [Neurontin] 800 mg PO HS Rivastigmine Patch [Exelon] 9.5 mg TD DAILY Warfarin [Coumadin] 2.5 mg PO 1800 HYDROcodone/Acet 10/325 mg [[place] 10-325 mg] 1 tab PO Q6HR PRN PRN Reason: Mild To Moderate Pain LORazepam [Ativan] 1 mg PO TID PRN 3 Days #10 tablet PRN Reason: Anxiety Discontinued Furosemide [Lasix] 40 mg PO HS Furosemide [Lasix] 80 mg PO QAM Home Medications: Donepezil [Aricept] 10 mg PO HS 05/06/16 [History] Fluticasone Propionate Nasal [Flonase] 2 spr NS DAILY 05/06/16 [History] Metformin HCl [Glucophage] 1,000 mg PO BID 05/06/16 [History] Nitroglycerin [Nitrostat] 0.4 mg SL Q5M PRN 05/06/16 [History] Paroxetine HCl [Paxil] 40 mg PO QAM 05/06/16 [History] Promethazine HCl 12.5 mg PO Q12H PRN 05/06/16 [History] Cyclobenzaprine HCl 5 mg PO TID #30 tablet 05/11/16 [Rx] Ferrous Sulfate 325 mg PO DAILY 12/25/16 [History] Lisinopril 2.5 mg PO DAILY 04/14/18 [History] Metoprolol Succinate [Toprol Xl] 50 mg PO DAILY 04/14/18 [History] Potassium Chloride [Klor-Con 10] 10 meq PO BID 04/14/18 [History] raNITIdine HCl [Zantac] 150 mg PO BID 04/14/18 [History] traZODone [TraZODone] 50 mg PO HS tablet 04/15/18 [Rx] Ammonium Lactate [Lac-Hydrin Five] 1 appl TP BID 11/28/18 [History] Gabapentin [Neurontin] 400 mg PO BID 11/28/18 [History] Gabapentin [Neurontin] 800 mg PO HS 11/28/18 [History] HYDROcodone/Acet 10/325 mg [[place] 10-325 mg] 1 tab PO Q6HR PRN 11/28/18 [History] Rivastigmine Patch [Exelon] 9.5 mg TD DAILY 11/28/18 [History] Warfarin [Coumadin] 2.5 mg PO 1800 11/28/18 [History] Atorvastatin [Lipitor] 40 mg PO HS tablet 11/30/18 [Rx] Budesonide/Formoterol 160/4.5 [Symbicort 160/4.5] 2 puff IH BIDR #1 hfa.aer.ad 11/30/18 [Rx] Bumetanide [Bumex] 1 mg PO BID #60 tablet 11/30/18 [Rx] LORazepam [Ativan] 1 mg PO TID PRN 3 Days #10 tablet 11/30/18 [Rx] Allergies/Adverse Reactions: Allergy/AdvReac Type Severity Reaction Status Date / Time Penicillins Allergy Rash Verified 11/28/18 21:42 meperidine [From Demerol] AdvReac Gastrointestinal Verified 11/28/18 21:42 Upset IVP DYE Allergy Difficulty Uncoded 11/28/18 21:42 Breathing Date of admission: 11/28/18 18:24 Primary care physician: Marito Mary MD Consults: 11/28/18 18:25 Consult to Occupational Therapy [CONS] Routine Comment: Evaluate, develop and implement POC Reason for Consult: gen weakness Does patient have active BEDREST order?: No Is patient medically & hemodynamically stable?: Yes Consult to Physical Therapy [CONS] Routine Comment: Evaluate, develop and implement POC Reason for Consult: gen weakness Does patient have active BEDREST order?: No Is patient medically & hemodynamically stable?: Yes 11/28/18 20:11 Consult to Nurse Navigator [CONS] Routine Comment: 11/29/18 08:29 Consult to Teacher Physically Impaired [CONS] Routine Reason for SW Consult: PATIENT WANTS PLACEMENT TO SIGNATURE - Constitutional Vitals: Temp Pulse Resp BP Pulse Ox 97.9 F 53 14 163/77 99 11/30/18 11:57 11/30/18 11:57 11/30/18 11:57 11/30/18 11:57 11/30/18 11:57 General appearance: Present: cooperative, A&O X 3, no acute distress, answers questions appropriately Exam: Gen: Alert, awake, Oriented to time,place and person Chest: Diminished breath sounds B/L, moderate wheezing, No crackles, No rales Heart: S1S2+ RRR No murmurs Abd: Soft, NT, BS +, No organomegaly Ext: 1-2+ edema, pulses are palpable, No calf tenderness Neuro : No acute focal neuro deficits noticed Skin: No rash. - Patient Status Disposition: Transfer SNF Condition: Good Overall status at discharge: patient is back to baseline - Discharge Instructions Follow Up With: Marito Mary MD [Primary Care Provider] - (Appointment has been requested.) - Diet and Activity Activity: increase activity as tolerated Diet: low salt diet
--- NOTE | 2018-11-30 12:46 | Physician Discharge Referral ---
ExtendedCare Referral Info Transfer To: F Provider in Charge after Transfer: PCP Institutional Level of Care: Skilled - Diagnosis (1) Acute on chronic diastolic CHF (congestive heart failure) Status: Acute (2) Acute exacerbation of chronic obstructive airways disease Status: Acute (3) Chest pain Status: Acute (4) Paroxysmal A-fib Status: Chronic (5) Diabetes type 2, controlled Status: Chronic (6) Chronic respiratory failure with hypoxia Status: Acute - Transfer Medications Prescriptions: LORazepam [Ativan] 1 mg PO TID PRN 3 Days #10 tablet PRN Reason: Anxiety Bumetanide [Bumex] 1 mg PO BID #60 tablet Budesonide/Formoterol 160/4.5 [Symbicort 160/4.5] 2 puff IH BIDR #1 hfa.aer.ad Home Medications: Donepezil [Aricept] 10 mg PO HS 05/06/16 [History] Fluticasone Propionate Nasal [Flonase] 2 spr NS DAILY 05/06/16 [History] Metformin HCl [Glucophage] 1,000 mg PO BID 05/06/16 [History] Nitroglycerin [Nitrostat] 0.4 mg SL Q5M PRN 05/06/16 [History] Paroxetine HCl [Paxil] 40 mg PO QAM 05/06/16 [History] Promethazine HCl 12.5 mg PO Q12H PRN 05/06/16 [History] Cyclobenzaprine HCl 5 mg PO TID #30 tablet 05/11/16 [Rx] Ferrous Sulfate 325 mg PO DAILY 12/25/16 [History] Lisinopril 2.5 mg PO DAILY 04/14/18 [History] Metoprolol Succinate [Toprol Xl] 50 mg PO DAILY 04/14/18 [History] Potassium Chloride [Klor-Con 10] 10 meq PO BID 04/14/18 [History] raNITIdine HCl [Zantac] 150 mg PO BID 04/14/18 [History] traZODone [TraZODone] 50 mg PO HS tablet 04/15/18 [Rx] Ammonium Lactate [Lac-Hydrin Five] 1 appl TP BID 11/28/18 [History] Gabapentin [Neurontin] 400 mg PO BID 11/28/18 [History] Gabapentin [Neurontin] 800 mg PO HS 11/28/18 [History] HYDROcodone/Acet 10/325 mg [[place] 10-325 mg] 1 tab PO Q6HR PRN 11/28/18 [History] Rivastigmine Patch [Exelon] 9.5 mg TD DAILY 11/28/18 [History] Warfarin [Coumadin] 2.5 mg PO 1800 11/28/18 [History] Atorvastatin [Lipitor] 40 mg PO HS tablet 11/30/18 [Rx] Budesonide/Formoterol 160/4.5 [Symbicort 160/4.5] 2 puff IH BIDR #1 hfa.aer.ad 11/30/18 [Rx] Bumetanide [Bumex] 1 mg PO BID #60 tablet 11/30/18 [Rx] LORazepam [Ativan] 1 mg PO TID PRN 3 Days #10 tablet 11/30/18 [Rx] Allergies/Adverse Reactions: Allergy/AdvReac Type Severity Reaction Status Date / Time Penicillins Allergy Rash Verified 11/28/18 21:42 meperidine [From Demerol] AdvReac Gastrointestinal Verified 11/28/18 21:42 Upset IVP DYE Allergy Difficulty Uncoded 11/28/18 21:42 Breathing - Respiratory Orders Smoking Cessation: Smoking cessation has been advised. For more information, call the [place] Tobacco Quit Line at 7-258-VUNK-NOW. CERTIFICATION: I certify that the transfer of the above named patient to an Extended Care [facility] is necessary for the continuing treatment of the diagnosis listed. The above information is true and accurate reflection of patient's current condition. Confidential - Redisclosure prohibited without a patient's written consent.
[2018-11-30] MEDS ORDERED: *HR* Warfarin 2.5 MG TABLET PO ONE (18:00)
== END 2018-11-30 16:25 ==
LOC: EMEROOARM 14:40 → 3BNU 14:40 → SUATTDRO 18:24 → 3BNU 18:53
PROVIDERS: ADMIT Student in an Organized Health Care Education/Training Program; ATTEND Family Medicine

== ENCOUNTER 2020-01-19 07:21 | Inpatient (IN) ==
[2020-01-19] MEDS ORDERED: Acetaminophen 325 MG TABLET PO ONE (07:53)
[2020-01-19 08:09] LABS: Basophils # 0.1 K/mcL (0.0-0.2); Basophils % 0.6 %; Eosinophils # 2.2 K/mcL (0.0-0.6); Eosinophils % 24.7 %; Hemoglobin 9.7 g/dL (11.5-15.4); Immature Granulocytes % 0.8 % (0-4); Lymphocytes # 2.1 K/mcL (0.6-4.6); Lymphocytes % 23.8 %; Mean Corpuscular HGB Conc 30.3 g/dL (31.6-35.5); Mean Corpuscular Hemoglobin 27.6 pg (28.0-33.3); Mean Corpuscular Volume 91.2 fL (83.0-100.0); Mean Platelet Volume 10.4 fL (9.4-12.4); Monocytes # 0.5 K/mcL (0.0-1.3); Neutrophils # 3.9 K/mcL (1.6-8.9); Platelet Count 269 K/mcL (140-400); Red Blood Count 3.51 M/mcL (3.82-4.97); Red Cell Distribution Width 15.4 % (11.5-14.5); Segmented Neutrophils % 44.1 %; White Blood Count 8.9 K/mcL (4.3-11.1)
[2020-01-19 08:26] LABS: INR 4.8; Prothrombin Time 53.5 Seconds (9.4-12.1)
[2020-01-19 08:37] LABS: Alanine Aminotransferase 12 Units/L (7-52); Albumin 4.4 g/dL (3.5-5.7); Albumin/Globulin Ratio 1.3 (1.1-2.2); Alkaline Phosphatase 65 Units/L (34-104); Aspartate Amino Transferase 9 Units/L (13-39); BUN/Creatinine Ratio 26 (6-26); Bilirubin,Total 0.3 mg/dL (0.3-1.0); Blood Urea Nitrogen 66 mg/dL (8-23); Calcium 9.6 mg/dL (8.6-10.3); Carbon Dioxide 21 mEq/L (23-29); Chloride 99 mEq/L (98-107); Globulin 3.4 g/dL (2.4-3.5); Glucose 89 mg/dL (70-105); Osmolality,Calculated 291 (280-300); Potassium 6.8 mEq/L (3.5-5.1); Sodium 131 mEq/L (136-145); Total Protein 7.8 g/dL (6.4-8.9); Troponin I < 0.03 ng/mL (< 0.04); eGFR For African Americans 22 (> 60); eGFR For Non-African Americans 19 (> 60)
[2020-01-19 08:42] LABS: Platelet Estimate Normal (Normal); Toxic Granulation Present (Not Present)
[2020-01-19 08:44] LABS: Anisocytosis 1+ (Not Present)
[2020-01-19] MEDS ORDERED: Insulin Regular, Human 100 UNIT/ML SQ ONE (08:51)
[2020-01-19] MEDS ORDERED: *HR* Dextrose 50 % in Water (Vial) 50 ML VIAL IVP ONE (08:51)
[2020-01-19] MEDS ORDERED: Calcium Gluconate 1gm/50mL 1 GM/50 ML BAG IVPB ONE (08:51)
[2020-01-19] MEDS ORDERED: 0.9 % Sodium Chloride 1,000 ML IVC ONE (08:52)
[2020-01-19 08:59] LABS: Bilirubin,Urine Negative (Negative); Blood,Urine Small (Negative); Clarity,Urine Clear (Clear); Color,Urine Light-Yellow (Yellow); Glucose,Urine (UA) Normal (Normal); Hyaline Casts,Urine Moderate per lpf (None Seen); Ketones,Urine Negative (Negative); Leukocyte Esterase,Urine Negative (Negative); Mucus,Urine Few per lpf (None-Few); Nitrite,Urine Negative (Negative); PH,Urine 5.5 pH Units (5.0-8.0); Protein,Urine Negative (Neg-Trace); RBC,Urine 15-30 per hpf (0-3); Specific Gravity,Urine 1.014 (1.010-1.025); Squamous Epithelial Cell,Urine Few per hpf (None-Few); Transitional Epi Cells,Urine Few per hpf (None-Few); Urobilinogen,Urine Normal (Normal); WBC,Urine 0-3 per hpf (0-3)
[2020-01-19] MEDS ORDERED: Ondansetron 4 MG/2 ML VIAL IVP PRN (09:26)
[2020-01-19] MEDS ORDERED: *HR* Phytonadione 5 MG TABLET PO ONE (09:31)
[2020-01-19] MEDS: Budesonide/Formoterol 160/4.5 1 PUFF INH IH SCH ×2 (11:18→19:46)
[2020-01-19] MEDS: 0.9 % Sodium Chloride 1,000 ML IVC SCH ×2 (12:19→19:39)
[2020-01-19 12:38] LABS: Calcium 9.3 mg/dL (8.6-10.3); Potassium 6.1 mEq/L (3.5-5.1)
[2020-01-19 16:29] LABS: Calcium 8.8 mg/dL (8.6-10.3)
[2020-01-19 18:38] LABS: Uric Acid 9.6 mg/dL (2.3-7.6)
[2020-01-19 19:00] LABS: Sodium, Urine 53.5 mEq/L
[2020-01-19] MEDS: Famotidine 20 MG TABLET PO SCH (19:38)
[2020-01-19] MEDS ORDERED: Famotidine 20 MG TABLET PO SCH (21:00)
[2020-01-20 03:32] LABS: Mean Corpuscular HGB Conc 30.8 g/dL (31.6-35.5); Mean Corpuscular Hemoglobin 28.3 pg (28.0-33.3); Mean Corpuscular Volume 91.9 fL (83.0-100.0); Mean Platelet Volume 10.6 fL (9.4-12.4); Platelet Count 204 K/mcL (140-400); Red Blood Count 2.83 M/mcL (3.82-4.97); Red Cell Distribution Width 15.6 % (11.5-14.5); White Blood Count 6.9 K/mcL (4.3-11.1)
[2020-01-20 03:58] LABS: Calcium 8.4 mg/dL (8.6-10.3); Magnesium 2.1 mg/dL (1.6-2.6); Phosphorous 4.8 mg/dL (2.7-4.5); Potassium 6.6 mEq/L (3.5-5.1)
[2020-01-20] MEDS ORDERED: *HR* Dextrose 50 % in Water (Vial) 50 ML VIAL IVP ONE (04:09)
[2020-01-20] MEDS ORDERED: Insulin Human Regular 10 UNIT in 0.9 % Sodium Chloride 10 ML IV ONE (04:09)
[2020-01-20] MEDS ORDERED: Calcium Gluconate 1gm/50mL 1 GM/50 ML BAG IVPB ONE (04:09)
[2020-01-20] MEDS: Acetaminophen 325 MG TABLET PO PRN ×3 (05:07→22:13)
[2020-01-20 05:47] LABS: Potassium 5.8 mEq/L (3.5-5.1)
[2020-01-20 05:48] LABS: Troponin I 0.03 ng/mL (< 0.04)
[2020-01-20] MEDS ORDERED: *HR* LORazepam 1 MG TABLET PO PRN (07:17)
[2020-01-20] MEDS: Budesonide/Formoterol 160/4.5 1 PUFF INH IH SCH ×2 (07:40→19:39)
[2020-01-20] MEDS: PARoxetine 20 MG TABLET PO SCH (08:45)
[2020-01-20] MEDS: Metoprolol XL (24 HR) Succ 50 MG TAB.ER.24H PO SCH (08:46)
[2020-01-20] MEDS: Fluticasone Propionate Nasal 50 MCG/SPRAY BOTTLE NS SCH (09:34)
[2020-01-20] MEDS ORDERED: 0.9 % Sodium Chloride 1,000 ML IVC SCH (10:00)
[2020-01-20 10:46] LABS: INR 2.5; Prothrombin Time 28.1 Seconds (9.4-12.1)
[2020-01-20] MEDS ORDERED: *HR* Dextrose 50 % in Water (Vial) 50 ML VIAL IVP PRN (10:49)
[2020-01-20] MEDS ORDERED: D5% in Water 1,000 ML IVC PRN (10:49)
[2020-01-20] MEDS ORDERED: Dextrose Gel 15 GM/37.5 ML TUBE PO PRN ×2 (10:49)
[2020-01-20 10:57] LABS: Calcium 8.8 mg/dL (8.6-10.3); Potassium 5.3 mEq/L (3.5-5.1)
[2020-01-20] MEDS: Insulin LISPRO 300 UNITS/3 ML VIAL SQ SCH ×2 (11:18→16:20)
[2020-01-20] MEDS ORDERED: *HR* Warfarin 2 MG TABLET PO ONE (18:00)
[2020-01-20] MEDS ORDERED: Warfarin perPT PO PRN (18:00)
[2020-01-20] MEDS: Gabapentin 400 MG CAPSULE PO SCH (20:27)
[2020-01-20] MEDS: Famotidine 20 MG TABLET PO SCH (20:27)
[2020-01-21 04:47] LABS: INR 1.7
[2020-01-21 04:58] LABS: Calcium 8.9 mg/dL (8.6-10.3); Potassium 4.7 mEq/L (3.5-5.1)
[2020-01-21] MEDS: Metoprolol XL (24 HR) Succ 50 MG TAB.ER.24H PO SCH (07:17)
[2020-01-21] MEDS: Fluticasone Propionate Nasal 50 MCG/SPRAY BOTTLE NS SCH (07:17)
[2020-01-21] MEDS: Gabapentin 400 MG CAPSULE PO SCH ×2 (07:17→20:04)
[2020-01-21] MEDS: PARoxetine 20 MG TABLET PO SCH (07:17)
[2020-01-21] MEDS: Insulin LISPRO 300 UNITS/3 ML VIAL SQ SCH ×3 (07:18→16:53)
[2020-01-21] MEDS: Budesonide/Formoterol 160/4.5 1 PUFF INH IH SCH ×2 (07:38→19:57)
[2020-01-21] MEDS: Acetaminophen 325 MG TABLET PO PRN (11:39)
[2020-01-21] MEDS ORDERED: *HR* Warfarin 2.5 MG TABLET PO ONE (18:00)
[2020-01-21] MEDS: Famotidine 20 MG TABLET PO SCH (20:03)
[2020-01-22 00:32] LABS: INR 1.7; Prothrombin Time 19.2 Seconds (9.4-12.1)
[2020-01-22 00:40] LABS: Potassium 4.4 mEq/L (3.5-5.1)
[2020-01-22] MEDS: Budesonide/Formoterol 160/4.5 1 PUFF INH IH SCH (07:26)
[2020-01-22] MEDS: Fluticasone Propionate Nasal 50 MCG/SPRAY BOTTLE NS SCH (08:31)
[2020-01-22] MEDS: Insulin LISPRO 300 UNITS/3 ML VIAL SQ SCH ×2 (08:32→11:21)
[2020-01-22] MEDS: PARoxetine 20 MG TABLET PO SCH (08:32)
[2020-01-22] MEDS: Gabapentin 400 MG CAPSULE PO SCH (08:32)
[2020-01-22] MEDS: Acetaminophen 325 MG TABLET PO PRN ×2 (08:48)
[2020-01-22] MEDS: Metoprolol XL (24 HR) Succ 50 MG TAB.ER.24H PO SCH (08:54)
[2020-01-22 10:41] VITALS: BP 134/66
[2020-01-22] MEDS ORDERED: *HR* Warfarin 2 MG TABLET PO ONE (18:00)
== END 2020-01-22 15:22 | disposition home health service (06) | DRG 683 ==
LOC: EMEROOARM 07:21 → 2ANU 07:21 → SUATTDRO 09:36 → 2ANU 11:13
PROVIDERS: ADMIT Internal Medicine; ATTEND Internal Medicine

== ENCOUNTER 2020-06-06 12:25 | Inpatient (IN) ==
[2020-06-06 13:12] LABS: Basophils # 0.1 K/mcL (0.0-0.2); Basophils % 0.9 %; Eosinophils # 0.7 K/mcL (0.0-0.6); Eosinophils % 8.1 %; Immature Granulocytes % 0.5 % (0-4); Lymphocytes # 1.8 K/mcL (0.6-4.6); Lymphocytes % 21.2 %; Mean Corpuscular HGB Conc 30.3 g/dL (31.6-35.5); Mean Corpuscular Hemoglobin 27.9 pg (28.0-33.3); Mean Corpuscular Volume 91.9 fL (83.0-100.0); Mean Platelet Volume 10.2 fL (9.4-12.4); Monocytes # 0.6 K/mcL (0.0-1.3); Monocytes % 7.3 %; Neutrophils # 5.3 K/mcL (1.6-8.9); Platelet Count 242 K/mcL (140-400); Red Blood Count 3.59 M/mcL (3.82-4.97); Red Cell Distribution Width 14.6 % (11.5-14.5); White Blood Count 8.6 K/mcL (4.3-11.1)
[2020-06-06] MEDS ORDERED: Calcium Gluconate 1,000 MG in D5% in Water 100 ML IVPB ONE (13:20)
[2020-06-06 13:30] LABS: Calcium 9.1 mg/dL (8.6-10.3); Potassium 4.7 mEq/L (3.5-5.1); Troponin I 0.03 ng/mL (< 0.04)
[2020-06-06] MEDS ORDERED: Calcium Gluconate 1gm/50mL 1 GM/50 ML BAG IVPB STA (13:33)
[2020-06-06] MEDS ORDERED: *HR* Atropine Sulfate 1 MG/10 ML SYRINGE IVP ONE (14:13)
[2020-06-06 14:15] LABS: INR 2.8; Prothrombin Time 31.7 Seconds (9.4-12.1)
[2020-06-06] MEDS ORDERED: Naloxone 0.4 MG/ML INJ IVP PRN (15:56)
[2020-06-06] MEDS ORDERED: *HR* Atropine Sulfate 1 MG/10 ML SYRINGE IVP PRN (15:56)
[2020-06-06] MEDS ORDERED: 0.9 % Sodium Chloride 500 ML IVPB STA (16:13)
[2020-06-06] MEDS ORDERED: D5% in Water 1,000 ML IVC PRN (16:37)
[2020-06-06] MEDS ORDERED: Dextrose Gel 15 GM/37.5 ML TUBE PO PRN ×2 (16:37)
[2020-06-06] MEDS ORDERED: *HR* Dextrose 50 % in Water (Vial) 50 ML VIAL IVP PRN (16:37)
[2020-06-06 17:00] LABS: Estimated Average Glucose 143 mg/dl; Hemoglobin A1C 6.6 %
[2020-06-06] MEDS ORDERED: Glucagon, Human Recombinant 12 MG in 0.9 % Sodium Chloride 238 ML IVC SCH (18:30)
[2020-06-06] MEDS: Insulin LISPRO 300 UNITS/3 ML VIAL SUBQ SCH ×2 (20:11→23:35)
[2020-06-07] MEDS: Acetaminophen 325 MG TABLET PO PRN ×2 (04:53→17:12)
[2020-06-07 05:39] LABS: Basophils # 0.1 K/mcL (0.0-0.2); Basophils % 0.6 %; Eosinophils % 0.1 %; Hematocrit 30.3 % (35.3-44.9); Hemoglobin 9.2 g/dL (11.5-15.4); Immature Granulocytes % 0.2 % (0-4); Lymphocytes # 1.1 K/mcL (0.6-4.6); Lymphocytes % 14.1 %; Mean Corpuscular HGB Conc 30.4 g/dL (31.6-35.5); Mean Corpuscular Hemoglobin 27.8 pg (28.0-33.3); Mean Corpuscular Volume 91.5 fL (83.0-100.0); Mean Platelet Volume 10.5 fL (9.4-12.4); Monocytes # 0.4 K/mcL (0.0-1.3); Monocytes % 4.4 %; Neutrophils # 6.5 K/mcL (1.6-8.9); Platelet Count 205 K/mcL (140-400); Red Blood Count 3.31 M/mcL (3.82-4.97); Red Cell Distribution Width 14.5 % (11.5-14.5); Segmented Neutrophils % 80.6 %; White Blood Count 8.1 K/mcL (4.3-11.1)
[2020-06-07 05:58] LABS: Albumin 3.8 g/dL (3.5-5.7); Albumin/Globulin Ratio 1.4 (1.1-2.2); Bilirubin,Total 0.3 mg/dL (0.3-1.0); Globulin 2.7 g/dL (2.4-3.5); Magnesium 2.1 mg/dL (1.6-2.6); Potassium 4.7 mEq/L (3.5-5.1); Total Protein 6.5 g/dL (6.4-8.9)
[2020-06-07] MEDS: Insulin LISPRO 300 UNITS/3 ML VIAL SUBQ SCH ×4 (08:00→20:13)
[2020-06-07 08:41] LABS: Thyroid Stimulating Hormone 2.599 mcIU/mL (0.340-5.600)
[2020-06-07] MEDS ORDERED: Perflutren Lipid Microsphere 1.3 ML in 0.9 % Sodium Chloride 8.7 ML IVP PRN (10:01)
[2020-06-07 10:40] LABS: Prothrombin Time 33.7 Seconds (9.4-12.1)
[2020-06-07] MEDS ORDERED: *HR* LORazepam 1 MG TABLET PO PRN (11:18)
[2020-06-07] MEDS ORDERED: *HR* Warfarin 3 MG TABLET PO SCH (11:30)
[2020-06-07] MEDS: Budesonide/Formoterol 80/4.5 1 PUFF INH IH SCH ×2 (11:46→20:40)
[2020-06-07] MEDS ORDERED: Gabapentin 400 MG CAPSULE PO ONE (16:21)
[2020-06-07] MEDS: PARoxetine 20 MG TABLET PO SCH (17:13)
[2020-06-07] MEDS ORDERED: *HR* Warfarin 3 MG TABLET PO ONE (18:00)
[2020-06-07] MEDS ORDERED: Warfarin perPT PO PRN (18:00)
[2020-06-07] MEDS ORDERED: traZODone 50 MG TABLET PO SCH (21:00)
[2020-06-07] MEDS ORDERED: Gabapentin 400 MG CAPSULE PO SCH (21:00)
[2020-06-08 02:32] LABS: Basophils % 0.5 %; Hematocrit 28.5 % (35.3-44.9); Hemoglobin 8.9 g/dL (11.5-15.4); Immature Granulocytes % 0.3 % (0-4); Lymphocytes # 1.2 K/mcL (0.6-4.6); Lymphocytes % 19.5 %; Mean Corpuscular HGB Conc 31.2 g/dL (31.6-35.5); Mean Corpuscular Hemoglobin 28.3 pg (28.0-33.3); Mean Corpuscular Volume 90.8 fL (83.0-100.0); Mean Platelet Volume 9.9 fL (9.4-12.4); Monocytes # 0.4 K/mcL (0.0-1.3); Neutrophils # 4.4 K/mcL (1.6-8.9); Platelet Count 194 K/mcL (140-400); Red Blood Count 3.14 M/mcL (3.82-4.97); Red Cell Distribution Width 14.6 % (11.5-14.5); Segmented Neutrophils % 72.7 %
[2020-06-08 02:40] LABS: Prothrombin Time 33.8 Seconds (9.4-12.1)
[2020-06-08 02:51] LABS: Potassium 4.3 mEq/L (3.5-5.1)
[2020-06-08] MEDS: Budesonide/Formoterol 80/4.5 1 PUFF INH IH SCH (08:19)
[2020-06-08] MEDS ORDERED: Gabapentin 400 MG CAPSULE PO SCH (09:00)
[2020-06-08] MEDS: Insulin LISPRO 300 UNITS/3 ML VIAL SUBQ SCH ×2 (09:22→12:06)
[2020-06-08] MEDS: PARoxetine 20 MG TABLET PO SCH (09:23)
[2020-06-08 11:51] VITALS: BP 107/73
[2020-06-08] MEDS ORDERED: *HR* Warfarin 2 MG TABLET PO ONE (18:00)
== END 2020-06-08 13:02 | disposition home health service (06) | DRG 309 ==
LOC: 2NENU 12:25 → EMEROOARM 12:25 → SUATTDRO 16:37 → 2NENU 18:26
PROVIDERS: ADMIT Internal Medicine; ATTEND Internal Medicine

== ENCOUNTER 2020-08-26 14:23 | Inpatient (IN) ==
[2020-08-26 15:04] LABS: Basophils % 0.4 %; Hematocrit 28.5 % (35.3-44.9); Hemoglobin 8.9 g/dL (11.5-15.4); Immature Granulocytes % 0.3 % (0-4); Lymphocytes % 13.8 %; Mean Corpuscular HGB Conc 31.2 g/dL (31.6-35.5); Mean Corpuscular Hemoglobin 29.7 pg (28.0-33.3); Mean Platelet Volume 10.5 fL (9.4-12.4); Monocytes # 0.5 K/mcL (0.0-1.3); Monocytes % 6.3 %; Neutrophils # 5.7 K/mcL (1.6-8.9); Platelet Count 193 K/mcL (140-400); Red Cell Distribution Width 16.4 % (11.5-14.5); Segmented Neutrophils % 79.2 %; White Blood Count 7.2 K/mcL (4.3-11.1)
[2020-08-26 15:42] LABS: Alanine Aminotransferase 9 Units/L (7-52); Albumin 4.1 g/dL (3.5-5.7); Albumin/Globulin Ratio 1.4 (1.1-2.2); Alkaline Phosphatase 48 Units/L (34-104); Aspartate Amino Transferase 8 Units/L (13-39); BUN/Creatinine Ratio 21 (6-26); Bilirubin,Direct 0.1 mg/dL (0.0-0.2); Bilirubin,Indirect 0.3 mg/dL (0.0-1.0); Bilirubin,Total 0.4 mg/dL (0.3-1.0); Blood Urea Nitrogen 103 mg/dL (8-23); Calcium 8.9 mg/dL (8.6-10.3); Carbon Dioxide 18 mEq/L (23-29); Chloride 100 mEq/L (98-107); Glucose 82 mg/dL (70-105); Osmolality,Calculated 307 (280-300); Potassium 7.5 mEq/L (3.5-5.1); Sodium 133 mEq/L (136-145); Total Protein 7.1 g/dL (6.4-8.9); Troponin I < 0.03 ng/mL (< 0.04); eGFR For African Americans 11 (> 60); eGFR For Non-African Americans 9 (> 60)
[2020-08-26] MEDS ORDERED: *HR* Dextrose 50 % in Water (Vial) 50 ML VIAL IVP ONE (15:44)
[2020-08-26] MEDS ORDERED: Albuterol 2.5 MG/3 ML NEBULIZER IH ONE (15:44)
[2020-08-26] MEDS ORDERED: Calcium Gluconate 1,000 MG/10 ML VIAL IVP ONE (15:44)
[2020-08-26] MEDS ORDERED: Insulin Human Regular 10 UNIT in 0.9 % Sodium Chloride 10 ML IV ONE (15:44)
[2020-08-26] MEDS ORDERED: 0.9 % Sodium Chloride 1,000 ML IVC STA (15:46)
[2020-08-26] MEDS ORDERED: Calcium Gluconate 1gm/50mL 2 GM/100 ML BAG IVPB ONE (15:52)
[2020-08-26] MEDS ORDERED: Calcium Gluconate 1gm/50mL BAG IVPB ONE ×2 (16:00→16:20)
[2020-08-26] MEDS ORDERED: 0.9 % Sodium Chloride 1,000 ML IVC ONE (16:26)
[2020-08-26] MEDS ORDERED: Sodium Bicarbonate 50 MEQ/50 ML VIAL IVP ONE (16:56)
[2020-08-26] MEDS ORDERED: Melatonin 3 MG TABLET PO PRN (17:12)
[2020-08-26] MEDS ORDERED: *HR* Promethazine 25 MG/ML VIAL IM PRN (17:12)
[2020-08-26] MEDS ORDERED: Naloxone 0.4 MG/ML INJ IVP PRN (17:12)
[2020-08-26 17:14] LABS: Amorphous Sediment,Urine Few per hpf (None-Few); Bilirubin,Urine Negative (Negative); Blood,Urine Negative (Negative); Clarity,Urine Turbid (Clear); Color,Urine Light-Yellow (Yellow); Glucose,Urine (UA) Normal (Normal); Ketones,Urine Negative (Negative); Leukocyte Esterase,Urine Negative (Negative); Mucus,Urine Few per lpf (None-Few); Nitrite,Urine Negative (Negative); Protein,Urine Negative (Neg-Trace); RBC,Urine 0-3 per hpf (0-3); Specific Gravity,Urine 1.012 (1.010-1.025); Squamous Epithelial Cell,Urine Few per hpf (None-Few); Urobilinogen,Urine Normal (Normal); WBC,Urine 0-3 per hpf (0-3)
[2020-08-26 17:15] LABS: Amphetamine Screen,Urine Negative ng/mL (Cutoff=1000); Barbiturate Screen,Urine Negative ng/mL (Cutoff=200); Benzodiazepines Screen,Urine Negative ng/mL (Cutoff=200); Cannabinoid Screen,Urine Negative ng/mL (Cutoff = 50); Cocaine Screen,Urine Negative ng/mL (Cutoff= 300); Opiate Screen,Urine Positive ng/mL (Cutoff=300); Phencyclidine Screen,Urine Negative ng/mL (Cutoff=25)
[2020-08-26] MEDS ORDERED: 0.9 % Sodium Chloride 1,000 ML IVC SCH (17:15)
[2020-08-26] MEDS ORDERED: *HR* Dextrose 50 % in Water (Vial) 50 ML VIAL IVP PRN (17:18)
[2020-08-26] MEDS ORDERED: D5% in Water 1,000 ML IVC PRN (17:18)
[2020-08-26] MEDS ORDERED: Dextrose Gel 15 GM/37.5 ML TUBE PO PRN ×2 (17:18)
[2020-08-26] MEDS ORDERED: Ipratropium/Albuterol Neb 3 ML IH PRN (17:22)
[2020-08-26] MEDS ORDERED: *HR* LORazepam 1 MG TABLET PO PRN (17:50)
[2020-08-26 17:59] LABS: Estimated Average Glucose 120 mg/dl; Hemoglobin A1C 5.8 %
[2020-08-26] MEDS ORDERED: Warfarin perPT PO PRN (18:00)
[2020-08-26 18:26] LABS: Phosphorous 6.5 mg/dL (2.7-4.5); Thyroid Stimulating Hormone 4.564 mcIU/mL (0.340-5.600)
[2020-08-26 19:21] LABS: VBG HCO3 20 mEq/L (21-27); VBG PCO2 56 mmHg (41-51); VBG PH 7.15 pH Units (7.32-7.42); VBG PO2 95 mmHg (25-50)
[2020-08-26 19:27] LABS: INR 1.1; Prothrombin Time 12.8 Seconds (9.4-12.1)
[2020-08-26] MEDS: Ipratropium/Albuterol Neb 3 ML IH SCH ×2 (20:15→23:53)
[2020-08-26] MEDS: Budesonide/Formoterol 160/4.5 1 PUFF INH IH SCH (20:15)
[2020-08-26] MEDS: Artificial Tears SOLN 15 ML BOTTLE BOTH EYES SCH (20:40)
[2020-08-26] MEDS: predniSONE 20 MG TABLET PO SCH (20:40)
[2020-08-26] MEDS: traZODone 50 MG TABLET PO SCH (20:40)
[2020-08-26] MEDS: Azithromycin 250 MG TABLET PO SCH (20:40)
[2020-08-27] MEDS: Ipratropium/Albuterol Neb 3 ML IH SCH ×6 (03:57→23:03)
[2020-08-27 06:22] LABS: Basophils % 0.4 %; Hematocrit 25.8 % (35.3-44.9); Hemoglobin 8.1 g/dL (11.5-15.4); Immature Granulocytes % 0.4 % (0-4); Lymphocytes # 0.4 K/mcL (0.6-4.6); Lymphocytes % 9.4 %; Mean Corpuscular HGB Conc 31.4 g/dL (31.6-35.5); Mean Corpuscular Hemoglobin 30.6 pg (28.0-33.3); Mean Corpuscular Volume 97.4 fL (83.0-100.0); Mean Platelet Volume 10.8 fL (9.4-12.4); Monocytes # 0.1 K/mcL (0.0-1.3); Monocytes % 2.2 %; Platelet Count 174 K/mcL (140-400); Red Blood Count 2.65 M/mcL (3.82-4.97); Red Cell Distribution Width 16.1 % (11.5-14.5); Segmented Neutrophils % 87.6 %; White Blood Count 4.6 K/mcL (4.3-11.1)
[2020-08-27 06:24] LABS: INR 1.1; Prothrombin Time 12.5 Seconds (9.4-12.1)
[2020-08-27 06:44] LABS: Bilirubin,Total 0.4 mg/dL (0.3-1.0); Calcium 8.9 mg/dL (8.6-10.3); Chol/HDL Ratio 3.7 (0-4.9); Phosphorous 6.4 mg/dL (2.7-4.5); Potassium 7.3 mEq/L (3.5-5.1)
[2020-08-27] MEDS ORDERED: Calcium Gluconate 1gm/50mL 1 GM/50 ML BAG IVPB PRN (06:49)
[2020-08-27 06:53] LABS: Albumin/Globulin Ratio 1.5 (1.1-2.2); Globulin 2.7 g/dL (2.4-3.5); Total Protein 6.7 g/dL (6.4-8.9)
[2020-08-27] MEDS ORDERED: Insulin Human Regular 10 UNIT in 0.9 % Sodium Chloride 10 ML IV ONE ×2 (06:53→09:30)
[2020-08-27] MEDS ORDERED: Sodium Bicarbonate 75 MEQ in 0.45 % Sodium Chloride 1,000 ML IVC SCH (07:00)
[2020-08-27] MEDS ORDERED: *HR* Dextrose 50 % in Water (Vial) 50 ML VIAL IVP ONE ×2 (07:05→09:30)
[2020-08-27 07:16] LABS: VBG HCO3 20 mEq/L (21-27); VBG PCO2 41 mmHg (41-51); VBG PO2 132 mmHg (25-50)
[2020-08-27] MEDS: Budesonide/Formoterol 160/4.5 1 PUFF INH IH SCH ×2 (07:26→20:05)
[2020-08-27] MEDS: predniSONE 20 MG TABLET PO SCH (07:31)
[2020-08-27] MEDS: Artificial Tears SOLN 15 ML BOTTLE BOTH EYES SCH ×2 (07:31→20:01)
[2020-08-27] MEDS: Aspirin 81 MG TAB.CHEW PO SCH (07:31)
[2020-08-27] MEDS: SODIUM ZIRCONIUM CYCLOSILICATE 5 GM POWD.PACK PO SCH ×3 (07:34→12:37)
[2020-08-27] MEDS: Insulin LISPRO 300 UNITS/3 ML VIAL SUBQ SCH ×3 (07:54→18:05)
[2020-08-27] MEDS ORDERED: Multivit/Ca/Min/Fe/FA 1 TAB TABLET PO SCH (09:00)
[2020-08-27 09:22] LABS: Calcium 8.7 mg/dL (8.6-10.3); Potassium 7.9 mEq/L (3.5-5.1)
[2020-08-27] MEDS ORDERED: Calcium Gluconate 1gm/50mL 1 GM/50 ML BAG IVPB ONE (09:29)
[2020-08-27] MEDS ORDERED: Albuterol 2.5 MG/3 ML NEBULIZER IH ONE (09:32)
[2020-08-27] MEDS: Cyanocobalamin (B-12) 1,000 MCG TABLET PO SCH (10:16)
[2020-08-27] MEDS ORDERED: SODIUM ZIRCONIUM CYCLOSILICATE 5 GM POWD.PACK PO ONE (12:30)
[2020-08-27] MEDS ORDERED: *HR* Heparin 5,000 UNIT/ML VIAL ONE (13:33)
[2020-08-27] MEDS ORDERED: Heparin 1,000 UNITS/500 mL 500 ML ONE (13:37)
[2020-08-27] MEDS ORDERED: Lidocaine/EPI 1:100k 1% 50 ML VIAL ONE (13:38)
[2020-08-27 13:44] LABS: Calcium 9.1 mg/dL (8.6-10.3); Potassium 5.9 mEq/L (3.5-5.1); Uric Acid 9.1 mg/dL (2.3-7.6)
[2020-08-27] MEDS ORDERED: *HR* Heparin 10,000 UNIT/10 ML VIAL IV PRN (13:50)
[2020-08-27] MEDS ORDERED: 0.9 % Sodium Chloride 250 ML IVC PRN (13:50)
[2020-08-27] MEDS ORDERED: 0.9 % Sodium Chloride 1,000 ML PRIME SCH (14:00)
[2020-08-27] MEDS: Sodium Bicarbonate 150 MEQ in D5% in Water 1,000 ML IVC SCH ×2 (14:12→23:31)
[2020-08-27 14:23] LABS: Hepatitis B Surface Antibody < 3.10 mIU/mL
[2020-08-27 14:33] LABS: Hepatitis B Surface Antigen Nonreactive (Nonreactive)
[2020-08-27] MEDS: Azithromycin 250 MG TABLET PO SCH (18:05)
[2020-08-27] MEDS: *HR* Heparin 5,000 UNIT/ML VIAL SQ SCH (18:06)
[2020-08-27 18:47] LABS: Calcium 8.3 mg/dL (8.6-10.3); Potassium 4.2 mEq/L (3.5-5.1)
[2020-08-27 18:52] LABS: Magnesium 1.8 mg/dL (1.6-2.6); Phosphorous 3.8 mg/dL (2.7-4.5)
[2020-08-27] MEDS: Chlorhexidine Rinse 15 ML MOUTHWASH MM SCH (20:02)
[2020-08-27] MEDS: traZODone 50 MG TABLET PO SCH (20:02)
[2020-08-27] MEDS: *HR* HYDROcodone/Acet 5/325 mg TABLET PO PRN (23:31)
[2020-08-28 03:38] LABS: Basophils % 0.2 %; Hematocrit 21.9 % (35.3-44.9); Immature Granulocytes % 0.8 % (0-4); Lymphocytes # 0.6 K/mcL (0.6-4.6); Lymphocytes % 9.4 %; Mean Corpuscular Hemoglobin 29.3 pg (28.0-33.3); Mean Corpuscular Volume 91.6 fL (83.0-100.0); Mean Platelet Volume 10.5 fL (9.4-12.4); Monocytes # 0.5 K/mcL (0.0-1.3); Monocytes % 8.1 %; Neutrophils # 5.1 K/mcL (1.6-8.9); Platelet Count 157 K/mcL (140-400); Red Blood Count 2.39 M/mcL (3.82-4.97); Red Cell Distribution Width 16.2 % (11.5-14.5); Segmented Neutrophils % 81.5 %; White Blood Count 6.3 K/mcL (4.3-11.1)
[2020-08-28 03:41] LABS: INR 1.2; Prothrombin Time 13.8 Seconds (9.4-12.1)
[2020-08-28 03:50] LABS: Albumin 3.4 g/dL (3.5-5.7); Albumin/Globulin Ratio 1.5 (1.1-2.2); Bilirubin,Total 0.3 mg/dL (0.3-1.0); Calcium 8.2 mg/dL (8.6-10.3); Globulin 2.3 g/dL (2.4-3.5); Magnesium 1.7 mg/dL (1.6-2.6); Phosphorous 4.1 mg/dL (2.7-4.5); Total Protein 5.7 g/dL (6.4-8.9)
[2020-08-28] MEDS: Ipratropium/Albuterol Neb 3 ML IH SCH ×5 (04:05→19:57)
[2020-08-28] MEDS: *HR* HYDROcodone/Acet 5/325 mg TABLET PO PRN ×2 (05:50→17:11)
[2020-08-28] MEDS: *HR* Heparin 5,000 UNIT/ML VIAL SQ SCH ×2 (05:51→17:58)
[2020-08-28] MEDS: Cyanocobalamin (B-12) 1,000 MCG TABLET PO SCH (07:19)
[2020-08-28] MEDS: Aspirin 81 MG TAB.CHEW PO SCH (07:19)
[2020-08-28] MEDS: Renal Vitamin 1 CAP CAPSULE PO SCH (07:19)
[2020-08-28] MEDS: PARoxetine 20 MG TABLET PO SCH (07:19)
[2020-08-28] MEDS: predniSONE 20 MG TABLET PO SCH (07:20)
[2020-08-28] MEDS: Fluticasone Propionate Nasal 50 MCG/SPRAY BOTTLE NS SCH (07:21)
[2020-08-28] MEDS: Chlorhexidine Rinse 15 ML MOUTHWASH MM SCH ×2 (07:21→20:55)
[2020-08-28] MEDS: Artificial Tears SOLN 15 ML BOTTLE BOTH EYES SCH ×2 (07:21→20:56)
[2020-08-28] MEDS ORDERED: 0.9 % Sodium Chloride 250 ML IVC PRN (07:34)
[2020-08-28] MEDS ORDERED: *HR* Heparin 10,000 UNIT/10 ML VIAL IV PRN (07:34)
[2020-08-28] MEDS ORDERED: 0.9 % Sodium Chloride 1,000 ML PRIME SCH (07:45)
[2020-08-28] MEDS: Budesonide/Formoterol 160/4.5 1 PUFF INH IH SCH ×2 (07:47→19:55)
[2020-08-28] MEDS: Insulin LISPRO 300 UNITS/3 ML VIAL SUBQ SCH ×3 (08:12→17:08)
[2020-08-28] MEDS ORDERED: Iron Sucrose Complex 400 MG in 0.9 % Sodium Chloride 250 ML IVPB ONE (09:00)
[2020-08-28] MEDS: SODIUM ZIRCONIUM CYCLOSILICATE 5 GM POWD.PACK PO SCH (09:32)
[2020-08-28 10:32] LABS: Hematocrit 24.3 % (35.3-44.9); Hemoglobin 7.8 g/dL (11.5-15.4)
[2020-08-28] MEDS ORDERED: SODIUM ZIRCONIUM CYCLOSILICATE 5 GM POWD.PACK PO ONE (13:00)
[2020-08-28] MEDS: Azithromycin 250 MG TABLET PO SCH (17:57)
[2020-08-28 18:05] LABS: Potassium,Urine 38.7 mEq/L
[2020-08-28] MEDS: traZODone 50 MG TABLET PO SCH (20:55)
[2020-08-29] MEDS: Ipratropium/Albuterol Neb 3 ML IH SCH ×7 (00:16→23:47)
[2020-08-29] MEDS: Acetaminophen 325 MG TABLET PO PRN (02:04)
[2020-08-29 02:29] LABS: Red Blood Count 2.59 M/mcL (3.82-4.97); White Blood Count 7.4 K/mcL (4.3-11.1)
[2020-08-29 02:30] LABS: Basophils % 0.1 %; Eosinophils % 0.1 %; Hematocrit 24.5 % (35.3-44.9); Hemoglobin 7.6 g/dL (11.5-15.4); Immature Granulocytes % 0.9 % (0-4); Lymphocytes # 0.9 K/mcL (0.6-4.6); Lymphocytes % 12.8 %; Mean Corpuscular Hemoglobin 29.3 pg (28.0-33.3); Mean Corpuscular Volume 94.6 fL (83.0-100.0); Mean Platelet Volume 10.2 fL (9.4-12.4); Monocytes # 0.5 K/mcL (0.0-1.3); Monocytes % 7.1 %; Neutrophils # 5.8 K/mcL (1.6-8.9); Platelet Count 159 K/mcL (140-400); Red Cell Distribution Width 16.5 % (11.5-14.5)
[2020-08-29 02:40] LABS: INR 1.2; Prothrombin Time 13.9 Seconds (9.4-12.1)
[2020-08-29 02:44] LABS: Albumin 3.8 g/dL (3.5-5.7); Albumin/Globulin Ratio 1.5 (1.1-2.2); Bilirubin,Total 0.3 mg/dL (0.3-1.0); Calcium 8.6 mg/dL (8.6-10.3); Globulin 2.6 g/dL (2.4-3.5); Magnesium 1.8 mg/dL (1.6-2.6); Phosphorous 3.9 mg/dL (2.7-4.5); Potassium 3.3 mEq/L (3.5-5.1); Total Protein 6.4 g/dL (6.4-8.9)
[2020-08-29] MEDS: Budesonide/Formoterol 160/4.5 1 PUFF INH IH SCH ×2 (07:29→19:57)
[2020-08-29] MEDS: Cyanocobalamin (B-12) 1,000 MCG TABLET PO SCH (07:51)
[2020-08-29] MEDS: Renal Vitamin 1 CAP CAPSULE PO SCH (07:51)
[2020-08-29] MEDS: Aspirin 81 MG TAB.CHEW PO SCH (07:51)
[2020-08-29] MEDS: predniSONE 20 MG TABLET PO SCH (07:51)
[2020-08-29] MEDS: PARoxetine 20 MG TABLET PO SCH (07:51)
[2020-08-29] MEDS: Artificial Tears SOLN 15 ML BOTTLE BOTH EYES SCH ×2 (07:52→20:35)
[2020-08-29] MEDS: Fluticasone Propionate Nasal 50 MCG/SPRAY BOTTLE NS SCH (07:52)
[2020-08-29] MEDS: Insulin LISPRO 300 UNITS/3 ML VIAL SUBQ SCH ×3 (07:52→18:00)
[2020-08-29] MEDS: Chlorhexidine Rinse 15 ML MOUTHWASH MM SCH ×2 (07:52→20:36)
[2020-08-29] MEDS: *HR* Heparin 5,000 UNIT/ML VIAL SQ SCH (16:31)
[2020-08-29] MEDS ORDERED: Lidocaine -MPF 2% 5 ML VIAL ONE ×2 (18:10→18:11)
[2020-08-29] MEDS: Azithromycin 250 MG TABLET PO SCH (20:35)
[2020-08-29] MEDS: traZODone 50 MG TABLET PO SCH (20:35)
[2020-08-30] MEDS: *HR* HYDROcodone/Acet 5/325 mg TABLET PO PRN ×3 (00:23→21:04)
[2020-08-30 01:00] LABS: Basophils % 0.1 %; Hematocrit 23.9 % (35.3-44.9); Hemoglobin 7.3 g/dL (11.5-15.4); Lymphocytes # 0.9 K/mcL (0.6-4.6); Lymphocytes % 11.2 %; Mean Corpuscular HGB Conc 30.5 g/dL (31.6-35.5); Mean Corpuscular Hemoglobin 29.2 pg (28.0-33.3); Mean Corpuscular Volume 95.6 fL (83.0-100.0); Mean Platelet Volume 10.8 fL (9.4-12.4); Monocytes # 0.6 K/mcL (0.0-1.3); Monocytes % 7.3 %; Neutrophils # 6.6 K/mcL (1.6-8.9); Platelet Count 163 K/mcL (140-400); Red Cell Distribution Width 16.2 % (11.5-14.5); Segmented Neutrophils % 80.4 %; White Blood Count 8.2 K/mcL (4.3-11.1)
[2020-08-30 01:09] LABS: INR 1.5; Prothrombin Time 16.9 Seconds (9.4-12.1)
[2020-08-30 01:21] LABS: Albumin 3.6 g/dL (3.5-5.7); Albumin/Globulin Ratio 1.4 (1.1-2.2); Bilirubin,Total 0.4 mg/dL (0.3-1.0); Calcium 8.9 mg/dL (8.6-10.3); Globulin 2.5 g/dL (2.4-3.5); Magnesium 1.7 mg/dL (1.6-2.6); Phosphorous 3.8 mg/dL (2.7-4.5); Potassium 3.7 mEq/L (3.5-5.1); Total Protein 6.1 g/dL (6.4-8.9)
[2020-08-30] MEDS: Ipratropium/Albuterol Neb 3 ML IH SCH ×6 (04:04→23:29)
[2020-08-30] MEDS: *HR* Heparin 5,000 UNIT/ML VIAL SQ SCH ×2 (04:46→17:57)
[2020-08-30] MEDS: Budesonide/Formoterol 160/4.5 1 PUFF INH IH SCH ×2 (07:45→20:20)
[2020-08-30] MEDS: Chlorhexidine Rinse 15 ML MOUTHWASH MM SCH ×2 (09:06→21:04)
[2020-08-30] MEDS: predniSONE 20 MG TABLET PO SCH (09:07)
[2020-08-30] MEDS: PARoxetine 20 MG TABLET PO SCH (09:08)
[2020-08-30] MEDS: Metoprolol XL (24 HR) Succ 25 MG TAB.ER.24H PO SCH (09:09)
[2020-08-30] MEDS: Cyanocobalamin (B-12) 1,000 MCG TABLET PO SCH (09:10)
[2020-08-30] MEDS: Renal Vitamin 1 CAP CAPSULE PO SCH (09:10)
[2020-08-30] MEDS: Aspirin 81 MG TAB.CHEW PO SCH (09:10)
[2020-08-30] MEDS: Insulin LISPRO 300 UNITS/3 ML VIAL SUBQ SCH ×3 (09:15→16:28)
[2020-08-30] MEDS: Acetaminophen 325 MG TABLET PO PRN (10:15)
[2020-08-30] MEDS ORDERED: 0.9 % Sodium Chloride 1,000 ML IVC SCH (12:00)
[2020-08-30] MEDS: Artificial Tears SOLN 15 ML BOTTLE BOTH EYES SCH ×2 (12:03→21:05)
[2020-08-30] MEDS: Fluticasone Propionate Nasal 50 MCG/SPRAY BOTTLE NS SCH (12:03)
[2020-08-30] MEDS ORDERED: 0.9 % Sodium Chloride 1,000 ML ONE (12:08)
[2020-08-30 17:20] LABS: CK-MB (CK isoenzymes) 0 % (0-4); CK-MM (CK-isoenzymes) 100 % (96-100)
[2020-08-30] MEDS: Azithromycin 250 MG TABLET PO SCH (17:57)
[2020-08-30] MEDS: traZODone 50 MG TABLET PO SCH (21:04)
[2020-08-31 03:16] LABS: Hematocrit 21.7 % (35.3-44.9); Hemoglobin 6.8 g/dL (11.5-15.4); Mean Corpuscular HGB Conc 31.3 g/dL (31.6-35.5); Mean Corpuscular Volume 95.6 fL (83.0-100.0); Mean Platelet Volume 10.6 fL (9.4-12.4); Platelet Count 134 K/mcL (140-400); Red Blood Count 2.27 M/mcL (3.82-4.97); Red Cell Distribution Width 15.9 % (11.5-14.5); White Blood Count 6.9 K/mcL (4.3-11.1)
[2020-08-31 03:33] LABS: Calcium 8.5 mg/dL (8.6-10.3); Magnesium 1.9 mg/dL (1.6-2.6); Phosphorous 4.3 mg/dL (2.7-4.5); Potassium 4.2 mEq/L (3.5-5.1)
[2020-08-31] MEDS: Ipratropium/Albuterol Neb 3 ML IH SCH ×5 (04:12→20:25)
[2020-08-31] MEDS: *HR* Heparin 5,000 UNIT/ML VIAL SQ SCH ×2 (06:06→16:15)
[2020-08-31] MEDS ORDERED: *HR* Heparin 10,000 UNIT/10 ML VIAL IV PRN (07:46)
[2020-08-31] MEDS ORDERED: 0.9 % Sodium Chloride 250 ML IVC PRN (07:46)
[2020-08-31] MEDS ORDERED: 0.9 % Sodium Chloride 1,000 ML PRIME SCH (08:00)
[2020-08-31] MEDS: Budesonide/Formoterol 160/4.5 1 PUFF INH IH SCH ×2 (08:00→20:25)
[2020-08-31] MEDS: Insulin LISPRO 300 UNITS/3 ML VIAL SUBQ SCH ×3 (08:20→16:15)
[2020-08-31] MEDS: Artificial Tears SOLN 15 ML BOTTLE BOTH EYES SCH ×2 (08:53→20:00)
[2020-08-31] MEDS: Fluticasone Propionate Nasal 50 MCG/SPRAY BOTTLE NS SCH (08:53)
[2020-08-31] MEDS: Renal Vitamin 1 CAP CAPSULE PO SCH (08:53)
[2020-08-31] MEDS: Cyanocobalamin (B-12) 1,000 MCG TABLET PO SCH (08:53)
[2020-08-31] MEDS: Chlorhexidine Rinse 15 ML MOUTHWASH MM SCH ×2 (08:53→20:00)
[2020-08-31] MEDS: PARoxetine 20 MG TABLET PO SCH (08:53)
[2020-08-31] MEDS: Aspirin 81 MG TAB.CHEW PO SCH (08:53)
[2020-08-31] MEDS: NIFEdipine XL (24 HR) 30 MG TAB.ER.24 PO SCH (08:53)
[2020-08-31 11:40] LABS: CK Total (Ck Isoenzymes) 49 U/L (20-180); CK-BB (CK isoenzymes) 0 % (0-0)
[2020-08-31] MEDS: Metoprolol XL (24 HR) Succ 25 MG TAB.ER.24H PO SCH (13:39)
[2020-08-31] MEDS: *HR* HYDROcodone/Acet 5/325 mg TABLET PO PRN ×2 (13:52→21:49)
[2020-08-31 14:07] LABS: Hematocrit 29.9 % (35.3-44.9)
[2020-08-31 14:08] LABS: Hemoglobin 9.4 g/dL (11.5-15.4)
[2020-08-31] MEDS: traZODone 50 MG TABLET PO SCH (20:00)
[2020-08-31] MEDS: rOPINIRole 1 MG TABLET PO SCH (20:00)
[2020-09-01] MEDS: Ipratropium/Albuterol Neb 3 ML IH SCH ×6 (03:49→20:32)
[2020-09-01 03:50] LABS: Hematocrit 25.8 % (35.3-44.9); Hemoglobin 8.1 g/dL (11.5-15.4); Mean Corpuscular HGB Conc 31.4 g/dL (31.6-35.5); Mean Corpuscular Volume 95.6 fL (83.0-100.0); Mean Platelet Volume 10.4 fL (9.4-12.4); Platelet Count 160 K/mcL (140-400); Red Cell Distribution Width 15.5 % (11.5-14.5); White Blood Count 9.2 K/mcL (4.3-11.1)
[2020-09-01 04:09] LABS: Calcium 8.7 mg/dL (8.6-10.3); Magnesium 1.9 mg/dL (1.6-2.6); Phosphorous 3.3 mg/dL (2.7-4.5); Potassium 3.9 mEq/L (3.5-5.1)
[2020-09-01] MEDS: *HR* Heparin 5,000 UNIT/ML VIAL SQ SCH ×2 (06:02→16:20)
[2020-09-01] MEDS: Budesonide/Formoterol 160/4.5 1 PUFF INH IH SCH ×2 (07:32→20:32)
[2020-09-01] MEDS: Cyanocobalamin (B-12) 1,000 MCG TABLET PO SCH (07:41)
[2020-09-01] MEDS: PARoxetine 20 MG TABLET PO SCH (07:41)
[2020-09-01] MEDS: Chlorhexidine Rinse 15 ML MOUTHWASH MM SCH ×2 (07:41→19:52)
[2020-09-01] MEDS: NIFEdipine XL (24 HR) 30 MG TAB.ER.24 PO SCH (07:41)
[2020-09-01] MEDS: Metoprolol XL (24 HR) Succ 25 MG TAB.ER.24H PO SCH (07:41)
[2020-09-01] MEDS: Renal Vitamin 1 CAP CAPSULE PO SCH (07:41)
[2020-09-01] MEDS: Aspirin 81 MG TAB.CHEW PO SCH (07:41)
[2020-09-01] MEDS: Artificial Tears SOLN 15 ML BOTTLE BOTH EYES SCH ×2 (07:41→19:50)
[2020-09-01] MEDS: Fluticasone Propionate Nasal 50 MCG/SPRAY BOTTLE NS SCH (07:42)
[2020-09-01] MEDS: Insulin LISPRO 300 UNITS/3 ML VIAL SUBQ SCH ×3 (07:42→16:20)
[2020-09-01] MEDS: *HR* HYDROcodone/Acet 5/325 mg TABLET PO PRN ×2 (07:48→19:50)
[2020-09-01] MEDS: traZODone 50 MG TABLET PO SCH (19:50)
[2020-09-01] MEDS: rOPINIRole 1 MG TABLET PO SCH (19:50)
[2020-09-02] MEDS: Ipratropium/Albuterol Neb 3 ML IH SCH ×7 (00:23→23:18)
[2020-09-02 04:07] LABS: Hematocrit 23.4 % (35.3-44.9); Hemoglobin 7.5 g/dL (11.5-15.4); Mean Corpuscular HGB Conc 32.1 g/dL (31.6-35.5); Mean Corpuscular Hemoglobin 30.4 pg (28.0-33.3); Mean Corpuscular Volume 94.7 fL (83.0-100.0); Mean Platelet Volume 10.2 fL (9.4-12.4); Platelet Count 152 K/mcL (140-400); Red Blood Count 2.47 M/mcL (3.82-4.97); Red Cell Distribution Width 15.4 % (11.5-14.5); White Blood Count 7.9 K/mcL (4.3-11.1)
[2020-09-02 04:25] LABS: Calcium 8.6 mg/dL (8.6-10.3); Phosphorous 4.1 mg/dL (2.7-4.5); Potassium 4.1 mEq/L (3.5-5.1)
[2020-09-02] MEDS: *HR* Heparin 5,000 UNIT/ML VIAL SQ SCH ×2 (06:34→17:19)
[2020-09-02] MEDS: Budesonide/Formoterol 160/4.5 1 PUFF INH IH SCH ×2 (07:33→20:00)
[2020-09-02] MEDS: NIFEdipine XL (24 HR) 30 MG TAB.ER.24 PO SCH (07:51)
[2020-09-02] MEDS: Renal Vitamin 1 CAP CAPSULE PO SCH (07:51)
[2020-09-02] MEDS: PARoxetine 20 MG TABLET PO SCH (07:51)
[2020-09-02] MEDS: *HR* HYDROcodone/Acet 5/325 mg TABLET PO PRN ×2 (07:51→19:43)
[2020-09-02] MEDS: Metoprolol XL (24 HR) Succ 25 MG TAB.ER.24H PO SCH (07:51)
[2020-09-02] MEDS: Insulin LISPRO 300 UNITS/3 ML VIAL SUBQ SCH ×3 (07:52→15:46)
[2020-09-02] MEDS: Artificial Tears SOLN 15 ML BOTTLE BOTH EYES SCH ×2 (07:52→19:44)
[2020-09-02] MEDS: Fluticasone Propionate Nasal 50 MCG/SPRAY BOTTLE NS SCH (07:52)
[2020-09-02] MEDS: Aspirin 81 MG TAB.CHEW PO SCH (07:52)
[2020-09-02] MEDS: Chlorhexidine Rinse 15 ML MOUTHWASH MM SCH ×2 (07:52→19:44)
[2020-09-02] MEDS: Cyanocobalamin (B-12) 1,000 MCG TABLET PO SCH (07:52)
[2020-09-02] MEDS: rOPINIRole 1 MG TABLET PO SCH (19:43)
[2020-09-02] MEDS: traZODone 50 MG TABLET PO SCH (19:44)
[2020-09-03] MEDS: Ipratropium/Albuterol Neb 3 ML IH SCH ×6 (03:28→22:55)
[2020-09-03 03:59] LABS: Hematocrit 23.1 % (35.3-44.9); Hemoglobin 7.5 g/dL (11.5-15.4); Mean Corpuscular HGB Conc 32.5 g/dL (31.6-35.5); Mean Corpuscular Hemoglobin 30.7 pg (28.0-33.3); Mean Corpuscular Volume 94.7 fL (83.0-100.0); Mean Platelet Volume 10.3 fL (9.4-12.4); Platelet Count 170 K/mcL (140-400); Red Blood Count 2.44 M/mcL (3.82-4.97); Red Cell Distribution Width 15.3 % (11.5-14.5); White Blood Count 8.3 K/mcL (4.3-11.1)
[2020-09-03 04:20] LABS: Magnesium 2.2 mg/dL (1.6-2.6); Phosphorous 4.3 mg/dL (2.7-4.5)
[2020-09-03 04:21] LABS: Calcium 8.9 mg/dL (8.6-10.3); Potassium 4.2 mEq/L (3.5-5.1)
[2020-09-03] MEDS: *HR* Heparin 5,000 UNIT/ML VIAL SQ SCH ×2 (05:12→16:56)
[2020-09-03] MEDS: Budesonide/Formoterol 160/4.5 1 PUFF INH IH SCH ×2 (07:15→19:42)
[2020-09-03] MEDS: NIFEdipine XL (24 HR) 30 MG TAB.ER.24 PO SCH (07:44)
[2020-09-03] MEDS: Cyanocobalamin (B-12) 1,000 MCG TABLET PO SCH (07:45)
[2020-09-03] MEDS: Fluticasone Propionate Nasal 50 MCG/SPRAY BOTTLE NS SCH (07:45)
[2020-09-03] MEDS: *HR* HYDROcodone/Acet 5/325 mg TABLET PO PRN (07:45)
[2020-09-03] MEDS: Aspirin 81 MG TAB.CHEW PO SCH (07:45)
[2020-09-03] MEDS: Artificial Tears SOLN 15 ML BOTTLE BOTH EYES SCH ×2 (07:45→19:38)
[2020-09-03] MEDS: Metoprolol XL (24 HR) Succ 25 MG TAB.ER.24H PO SCH (07:45)
[2020-09-03] MEDS: PARoxetine 20 MG TABLET PO SCH (07:45)
[2020-09-03] MEDS: Renal Vitamin 1 CAP CAPSULE PO SCH (07:45)
[2020-09-03] MEDS: Insulin LISPRO 300 UNITS/3 ML VIAL SUBQ SCH ×3 (07:46→16:56)
[2020-09-03] MEDS: Chlorhexidine Rinse 15 ML MOUTHWASH MM SCH ×2 (07:46→19:37)
[2020-09-03] MEDS ORDERED: *HR* Heparin 10,000 UNIT/10 ML VIAL IV PRN (10:25)
[2020-09-03] MEDS ORDERED: 0.9 % Sodium Chloride 250 ML IVC PRN (10:25)
[2020-09-03] MEDS ORDERED: 0.9 % Sodium Chloride 1,000 ML PRIME SCH (10:30)
[2020-09-03] MEDS: traZODone 50 MG TABLET PO SCH (19:37)
[2020-09-03] MEDS: rOPINIRole 1 MG TABLET PO SCH (19:37)
[2020-09-04 03:00] LABS: Hematocrit 23.2 % (35.3-44.9); Hemoglobin 7.2 g/dL (11.5-15.4); Mean Corpuscular Hemoglobin 29.4 pg (28.0-33.3); Mean Corpuscular Volume 94.7 fL (83.0-100.0); Mean Platelet Volume 9.8 fL (9.4-12.4); Platelet Count 186 K/mcL (140-400); Red Blood Count 2.45 M/mcL (3.82-4.97); Red Cell Distribution Width 14.9 % (11.5-14.5); White Blood Count 8.5 K/mcL (4.3-11.1)
[2020-09-04 03:17] LABS: Calcium 8.9 mg/dL (8.6-10.3); Magnesium 1.9 mg/dL (1.6-2.6); Phosphorous 2.9 mg/dL (2.7-4.5); Potassium 4.1 mEq/L (3.5-5.1)
[2020-09-04] MEDS: Ipratropium/Albuterol Neb 3 ML IH SCH ×6 (03:49→23:49)
[2020-09-04] MEDS: *HR* Heparin 5,000 UNIT/ML VIAL SQ SCH ×3 (05:20→17:26)
[2020-09-04] MEDS: Budesonide/Formoterol 160/4.5 1 PUFF INH IH SCH ×2 (07:35→20:14)
[2020-09-04] MEDS: Artificial Tears SOLN 15 ML BOTTLE BOTH EYES SCH ×2 (07:41→20:47)
[2020-09-04] MEDS: Chlorhexidine Rinse 15 ML MOUTHWASH MM SCH ×2 (07:41→20:45)
[2020-09-04] MEDS: Cyanocobalamin (B-12) 1,000 MCG TABLET PO SCH (07:42)
[2020-09-04] MEDS: PARoxetine 20 MG TABLET PO SCH (07:42)
[2020-09-04] MEDS: Aspirin 81 MG TAB.CHEW PO SCH (07:42)
[2020-09-04] MEDS: Renal Vitamin 1 CAP CAPSULE PO SCH (07:42)
[2020-09-04] MEDS: Insulin LISPRO 300 UNITS/3 ML VIAL SUBQ SCH ×3 (07:44→17:25)
[2020-09-04] MEDS: Fluticasone Propionate Nasal 50 MCG/SPRAY BOTTLE NS SCH (07:47)
[2020-09-04] MEDS: NIFEdipine XL (24 HR) 30 MG TAB.ER.24 PO SCH (11:10)
[2020-09-04] MEDS: Metoprolol XL (24 HR) Succ 25 MG TAB.ER.24H PO SCH (11:10)
[2020-09-04] MEDS: traZODone 50 MG TABLET PO SCH (20:47)
[2020-09-04] MEDS: rOPINIRole 1 MG TABLET PO SCH (20:47)
[2020-09-05 01:27] LABS: Hematocrit 23.6 % (35.3-44.9); Hemoglobin 7.3 g/dL (11.5-15.4); Mean Corpuscular HGB Conc 30.9 g/dL (31.6-35.5); Mean Corpuscular Hemoglobin 29.7 pg (28.0-33.3); Mean Corpuscular Volume 95.9 fL (83.0-100.0); Mean Platelet Volume 10.1 fL (9.4-12.4); Platelet Count 191 K/mcL (140-400); Red Blood Count 2.46 M/mcL (3.82-4.97); White Blood Count 7.3 K/mcL (4.3-11.1)
[2020-09-05 01:33] LABS: INR 1.2
[2020-09-05 01:54] LABS: Calcium 9.2 mg/dL (8.6-10.3); Potassium 4.2 mEq/L (3.5-5.1)
[2020-09-05 01:55] LABS: Phosphorous 3.8 mg/dL (2.7-4.5)
[2020-09-05] MEDS: Ipratropium/Albuterol Neb 3 ML IH SCH ×6 (03:42→23:37)
[2020-09-05] MEDS: Budesonide/Formoterol 160/4.5 1 PUFF INH IH SCH ×2 (07:10→19:51)
[2020-09-05] MEDS ORDERED: 0.9 % Sodium Chloride 500 ML ONE (07:40)
[2020-09-05] MEDS: Insulin LISPRO 300 UNITS/3 ML VIAL SUBQ SCH ×3 (08:05→17:58)
[2020-09-05] MEDS ORDERED: Heparin 1,000 UNITS/500 mL 500 ML ONE (08:36)
[2020-09-05] MEDS ORDERED: Lidocaine/EPI 1:100k 1% 50 ML VIAL ONE (08:36)
[2020-09-05] MEDS ORDERED: Clindamycin 600 MG/50 ML 600 MG/50 ML IV.SOLN IVPB STA (08:44)
[2020-09-05] MEDS ORDERED: *HR* Heparin 5,000 UNIT/ML VIAL ONE (09:15)
[2020-09-05] MEDS: Artificial Tears SOLN 15 ML BOTTLE BOTH EYES SCH ×2 (10:12→21:05)
[2020-09-05] MEDS: Renal Vitamin 1 CAP CAPSULE PO SCH (10:12)
[2020-09-05] MEDS: PARoxetine 20 MG TABLET PO SCH (10:12)
[2020-09-05] MEDS: Cyanocobalamin (B-12) 1,000 MCG TABLET PO SCH (10:12)
[2020-09-05] MEDS: Chlorhexidine Rinse 15 ML MOUTHWASH MM SCH ×2 (10:12→21:04)
[2020-09-05] MEDS: NIFEdipine XL (24 HR) 30 MG TAB.ER.24 PO SCH (10:12)
[2020-09-05] MEDS: Metoprolol XL (24 HR) Succ 25 MG TAB.ER.24H PO SCH (10:13)
[2020-09-05] MEDS: Fluticasone Propionate Nasal 50 MCG/SPRAY BOTTLE NS SCH (10:13)
[2020-09-05] MEDS: Aspirin 81 MG TAB.CHEW PO SCH (10:13)
[2020-09-05] MEDS: *HR* Heparin 5,000 UNIT/ML VIAL SQ SCH (17:59)
[2020-09-05] MEDS: traZODone 50 MG TABLET PO SCH (21:04)
[2020-09-05] MEDS: rOPINIRole 1 MG TABLET PO SCH (21:04)
[2020-09-06] MEDS: Ipratropium/Albuterol Neb 3 ML IH SCH ×5 (04:30→20:30)
[2020-09-06 05:58] LABS: Hematocrit 25.7 % (35.3-44.9); Hemoglobin 8.2 g/dL (11.5-15.4); Mean Corpuscular HGB Conc 31.9 g/dL (31.6-35.5); Mean Corpuscular Hemoglobin 30.4 pg (28.0-33.3); Mean Corpuscular Volume 95.2 fL (83.0-100.0); Platelet Count 234 K/mcL (140-400); Red Cell Distribution Width 15.1 % (11.5-14.5); White Blood Count 8.9 K/mcL (4.3-11.1)
[2020-09-06 06:05] LABS: Calcium 9.5 mg/dL (8.6-10.3); Potassium 4.4 mEq/L (3.5-5.1)
[2020-09-06] MEDS: *HR* Heparin 5,000 UNIT/ML VIAL SQ SCH ×2 (06:33→18:26)
[2020-09-06] MEDS ORDERED: *HR* Heparin 10,000 UNIT/10 ML VIAL IV PRN (07:28)
[2020-09-06] MEDS ORDERED: 0.9 % Sodium Chloride 250 ML IVC PRN (07:28)
[2020-09-06] MEDS: Budesonide/Formoterol 160/4.5 1 PUFF INH IH SCH ×2 (07:30→20:30)
[2020-09-06] MEDS: Fluticasone Propionate Nasal 50 MCG/SPRAY BOTTLE NS SCH (07:59)
[2020-09-06] MEDS: Chlorhexidine Rinse 15 ML MOUTHWASH MM SCH (07:59)
[2020-09-06] MEDS: Artificial Tears SOLN 15 ML BOTTLE BOTH EYES SCH (07:59)
[2020-09-06] MEDS: Aspirin 81 MG TAB.CHEW PO SCH (08:00)
[2020-09-06] MEDS: Renal Vitamin 1 CAP CAPSULE PO SCH (08:00)
[2020-09-06] MEDS: Cyanocobalamin (B-12) 1,000 MCG TABLET PO SCH (08:00)
[2020-09-06] MEDS: PARoxetine 20 MG TABLET PO SCH (08:01)
[2020-09-06] MEDS: Insulin LISPRO 300 UNITS/3 ML VIAL SUBQ SCH ×3 (08:07→16:24)
[2020-09-06] MEDS ORDERED: *HR* Dextrose 50 % in Water (Vial) 50 ML VIAL IVP PRN (09:48)
[2020-09-06] MEDS: Metoprolol XL (24 HR) Succ 25 MG TAB.ER.24H PO SCH (13:12)
[2020-09-06] MEDS: NIFEdipine XL (24 HR) 30 MG TAB.ER.24 PO SCH (13:12)
[2020-09-06 16:20] LABS: Influenza A PCR Negative (Negative); Influenza B PCR Negative (Negative); Resp. Syncytial Virus PCR Negative (Negative)
[2020-09-06 16:33] LABS: SARS-CoV-2 by PCR (In House) Negative (Negative)
[2020-09-06 18:21] VITALS: BP 115/77
== END 2020-09-06 19:14 | DRG 674 ==
LOC: 2NNU 14:23 → EMEROOARM 14:23 → SUATTDRO 16:56 → 2NNU 18:14 → SUATTDRO 18:47 → 2ANU 08-31 14:59
PROVIDERS: ADMIT Internal Medicine; ATTEND Internal Medicine
PROC: ENDOEBX (2020-08-29 15:05)
PROC: IRPERMA (2020-09-05 08:00)

== ENCOUNTER 2021-01-05 15:55 | Inpatient (IN) ==
[2021-01-05] MEDS ORDERED: Furosemide 40 MG/4 ML VIAL IVP ONE (16:03)
[2021-01-05 16:59] LABS: Basophils # 0.1 K/mcL (0.0-0.2); Basophils % 0.5 %; Eosinophils # 0.4 K/mcL (0.0-0.6); Hematocrit 32.9 % (35.3-44.9); Hemoglobin 10.3 g/dL (11.5-15.4); Immature Granulocytes % 0.3 % (0-4); Lymphocytes # 1.2 K/mcL (0.6-4.6); Lymphocytes % 11.4 %; Mean Corpuscular HGB Conc 31.3 g/dL (31.6-35.5); Mean Corpuscular Hemoglobin 30.5 pg (28.0-33.3); Mean Corpuscular Volume 97.3 fL (83.0-100.0); Mean Platelet Volume 10.2 fL (9.4-12.4); Monocytes # 0.6 K/mcL (0.0-1.3); Monocytes % 5.4 %; Neutrophils # 8.2 K/mcL (1.6-8.9); Platelet Count 194 K/mcL (140-400); Red Blood Count 3.38 M/mcL (3.82-4.97); Red Cell Distribution Width 14.1 % (11.5-14.5); Segmented Neutrophils % 78.4 %; White Blood Count 10.4 K/mcL (4.3-11.1)
[2021-01-05 17:06] LABS: Bacteria,Urine Moderate per hpf (None-Few); Bilirubin,Urine Negative (Negative); Blood,Urine Negative (Negative); Clarity,Urine Clear (Clear); Color,Urine Light-Yellow (Yellow); Glucose,Urine (UA) Normal (Normal); Ketones,Urine Negative (Negative); Leukocyte Esterase,Urine Moderate (Negative); Mucus,Urine Few per lpf (None-Few); Nitrite,Urine Positive (Negative); PH,Urine 6.5 pH Units (5.0-8.0); Protein,Urine Negative (Neg-Trace); RBC,Urine 0-3 per hpf (0-3); Renal Epithelial Cells,Urine Few per hpf (None-Few); Specific Gravity,Urine 1.012 (1.010-1.025); Squamous Epithelial Cell,Urine Few per hpf (None-Few); Urobilinogen,Urine Normal (Normal)
[2021-01-05 17:20] LABS: Albumin/Globulin Ratio 1.2 (1.1-2.2); Bilirubin,Total 0.4 mg/dL (0.3-1.0); Calcium 9.4 mg/dL (8.6-10.3); Globulin 3.3 g/dL (2.4-3.5); Potassium 3.4 mEq/L (3.5-5.1); Total Protein 7.3 g/dL (6.4-8.9); Troponin I 0.03 ng/mL (< 0.04)
[2021-01-05 17:53] LABS: Influenza A PCR Negative (Negative); Influenza B PCR Negative (Negative); Resp. Syncytial Virus PCR Negative (Negative)
[2021-01-05 17:56] LABS: SARS-CoV-2 by PCR (In House) Negative (Negative)
[2021-01-05] MEDS ORDERED: Sulfamethoxazole/Trimeth DS 1 EACH TABLET PO ONE (18:12)
[2021-01-05] MEDS ORDERED: Ertapenem 1,000 MG in 0.9 % Sodium Chloride Mini Bag 100 ML IVPB ONE (18:39)
[2021-01-05] MEDS ORDERED: Melatonin 3 MG TABLET PO PRN (21:08)
[2021-01-05] MEDS ORDERED: Naloxone 0.4 MG/ML INJ IVP PRN (21:08)
[2021-01-05 22:02] LABS: INR 1.3; Prothrombin Time 14.7 Seconds (9.4-12.1)
[2021-01-05 22:05] LABS: Activated Partial Thrombo Time 32.1 Seconds (26.0-36.0)
[2021-01-05 22:07] LABS: Phosphorous 3.3 mg/dL (2.7-4.5)
[2021-01-06] MEDS ORDERED: *HR* Heparin 5,000 UNIT/ML VIAL IVP ONE (01:08)
[2021-01-06] MEDS ORDERED: *HR* Heparin 5,000 UNIT/ML VIAL IVP PRN ×2 (01:08)
[2021-01-06 01:09] LABS: Hematocrit 28.9 % (35.3-44.9); Hemoglobin 9.3 g/dL (11.5-15.4); Mean Corpuscular HGB Conc 32.2 g/dL (31.6-35.5); Mean Corpuscular Hemoglobin 31.2 pg (28.0-33.3); Mean Platelet Volume 10.2 fL (9.4-12.4); Platelet Count 183 K/mcL (140-400); Red Blood Count 2.98 M/mcL (3.82-4.97); Red Cell Distribution Width 14.1 % (11.5-14.5); White Blood Count 8.6 K/mcL (4.3-11.1)
[2021-01-06 01:25] LABS: Calcium 9.1 mg/dL (8.6-10.3); Potassium 3.2 mEq/L (3.5-5.1)
[2021-01-06] MEDS: Heparin 25,000UNIT/250ML 1/2NS 25,000 UNIT/250 ML IV.SOLN IVC SCH ×2 (01:54→22:26)
[2021-01-06] MEDS ORDERED: Potassium Chloride Elixir 20 MEQ/15 ML UDC PO ONE (03:41)
[2021-01-06] MEDS ORDERED: Nitroglycerin 0.4 MG TAB.SUBL SL PRN (03:53)
[2021-01-06] MEDS ORDERED: *HR* Atropine Sulfate 1 MG/10 ML SYRINGE IVP ONE (04:03)
[2021-01-06] MEDS ORDERED: Aspirin 325 MG TABLET PO ONE ×2 (05:09→09:45)
[2021-01-06] MEDS ORDERED: Perflutren Lipid Microsphere 1.3 ML in 0.9 % Sodium Chloride 8.7 ML IVP PRN (05:10)
[2021-01-06] MEDS ORDERED: Dextrose Gel 15 GM/37.5 ML TUBE PO PRN ×2 (06:01)
[2021-01-06] MEDS ORDERED: *HR* Dextrose 50 % in Water (Syg) 50 ML SYRINGE IVP PRN (06:01)
[2021-01-06] MEDS ORDERED: D5% in Water 1,000 ML IVC PRN (06:01)
[2021-01-06] MEDS ORDERED: Ipratropium/Albuterol Neb 3 ML IH PRN (06:40)
[2021-01-06 09:24] LABS: Estimated Average Glucose 154 mg/dl
[2021-01-06] MEDS: Furosemide 40 MG/4 ML VIAL IVP SCH (09:40)
[2021-01-06] MEDS: Insulin LISPRO 300 UNITS/3 ML VIAL SUBQ SCH ×4 (09:41→22:27)
[2021-01-06] MEDS: Ertapenem 1,000 MG in 0.9 % Sodium Chloride Mini Bag 100 ML IVPB SCH (18:16)
[2021-01-06] MEDS: Acetaminophen 325 MG TABLET PO PRN (21:59)
[2021-01-07 01:05] LABS: Hematocrit 29.4 % (35.3-44.9); Mean Corpuscular HGB Conc 30.6 g/dL (31.6-35.5); Mean Corpuscular Hemoglobin 29.7 pg (28.0-33.3); Platelet Count 186 K/mcL (140-400); Red Blood Count 3.03 M/mcL (3.82-4.97); Red Cell Distribution Width 14.2 % (11.5-14.5)
[2021-01-07 02:46] LABS: Calcium 9.1 mg/dL (8.6-10.3); Potassium 3.9 mEq/L (3.5-5.1)
[2021-01-07] MEDS: Heparin 25,000UNIT/250ML 1/2NS 25,000 UNIT/250 ML IV.SOLN IVC SCH ×2 (07:33→16:58)
[2021-01-07] MEDS: Insulin LISPRO 300 UNITS/3 ML VIAL SUBQ SCH ×4 (07:34→20:34)
[2021-01-07] MEDS: Furosemide 40 MG/4 ML VIAL IVP SCH (09:13)
[2021-01-07] MEDS: Acetaminophen 325 MG TABLET PO PRN (12:09)
[2021-01-07] MEDS: Ertapenem 1,000 MG in 0.9 % Sodium Chloride Mini Bag 100 ML IVPB SCH (19:05)
[2021-01-07] MEDS: rOPINIRole 1 MG TABLET PO SCH (20:33)
[2021-01-07] MEDS: Gabapentin 400 MG CAPSULE PO SCH (20:34)
[2021-01-07] MEDS: traZODone 50 MG TABLET PO SCH (20:34)
[2021-01-08 01:09] LABS: Hematocrit 28.3 % (35.3-44.9); Hemoglobin 8.9 g/dL (11.5-15.4); Mean Corpuscular HGB Conc 31.4 g/dL (31.6-35.5); Mean Corpuscular Volume 98.6 fL (83.0-100.0); Mean Platelet Volume 9.7 fL (9.4-12.4); Platelet Count 182 K/mcL (140-400); Red Blood Count 2.87 M/mcL (3.82-4.97); Red Cell Distribution Width 14.1 % (11.5-14.5); White Blood Count 9.8 K/mcL (4.3-11.1)
[2021-01-08 02:00] LABS: Calcium 9.3 mg/dL (8.6-10.3); Potassium 3.8 mEq/L (3.5-5.1)
[2021-01-08] MEDS: Insulin LISPRO 300 UNITS/3 ML VIAL SUBQ SCH ×4 (07:16→22:15)
[2021-01-08] MEDS ORDERED: NIFEdipine XL (24 HR) 30 MG TAB.ER.24 PO SCH (09:00)
[2021-01-08] MEDS ORDERED: Metoprolol XL (24 HR) Succ 25 MG TAB.ER.24H PO SCH (09:00)
[2021-01-08] MEDS: PARoxetine 20 MG TABLET PO SCH (09:30)
[2021-01-08] MEDS: Gabapentin 400 MG CAPSULE PO SCH ×2 (09:30→22:12)
[2021-01-08] MEDS: Aspirin 81 MG TAB.CHEW PO SCH (09:30)
[2021-01-08] MEDS: Furosemide 40 MG/4 ML VIAL IVP SCH (09:30)
[2021-01-08] MEDS: Sennosides 8.6 MG TABLET PO SCH (09:30)
[2021-01-08] MEDS: Acetaminophen 325 MG TABLET PO PRN ×2 (11:19→17:20)
[2021-01-08] MEDS: Heparin 25,000UNIT/250ML 1/2NS 25,000 UNIT/250 ML IV.SOLN IVC SCH (11:36)
[2021-01-08] MEDS: Nystatin Cream 15 GM TUBE TP PRN ×2 (11:37→17:30)
[2021-01-08] MEDS: Ertapenem 1,000 MG in 0.9 % Sodium Chloride Mini Bag 100 ML IVPB SCH (17:18)
[2021-01-08] MEDS: traZODone 50 MG TABLET PO SCH (22:12)
[2021-01-08] MEDS: rOPINIRole 1 MG TABLET PO SCH (22:17)
[2021-01-09 03:05] LABS: Hematocrit 29.1 % (35.3-44.9); Hemoglobin 9.2 g/dL (11.5-15.4); Mean Corpuscular HGB Conc 31.6 g/dL (31.6-35.5); Mean Corpuscular Hemoglobin 31.3 pg (28.0-33.3); Platelet Count 187 K/mcL (140-400); Red Blood Count 2.94 M/mcL (3.82-4.97); Red Cell Distribution Width 14.2 % (11.5-14.5); White Blood Count 10.7 K/mcL (4.3-11.1)
[2021-01-09 03:25] LABS: Calcium 9.4 mg/dL (8.6-10.3); Potassium 3.7 mEq/L (3.5-5.1)
[2021-01-09] MEDS: Acetaminophen 325 MG TABLET PO PRN ×3 (03:30→16:32)
[2021-01-09] MEDS: Heparin 25,000UNIT/250ML 1/2NS 25,000 UNIT/250 ML IV.SOLN IVC SCH (04:09)
[2021-01-09] MEDS: Insulin LISPRO 300 UNITS/3 ML VIAL SUBQ SCH ×4 (07:35→20:37)
[2021-01-09] MEDS: Aspirin 81 MG TAB.CHEW PO SCH (08:40)
[2021-01-09] MEDS: Gabapentin 400 MG CAPSULE PO SCH ×2 (08:40→20:37)
[2021-01-09] MEDS: Sennosides 8.6 MG TABLET PO SCH (08:40)
[2021-01-09] MEDS: Furosemide 40 MG/4 ML VIAL IVP SCH (08:40)
[2021-01-09] MEDS: PARoxetine 20 MG TABLET PO SCH (08:49)
[2021-01-09] MEDS: *HR* Heparin 5,000 UNIT/ML VIAL SQ SCH ×2 (13:12→21:51)
[2021-01-09] MEDS: Ondansetron ODT 4 MG TAB.RAPDIS SL PRN (13:17)
[2021-01-09] MEDS: Ertapenem 1,000 MG in 0.9 % Sodium Chloride Mini Bag 100 ML IVPB SCH (16:33)
[2021-01-09] MEDS: traZODone 50 MG TABLET PO SCH (20:37)
[2021-01-09] MEDS: rOPINIRole 1 MG TABLET PO SCH (21:50)
[2021-01-10] MEDS: Acetaminophen 325 MG TABLET PO PRN ×3 (02:50→21:05)
[2021-01-10 05:17] LABS: Hematocrit 28.4 % (35.3-44.9); Hemoglobin 8.5 g/dL (11.5-15.4); Mean Corpuscular HGB Conc 29.9 g/dL (31.6-35.5); Mean Corpuscular Hemoglobin 29.7 pg (28.0-33.3); Mean Corpuscular Volume 99.3 fL (83.0-100.0); Mean Platelet Volume 10.2 fL (9.4-12.4); Platelet Count 182 K/mcL (140-400); Red Blood Count 2.86 M/mcL (3.82-4.97); Red Cell Distribution Width 14.3 % (11.5-14.5); White Blood Count 10.9 K/mcL (4.3-11.1)
[2021-01-10] MEDS: *HR* Heparin 5,000 UNIT/ML VIAL SQ SCH ×3 (05:34→20:58)
[2021-01-10 05:38] LABS: Calcium 9.4 mg/dL (8.6-10.3); Potassium 3.7 mEq/L (3.5-5.1)
[2021-01-10] MEDS: Insulin LISPRO 300 UNITS/3 ML VIAL SUBQ SCH ×4 (07:41→20:59)
[2021-01-10] MEDS: Furosemide 40 MG/4 ML VIAL IVP SCH (09:40)
[2021-01-10] MEDS: Sennosides 8.6 MG TABLET PO SCH (09:41)
[2021-01-10] MEDS: Aspirin 81 MG TAB.CHEW PO SCH (09:41)
[2021-01-10] MEDS: Gabapentin 400 MG CAPSULE PO SCH ×2 (09:41→20:58)
[2021-01-10] MEDS: PARoxetine 20 MG TABLET PO SCH (10:02)
[2021-01-10] MEDS: Nystatin Cream 15 GM TUBE TP PRN (14:44)
[2021-01-10] MEDS: Ertapenem 1,000 MG in 0.9 % Sodium Chloride Mini Bag 100 ML IVPB SCH (17:58)
[2021-01-10] MEDS: traZODone 50 MG TABLET PO SCH (20:58)
[2021-01-10] MEDS: rOPINIRole 1 MG TABLET PO SCH (20:58)
[2021-01-11 01:20] LABS: Hematocrit 30.5 % (35.3-44.9); Hemoglobin 9.1 g/dL (11.5-15.4); Mean Corpuscular HGB Conc 29.8 g/dL (31.6-35.5); Mean Corpuscular Hemoglobin 29.7 pg (28.0-33.3); Mean Corpuscular Volume 99.7 fL (83.0-100.0); Mean Platelet Volume 10.1 fL (9.4-12.4); Platelet Count 206 K/mcL (140-400); Red Blood Count 3.06 M/mcL (3.82-4.97); Red Cell Distribution Width 14.4 % (11.5-14.5); White Blood Count 10.9 K/mcL (4.3-11.1)
[2021-01-11 01:40] LABS: Calcium 9.9 mg/dL (8.6-10.3); Potassium 3.6 mEq/L (3.5-5.1)
[2021-01-11] MEDS: *HR* Heparin 5,000 UNIT/ML VIAL SQ SCH ×3 (05:39→20:48)
[2021-01-11] MEDS: Aspirin 81 MG TAB.CHEW PO SCH (10:07)
[2021-01-11] MEDS: Gabapentin 400 MG CAPSULE PO SCH ×2 (10:07→20:42)
[2021-01-11] MEDS: Furosemide 40 MG/4 ML VIAL IVP SCH (10:07)
[2021-01-11] MEDS: Sennosides 8.6 MG TABLET PO SCH (10:07)
[2021-01-11] MEDS: Insulin LISPRO 300 UNITS/3 ML VIAL SUBQ SCH ×4 (10:12→20:25)
[2021-01-11] MEDS: PARoxetine 20 MG TABLET PO SCH (10:39)
[2021-01-11] MEDS: Ertapenem 1,000 MG in 0.9 % Sodium Chloride Mini Bag 100 ML IVPB SCH (17:31)
[2021-01-11] MEDS: traZODone 50 MG TABLET PO SCH (20:42)
[2021-01-11] MEDS: rOPINIRole 1 MG TABLET PO SCH (20:42)
[2021-01-12] MEDS: Acetaminophen 325 MG TABLET PO PRN ×3 (01:00→22:08)
[2021-01-12] MEDS: *HR* Heparin 5,000 UNIT/ML VIAL SQ SCH ×3 (05:21→22:09)
[2021-01-12] MEDS: Insulin LISPRO 300 UNITS/3 ML VIAL SUBQ SCH ×4 (07:39→22:10)
[2021-01-12 09:17] LABS: Basophils # 0.1 K/mcL (0.0-0.2); Basophils % 0.7 %; Eosinophils # 0.5 K/mcL (0.0-0.6); Eosinophils % 6.3 %; Hematocrit 29.9 % (35.3-44.9); Immature Granulocytes % 0.4 % (0-4); Lymphocytes % 13.4 %; Mean Corpuscular HGB Conc 30.1 g/dL (31.6-35.5); Mean Corpuscular Hemoglobin 30.2 pg (28.0-33.3); Mean Corpuscular Volume 100.3 fL (83.0-100.0); Mean Platelet Volume 10.2 fL (9.4-12.4); Monocytes # 0.4 K/mcL (0.0-1.3); Monocytes % 5.1 %; Neutrophils # 5.4 K/mcL (1.6-8.9); Platelet Count 211 K/mcL (140-400); Red Blood Count 2.98 M/mcL (3.82-4.97); Red Cell Distribution Width 14.2 % (11.5-14.5); Segmented Neutrophils % 74.1 %; White Blood Count 7.3 K/mcL (4.3-11.1)
[2021-01-12] MEDS: PARoxetine 20 MG TABLET PO SCH (09:31)
[2021-01-12] MEDS: Sennosides 8.6 MG TABLET PO SCH (09:31)
[2021-01-12] MEDS: Aspirin 81 MG TAB.CHEW PO SCH (09:31)
[2021-01-12] MEDS: Gabapentin 400 MG CAPSULE PO SCH ×2 (09:32→22:09)
[2021-01-12] MEDS: Furosemide 40 MG/4 ML VIAL IVP SCH (09:32)
[2021-01-12 09:34] LABS: Calcium 9.6 mg/dL (8.6-10.3); Potassium 3.7 mEq/L (3.5-5.1)
[2021-01-12] MEDS: Ertapenem 1,000 MG in 0.9 % Sodium Chloride Mini Bag 100 ML IVPB SCH (16:15)
[2021-01-12] MEDS: rOPINIRole 1 MG TABLET PO SCH (22:09)
[2021-01-12] MEDS: traZODone 50 MG TABLET PO SCH (22:10)
[2021-01-13 05:54] LABS: Basophils % 0.5 %; Eosinophils # 0.7 K/mcL (0.0-0.6); Eosinophils % 9.4 %; Hematocrit 29.3 % (35.3-44.9); Hemoglobin 8.9 g/dL (11.5-15.4); Immature Granulocytes % 0.4 % (0-4); Lymphocytes # 1.4 K/mcL (0.6-4.6); Mean Corpuscular HGB Conc 30.4 g/dL (31.6-35.5); Mean Corpuscular Hemoglobin 30.4 pg (28.0-33.3); Mean Platelet Volume 10.1 fL (9.4-12.4); Monocytes # 0.5 K/mcL (0.0-1.3); Monocytes % 6.3 %; Platelet Count 226 K/mcL (140-400); Red Blood Count 2.93 M/mcL (3.82-4.97); Red Cell Distribution Width 13.9 % (11.5-14.5); Segmented Neutrophils % 65.4 %; White Blood Count 7.6 K/mcL (4.3-11.1)
[2021-01-13 06:14] LABS: Calcium 9.8 mg/dL (8.6-10.3); Potassium 3.6 mEq/L (3.5-5.1)
[2021-01-13] MEDS: Acetaminophen 325 MG TABLET PO PRN ×2 (06:32→14:31)
[2021-01-13] MEDS: *HR* Heparin 5,000 UNIT/ML VIAL SQ SCH ×3 (06:32→20:32)
[2021-01-13] MEDS: Insulin LISPRO 300 UNITS/3 ML VIAL SUBQ SCH ×4 (08:52→20:32)
[2021-01-13] MEDS: Sennosides 8.6 MG TABLET PO SCH (09:39)
[2021-01-13] MEDS: Furosemide 40 MG/4 ML VIAL IVP SCH ×2 (09:39→19:37)
[2021-01-13] MEDS: PARoxetine 20 MG TABLET PO SCH (09:39)
[2021-01-13] MEDS: Gabapentin 400 MG CAPSULE PO SCH ×2 (09:39→20:31)
[2021-01-13] MEDS: Aspirin 81 MG TAB.CHEW PO SCH (09:39)
[2021-01-13] MEDS: Ondansetron ODT 4 MG TAB.RAPDIS SL PRN (14:31)
[2021-01-13] MEDS: Ertapenem 1,000 MG in 0.9 % Sodium Chloride Mini Bag 100 ML IVPB SCH (19:37)
[2021-01-13] MEDS: traZODone 50 MG TABLET PO SCH (20:31)
[2021-01-13] MEDS: rOPINIRole 1 MG TABLET PO SCH (20:31)
[2021-01-14] MEDS: Acetaminophen 325 MG TABLET PO PRN (01:42)
[2021-01-14] MEDS: *HR* Heparin 5,000 UNIT/ML VIAL SQ SCH (04:45)
[2021-01-14 05:03] LABS: Calcium 9.6 mg/dL (8.6-10.3); Potassium 3.8 mEq/L (3.5-5.1)
[2021-01-14 06:23] LABS: Basophils % 0.4 %; Hematocrit 27.4 % (35.3-44.9); Hemoglobin 8.4 g/dL (11.5-15.4); Immature Granulocytes % 0.5 % (0-4); Lymphocytes # 1.1 K/mcL (0.6-4.6); Lymphocytes % 14.9 %; Mean Corpuscular HGB Conc 30.7 g/dL (31.6-35.5); Mean Corpuscular Hemoglobin 30.3 pg (28.0-33.3); Mean Corpuscular Volume 98.9 fL (83.0-100.0); Mean Platelet Volume 10.1 fL (9.4-12.4); Monocytes # 0.5 K/mcL (0.0-1.3); Monocytes % 5.9 %; Platelet Count 231 K/mcL (140-400); Red Blood Count 2.77 M/mcL (3.82-4.97); Red Cell Distribution Width 14.1 % (11.5-14.5); Segmented Neutrophils % 78.3 %; White Blood Count 7.7 K/mcL (4.3-11.1)
[2021-01-14 07:09] VITALS: O2SAT 93
[2021-01-14] MEDS: Insulin LISPRO 300 UNITS/3 ML VIAL SUBQ SCH (08:03)
[2021-01-14] MEDS: Aspirin 81 MG TAB.CHEW PO SCH (10:17)
[2021-01-14] MEDS: Gabapentin 400 MG CAPSULE PO SCH (10:17)
[2021-01-14] MEDS: PARoxetine 20 MG TABLET PO SCH (10:17)
[2021-01-14] MEDS: Sennosides 8.6 MG TABLET PO SCH (10:17)
[2021-01-14] MEDS: Furosemide 40 MG/4 ML VIAL IVP SCH (10:19)
[2021-01-14 11:51] VITALS: BP 149/77; PULSE 69; TEMP 97.7
== END 2021-01-14 12:35 | DRG 291 ==
LOC: 3BNU 15:55 → EMEROOARM 15:55 → SUATTDRO 19:23 → 3BNU 20:00 → SUATTDRO 01-07 14:32
PROVIDERS: ADMIT Internal Medicine; ATTEND Internal Medicine

== ENCOUNTER 2021-02-22 20:39 | Inpatient (IN) ==
[2021-02-22] MEDS ORDERED: Isovue-370 500 ML BOTTLE IVP ONE (21:11)
[2021-02-22 21:42] LABS: Calcium 9.7 mg/dL (8.6-10.3); Potassium 3.2 mEq/L (3.5-5.1); Troponin I 0.05 ng/mL (< 0.04)
[2021-02-22 21:47] LABS: Basophils % 0.5 %; Eosinophils # 0.7 K/mcL (0.0-0.6); Eosinophils % 9.1 %; Hematocrit 25.8 % (35.3-44.9); Hemoglobin 7.9 g/dL (11.5-15.4); Immature Granulocytes % 0.6 % (0-4); Lymphocytes # 0.8 K/mcL (0.6-4.6); Lymphocytes % 10.7 %; Mean Corpuscular HGB Conc 30.6 g/dL (31.6-35.5); Mean Corpuscular Hemoglobin 30.5 pg (28.0-33.3); Mean Corpuscular Volume 99.6 fL (83.0-100.0); Mean Platelet Volume 9.7 fL (9.4-12.4); Monocytes # 0.5 K/mcL (0.0-1.3); Monocytes % 6.7 %; Platelet Count 201 K/mcL (140-400); Red Blood Count 2.59 M/mcL (3.82-4.97); Red Cell Distribution Width 13.9 % (11.5-14.5); Segmented Neutrophils % 72.4 %; White Blood Count 7.8 K/mcL (4.3-11.1)
[2021-02-22 21:50] LABS: Neutrophils # 5.7 K/mcL (1.6-8.9)
[2021-02-22] MEDS ORDERED: Furosemide 40 MG/4 ML VIAL IVP ONE (23:06)
[2021-02-22] MEDS ORDERED: Aspirin 81 MG TAB.CHEW PO ONE (23:15)
[2021-02-22 23:26] LABS: Amorphous Sediment,Urine Few per hpf (None-Few); Bacteria,Urine Few per hpf (None-Few); Bilirubin,Urine Negative (Negative); Blood,Urine Large (Negative); Calcium Oxalate Crystals,Urine Present per hpf; Clarity,Urine Ex.Turbid (Clear); Color,Urine Yellow (Yellow); Glucose,Urine (UA) Normal (Normal); Hyaline Casts,Urine Moderate per lpf (None Seen); Ketones,Urine Negative (Negative); Leukocyte Esterase,Urine Large (Negative); Mucus,Urine Few per lpf (None-Few); Nitrite,Urine Positive (Negative); Protein,Urine 70 mg/dL (Neg-Trace); RBC,Urine TNTC per hpf (0-3); Renal Epithelial Cells,Urine Few per hpf (None-Few); Specific Gravity,Urine 1.012 (1.010-1.025); Squamous Epithelial Cell,Urine Moderate per hpf (None-Few); Urobilinogen,Urine Normal (Normal); WBC,Urine TNTC per hpf (0-3)
[2021-02-22] MEDS ORDERED: Potassium Chloride Elixir 20 MEQ/15 ML UDC PO ONE (23:31)
[2021-02-23] MEDS ORDERED: Piperacillin/Tazobactam 3.375 GM in 0.9 % Sodium Chloride Mini Bag 100 ML IVPB ONE (00:02)
[2021-02-23 02:18] LABS: Adenovirus Not Detected (Not Detect); Bordetella Pertussis Not Detected (Not Detect); Chlamydophila pneumoniae Not Detected (Not Detect); Coronavirus 229E Not Detected (Not Detect); Coronavirus HKU1 Not Detected (Not Detect); Coronavirus NL63 Not Detected (Not Detect); Coronavirus OC43 Not Detected (Not Detect); Human Metapneumovirus Not Detected (Not Detect); Human Rhinovirus/Enterovirus Not Detected (Not Detect); Influenza A Subtype 2009 H1 Not Detected (Not Detect); Influenza B Not Detected (Not Detect); Mycoplasma pneumoniae Not Detected (Not Detect); Parainfluenza Virus 1 Not Detected (Not Detect); Parainfluenza Virus 2 Not Detected (Not Detect); Parainfluenza Virus 3 Not Detected (Not Detect); Parainfluenza Virus 4 Not Detected (Not Detect); Respiratory Syncytial Virus Not Detected (Not Detect); SARS-CoV-2 Not Detected (Not Detect)
[2021-02-23] MEDS ORDERED: Ondansetron 4 MG/2 ML VIAL IVP PRN (02:44)
[2021-02-23] MEDS ORDERED: Naloxone 0.4 MG/ML INJ IVP PRN (02:44)
[2021-02-23] MEDS ORDERED: D5% in Water 1,000 ML IVC PRN (03:35)
[2021-02-23] MEDS ORDERED: Dextrose Gel 15 GM/37.5 ML TUBE PO PRN ×2 (03:35)
[2021-02-23 04:00] LABS: Hematocrit 24.9 % (35.3-44.9); Hemoglobin 7.8 g/dL (11.5-15.4); Mean Corpuscular HGB Conc 31.3 g/dL (31.6-35.5); Mean Corpuscular Hemoglobin 31.2 pg (28.0-33.3); Mean Corpuscular Volume 99.6 fL (83.0-100.0); Mean Platelet Volume 10.4 fL (9.4-12.4); Platelet Count 204 K/mcL (140-400); Red Cell Distribution Width 13.7 % (11.5-14.5)
[2021-02-23] MEDS: Insulin LISPRO 300 UNITS/3 ML VIAL SUBQ SCH ×5 (04:05→21:52)
[2021-02-23] MEDS: *HR* Dextrose 50 % in Water (Syg) 50 ML SYRINGE IVP PRN (04:06)
[2021-02-23 04:53] LABS: Calcium 8.9 mg/dL (8.6-10.3); Magnesium 2.2 mg/dL (1.6-2.6); Potassium 3.4 mEq/L (3.5-5.1)
[2021-02-23] MEDS ORDERED: Vancomycin 1 EACH in 0.9 % Sodium Chloride 250 ML IVPB PRN (05:00)
[2021-02-23 05:01] LABS: ABG Base Excess 14 mEq/L (-2 to 3); ABG HCO3 42 mEq/L (21-27); ABG Oxygen Saturation 97 % (95-98); ABG PCO2 74 mmHg (35-45); ABG PH 7.36 pH Units (7.32-7.45); ABG PO2 103 mmHg (85-104); ABG TCO2 44 mEq/L (20-26)
[2021-02-23] MEDS: *HR* Heparin 5,000 UNIT/ML VIAL SQ SCH ×3 (05:36→19:58)
[2021-02-23] MEDS: Furosemide 40 MG/4 ML VIAL IVP SCH (07:37)
[2021-02-23 10:30] LABS: Troponin I 0.04 ng/mL (< 0.04)
[2021-02-23 10:42] LABS: Thyroid Stimulating Hormone 3.749 mcIU/mL (0.340-5.600)
[2021-02-23] MEDS: rOPINIRole 1 MG TABLET PO SCH (19:58)
[2021-02-23] MEDS: traZODone 50 MG TABLET PO SCH (19:58)
[2021-02-23] MEDS: Budesonide/Formoterol 80/4.5 1 PUFF INH IH SCH (20:35)
[2021-02-23] MEDS: Ipratropium/Albuterol Neb 3 ML IH SCH (20:36)
[2021-02-23] MEDS ORDERED: Furosemide 40 MG TABLET PO SCH (21:00)
[2021-02-24] MEDS: Insulin LISPRO 300 UNITS/3 ML VIAL SUBQ SCH ×6 (01:17→20:44)
[2021-02-24] MEDS: *HR* Dextrose 50 % in Water (Syg) 50 ML SYRINGE IVP PRN (01:19)
[2021-02-24] MEDS: *HR* Heparin 5,000 UNIT/ML VIAL SQ SCH ×3 (05:38→20:53)
[2021-02-24] MEDS ORDERED: NIFEdipine XL (24 HR) 30 MG TAB.ER.24 PO SCH (09:00)
[2021-02-24] MEDS ORDERED: NON-FORMULARY MEDICATION 1 EACH EACH (Fluticasone/Vilanterol [Breo Ellipta 100-25 Mcg Inh] IH SCH (09:00)
[2021-02-24] MEDS: Sennosides 8.6 MG TABLET PO SCH (09:23)
[2021-02-24] MEDS: Aspirin 81 MG TAB.CHEW PO SCH (09:23)
[2021-02-24] MEDS: Furosemide 40 MG/4 ML VIAL IVP SCH (09:23)
[2021-02-24] MEDS: Multivit/Ca/Min/Fe/FA 1 TAB TABLET PO SCH (09:23)
[2021-02-24] MEDS: PARoxetine 20 MG TABLET PO SCH (09:23)
[2021-02-24] MEDS: Ipratropium/Albuterol Neb 3 ML IH SCH ×3 (11:01→20:40)
[2021-02-24] MEDS: Budesonide/Formoterol 80/4.5 1 PUFF INH IH SCH ×2 (11:03→20:40)
[2021-02-24] MEDS ORDERED: Oxymetazoline Nasal SPRAY BOTTLE 15ML NS PRN (15:36)
[2021-02-24] MEDS: Piperacillin/Tazobactam 3.375 GM in 0.9 % Sodium Chloride Mini Bag 100 ML IVPB SCH (17:00)
[2021-02-24] MEDS: rOPINIRole 1 MG TABLET PO SCH (20:53)
[2021-02-24] MEDS: traZODone 50 MG TABLET PO SCH (20:53)
[2021-02-25] MEDS: Piperacillin/Tazobactam 3.375 GM in 0.9 % Sodium Chloride Mini Bag 100 ML IVPB SCH ×3 (00:03→15:20)
[2021-02-25] MEDS: *HR* Heparin 5,000 UNIT/ML VIAL SQ SCH ×3 (05:35→20:49)
[2021-02-25 06:07] LABS: Basophils % 0.3 %; Eosinophils % 0.1 %; Hematocrit 26.2 % (35.3-44.9); Hemoglobin 7.9 g/dL (11.5-15.4); Immature Granulocytes % 0.1 % (0-4); Lymphocytes # 0.7 K/mcL (0.6-4.6); Lymphocytes % 9.3 %; Mean Corpuscular HGB Conc 30.2 g/dL (31.6-35.5); Mean Corpuscular Hemoglobin 29.8 pg (28.0-33.3); Mean Corpuscular Volume 98.9 fL (83.0-100.0); Mean Platelet Volume 10.3 fL (9.4-12.4); Monocytes # 0.6 K/mcL (0.0-1.3); Monocytes % 7.4 %; Neutrophils # 6.4 K/mcL (1.6-8.9); Platelet Count 209 K/mcL (140-400); Red Blood Count 2.65 M/mcL (3.82-4.97); Red Cell Distribution Width 14.1 % (11.5-14.5); Segmented Neutrophils % 82.8 %; White Blood Count 7.7 K/mcL (4.3-11.1)
[2021-02-25 06:33] LABS: Calcium 9.5 mg/dL (8.6-10.3); Potassium 3.5 mEq/L (3.5-5.1)
[2021-02-25] MEDS ORDERED: metOLazone 2.5 MG TABLET PO SCH (09:00)
[2021-02-25] MEDS: Insulin LISPRO 300 UNITS/3 ML VIAL SUBQ SCH ×4 (09:01→20:56)
[2021-02-25] MEDS: Furosemide 40 MG/4 ML VIAL IVP SCH (09:06)
[2021-02-25] MEDS: PARoxetine 20 MG TABLET PO SCH (09:07)
[2021-02-25] MEDS: Aspirin 81 MG TAB.CHEW PO SCH (09:08)
[2021-02-25] MEDS: Multivit/Ca/Min/Fe/FA 1 TAB TABLET PO SCH (09:08)
[2021-02-25] MEDS: Sennosides 8.6 MG TABLET PO SCH (09:08)
[2021-02-25] MEDS: Ipratropium/Albuterol Neb 3 ML IH SCH ×3 (11:34→21:14)
[2021-02-25] MEDS: Budesonide/Formoterol 80/4.5 1 PUFF INH IH SCH ×2 (11:34→21:14)
[2021-02-25] MEDS ORDERED: acetaZOLAMIDE 500 MG in Water for inj. (sterile) 5 ML IVP ONE (14:10)
[2021-02-25] MEDS: rOPINIRole 1 MG TABLET PO SCH (20:49)
[2021-02-25] MEDS: traZODone 50 MG TABLET PO SCH (20:49)
[2021-02-26] MEDS: Piperacillin/Tazobactam 3.375 GM in 0.9 % Sodium Chloride Mini Bag 100 ML IVPB SCH ×2 (00:05→08:08)
[2021-02-26 04:43] LABS: Basophils # 0.1 K/mcL (0.0-0.2); Basophils % 0.6 %; Eosinophils # 0.5 K/mcL (0.0-0.6); Eosinophils % 5.7 %; Hematocrit 24.3 % (35.3-44.9); Hemoglobin 7.5 g/dL (11.5-15.4); Immature Granulocytes % 0.5 % (0-4); Lymphocytes # 0.9 K/mcL (0.6-4.6); Lymphocytes % 10.3 %; Mean Corpuscular HGB Conc 30.9 g/dL (31.6-35.5); Mean Corpuscular Hemoglobin 31.1 pg (28.0-33.3); Mean Corpuscular Volume 100.8 fL (83.0-100.0); Mean Platelet Volume 10.3 fL (9.4-12.4); Monocytes # 0.6 K/mcL (0.0-1.3); Monocytes % 6.6 %; Neutrophils # 6.7 K/mcL (1.6-8.9); Platelet Count 194 K/mcL (140-400); Red Blood Count 2.41 M/mcL (3.82-4.97); Red Cell Distribution Width 14.2 % (11.5-14.5); Segmented Neutrophils % 76.3 %; White Blood Count 8.7 K/mcL (4.3-11.1)
[2021-02-26 04:57] LABS: Calcium 9.1 mg/dL (8.6-10.3); Potassium 3.3 mEq/L (3.5-5.1)
[2021-02-26] MEDS: *HR* Heparin 5,000 UNIT/ML VIAL SQ SCH ×3 (06:05→20:31)
[2021-02-26] MEDS: Insulin LISPRO 300 UNITS/3 ML VIAL SUBQ SCH ×4 (08:04→20:32)
[2021-02-26] MEDS: PARoxetine 20 MG TABLET PO SCH (08:08)
[2021-02-26] MEDS: Aspirin 81 MG TAB.CHEW PO SCH (08:09)
[2021-02-26] MEDS: Multivit/Ca/Min/Fe/FA 1 TAB TABLET PO SCH (08:09)
[2021-02-26] MEDS: Sennosides 8.6 MG TABLET PO SCH (08:09)
[2021-02-26] MEDS: Furosemide 40 MG/4 ML VIAL IVP SCH (08:09)
[2021-02-26] MEDS: cephALEXin 500 MG CAPSULE PO SCH ×2 (09:35→20:31)
[2021-02-26] MEDS: Ipratropium/Albuterol Neb 3 ML IH SCH ×3 (11:12→21:00)
[2021-02-26] MEDS: Budesonide/Formoterol 80/4.5 1 PUFF INH IH SCH ×2 (11:12→21:01)
[2021-02-26] MEDS: traZODone 50 MG TABLET PO SCH (20:30)
[2021-02-26] MEDS: rOPINIRole 1 MG TABLET PO SCH (20:31)
[2021-02-27] MEDS: *HR* Heparin 5,000 UNIT/ML VIAL SQ SCH ×3 (05:40→21:38)
[2021-02-27 06:10] LABS: Basophils % 0.3 %; Hematocrit 26.2 % (35.3-44.9); Immature Granulocytes % 0.5 % (0-4); Lymphocytes # 0.8 K/mcL (0.6-4.6); Lymphocytes % 8.8 %; Mean Corpuscular HGB Conc 30.5 g/dL (31.6-35.5); Mean Corpuscular Hemoglobin 30.7 pg (28.0-33.3); Mean Corpuscular Volume 100.4 fL (83.0-100.0); Mean Platelet Volume 10.4 fL (9.4-12.4); Monocytes # 0.6 K/mcL (0.0-1.3); Monocytes % 6.2 %; Neutrophils # 8.1 K/mcL (1.6-8.9); Platelet Count 206 K/mcL (140-400); Red Blood Count 2.61 M/mcL (3.82-4.97); Red Cell Distribution Width 14.2 % (11.5-14.5); Segmented Neutrophils % 84.2 %; White Blood Count 9.6 K/mcL (4.3-11.1)
[2021-02-27 06:24] LABS: Calcium 9.6 mg/dL (8.6-10.3); Potassium 3.6 mEq/L (3.5-5.1)
[2021-02-27] MEDS: Insulin LISPRO 300 UNITS/3 ML VIAL SUBQ SCH ×4 (08:30→21:39)
[2021-02-27] MEDS: cephALEXin 500 MG CAPSULE PO SCH ×2 (08:44→21:39)
[2021-02-27] MEDS: Sennosides 8.6 MG TABLET PO SCH (08:44)
[2021-02-27] MEDS: Multivit/Ca/Min/Fe/FA 1 TAB TABLET PO SCH (08:44)
[2021-02-27] MEDS: Furosemide 40 MG TABLET PO SCH ×2 (08:44→17:29)
[2021-02-27] MEDS: Aspirin 81 MG TAB.CHEW PO SCH (08:44)
[2021-02-27] MEDS: PARoxetine 20 MG TABLET PO SCH (08:44)
[2021-02-27] MEDS: Budesonide/Formoterol 80/4.5 1 PUFF INH IH SCH (11:02)
[2021-02-27] MEDS: Ipratropium/Albuterol Neb 3 ML IH SCH ×2 (11:02→14:41)
[2021-02-27] MEDS: rOPINIRole 1 MG TABLET PO SCH (21:39)
[2021-02-27] MEDS: traZODone 50 MG TABLET PO SCH (21:39)
[2021-02-28] MEDS: Budesonide/Formoterol 80/4.5 1 PUFF INH IH SCH ×2 (00:01→10:43)
[2021-02-28] MEDS: Ipratropium/Albuterol Neb 3 ML IH SCH ×2 (00:01→10:43)
[2021-02-28] MEDS: *HR* Heparin 5,000 UNIT/ML VIAL SQ SCH (04:54)
[2021-02-28 07:05] LABS: Calcium 9.7 mg/dL (8.6-10.3); Potassium 3.5 mEq/L (3.5-5.1)
[2021-02-28] MEDS: Insulin LISPRO 300 UNITS/3 ML VIAL SUBQ SCH (07:25)
[2021-02-28] MEDS: Multivit/Ca/Min/Fe/FA 1 TAB TABLET PO SCH (08:33)
[2021-02-28] MEDS: Sennosides 8.6 MG TABLET PO SCH (08:33)
[2021-02-28] MEDS: PARoxetine 20 MG TABLET PO SCH (08:33)
[2021-02-28] MEDS: Furosemide 40 MG TABLET PO SCH (08:33)
[2021-02-28] MEDS: cephALEXin 500 MG CAPSULE PO SCH (08:33)
[2021-02-28] MEDS: Aspirin 81 MG TAB.CHEW PO SCH (08:33)
[2021-02-28 11:31] VITALS: BP 168/90; PULSE 73; TEMP 98.1; O2SAT 90
== END 2021-02-28 11:52 | DRG 698 ==
LOC: EMEROOARM 20:39 → 2ANU 20:39 → SUATTDRO 02-23 17:33
PROVIDERS: ADMIT Student in an Organized Health Care Education/Training Program; ATTEND Internal Medicine

== ENCOUNTER 2021-04-18 14:41 | Inpatient (IN) ==
[2021-04-18 15:53] LABS: Basophils % 0.2 %
[2021-04-18 15:54] LABS: Eosinophils % 0.1 %; Hematocrit 17.7 % (35.3-44.9); Immature Granulocytes % 1.2 % (0-4); Lymphocytes # 1.3 K/mcL (0.6-4.6); Lymphocytes % 9.6 %; Mean Corpuscular HGB Conc 32.2 g/dL (31.6-35.5); Mean Corpuscular Volume 96.2 fL (83.0-100.0); Mean Platelet Volume 8.9 fL (9.4-12.4); Monocytes # 0.7 K/mcL (0.0-1.3); Monocytes % 4.9 %; Neutrophils # 11.6 K/mcL (1.6-8.9); Platelet Count 357 K/mcL (140-400); Red Blood Count 1.84 M/mcL (3.82-4.97); Red Cell Distribution Width 16.3 % (11.5-14.5); White Blood Count 13.8 K/mcL (4.3-11.1)
[2021-04-18 16:03] LABS: INR 1.1; Prothrombin Time 12.5 Seconds (9.4-12.1)
[2021-04-18 16:04] LABS: Activated Partial Thrombo Time 29.1 Seconds (26.0-36.0)
[2021-04-18 16:12] LABS: Hemoglobin 5.7 g/dL (11.5-15.4)
[2021-04-18 16:19] LABS: Albumin 3.9 g/dL (3.5-5.7); Albumin/Globulin Ratio 1.1 (1.1-2.2); Bilirubin,Direct 0.1 mg/dL (0.0-0.2); Bilirubin,Indirect 0.2 mg/dL (0.0-1.0); Bilirubin,Total 0.3 mg/dL (0.3-1.0); Calcium 9.2 mg/dL (8.6-10.3); Globulin 3.6 g/dL (2.4-3.5); Total Protein 7.5 g/dL (6.4-8.9); Troponin I 0.04 ng/mL (< 0.04)
[2021-04-18 16:47] LABS: Influenza A PCR Negative (Negative); Influenza B PCR Negative (Negative); Resp. Syncytial Virus PCR Negative (Negative)
[2021-04-18 16:48] LABS: SARS-CoV-2 by PCR (In House) Negative (Negative)
[2021-04-18] MEDS ORDERED: 0.9 % Sodium Chloride 500 ML IVC ONE (17:22)
[2021-04-18] MEDS ORDERED: Nitroglycerin 0.4 MG TAB.SUBL SL PRN (17:55)
[2021-04-18] MEDS ORDERED: Naloxone 0.4 MG/ML INJ IVP PRN ×2 (18:00→18:01)
[2021-04-18] MEDS ORDERED: Ondansetron 4 MG/2 ML VIAL IVP PRN (18:01)
[2021-04-18] MEDS ORDERED: 0.9 % Sodium Chloride 250 ML ONE (18:12)
[2021-04-18 18:34] LABS: Magnesium 2.1 mg/dL (1.6-2.6)
[2021-04-18] MEDS: Ipratropium/Albuterol Neb 3 ML IH SCH (20:49)
[2021-04-18] MEDS: traZODone 50 MG TABLET PO SCH (21:15)
[2021-04-18] MEDS: rOPINIRole 1 MG TABLET PO SCH (21:15)
[2021-04-18] MEDS: Furosemide 40 MG TABLET PO SCH (21:18)
[2021-04-18] MEDS ORDERED: Potassium Chloride Elixir 20 MEQ/15 ML UDC PO ONE (21:39)
[2021-04-19 01:45] LABS: Albumin 3.7 g/dL (3.5-5.7); Albumin/Globulin Ratio 1.2 (1.1-2.2); Bilirubin,Total 0.4 mg/dL (0.3-1.0); Calcium 8.9 mg/dL (8.6-10.3); Globulin 3.2 g/dL (2.4-3.5); Magnesium 2.1 mg/dL (1.6-2.6); Potassium 2.9 mEq/L (3.5-5.1); Total Protein 6.9 g/dL (6.4-8.9)
[2021-04-19 06:41] LABS: Hematocrit 18.9 % (35.3-44.9); Hemoglobin 6.3 g/dL (11.5-15.4); Mean Corpuscular HGB Conc 33.3 g/dL (31.6-35.5); Mean Corpuscular Volume 95.9 fL (83.0-100.0); Mean Platelet Volume 9.2 fL (9.4-12.4); Platelet Count 353 K/mcL (140-400); Red Blood Count 1.97 M/mcL (3.82-4.97)
[2021-04-19] MEDS ORDERED: 0.9 % Sodium Chloride 250 ML IVC SCH (07:45)
[2021-04-19] MEDS ORDERED: GlipiZIDE 5 MG TABLET PO SCH (08:00)
[2021-04-19] MEDS: Ipratropium/Albuterol Neb 3 ML IH SCH ×3 (08:07→21:24)
[2021-04-19] MEDS: Budesonide/Formoterol 80/4.5 1 PUFF INH IH SCH ×2 (08:08→21:24)
[2021-04-19] MEDS: ALOGLIPTIN 6.25 MG PO SCH (09:22)
[2021-04-19] MEDS: PARoxetine 20 MG TABLET PO SCH (09:26)
[2021-04-19] MEDS: Multivit/Ca/Min/Fe/FA 1 TAB TABLET PO SCH (09:26)
[2021-04-19] MEDS: Furosemide 40 MG TABLET PO SCH ×2 (09:26→16:23)
[2021-04-19] MEDS: metOLazone 2.5 MG TABLET PO SCH (09:27)
[2021-04-19] MEDS: Fluticasone Propionate Nasal 50 MCG/SPRAY BOTTLE NS SCH (09:27)
[2021-04-19] MEDS ORDERED: 0.9 % Sodium Chloride 250 ML ONE (10:43)
[2021-04-19 11:46] LABS: Bacteria,Urine Few per hpf (None-Few); Bilirubin,Urine Negative (Negative); Blood,Urine Trace (Negative); Clarity,Urine Clear (Clear); Color,Urine Light-Yellow (Yellow); Glucose,Urine (UA) Normal (Normal); Ketones,Urine Negative (Negative); Leukocyte Esterase,Urine Moderate (Negative); Mucus,Urine Few per lpf (None-Few); Nitrite,Urine Negative (Negative); PH,Urine 6.5 pH Units (5.0-8.0); Protein,Urine Trace mg/dL (Neg-Trace); Specific Gravity,Urine 1.009 (1.010-1.025); Squamous Epithelial Cell,Urine Few per hpf (None-Few); Urobilinogen,Urine Normal (Normal); WBC,Urine 15-30 per hpf (0-3)
[2021-04-19] MEDS ORDERED: Dextrose Gel 15 GM/37.5 ML TUBE PO PRN ×2 (14:33)
[2021-04-19] MEDS ORDERED: *HR* Dextrose 50 % in Water (Syg) 50 ML SYRINGE IVP PRN (14:33)
[2021-04-19] MEDS ORDERED: D5% in Water 1,000 ML IVC PRN (14:33)
[2021-04-19 15:16] LABS: Estimated Average Glucose 100 mg/dl; Hemoglobin A1C 5.1 %
[2021-04-19 15:33] LABS: Potassium 3.4 mEq/L (3.5-5.1)
[2021-04-19] MEDS ORDERED: Perflutren Lipid Microsphere 1.3 ML in 0.9 % Sodium Chloride 8.7 ML IVP PRN (16:11)
[2021-04-19] MEDS ORDERED: Pantoprazole 40 MG VIAL IVP SCH (16:15)
[2021-04-19] MEDS: Azithromycin 500 MG in D5% in Water 250 ML IVPB SCH (16:21)
[2021-04-19] MEDS: Insulin LISPRO 300 UNITS/3 ML VIAL SUBQ SCH ×2 (17:34→20:20)
[2021-04-19] MEDS: cefTRIAXone 1,000 MG in 0.9 % Sodium Chloride Mini Bag 100 ML IVPB SCH (17:35)
[2021-04-19] MEDS: traZODone 50 MG TABLET PO SCH (20:21)
[2021-04-19] MEDS: rOPINIRole 1 MG TABLET PO SCH (20:21)
[2021-04-19] MEDS: Sennosides 8.6 MG TABLET PO SCH (20:22)
[2021-04-20 01:19] LABS: Potassium 2.9 mEq/L (3.5-5.1)
[2021-04-20 01:31] LABS: Basophils % 0.3 %; Eosinophils # 0.4 K/mcL (0.0-0.6); Eosinophils % 2.7 %; Hematocrit 21.7 % (35.3-44.9); Hemoglobin 7.3 g/dL (11.5-15.4); Immature Granulocytes % 0.8 % (0-4); Lymphocytes # 1.4 K/mcL (0.6-4.6); Lymphocytes % 10.2 %; Mean Corpuscular HGB Conc 33.6 g/dL (31.6-35.5); Mean Corpuscular Hemoglobin 31.3 pg (28.0-33.3); Mean Corpuscular Volume 93.1 fL (83.0-100.0); Mean Platelet Volume 9.3 fL (9.4-12.4); Monocytes # 1.1 K/mcL (0.0-1.3); Monocytes % 7.7 %; Neutrophils # 10.7 K/mcL (1.6-8.9); Platelet Count 346 K/mcL (140-400); Red Blood Count 2.33 M/mcL (3.82-4.97); Red Cell Distribution Width 16.5 % (11.5-14.5); Segmented Neutrophils % 78.3 %; White Blood Count 13.7 K/mcL (4.3-11.1)
[2021-04-20] MEDS: Ipratropium/Albuterol Neb 3 ML IH SCH ×4 (04:12→20:49)
[2021-04-20] MEDS: Budesonide/Formoterol 80/4.5 1 PUFF INH IH SCH ×2 (08:13→20:49)
[2021-04-20] MEDS: Insulin LISPRO 300 UNITS/3 ML VIAL SUBQ SCH ×4 (08:57→20:07)
[2021-04-20] MEDS: metOLazone 2.5 MG TABLET PO SCH (08:58)
[2021-04-20] MEDS: PARoxetine 20 MG TABLET PO SCH (08:58)
[2021-04-20] MEDS: Furosemide 40 MG TABLET PO SCH ×2 (08:58→16:49)
[2021-04-20] MEDS: Pantoprazole 40 MG VIAL IVP SCH (08:58)
[2021-04-20] MEDS: Multivit/Ca/Min/Fe/FA 1 TAB TABLET PO SCH (08:58)
[2021-04-20] MEDS: Fluticasone Propionate Nasal 50 MCG/SPRAY BOTTLE NS SCH (08:59)
[2021-04-20] MEDS: ALOGLIPTIN 6.25 MG PO SCH (08:59)
[2021-04-20] MEDS: Azithromycin 500 MG in D5% in Water 250 ML IVPB SCH (15:30)
[2021-04-20] MEDS: cefTRIAXone 1,000 MG in 0.9 % Sodium Chloride Mini Bag 100 ML IVPB SCH (16:48)
[2021-04-20] MEDS: rOPINIRole 1 MG TABLET PO SCH (20:07)
[2021-04-20] MEDS: Sennosides 8.6 MG TABLET PO SCH (20:08)
[2021-04-20] MEDS: traZODone 50 MG TABLET PO SCH (20:08)
[2021-04-21] MEDS: Ipratropium/Albuterol Neb 3 ML IH SCH ×4 (04:12→20:49)
[2021-04-21 06:51] LABS: Basophils % 0.3 %; Hematocrit 22.7 % (35.3-44.9); Hemoglobin 7.5 g/dL (11.5-15.4); Immature Granulocytes % 0.6 % (0-4); Lymphocytes # 1.2 K/mcL (0.6-4.6); Lymphocytes % 10.7 %; Mean Corpuscular Hemoglobin 31.1 pg (28.0-33.3); Mean Corpuscular Volume 94.2 fL (83.0-100.0); Mean Platelet Volume 9.3 fL (9.4-12.4); Monocytes # 0.8 K/mcL (0.0-1.3); Monocytes % 7.1 %; Neutrophils # 8.9 K/mcL (1.6-8.9); Platelet Count 358 K/mcL (140-400); Red Blood Count 2.41 M/mcL (3.82-4.97); Red Cell Distribution Width 15.8 % (11.5-14.5); Segmented Neutrophils % 81.3 %; White Blood Count 10.9 K/mcL (4.3-11.1)
[2021-04-21 07:14] LABS: Calcium 9.3 mg/dL (8.6-10.3)
[2021-04-21] MEDS: Multivit/Ca/Min/Fe/FA 1 TAB TABLET PO SCH (07:42)
[2021-04-21] MEDS: PARoxetine 20 MG TABLET PO SCH (07:42)
[2021-04-21] MEDS: Furosemide 40 MG TABLET PO SCH ×2 (07:42→15:39)
[2021-04-21] MEDS: Fluticasone Propionate Nasal 50 MCG/SPRAY BOTTLE NS SCH (07:44)
[2021-04-21] MEDS: ALOGLIPTIN 6.25 MG PO SCH (07:57)
[2021-04-21] MEDS: Insulin LISPRO 300 UNITS/3 ML VIAL SUBQ SCH ×4 (08:02→21:20)
[2021-04-21] MEDS: Pantoprazole 40 MG VIAL IVP SCH (08:22)
[2021-04-21] MEDS: Budesonide/Formoterol 80/4.5 1 PUFF INH IH SCH ×2 (08:34→20:49)
[2021-04-21] MEDS ORDERED: Lidocaine -MPF 2% 5 ML VIAL ONE (10:23)
[2021-04-21] MEDS ORDERED: *HR* Propofol 200 MG/20 ML VIAL IVP ONE (10:23)
[2021-04-21] MEDS: 0.9 % Sodium Chloride 1,000 ML IVC SCH (10:40)
[2021-04-21] MEDS: Azithromycin 250 MG TABLET PO SCH (15:39)
[2021-04-21] MEDS: cefTRIAXone 1,000 MG in 0.9 % Sodium Chloride Mini Bag 100 ML IVPB SCH (15:39)
[2021-04-21] MEDS ORDERED: Iron Sucrose Complex 400 MG in 0.9 % Sodium Chloride 250 ML IVPB ONE (17:00)
[2021-04-21] MEDS: traZODone 50 MG TABLET PO SCH (21:19)
[2021-04-21] MEDS: Sennosides 8.6 MG TABLET PO SCH (21:19)
[2021-04-21] MEDS: rOPINIRole 1 MG TABLET PO SCH (21:20)
[2021-04-22] MEDS: Ipratropium/Albuterol Neb 3 ML IH SCH ×3 (04:36→15:42)
[2021-04-22 04:59] LABS: Basophils # 0.1 K/mcL (0.0-0.2); Basophils % 0.5 %; Eosinophils # 0.7 K/mcL (0.0-0.6); Eosinophils % 5.8 %; Hematocrit 23.9 % (35.3-44.9); Hemoglobin 7.6 g/dL (11.5-15.4); Immature Granulocytes % 0.9 % (0-4); Lymphocytes # 1.5 K/mcL (0.6-4.6); Lymphocytes % 12.9 %; Mean Corpuscular HGB Conc 31.8 g/dL (31.6-35.5); Mean Corpuscular Hemoglobin 30.4 pg (28.0-33.3); Mean Corpuscular Volume 95.6 fL (83.0-100.0); Mean Platelet Volume 9.4 fL (9.4-12.4); Monocytes # 0.8 K/mcL (0.0-1.3); Monocytes % 7.4 %; Neutrophils # 8.2 K/mcL (1.6-8.9); Platelet Count 373 K/mcL (140-400); Red Cell Distribution Width 15.7 % (11.5-14.5); Segmented Neutrophils % 72.5 %; White Blood Count 11.3 K/mcL (4.3-11.1)
[2021-04-22 05:17] LABS: Calcium 9.3 mg/dL (8.6-10.3); Potassium 3.1 mEq/L (3.5-5.1)
[2021-04-22 05:29] LABS: Thyroid Stimulating Hormone 3.647 mcIU/mL (0.340-5.600)
[2021-04-22] MEDS: 0.9 % Sodium Chloride 1,000 ML IVC SCH (05:48)
[2021-04-22 05:58] LABS: Platelet Estimate Normal (Normal)
[2021-04-22] MEDS: Budesonide/Formoterol 80/4.5 1 PUFF INH IH SCH (07:35)
[2021-04-22] MEDS: PARoxetine 20 MG TABLET PO SCH (07:59)
[2021-04-22] MEDS: Multivit/Ca/Min/Fe/FA 1 TAB TABLET PO SCH (07:59)
[2021-04-22] MEDS: Furosemide 40 MG TABLET PO SCH (08:00)
[2021-04-22] MEDS: Insulin LISPRO 300 UNITS/3 ML VIAL SUBQ SCH ×4 (08:00→21:46)
[2021-04-22] MEDS: Fluticasone Propionate Nasal 50 MCG/SPRAY BOTTLE NS SCH (08:00)
[2021-04-22] MEDS ORDERED: Potassium Chloride Elixir 20 MEQ/15 ML UDC PO ONE (11:18)
[2021-04-22] MEDS: Azithromycin 250 MG TABLET PO SCH (14:43)
[2021-04-22] MEDS: cefTRIAXone 1,000 MG in 0.9 % Sodium Chloride Mini Bag 100 ML IVPB SCH (17:25)
[2021-04-22] MEDS: Sennosides 8.6 MG TABLET PO SCH (21:45)
[2021-04-22] MEDS: traZODone 50 MG TABLET PO SCH (21:45)
[2021-04-22] MEDS: rOPINIRole 1 MG TABLET PO SCH (21:46)
[2021-04-23] MEDS: Ipratropium/Albuterol Neb 3 ML IH SCH ×5 (00:10→20:55)
[2021-04-23] MEDS: Budesonide/Formoterol 80/4.5 1 PUFF INH IH SCH ×3 (00:10→20:55)
[2021-04-23] MEDS: 0.9 % Sodium Chloride 1,000 ML IVC SCH (02:39)
[2021-04-23 06:30] LABS: Calcium 9.4 mg/dL (8.6-10.3); Potassium 3.4 mEq/L (3.5-5.1)
[2021-04-23] MEDS: Multivit/Ca/Min/Fe/FA 1 TAB TABLET PO SCH (08:47)
[2021-04-23] MEDS: Insulin LISPRO 300 UNITS/3 ML VIAL SUBQ SCH ×4 (08:47→21:05)
[2021-04-23] MEDS: PARoxetine 20 MG TABLET PO SCH (08:47)
[2021-04-23] MEDS: Fluticasone Propionate Nasal 50 MCG/SPRAY BOTTLE NS SCH (08:48)
[2021-04-23] MEDS: cefTRIAXone 1,000 MG in 0.9 % Sodium Chloride Mini Bag 100 ML IVPB SCH (15:47)
[2021-04-23] MEDS: Azithromycin 250 MG TABLET PO SCH (15:48)
[2021-04-23 20:50] LABS: Lambda Qnt Free Light Chains 75.84 mg/L (5.71-26.30)
[2021-04-23] MEDS: Sennosides 8.6 MG TABLET PO SCH (21:01)
[2021-04-23] MEDS: traZODone 50 MG TABLET PO SCH (21:02)
[2021-04-23] MEDS: rOPINIRole 1 MG TABLET PO SCH (21:04)
[2021-04-24 01:48] LABS: Calcium 9.2 mg/dL (8.6-10.3)
[2021-04-24] MEDS: 0.9 % Sodium Chloride 1,000 ML IVC SCH (02:07)
[2021-04-24] MEDS: Ipratropium/Albuterol Neb 3 ML IH SCH ×2 (04:01→10:53)
[2021-04-24] MEDS: Fluticasone Propionate Nasal 50 MCG/SPRAY BOTTLE NS SCH (08:14)
[2021-04-24] MEDS: PARoxetine 20 MG TABLET PO SCH (08:15)
[2021-04-24] MEDS: Multivit/Ca/Min/Fe/FA 1 TAB TABLET PO SCH (08:15)
[2021-04-24] MEDS: Insulin LISPRO 300 UNITS/3 ML VIAL SUBQ SCH ×2 (08:16→11:42)
[2021-04-24 08:47] LABS: Kappa Qnt Free Light Chains 91.67 mg/L (3.30-19.40)
[2021-04-24 08:54] LABS: ANA IgG by ELISA NONE DETECTED (None Detected); Tissue Transglutaminase IgA <2 U/mL (0-3)
[2021-04-24 10:50] VITALS: BP 148/72; PULSE 66; TEMP 98.5; O2SAT 96
[2021-04-24] MEDS: Budesonide/Formoterol 80/4.5 1 PUFF INH IH SCH (10:53)
[2021-04-24 11:54] LABS: Adenovirus Not Detected (Not Detect); Bordetella Pertussis Not Detected (Not Detect); Chlamydophila pneumoniae Not Detected (Not Detect); Coronavirus 229E Not Detected (Not Detect); Coronavirus HKU1 Not Detected (Not Detect); Coronavirus NL63 Not Detected (Not Detect); Coronavirus OC43 Not Detected (Not Detect); Human Metapneumovirus Not Detected (Not Detect); Human Rhinovirus/Enterovirus Not Detected (Not Detect); Influenza A Subtype 2009 H1 Not Detected (Not Detect); Influenza B Not Detected (Not Detect); Mycoplasma pneumoniae Not Detected (Not Detect); Parainfluenza Virus 1 Not Detected (Not Detect); Parainfluenza Virus 2 Not Detected (Not Detect); Parainfluenza Virus 3 Not Detected (Not Detect); Parainfluenza Virus 4 Not Detected (Not Detect); Respiratory Syncytial Virus Not Detected (Not Detect); SARS-CoV-2 Not Detected (Not Detect)
[2021-04-24] MEDS ORDERED: Darbepoetin 100 MCG/0.5 ML SYRINGE SQ SCH (12:15)
[2021-04-24 22:47] LABS: Alpha 2 Globulin (PEP) 1.11 g/dL (0.48-1.05)
[2021-04-25 07:54] LABS: IFE Reflexed NOT DONE
[2021-05-06] MEDS ORDERED: Cyanocobalamin (B-12) 1,000 MCG/ML VIAL IM SCH (09:00)
== END 2021-04-24 14:00 | DRG 280 ==
LOC: EMEROOARM 14:41 → 3ANU 14:41 → SUATTDRO 17:39 → 3ANU 19:00
PROVIDERS: ADMIT Student in an Organized Health Care Education/Training Program; ATTEND General Practice

== ENCOUNTER 2021-07-12 17:01 | Observation (INO) ==
[2021-07-12] MEDS ORDERED: Morphine Sulfate 2 MG/ML SYRINGE IVP ONE (17:38)
[2021-07-12] MEDS ORDERED: Aspirin 325 MG TABLET PO ONE (17:38)
[2021-07-12] MEDS ORDERED: Ondansetron 4 MG/2 ML VIAL IVP ONE (17:40)
[2021-07-12 18:06] LABS: Basophils % 0.4 %; Hematocrit 31.7 % (35.3-44.9); Hemoglobin 10.2 g/dL (11.5-15.4); Immature Granulocytes % 0.2 % (0-4); Lymphocytes # 1.1 K/mcL (0.6-4.6); Lymphocytes % 12.6 %; Mean Corpuscular HGB Conc 32.2 g/dL (31.6-35.5); Mean Corpuscular Hemoglobin 30.5 pg (28.0-33.3); Mean Corpuscular Volume 94.9 fL (83.0-100.0); Mean Platelet Volume 10.2 fL (9.4-12.4); Monocytes # 0.5 K/mcL (0.0-1.3); Monocytes % 5.5 %; Neutrophils # 6.8 K/mcL (1.6-8.9); Platelet Count 218 K/mcL (140-400); Red Blood Count 3.34 M/mcL (3.82-4.97); Red Cell Distribution Width 13.7 % (11.5-14.5); Segmented Neutrophils % 81.3 %; White Blood Count 8.4 K/mcL (4.3-11.1)
[2021-07-12 19:07] LABS: Albumin/Globulin Ratio 1.3 (1.1-2.2); Bilirubin,Direct 0.1 mg/dL (0.0-0.2); Bilirubin,Indirect 0.2 mg/dL (0.0-1.0); Bilirubin,Total 0.3 mg/dL (0.3-1.0); Calcium 9.3 mg/dL (8.6-10.3); Globulin 3.1 g/dL (2.4-3.5); Potassium 4.1 mEq/L (3.5-5.1); Total Protein 7.1 g/dL (6.4-8.9); Troponin I 0.03 ng/mL (< 0.04)
[2021-07-12] MEDS: Nitroglycerin 0.4 MG TAB.SUBL SL SCH ×3 (21:23→21:33)
[2021-07-12] MEDS ORDERED: Naloxone 0.4 MG/ML INJ IVP PRN (22:30)
[2021-07-12] MEDS ORDERED: Ondansetron 4 MG/2 ML VIAL IVP PRN (22:30)
[2021-07-12] MEDS ORDERED: Nitroglycerin 0.4 MG TAB.SUBL SL PRN (22:32)
[2021-07-12] MEDS ORDERED: Morphine Sulfate 2 MG/ML SYRINGE IVP PRN (22:32)
[2021-07-12] MEDS: Acetaminophen 325 MG TABLET PO PRN (22:55)
[2021-07-12] MEDS ORDERED: *HR* Dextrose 50 % in Water (Syg) 50 ML SYRINGE IVP PRN (23:48)
[2021-07-12] MEDS ORDERED: Dextrose 4 GM Chewable Tablets PO PRN ×2 (23:48)
[2021-07-12] MEDS ORDERED: D5% in Water 1,000 ML IVC PRN (23:48)
[2021-07-13] MEDS: Insulin LISPRO 300 UNITS/3 ML VIAL SUBQ SCH ×3 (00:40→11:22)
[2021-07-13 00:53] LABS: Hemoglobin 9.6 g/dL (11.5-15.4); Mean Corpuscular Hemoglobin 30.3 pg (28.0-33.3); Mean Corpuscular Volume 94.6 fL (83.0-100.0); Mean Platelet Volume 9.8 fL (9.4-12.4); Platelet Count 182 K/mcL (140-400); Red Blood Count 3.17 M/mcL (3.82-4.97); Red Cell Distribution Width 13.8 % (11.5-14.5); White Blood Count 8.3 K/mcL (4.3-11.1)
[2021-07-13 01:11] LABS: Calcium 9.3 mg/dL (8.6-10.3); Chol/HDL Ratio 3.5 (0-4.9)
[2021-07-13] MEDS ORDERED: Ipratropium/Albuterol Neb 3 ML ONE (07:22)
[2021-07-13] MEDS: Ipratropium/Albuterol Neb 3 ML IH SCH ×3 (07:27→20:18)
[2021-07-13] MEDS ORDERED: Furosemide 40 MG/4 ML VIAL IVP ONE (07:53)
[2021-07-13] MEDS: Aspirin 81 MG TAB.CHEW PO SCH (08:41)
[2021-07-13] MEDS: PARoxetine 20 MG TABLET PO SCH (08:41)
[2021-07-13] MEDS ORDERED: Regadenoson 0.4 MG/5 ML SYRINGE IVP ONE (08:43)
[2021-07-13 09:12] LABS: Bilirubin,Urine Negative (Negative); Blood,Urine Moderate (Negative); Clarity,Urine Ex.Turbid (Clear); Color,Urine Yellow (Yellow); Glucose,Urine (UA) Normal (Normal); Ketones,Urine Negative (Negative); Leukocyte Esterase,Urine Large (Negative); Nitrite,Urine Positive (Negative); Protein,Urine Trace mg/dL (Neg-Trace); Specific Gravity,Urine 1.009 (1.010-1.025); Urobilinogen,Urine Normal (Normal)
[2021-07-13 09:19] LABS: Bacteria,Urine Many per hpf (None-Few); WBC,Urine TNTC per hpf (0-3)
[2021-07-13 09:20] LABS: RBC,Urine Present per hpf (0-3); Squamous Epithelial Cell,Urine Moderate per hpf (None-Few); Transitional Epi Cells,Urine Few per hpf (None-Few)
[2021-07-13] MEDS: Furosemide 40 MG TABLET PO SCH (17:10)
[2021-07-13] MEDS: Acetaminophen 325 MG TABLET PO PRN (17:12)
[2021-07-13] MEDS ORDERED: traZODone 50 MG TABLET PO SCH (21:00)
[2021-07-14] MEDS: Insulin LISPRO 300 UNITS/3 ML VIAL SUBQ SCH ×2 (05:17→05:26)
[2021-07-14 06:41] VITALS: O2SAT 98
[2021-07-14] MEDS: Ipratropium/Albuterol Neb 3 ML IH SCH (07:27)
[2021-07-14] MEDS: Aspirin 81 MG TAB.CHEW PO SCH (08:13)
[2021-07-14] MEDS: PARoxetine 20 MG TABLET PO SCH (08:13)
[2021-07-14] MEDS: Furosemide 40 MG TABLET PO SCH (08:13)
[2021-07-14] MEDS: Acetaminophen 325 MG TABLET PO PRN (08:21)
[2021-07-14] MEDS ORDERED: metOLazone 2.5 MG TABLET PO SCH (09:00)
[2021-07-14 11:07] VITALS: BP 121/74; PULSE 85; TEMP 98
[2021-07-14 11:08] LABS: Calcium 9.6 mg/dL (8.6-10.3); Potassium 3.4 mEq/L (3.5-5.1)
[2021-07-14 11:10] LABS: Influenza A PCR Negative (Negative); Influenza B PCR Negative (Negative); Resp. Syncytial Virus PCR Negative (Negative)
[2021-07-14 11:11] LABS: SARS-CoV-2 by PCR (In House) Negative (Negative)
== END 2021-07-14 11:57 ==
LOC: EMEROOARM 17:01 → 3BNU 17:01 → SUATTDRO 21:25 → 3BNU 21:51
PROVIDERS: ADMIT Internal Medicine; ATTEND Nurse Practitioner

== ENCOUNTER 2021-08-01 14:07 | Observation (INO) ==
[2021-08-01 15:05] LABS: Basophils % 0.4 %; Eosinophils % 0.1 %; Hematocrit 29.6 % (35.3-44.9); Hemoglobin 9.5 g/dL (11.5-15.4); Immature Granulocytes % 0.4 % (0-4); Lymphocytes # 1.2 K/mcL (0.6-4.6); Lymphocytes % 15.6 %; Mean Corpuscular HGB Conc 32.1 g/dL (31.6-35.5); Mean Corpuscular Hemoglobin 29.9 pg (28.0-33.3); Mean Corpuscular Volume 93.1 fL (83.0-100.0); Mean Platelet Volume 10.6 fL (9.4-12.4); Monocytes # 0.5 K/mcL (0.0-1.3); Monocytes % 6.6 %; Neutrophils # 5.8 K/mcL (1.6-8.9); Platelet Count 192 K/mcL (140-400); Red Blood Count 3.18 M/mcL (3.82-4.97); Red Cell Distribution Width 13.3 % (11.5-14.5); Segmented Neutrophils % 76.9 %; White Blood Count 7.5 K/mcL (4.3-11.1)
[2021-08-01 15:21] LABS: INR 1.1; Prothrombin Time 12.7 Seconds (9.4-12.1)
[2021-08-01 15:25] LABS: Calcium 9.2 mg/dL (8.6-10.3); Potassium 3.4 mEq/L (3.5-5.1)
[2021-08-01 15:26] LABS: Activated Partial Thrombo Time 31.8 Seconds (26.0-36.0)
[2021-08-01 15:40] LABS: Thyroid Stimulating Hormone 4.476 mcIU/mL (0.340-5.600); Troponin I 0.04 ng/mL (< 0.04)
[2021-08-01] MEDS ORDERED: Dextrose 4 GM Chewable Tablets PO PRN ×2 (16:04)
[2021-08-01] MEDS ORDERED: Ondansetron 4 MG/2 ML VIAL IVP PRN (16:04)
[2021-08-01] MEDS ORDERED: *HR* Dextrose 50 % in Water (Syg) 50 ML SYRINGE IVP PRN (16:04)
[2021-08-01] MEDS ORDERED: Acetaminophen 325 MG TABLET PO PRN (16:04)
[2021-08-01] MEDS ORDERED: Naloxone 0.4 MG/ML INJ IVP PRN (16:04)
[2021-08-01] MEDS ORDERED: D5% in Water 1,000 ML IVC PRN (16:04)
[2021-08-01] MEDS ORDERED: Potassium Chloride Elixir 20 MEQ/15 ML UDC PO ONE (16:07)
[2021-08-01] MEDS: Bumetanide 1 MG/4 ML VIAL IVP SCH (17:50)
[2021-08-01] MEDS: Insulin LISPRO 300 UNITS/3 ML VIAL SUBQ SCH (17:51)
[2021-08-01 18:11] LABS: Bacteria,Urine Few per hpf (None-Few); Bilirubin,Urine Negative (Negative); Blood,Urine Negative (Negative); Clarity,Urine Clear (Clear); Color,Urine Light-Yellow (Yellow); Glucose,Urine (UA) Normal (Normal); Hyaline Casts,Urine Few per lpf (None Seen); Ketones,Urine Negative (Negative); Leukocyte Esterase,Urine Moderate (Negative); Mucus,Urine Few per lpf (None-Few); Nitrite,Urine Positive (Negative); Protein,Urine Trace mg/dL (Neg-Trace); Specific Gravity,Urine 1.013 (1.010-1.025); Squamous Epithelial Cell,Urine Few per hpf (None-Few); Urobilinogen,Urine Normal (Normal); WBC,Urine 30-50 per hpf (0-3)
[2021-08-02 00:49] LABS: Basophils % 0.4 %; Eosinophils # 0.2 K/mcL (0.0-0.6); Eosinophils % 3.1 %; Hematocrit 29.1 % (35.3-44.9); Hemoglobin 9.3 g/dL (11.5-15.4); Immature Granulocytes % 0.8 % (0-4); Lymphocytes # 1.3 K/mcL (0.6-4.6); Lymphocytes % 17.4 %; Mean Corpuscular Hemoglobin 29.5 pg (28.0-33.3); Mean Corpuscular Volume 92.4 fL (83.0-100.0); Mean Platelet Volume 10.1 fL (9.4-12.4); Monocytes # 0.5 K/mcL (0.0-1.3); Neutrophils # 5.3 K/mcL (1.6-8.9); Platelet Count 165 K/mcL (140-400); Red Blood Count 3.15 M/mcL (3.82-4.97); Red Cell Distribution Width 13.4 % (11.5-14.5); Segmented Neutrophils % 71.3 %; White Blood Count 7.4 K/mcL (4.3-11.1)
[2021-08-02 01:06] LABS: Calcium 9.2 mg/dL (8.6-10.3); Potassium 3.4 mEq/L (3.5-5.1)
[2021-08-02] MEDS: Insulin LISPRO 300 UNITS/3 ML VIAL SUBQ SCH ×2 (07:18→11:46)
[2021-08-02] MEDS ORDERED: Nitroglycerin 0.4 MG TAB.SUBL SL PRN (07:21)
[2021-08-02] MEDS ORDERED: metOLazone 2.5 MG TABLET PO SCH (09:00)
[2021-08-02] MEDS ORDERED: PARoxetine 20 MG TABLET PO SCH (09:00)
[2021-08-02] MEDS ORDERED: Fluticasone Propionate Nasal 50 MCG/SPRAY BOTTLE NS SCH (09:00)
[2021-08-02] MEDS ORDERED: Multivit/Ca/Min/Fe/FA 1 TAB TABLET PO SCH (09:00)
[2021-08-02] MEDS ORDERED: Sennosides 8.6 MG TABLET PO SCH (09:00)
[2021-08-02] MEDS ORDERED: Aspirin 81 MG TAB.CHEW PO SCH (09:00)
[2021-08-02] MEDS ORDERED: Clotrimazole 1% CRM 15 GM TUBE TP SCH (09:00)
[2021-08-02] MEDS: Bumetanide 1 MG/4 ML VIAL IVP SCH (09:05)
[2021-08-02] MEDS ORDERED: Budesonide/Formoterol 80/4.5 1 PUFF INH IH SCH (10:00)
[2021-08-02 11:09] VITALS: BP 120/80; PULSE 59; TEMP 98.6; O2SAT 98
[2021-08-02] MEDS ORDERED: rOPINIRole 1 MG TABLET PO SCH (21:00)
[2021-08-02] MEDS ORDERED: traZODone 50 MG TABLET PO SCH (21:00)
[2021-08-03] MEDS ORDERED: Cyanocobalamin (B-12) 1,000 MCG/ML VIAL IM SCH (09:00)
== END 2021-08-02 15:11 ==
LOC: EMEROOARM 14:07 → 2ANU 14:07
PROVIDERS: ADMIT Student in an Organized Health Care Education/Training Program; ATTEND Student in an Organized Health Care Education/Training Program